=== PATIENT | female | born 1955 | race Caucasian/White ===

== ENCOUNTER 2016-10-19 14:18 | Observation (INO) | payer BC, OTHER ==
[~2016-10-19] VITALS: Ht 157.5 cm; Wt 82.8 kg
[~2016-10-19 14:18] MED LIST: ALBU1.257 INH; ASPEC81 PO; GLIP-171 PO; INSU1.2I SQ; LISI5TAB3 PO; NVLGI SC; PRLSR20 PO; PRVC40 PO; TPRSR25 PO
[2016-10-19] MEDS ORDERED: ASPI81TA28 PO (15:08)
[2016-10-19] MEDS ORDERED: NVLGI/PEN SC (15:08)
[2016-10-19] MEDS ORDERED: LISI-729 PO (15:08)
[2016-10-19] MEDS ORDERED: PRLSR20 PO (15:08)
--- NOTE | 2016-10-19 15:11 | EMERGENCY ROOM VISIT NOTE ---
History Report prepared by Melanie: Anny Levin Under the Supervision of: Dr. Donald Kim D.O. First contact with patient: 14:44 Chief Complaint: CARDIAC ASSESSMENT Stated Complaint: CHEST PAIN Nursing Triage Summary: Patient presents via ALS ambulance to room C9 with c/o chest pain Patient reports that she has been having intermittent chest pain since yesterday. The pain began as left sided to mid sternal. Patient states this morning the pain began at 1000 and has been constant since. Reports pain radiates into left arm and jaw. History of Present Illness The patient is a 61 year old female who presents to the Emergency Room with complaints of intermittent central chest pain that began yesterday while at work. She currently rates her discomfort as a 4/10 in severity. The patient states that yesterday while at work she started feeling strange. She states that the feeling felt as if her blood glucose was low, but states that she found her blood glucose to be 252. The patient states that her pain lasts approximately 1 hour each time it comes. She describes her discomfort as a tightness, pressure, and states that her pain currently is a dull pain. The patient states that the pain radiates into her left jaw. She additionally reports left arm heaviness and left finger numbness. The patient states that she has been experiencing intermittent nausea. She states that her pain radiates from her central chest to her left chest. The patient reports a history of a previous MS three years ago, but states that she didn't have a cardiac catheterization until one year later. She denies having any cardiac stents placed. The patient notes intermittent leg swelling and pain, but denies any recent travel. She denies any shortness of breath or abdominal pain. Source of History: patient Onset: yesterday Position: chest Symptom Intensity: 4/10 Quality: pressure, dull, other (tightness) Timing: intermittent Associated Symptoms: + nausea, + numbness (left finger), No SOB, No abdominal pain Note: Associated symptoms: leg pain and swelling, left arm heaviness, left jaw pain Review of Systems See HPI for pertinent positives & negatives. A total of 10 systems reviewed and were otherwise negative. Past Medical & Surgical Medical Problems: (1) Allergic rhinitis (2) Flores esophagus (3) Chest pain (4) Coronary atherosclerosis (5) Diab Arabella Wo Compl, Type Ii Or Unspec Type, Not Uncntrld (6) GERD (gastroesophageal reflux disease) (7) Hepatomegaly (8) Hyperlipidemia Nec/Nos (9) Hypertension Nos (10) Migraine Unspecified W/O Intract Mgrn W/O Status Migrainosus (11) NAFLD (nonalcoholic fatty liver disease) (12) Pulmonary nodule (13) Sensorineural hearing loss Surgical Problems: (1) History of hysterectomy (2) S/P cholecystectomy Family History FHx: heart disease (father) FHx: thyroid disorder (mother) Social History Smoking Status: Former Smoker Alcohol Use: none Drug Use: none Marital Status: Occupation Status: employed Current/Historical Medications Scheduled Aspirin (Aspirin Ec), 81 MG PO DAILY Calcium-Magnesium W/ Vitamin D (Calcium 500), 1 TAB PO DAILY Ergocalciferol (Vitamin D 14839 Unit), 1 CAP PO WK Glipizide Xl (Glucotrol Xl), 10 MG PO QAM Glipizide Xl (Glucotrol Xl), 5 MG PO QPM Insulin Aspart (Novolog Flexpen), UNITS SC WM Insulin Glargine (Toujeo Solostar), 62 UNITS SQ HS Lisinopril (Prinivil), 5 MG PO DAILY Metoprolol Succinate (Metoprolol Succinate ER), 12.5 MG PO QAM Omeprazole (Prilosec), 20 MG PO BID Pravastatin Sod (Pravastatin Sodium), 40 MG PO DAILY Scheduled PRN Albuterol Sulfate (Albuterol Sulfate), 1 VIAL NEB Q6 PRN for SOB/Wheezing Albuterol Sulfate (Proair Respiclick), 2 PUFFS INH QID PRN for SOB/Wheezing Allergies Coded Allergies: Quinolones (Verified Allergy, Intermediate, NAUSEA, ITCH, RASH, 03/13/16) Codeine (Verified Allergy, Unknown, CAN TAKE MORPHINE, 03/13/16) Sulfa Antibiotics (Verified Allergy, Unknown, ?, 03/13/16) Exenatide (Verified Adverse Reaction, Mild, Nausea/vomiting., 03/13/16) Nitrofurantoin (Verified Adverse Reaction, Mild, Nausea/vomiting, 03/13/16 ) Polyethylene Glycol (Verified Adverse Reaction, Mild, Nausea/vomiting, ) Metformin and Related (Verified Adverse Reaction, Unknown, Nausea/Vomiting , 03/13/16) Physical Exam Vital Signs Date Time Temp Pulse Resp B/P (MAP) Pulse Ox O2 Delivery O2 Flow Rate FiO2 10/19/16 16:10 80 16 141/90 98 Room Air 10/19/16 15:00 86 20 141/77 98 Room Air 10/19/16 14:30 96 Room Air 10/19/16 14:30 37.1 97 18 155/77 96 Room Air 10/19/16 14:25 96 Room Air 10/19/16 14:25 102 Physical Exam GENERAL: Patient is awake, alert, and in no acute distress. Patient is resting comfortably and showing no signs of anxiety EYES: The conjunctivae are clear. The pupils are round and reactive. EARS, NOSE, MOUTH AND THROAT: The nose is without any evidence of any deformity. Mucous membranes are moist tongue is midline NECK: The neck is nontender and supple. RESPIRATORY: Normal respiratory effort is noted there is no evidence of wheezing rhonchi or rales CARDIOVASCULAR: Regular rate and rhythm noted there no murmurs rubs or gallops normal S1 normal S2 GASTROINTESTINAL: The abdomen is soft. Bowel sounds are present in all quadrants. Abdomen is nontender MUSCULOSKELETAL/EXTREMITIES: There is no evidence of gross deformity full range of motion is noted in the hips and shoulders SKIN: There is no obvious evidence of any rash. There are no petechiae, pallor or cyanosis noted. NEUROLOGIC: Patient is awake alert and oriented x3. Medical Decision & Procedures ER Provider Diagnostic Interpretation: X-ray results as stated below per interpretation by me and the radiologist. CHEST ONE VIEW PORTABLE CLINICAL HISTORY: 61 years-old Female presenting with CHEST PAIN. TECHNIQUE: Portable upright AP view of the chest was obtained. COMPARISON: 03/13/2016. FINDINGS: Atherosclerosis of aortic arch. Cardiac silhouette within normal limits. Lungs and pleural spaces clear. Osseous structures and upper abdomen normal. IMPRESSION: 1. No acute cardiopulmonary disease. Electronically signed by: Cezar Harris M.D. 10/19/2016 3:09 PM Dictated Date/Time: 10/19/2016 3:08 PM Laboratory Results 10/19/16 14:15 Red Blood Count 4.42, Mean Corpuscular Volume 86.4, Mean Corpuscular Hemoglobin 31.2, Mean Corpuscular Hemoglobin Concent 36.1, Mean Platelet Volume 9.8, Neutrophils (%) (Auto) 64.4, Lymphocytes (%) (Auto) 26.8, Monocytes (%) (Auto) 7.2, Eosinophils (%) (Auto) 1.2, Basophils (%) (Auto) 0.2, Neutrophils # (Auto) 3.14, Lymphocytes # (Auto) 1.31, Monocytes # (Auto) 0.35, Eosinophils # (Auto) 0.06, Basophils # (Auto) 0.01 10/19/16 14:15 Test 10/19/16 14:15 10/19/16 14:30 10/19/16 16:52 White Blood Count 4.88 K/uL (4.8-10.8) Red Blood Count 4.42 M/uL (4.2-5.4) Hemoglobin 13.8 g/dL (12.0-16.0) Hematocrit 38.2 % (37-47) Mean Corpuscular Volume 86.4 fL (80-100) Mean Corpuscular Hemoglobin 31.2 pg (25-34) Mean Corpuscular Hemoglobin Concent 36.1 g/dl (32-36) Platelet Count 96 K/uL (130-400) Mean Platelet Volume 9.8 fL (7.4-10.4) Neutrophils (%) (Auto) 64.4 % Lymphocytes (%) (Auto) 26.8 % Monocytes (%) (Auto) 7.2 % Eosinophils (%) (Auto) 1.2 % Basophils (%) (Auto) 0.2 % Neutrophils # (Auto) 3.14 K/uL (1.4-6.5) Lymphocytes # (Auto) 1.31 K/uL (1.2-3.4) Monocytes # (Auto) 0.35 K/uL (0.11-0.59) Eosinophils # (Auto) 0.06 K/uL (0-0.5) Basophils # (Auto) 0.01 K/uL (0-0.2) RDW Standard Deviation 44.7 fL (36.4-46.3) RDW Coefficient of Variation 14.4 % (11.5-14.5) Immature Granulocyte % (Auto) 0.2 % Immature Granulocyte # (Auto) 0.01 K/uL (0.00-0.02) Platelet Estimate DECREASED Prothrombin Time 11.0 SECONDS (9.0-12.0) Prothromb Time International Ratio 1.0 (0.9-1.1) Activated Partial Thromboplast Time 25.1 SECONDS (21.0-31.0) Partial Thromboplastin Ratio 1.0 Anion Gap 8.0 mmol/L (3-11) Est Creatinine Clear Calc Drug Dose 102.9 ml/min Estimated GFR () 115.3 Estimated GFR (Non- 99.5 BUN/Creatinine Ratio 27.8 (10-20) Calcium Level 9.0 mg/dl (8.5-10.1) Total Bilirubin 1.0 mg/dl (0.2-1) Direct Bilirubin 0.3 mg/dl (0-0.2) Aspartate Amino Transf (AST/SGOT) 23 U/L (15-37) Alanine Aminotransferase (ALT/SGPT) 31 U/L (12-78) Alkaline Phosphatase 81 U/L (45-117) Total Creatine Kinase 76 U/L (26-192) Creatine Kinase MB 1.2 ng/ml (0.5-3.6) Creatine Kinase MB Ratio 1.6 (0-3.0) Total Protein 6.7 gm/dl (6.4-8.2) Albumin 3.8 gm/dl (3.4-5.0) Lipase 119 U/L (73-393) Bedside Troponin I < 0.030 ng/ml (0-0.045) Laboratory results per my review. Medications Administered Medications (Trade) Dose Ordered Sig/Cliff Route Start Time Stop Time Status Last Admin Dose Admin Ondansetron HCl (Zofran Inj) 4 mg NOW STAT IV 10/19/16 15:58 10/19/16 15:59 DC 10/19/16 16:10 4 MG Al Hydroxide/Mg Hydroxide (Maalox Susp) 30 ml NOW STAT PO 10/19/16 15:58 10/19/16 15:59 DC 10/19/16 16:10 30 ML ECG Indication: chest pain Rate (beats per minute): 98 Rhythm: normal sinus Findings: ST depression (Anterior and lateral), other (LVH by voltage criteria) Comparison ECG Date: 03/13/16 Change: When compared to EKG done on 03/13/16, changes are new. Repeat EKG: normal sinus rhythm 87, no ectopy, resolution of previous ST depressions. ED Course 1447: The patient was evaluated in room C9. A complete history and physical examination were performed. 1555: I reevaluated the patient and she is resting comfortably. I discussed the exam findings with her and I discussed the treatment plan. She verbalized complete understanding and agreement. We are awaiting a call back from Cardiology. 1558: Ordered Maalox Susp 30 ml PO, Zofran Inj 4 mg IV. 1614: I discussed the patients case with Dr. Edwards, Cardiology. He states that he will stress the patient in the morning. 1616: I reevaluated the patient and updated her on the treatment plan. She is in agreement with the plan. She will be evaluated for further treatment. 1622: I discussed the patients case with Willie Romo. She is going to evaluate the patient for further treatment. Medical Decision Differential diagnosis: Etiologies such as cardiac ischemia, aortic dissection, pulmonary embolism, pneumonia, pneumothorax, musculoskeletal, infections, pericarditis, myocarditis , esophageal rupture, gastrointestinal, as well as others were entertained. Nursing notes reviewed. The patient is a 61-year-old female who presented to the emergency department for an evaluation of chest discomfort. The patient describes chest pain which she describes as a pressure as well as nausea. The patient's EKG initially showed ST abnormalities which appeared to be in the anterior leads. The patient had a repeat EKG which showed some improvement of the ST segment abnormalities. I discussed the patient's laboratory and radiographic studies with her. I also discussed the limitations of the emergency department workup for chest pain with her. I discussed her recent cardiac catheterization with the on-call [facility] waxed bag machine operator. Given the patient's risk factors and EKG changes she may be still at risk for an acute coronary syndrome. For this reason I discussed her case with the on-call [facility] hospitalist. They've agreed to evaluate the patient in emergency department for further management and disposition. The patient was treated with aspirin prior to arrival. She was also given Zofran in the emergency department. Medication Reconcilliation Current Medication List: was personally reviewed by me Blood Pressure Screening Patient's blood pressure: Elevated blood pressure Blood pressure disposition: Elevated BP felt to be situational, Did not require urgent referral Consults Time Called: 1555 Consulting Physician: Dr. Edwards Returned Call: 1614 I discussed the patients case with Dr. Edwards, Cardiology. He states that he will stress the patient in the morning. Additional Consults: Time Called: 161 Consulted Physician: Willie Romo Returned Call: 1622 Additional Comments: I discussed the patients case with Willie Romo. She is going to evaluate the patient for further treatment. Impression Primary Impression: Precordial chest pain Additional Impression: EKG abnormalities Scribe Attestation The scribe's documentation has been prepared under my direction and personally reviewed by me in its entirety. I confirm that the note above accurately reflects all work, treatment, procedures, and medical decision making performed by me. Departure Information Dispostion Being Evaluated By Hospitalist Referrals (PCP) Problem Qualifiers
[2016-10-19 15:24] LABS: BUN/CREATININE RATIO 27.8 (10-20); CKMB/CK RATIO 1.6 (0-3.0); CREATININE 0.58 mg/dl (0.60-1.20)
[2016-10-19 15:25] LABS: HEMATOCRIT 38.2 % (37-47); MEAN CELL VOLUME 86.4 fL (80-100); MEAN CORPUSCULAR HEMOGLOBIN 31.2 pg (25-34); MEAN CORPUSCULAR HGB CONC 36.1 g/dl (32-36); MEAN PLATELET VOLUME 9.8 fL (7.4-10.4); PLATELET COUNT 96 K/uL (130-400); RED BLOOD COUNT 4.42 M/uL (4.2-5.4); WHITE BLOOD COUNT 4.88 K/uL (4.8-10.8)
[2016-10-19 15:26] LABS: BASO % 0.2 %; BASO ABS # 0.01 K/uL (0-0.2); COMPLETE YES; EOS % 1.2 %; IG% 0.2 %; LYMPH % 26.8 %; LYMPH ABS # 1.31 K/uL (1.2-3.4); MONO % 7.2 %; NEUT % 64.4 %; PLT ESTIMATE DECREASED
[2016-10-19 15:29] LABS: POTASSIUM 3.6 mmol/L (3.5-5.1)
[2016-10-19] MEDS ORDERED: ALUMINUM/MAGNESIUM SUSP 30 ML UDC PO STA (15:58)
[2016-10-19] MEDS ORDERED: ONDANSETRON INJ 2 MG/ML 2 ML VIAL IV STA (15:58)
[2016-10-19] MEDS ORDERED: ALBU18002 INH (17:00)
[2016-10-19] MEDS ORDERED: ACETAMINOPHEN 325 MG TAB PO PRN (17:00)
[2016-10-19] MEDS ORDERED: NITROGLYCERIN 0.4 MG SL PER TAB CHARGE SL PRN (17:00)
[2016-10-19] MEDS ORDERED: CALC-5 PO (17:00)
[2016-10-19] MEDS ORDERED: ALBU1.257 NEB (17:00)
[2016-10-19] MEDS ORDERED: ENOXAPARIN 40 MG/0.4 ML SYR SC SCH (17:00)
[2016-10-19] MEDS ORDERED: ONDANSETRON INJ 2 MG/ML 2 ML VIAL IV PRN (17:00)
[2016-10-19] MEDS ORDERED: ERGO500037 PO (17:00)
[2016-10-19] MEDS ORDERED: GLUCOSE 40% GEL 15 GM TUBE PO PRN (17:15)
[2016-10-19] MEDS ORDERED: DEXTROSE 50% 50 ML SYR IV PRN (17:15)
[2016-10-19] MEDS ORDERED: GLUCAGON FOR INJ 1 MG VIAL SQ PRN (17:15)
[2016-10-19] MEDS ORDERED: GLUCOSE 10 TABS/TUBE PO PRN (17:15)
[2016-10-19] MEDS ORDERED: PHARMACY GLYCEMIC MGMT CONSULT PRN (17:19)
--- NOTE | 2016-10-19 17:26 | Pharmacy Progress Note ---
Glycemic Control Intl Consult Date of Service Oct 19, 2016. Scope Glycemic Pharmacist consulted by Lily Phipps on 10/19/2016 for glycemic control and to write orders per [facility] inpatient glycemic control protocol Objective Weight (Kilograms): 84.800 Accuchecks BSG (last 24hrs): Test 10/19/16 14:15 Random Glucose 241 mg/dl (70-99) Laboratory Data (last 24hrs) Test 10/19/16 14:15 Anion Gap 8.0 mmol/L BUN/Creatinine Ratio 27.8 Blood Urea Nitrogen 16 mg/dl Creatinine 0.58 mg/dl Potassium Level 3.6 mmol/L Sodium Level 138 mmol/L White Blood Count 4.88 K/uL Red Blood Count 4.42 M/uL Hemoglobin 13.8 g/dL Hematocrit 38.2 % Mean Corpuscular Volume 86.4 fL Mean Corpuscular Hemoglobin 31.2 pg Mean Corpuscular Hemoglobin Concent 36.1 g/dl Platelet Count 96 K/uL Mean Platelet Volume 9.8 fL Neutrophils (%) (Auto) 64.4 % Lymphocytes (%) (Auto) 26.8 % Monocytes (%) (Auto) 7.2 % Eosinophils (%) (Auto) 1.2 % Basophils (%) (Auto) 0.2 % Neutrophils # (Auto) 3.14 K/uL Lymphocytes # (Auto) 1.31 K/uL Monocytes # (Auto) 0.35 K/uL Eosinophils # (Auto) 0.06 K/uL Basophils # (Auto) 0.01 K/uL Recent Pertinent Medications Outpatient Anti-diabetic Regimen: * Toujeo 62 units SQ qPM and Novolog sliding scale (9 units this morning); Glucotrol XL 10 mg with breakfast and 5 mg with dinner * A1c = 6.7 % 05/06/16 Risk Factors for Insulin Resistance: * Diet: type 2 diabetic diet, possibly NPO after midnight Assessment & Plan ASSESSMENT: * ADA & AACE recommend a goal blood sugar range 140-180 mg/dl for the majority of critically ill & non-critically ill patients. However, more stringent targets may be selected in individual cases. Will utilize more stringent goal of 110-140mg/dl based on patient age & comorbidities. Additionally, tighter glycemic control is warranted for cardiac health. * Ms Saunders is a 61 y/o F admitted 8/2/17 for a cardiac assessment. She has a PMH of GERD with Flores's esophagus, NAFLD, and coronary atherosclerosis. She has a basal heavy insulin regimen at home which demonstrates a moderate amount of insulin resistance. * Due to the transition from Toujeo to Lantus, will reduce first dose of Lantus by 20%. Since patient is possible NPO, will utilize a further reduction of 40% to 40 units for Lantus. Based on a total daily insulin dose of approximately 85 units (62 units of basal and estimating 27 units of bolus), prandial novolog was determined. * Pt is maintained on oral antidiabetic agents as an outpatient * Oral agents are not recommended for inpatient use d/t drug interactions, changing PO intake, and difficulty titrating for acute hyper/hypoglycemia. ADA recommends re-initiating outpatient oral agents 1-2 days prior to discharge if/ when appropriate if they were held on admission. PLAN FOR INPATIENT GLYCEMIC CONTROL: * Holding outpatient oral diabetes medications * Basal insulin with LANTUS 40-50 units SQ HS (40 units if NPO and 50 units if tolerating diet) * Correctional Insulin with NOVOLOG per scale ACHS * Goal Range: Low 110 mg/dL - High 140 mg/dL * Correction Factor: 20 mg/dL/unit * Nutritional / Prandial insulin per carb ratio of 1 unit per 6 grams CHO consumed * Please note that the plan above was derived based on current level of insulin resistance and hospital stress. These recommendations are appropriate for inpatient admission only. Plan of care upon discharge will need to be reassessed to avoid potential outpatient hypo/hyperglycemia. Thank you.
[2016-10-19] MEDS: INSULIN ASPART 100 UNITS/ML 3 ML PEN SC SCH ×2 (18:00→22:39)
--- NOTE | 2016-10-19 18:15 | History and Physical ---
History & Physical Date & Time of Service: Oct 19, 2016 ~ 16:30 Chief Complaint: Chest Pain Primary Care Physician: Ginger Can M.D. History of Present Illness 61 year old female who presents to the ER with chest pain. Patient reports her chest pain began yesterday. She reports a few episodes since that time. She reports the pain beings substernally and radiates out to the left side of her chest. She also reports radiation of the pain into the left side of her neck and jaw and down the left arm with associated numbness. She describes the pain as a tightness. She rates it #7/10 at its worst. She also has associated lightheadedness, diaphoresis, and nausea. She reports the episodes typically last one hour and resolve on their own. This morning symptoms were more persistent so she called EMS. No specific causative factors. En route, patient received full dose ASA and nitro SL. She reports the nitro relieved the pain but did not resolve it. She report she other varghese has been feeling well recently. She reports tolerating her ADLs at baseline. She reports occasional lower extremity edema. She denies orthopnea. She denies abdominal pain, vomiting , or diarrhea. No fever or chills. She denies urinary symptoms. In the ER, patient's initial troponin is negative and EKG does not show any acute ST changes. Vitals are stable. Past Medical/Surgical History Medical Problems: (1) Reyes esophagus Status: Chronic (2) DM type 2 (diabetes mellitus, type 2) Status: Chronic (3) HLD (hyperlipidemia) Status: Chronic (4) HTN (hypertension) Status: Chronic (5) SAM (nonalcoholic steatohepatitis) Status: Chronic (6) Thrombocytopenia Status: Chronic Surgical Problems: (1) History of hysterectomy Status: Chronic (2) Hx of cardiac cath Permanent Comment: 05/2015 - mild CAD Status: Chronic (3) S/P cholecystectomy Status: Chronic Family History FH: myocardial infarction FATHER BROTHER SISTER Social History Smoking Status: Former Smoker Alcohol Use: occasionally Marital Status: Immunizations History of Tetanus Vaccine?: Yes Tetanus Immunization Date: Dec 27, 2004 Multi-Drug Resistant Organisms History of MDRO: No Allergies Coded Allergies: Quinolones (Verified Allergy, Intermediate, NAUSEA, ITCH, RASH, 03/13/16) Codeine (Verified Allergy, Unknown, CAN TAKE MORPHINE, 03/13/16) Sulfa Antibiotics (Verified Allergy, Unknown, ?, 03/13/16) Exenatide (Verified Adverse Reaction, Mild, Nausea/vomiting., 03/13/16) Nitrofurantoin (Verified Adverse Reaction, Mild, Nausea/vomiting, 03/13/16 ) Polyethylene Glycol (Verified Adverse Reaction, Mild, Nausea/vomiting, ) Metformin and Related (Verified Adverse Reaction, Unknown, Nausea/Vomiting , 03/13/16) Home Medications Scheduled Aspirin (Aspirin Ec), 81 MG PO DAILY Calcium-Magnesium W/ Vitamin D (Calcium 500), 1 TAB PO DAILY Ergocalciferol (Vitamin D 78492 Unit), 1 CAP PO WK Glipizide Xl (Glucotrol Xl), 10 MG PO QAM Glipizide Xl (Glucotrol Xl), 5 MG PO QPM Insulin Aspart (Novolog Flexpen), UNITS SC WM Insulin Glargine (Toujeo Solostar), 62 UNITS SQ HS Lisinopril (Prinivil), 5 MG PO DAILY Metoprolol Succinate (Metoprolol Succinate ER), 12.5 MG PO QAM Omeprazole (Prilosec), 20 MG PO BID Pravastatin Sod (Pravastatin Sodium), 40 MG PO DAILY Scheduled PRN Albuterol Sulfate (Albuterol Sulfate), 1 VIAL NEB Q6 PRN for SOB/Wheezing Albuterol Sulfate (Proair Respiclick), 2 PUFFS INH QID PRN for SOB/Wheezing Review of Systems ROS per HPI, all other systems reviewed and negative Physical Exam Vital Signs Date Time Temp Pulse Resp B/P (MAP) Pulse Ox O2 Delivery O2 Flow Rate FiO2 10/19/16 17:42 81 16 137/74 96 Room Air 10/19/16 16:10 80 16 141/90 98 Room Air 10/19/16 15:00 86 20 141/77 98 Room Air 10/19/16 14:30 96 Room Air 10/19/16 14:30 37.1 97 18 155/77 96 Room Air 10/19/16 14:25 96 Room Air 10/19/16 14:25 102 General Appearance: no apparent distress Head: normocephalic Eyes: normal inspection ENT: hearing grossly normal Neck: supple, no JVD Respiratory/Chest: chest non-tender, lungs clear, normal breath sounds, no respiratory distress Cardiovascular: regular rate, rhythm, no edema Abdomen/GI: normal bowel sounds, soft, + tenderness (epigastric - patient reports as chronic) Extremities/Musculoskelatal: normal inspection, + calf tenderness (BL - patient reports as chronic ) Neurologic/Psych: no motor/sensory deficits, alert, normal mood/affect, oriented x 3 Skin: normal color, warm/dry Diagnostics Laboratory Results Results Past 24 Hours Test 10/19/16 14:15 10/19/16 14:30 10/19/16 17:15 Range/Units White Blood Count 4.88 4.8-10.8 K/uL Red Blood Count 4.42 4.2-5.4 M/uL Hemoglobin 13.8 12.0-16.0 g/dL Hematocrit 38.2 37-47 % Mean Corpuscular Volume 86.4 80-100 fL Mean Corpuscular Hemoglobin 31.2 25-34 pg Mean Corpuscular Hemoglobin Concent 36.1 32-36 g/dl Platelet Count 96 130-400 K/uL Mean Platelet Volume 9.8 7.4-10.4 fL Neutrophils (%) (Auto) 64.4 % Lymphocytes (%) (Auto) 26.8 % Monocytes (%) (Auto) 7.2 % Eosinophils (%) (Auto) 1.2 % Basophils (%) (Auto) 0.2 % Neutrophils # (Auto) 3.14 1.4-6.5 K/uL Lymphocytes # (Auto) 1.31 1.2-3.4 K/uL Monocytes # (Auto) 0.35 0.11-0.59 K/uL Eosinophils # (Auto) 0.06 0-0.5 K/uL Basophils # (Auto) 0.01 0-0.2 K/uL RDW Standard Deviation 44.7 36.4-46.3 fL RDW Coefficient of Variation 14.4 11.5-14.5 % Immature Granulocyte % (Auto) 0.2 % Immature Granulocyte # (Auto) 0.01 0.00-0.02 K/uL Platelet Estimate DECREASED Prothrombin Time 11.0 9.0-12.0 SECONDS Prothromb Time International Ratio 1.0 0.9-1.1 Activated Partial Thromboplast Time 25.1 21.0-31.0 SECONDS Partial Thromboplastin Ratio 1.0 Sodium Level 138 136-145 mmol/L Potassium Level 3.6 3.5-5.1 mmol/L Chloride Level 103 98-107 mmol/L Carbon Dioxide Level 27 21-32 mmol/L Anion Gap 8.0 3-11 mmol/L Blood Urea Nitrogen 16 7-18 mg/dl Creatinine 0.58 0.60-1.20 mg/dl Est Creatinine Clear Calc Drug Dose 102.9 ml/min Estimated GFR () 115.3 Estimated GFR (Non- 99.5 BUN/Creatinine Ratio 27.8 10-20 Random Glucose 241 70-99 mg/dl Calcium Level 9.0 8.5-10.1 mg/dl Total Bilirubin 1.0 0.2-1 mg/dl Direct Bilirubin 0.3 0-0.2 mg/dl Aspartate Amino Transf (AST/SGOT) 23 15-37 U/L Alanine Aminotransferase (ALT/SGPT) 31 12-78 U/L Alkaline Phosphatase 81 45-117 U/L Total Creatine Kinase 76 26-192 U/L Creatine Kinase MB 1.2 0.5-3.6 ng/ml Creatine Kinase MB Ratio 1.6 0-3.0 Total Protein 6.7 6.4-8.2 gm/dl Albumin 3.8 3.4-5.0 gm/dl Lipase 119 73-393 U/L Bedside Troponin I < 0.030 0-0.045 ng/ml D-Dimer 230 0-500 ug/L FEU Diagnostic Radiology CXR IMPRESSION: 1. No acute cardiopulmonary disease. Impression Assessment and Plan CHEST PAIN, R/O ACS - admit to tele - patient presenting with intermittent substernal chest tightness radiating to the left chest, jaw, and arm with associated lightheadedness, nausea, and diaphoresis - risk factors: HTN, HLD, DM, + family history, obesity, known mild CAD on prior cath (05/2015) - initial troponin negative, EKG without acute ST changes - D. Dimer negative - s/p full dose ASA, will continue with 81mg daily - continue beta lenka and statin; check lipid panel in AM - PRN nitro and EKG with chest pain - case discussed with Dr. Edwards - if troponins remain negative, dobutamine stress in AM - hx of Reyes's esophagus - ? if this is contributing to symptoms HTN - BP controlled, continue Lisinopril and metoprolol DM - hgb a1c 6.7 04/2016 - on Toujeo, NovoLog SSI, and glipizide at home - hold oral agents and utilize basal / SSI while hospitalized - pharmacy consult for glycemic management SAM, THROMBOCYTOPENIA - stable, platelets at baseline REYES'S ESOPHAGUS - continue PPI DVT PROPHYLAXIS - SCDs due to thrombocytopenia DISPO - The patient will be placed as observation status for now until further work up is complete. Attending addendum: Agree with the above H&P; please refer to above for more detail. Patient presents to the ER for complaints of chest pain that actually began 2 days ago and was intermittent, but became more severe today. She reports pain radiating to her jaw and left arm, as well as associated SOB, diaphoresis, palpitations, dizziness, and nausea. She states the pain improved to a 3-4 out of 10 after receiving NTG in the ambulance, and she continues to have some CP at present. She also reports chronic abdominal pain but states this pain did not feel similar to her GI issues. She also reports chronic calf pain and swelling which has been worked up previously and no cause found. Cardiac: RR, S1 and S2 auscultated Resp: CTA B/L, no wheezes or crackles GI: soft, tender epigastric (patient states it is chronic), + BS, nondistended MSK: trace symmetric LE edema, no calf pain with palpation CHEST PAIN: -rule out ACS -serial CM -observe in telemetry -continue home meds -negative D-dimer -stress test in AM as advised by Cardio VTE Prophylaxis VTE Risk Assessment Done? Y/N: Yes Risk Level: Moderate
[2016-10-19] MEDS: TRAMADOL HCL 50 MG TAB PO PRN (18:16)
[2016-10-19 18:52] VITALS: BP 162/79; PULSE 72; TEMP 36.6; O2SAT 95; Ht 157.5 cm; Wt 82.8 kg
[2016-10-19] MEDS ORDERED: IV FLUIDS COMPLETED PRN (19:00)
[2016-10-19 19:34] VITALS: BP 144/77; PULSE 68; TEMP 36.5; O2SAT 96
[2016-10-19] MEDS ORDERED: PRAVASTATIN SOD 40 MG TAB PO SCH (21:00)
[2016-10-19] MEDS ORDERED: INSULIN GLARGINE SOLOSTAR 100 UNITS/ML 3 ML PEN SC SCH ×2 (21:00)
[2016-10-19 23:04] VITALS: BP 152/80; PULSE 16; PULSE 76
[2016-10-19] MEDS ORDERED: KETOROLAC TROMETHAMINE 30 MG/ML VIAL IV STA (23:06)
[2016-10-19] MEDS ORDERED: KETOROLAC TROMETHAMINE 30 MG/ML VIAL ONE (23:09)
[2016-10-20] VITALS (9 sets, daily range): BP systolic 132–160; BP diastolic 80–89; PULSE 63–74; TEMP 36.5–36.7; O2SAT 93–97
[2016-10-20] MEDS ORDERED: KETOROLAC TROMETHAMINE 15 MG/ML VIAL IV. STA (04:54)
[2016-10-20 05:19] LABS: HEMATOCRIT 34.6 % (37-47); MEAN CELL VOLUME 86.9 fL (80-100); MEAN CORPUSCULAR HEMOGLOBIN 29.4 pg (25-34); MEAN CORPUSCULAR HGB CONC 33.8 g/dl (32-36); RED BLOOD COUNT 3.98 M/uL (4.2-5.4); WHITE BLOOD COUNT 3.57 K/uL (4.8-10.8)
[2016-10-20 05:30] LABS: MEAN PLATELET VOLUME 9.8 fL (7.4-10.4); PLATELET COUNT 79 K/uL (130-400)
[2016-10-20 05:53] LABS: BLOOD UREA NITROGEN 20 mg/dl (7-18); BUN/CREATININE RATIO 35.2 (10-20); CALCIUM 8.6 mg/dl (8.5-10.1); CARBON DIOXIDE 30 mmol/L (21-32); CHLORIDE 104 mmol/L (98-107); CREATININE 0.56 mg/dl (0.60-1.20); GLUCOSE 142 mg/dl (70-99); POTASSIUM 3.6 mmol/L (3.5-5.1); SODIUM 139 mmol/L (136-145)
[2016-10-20 05:58] LABS: CHOLESTEROL 101 mg/dl (0-200); CHOLESTEROL/HDL RATIO 3.3; HDL CHOLESTEROL 31 mg/dl; LDL CHOLESTEROL CALCULATED 30 mg/dl; TRIGLYCERIDES 200 mg/dl (0-150); VERY LOW DENSITY LIPOPROT CALC 40 mg/dl
[2016-10-20 06:48] LABS: ESTIMATED AVERAGE GLUCOSE 148 mg/dl; HA1C FLAG Normal (Normal)
[2016-10-20] MEDS: INSULIN ASPART 100 UNITS/ML 3 ML PEN SC SCH ×2 (07:00→11:00)
[2016-10-20] MEDS ORDERED: PANTOprazole SOD 40 MG TAB PO SCH (09:00)
[2016-10-20] MEDS ORDERED: LISINOPRIL 5 MG TAB PO SCH (09:00)
[2016-10-20] MEDS ORDERED: METOPROLOL SUCC 25MG EXT REL TAB PO SCH (09:00)
[2016-10-20] MEDS ORDERED: ASPIRIN 81 MG ECTAB PO SCH (09:00)
[2016-10-20] MEDS: TRAMADOL HCL 50 MG TAB PO PRN (09:15)
--- NOTE | 2016-10-20 10:09 | Progress Note ---
Internal Med Progress Note Date of Service: Oct 20, 2016. Provider Documentation: SUBJECTIVE: Had stress test this morning Reports chest pain completely resolved. Denies SOB, diaphoresis. No new complaints. Family at bedside. OBJECTIVE: Vital Signs-as noted below Physical Exam: General Appearance:Moderately built and nourished, no apparent distress Head: normocephalic, Atraumatic Eyes: normal inspection, EOMI, PERRL Neck: supple, Trachea midline Respiratory/Chest: Normal breath sounds, CTA Cardiovascular: S1, S2, No murmur Abdomen/GI:Soft, Non tender, Bowel sounds present Extremities/Musculoskelatal:normal inspection, no edema Neurologic/Psych:AAOX3, grossly no focal neurological deficits Skin: normal color, warm Lab data as noted below. ASSESSMENT & PLAN: CHEST PAIN, R/O ACS Patient presented with intermittent substernal chest tightness radiating to jaw , and arm with associated lightheadedness, nausea, and diaphoresis Risk factors: HTN, HLD, DM, + family history, obesity, known mild CAD on prior cath (05/2015) Cardiac enzymes: negative EKG without acute ST changes CXR:No acute cardiopulmonary disease D. Dimer negative continue ASA, beta lenka and statin Dobutamine stress: Non Ischemic (Discussed with ) HTN Stable continue Lisinopril and metoprolol DM hgb a1c 6.7 04/2016 on Toujeo, NovoLog SSI, and glipizide at home hold oral agents Continue SSI SAM, THROMBOCYTOPENIA stable platelets at baseline REYES'S ESOPHAGUS continue PPI DVT Px SCDs due to thrombocytopenia DISPOSITION: Plan to discharge home today Follow up with on 10/24/16 at 10:45AM Vital Signs: Date Time Temp Pulse Resp B/P (MAP) Pulse Ox O2 Delivery O2 Flow Rate FiO2 10/20/16 12:00 95 Room Air 10/20/16 11:34 36.5 66 18 160/89 (112) 93 Room Air 10/20/16 08:00 97 Room Air 10/20/16 07:38 36.5 63 20 135/84 (101) 97 Room Air 10/20/16 04:24 36.6 74 18 132/80 (97) 95 Room Air 10/20/16 04:00 95 Room Air 10/20/16 00:08 36.7 69 18 152/80 (104) 96 Room Air 10/20/16 00:01 95 Room Air 10/19/16 23:04 76 152/80 (104) 10/19/16 19:34 36.5 68 20 144/77 (99) 96 Room Air 10/19/16 18:52 36.6 72 16 162/79 95 Room Air 10/19/16 18:37 77 20 124/73 97 10/19/16 17:42 81 16 137/74 96 Room Air 10/19/16 16:10 80 16 141/90 98 Room Air 10/19/16 15:00 86 20 141/77 98 Room Air 10/19/16 14:30 96 Room Air 10/19/16 14:30 37.1 97 18 155/77 96 Room Air 10/19/16 14:25 96 Room Air 10/19/16 14:25 102 Lab Results: Results Past 24 Hours Test 10/19/16 14:15 10/19/16 14:30 10/19/16 17:15 10/19/16 18:18 Range/Units White Blood Count 4.88 4.8-10.8 K/uL Red Blood Count 4.42 4.2-5.4 M/uL Hemoglobin 13.8 12.0-16.0 g/dL Hematocrit 38.2 37-47 % Mean Corpuscular Volume 86.4 80-100 fL Mean Corpuscular Hemoglobin 31.2 25-34 pg Mean Corpuscular Hemoglobin Concent 36.1 32-36 g/dl Platelet Count 96 130-400 K/uL Mean Platelet Volume 9.8 7.4-10.4 fL Neutrophils (%) (Auto) 64.4 % Lymphocytes (%) (Auto) 26.8 % Monocytes (%) (Auto) 7.2 % Eosinophils (%) (Auto) 1.2 % Basophils (%) (Auto) 0.2 % Neutrophils # (Auto) 3.14 1.4-6.5 K/uL Lymphocytes # (Auto) 1.31 1.2-3.4 K/uL Monocytes # (Auto) 0.35 0.11-0.59 K/uL Eosinophils # (Auto) 0.06 0-0.5 K/uL Basophils # (Auto) 0.01 0-0.2 K/uL RDW Standard Deviation 44.7 36.4-46.3 fL RDW Coefficient of Variation 14.4 11.5-14.5 % Immature Granulocyte % (Auto) 0.2 % Immature Granulocyte # (Auto) 0.01 0.00-0.02 K/uL Platelet Estimate DECREASED Prothrombin Time 11.0 9.0-12.0 SECONDS Prothromb Time International Ratio 1.0 0.9-1.1 Activated Partial Thromboplast Time 25.1 21.0-31.0 SECONDS Partial Thromboplastin Ratio 1.0 Sodium Level 138 136-145 mmol/L Potassium Level 3.6 3.5-5.1 mmol/L Chloride Level 103 98-107 mmol/L Carbon Dioxide Level 27 21-32 mmol/L Anion Gap 8.0 3-11 mmol/L Blood Urea Nitrogen 16 7-18 mg/dl Creatinine 0.58 0.60-1.20 mg/dl Est Creatinine Clear Calc Drug Dose 102.9 ml/min Estimated GFR () 115.3 Estimated GFR (Non- 99.5 BUN/Creatinine Ratio 27.8 10-20 Random Glucose 241 70-99 mg/dl Calcium Level 9.0 8.5-10.1 mg/dl Total Bilirubin 1.0 0.2-1 mg/dl Direct Bilirubin 0.3 0-0.2 mg/dl Aspartate Amino Transf (AST/SGOT) 23 15-37 U/L Alanine Aminotransferase (ALT/SGPT) 31 12-78 U/L Alkaline Phosphatase 81 45-117 U/L Total Creatine Kinase 76 26-192 U/L Creatine Kinase MB 1.2 0.5-3.6 ng/ml Creatine Kinase MB Ratio 1.6 0-3.0 Total Protein 6.7 6.4-8.2 gm/dl Albumin 3.8 3.4-5.0 gm/dl Lipase 119 73-393 U/L Bedside Troponin I < 0.030 0-0.045 ng/ml D-Dimer 230 0-500 ug/L FEU Troponin I < 0.015 0-0.045 ng/ml Bedside Glucose 180 70-90 mg/dl Test 10/19/16 20:00 10/19/16 20:09 10/19/16 20:13 10/19/16 23:21 Range/Units Creatine Kinase MB Ratio 0-3.0 Creatine Kinase MB 1.1 0.5-3.6 ng/ml Bedside Glucose 257 70-90 mg/dl Troponin I < 0.015 0-0.045 ng/ml Test 10/20/16 01:42 10/20/16 04:44 10/20/16 06:50 10/20/16 11:27 Range/Units Creatine Kinase MB 1.3 0.5-3.6 ng/ml Creatine Kinase MB Ratio 0-3.0 White Blood Count 3.57 4.8-10.8 K/uL Red Blood Count 3.98 4.2-5.4 M/uL Hemoglobin 11.7 12.0-16.0 g/dL Hematocrit 34.6 37-47 % Mean Corpuscular Volume 86.9 80-100 fL Mean Corpuscular Hemoglobin 29.4 25-34 pg Mean Corpuscular Hemoglobin Concent 33.8 32-36 g/dl RDW Standard Deviation 44.7 36.4-46.3 fL RDW Coefficient of Variation 14.3 11.5-14.5 % Platelet Count 79 130-400 K/uL Mean Platelet Volume 9.8 7.4-10.4 fL Sodium Level 139 136-145 mmol/L Potassium Level 3.6 3.5-5.1 mmol/L Chloride Level 104 98-107 mmol/L Carbon Dioxide Level 30 21-32 mmol/L Anion Gap 5.0 3-11 mmol/L Blood Urea Nitrogen 20 7-18 mg/dl Creatinine 0.56 0.60-1.20 mg/dl Est Creatinine Clear Calc Drug Dose 105.1 ml/min Estimated GFR () 116.6 Estimated GFR (Non- 100.6 BUN/Creatinine Ratio 35.2 10-20 Random Glucose 142 70-99 mg/dl Estimated Average Glucose 148 mg/dl Hemoglobin A1c 6.8 4.5-5.6 % Calcium Level 8.6 8.5-10.1 mg/dl Troponin I < 0.015 0-0.045 ng/ml Triglycerides Level 200 0-150 mg/dl Cholesterol Level 101 0-200 mg/dl HDL Cholesterol 31 mg/dl LDL Cholesterol, Calculated 30 mg/dl VLDL Cholesterol, Calculated 40 mg/dl Cholesterol/HDL Ratio 3.3 Bedside Glucose 139 156 70-90 mg/dl
[2016-10-20] MEDS ORDERED: DOBUTamine HCL 12.5 MG/ML 20 ML VIAL ONE (10:33)
[2016-10-20] MEDS ORDERED: METOPROLOL TARTRATE 1 MG/ML VIAL ONE (10:33)
[2016-10-20] MEDS ORDERED: ATROPINE SULFATE 0.1 MG/ML 5ML SYR ONE (10:33)
[2016-10-20] MEDS ORDERED: PERFLUTREN LIPID MICROSPHERE (DEFINITY) IV ONE (11:17)
--- NOTE | 2016-10-20 14:08 | Pharmacy Progress Note ---
Glycemic Control Progress Note Date of Service Oct 20, 2016. Scope Glycemic Pharmacist consulted for glycemic control to write orders per [facility] inpatient glycemic control protocol. Objective Accuchecks BSG (last 24hrs): Test 10/19/16 14:15 10/19/16 18:18 10/19/16 20:13 10/20/16 04:44 Random Glucose 241 mg/dl (70-99) 142 mg/dl (70-99) Bedside Glucose 180 mg/dl (70-90) 257 mg/dl (70-90) Test 10/20/16 06:50 10/20/16 11:27 Bedside Glucose 139 mg/dl (70-90) 156 mg/dl (70-90) HbA1c: Test 10/20/16 04:44 Hemoglobin A1c 6.8 % (4.5-5.6) H Recent Pertinent Medications The patient is currently receiving: * Basal insulin: Lantus 40 units every HS * Correctional Insulin: Novolog Correction per scale ACHS Goal Range: Low 110 mg/dL - High 140 mg/dL Correction Factor: 20 mg/dL/unit * Prandial insulin: Per carb ratio of 1 unit per 6 grams CHO consumed * Oral Agents: None at this time Outpatient Anti-Diabetic Meds * Toujeo 62 units SQ qPM * Novolog sliding scale (9 units yesterday morning) * Glucotrol XL 10 mg with breakfast and 5 mg with dinner Assessment & Plan ASSESSMENT: * See progress note from 10/19 for more background info, in short: * Pt receiving SQ basal bolus insulin regimen for hyperglycemia secondary to baseline DM (outpatient regimen on hold) * BSGs ranging 142 - 257 mg/dl over the past 24hrs * Changes needed to insulin regimen: * AM Fasting BSG = 139 mg/dl. This is in goal range for patient based on inpatient targets and co-morbidities, but diet has been resumed so will plan to increase to 50 units (based off est outpatient TDD of 85 units and stress level of 2). * Difficult to evaluate post-prandial BSGs since patient has been NPO today. Will plan to continue the same for now. PLAN FOR INPATIENT GLYCEMIC CONTROL: * Increase Lantus to 50 units SQ qHS * Continue correction factor of 20 mg/dl/unit * Continue carb ratio of 1 unit per 6 grams CHO consumed * Continue goal range of Low 110 mg/dL - High 140 mg/dL RECOMMENDATIONS FOR DISCHARGE: * A1c indicates excellent outpatient control. Recommend to resume outpatient regimen on discharge. Will plan to keep Lantus once daily in the evening for easy transition to outpatient Toujeo. Thank you.
--- NOTE | 2016-10-20 14:09 | Discharge Summary ---
Discharge Summary Date of Service Oct 20, 2016. Discharge Summary Admission Date: Oct 19, 2016 at 16:51 Discharge Date: Oct 20, 2016 Discharge Disposition: Home Principal Diagnosis: Chest pain Procedures: CXR: No acute cardiopulmonary disease. Stress test: * Nonischemic dobtuamine stress echocardiogram. * No arrhythmias. * Normal HR and BP response to dobutamine infusion. * At rest, normal LV chamber size with mild concentric LVH. * Normal LV systolic function, EF 55-60%. * No segmental left ventricular wall motion abnormalities are noted. * Grade I diastolic dysfunction. * No significant valvular pathology. * Small, loculated, anterior pericardial effusion wtih stranding to suggest chronicity. No hemodynamic significance. Consultations: None Pending Studies/Follow-Up: Follow up with on 10/24/16 at 10:45AM Seek immediate medical attention if your symptoms reoccur or worsen Medication Reconciliation Continued Medications: Albuterol Sulfate (Albuterol Sulfate) 1.25 Mg/3 Ml Neb 1 VIAL NEB Q6 PRN for SOB/Wheezing for 15 Days, #150 ML Albuterol Sulfate (Proair Respiclick) 108 Mcg/Act Aer 2 PUFFS INH QID PRN for SOB/Wheezing Aspirin (Aspirin Ec) 81 Mg Tab 81 MG PO DAILY Calcium-Magnesium W/ Vitamin D (Calcium 500) 1 Tab Tab 1 TAB PO DAILY Ergocalciferol (Vitamin D 04405 Unit) 50,000 Unit Cap 1 CAP PO WK for 28 Days, #4 CAP 5 Refills Glipizide Xl (Glucotrol Xl) 5 Mg Tab 10 MG PO QAM, TAB Glipizide Xl (Glucotrol Xl) 5 Mg Tab 5 MG PO QPM, TAB Insulin Aspart (Novolog Flexpen) 100 Units/Ml Inj UNITS SC WM per SSI Insulin Glargine (Toujeo Solostar) 300 Unit/Ml Inj 62 UNITS SQ HS, #9 Lisinopril (Prinivil) 5 Mg Tab 5 MG PO DAILY, TAB Metoprolol Succinate (Metoprolol Succinate ER) 25 Mg Tabcr 12.5 MG PO QAM, #30 1 Refill Omeprazole (Prilosec) 20 Mg Capcr 20 MG PO BID, CAP Pravastatin Sod (Pravastatin Sodium) 40 Mg Tab 40 MG PO DAILY, #30 TAB 1 Refill Admission Information HPI (per Admitting provider): 61 year old female who presents to the ER with chest pain. Patient reports her chest pain began yesterday. She reports a few episodes since that time. She reports the pain beings substernally and radiates out to the left side of her chest. She also reports radiation of the pain into the left side of her neck and jaw and down the left arm with associated numbness. She describes the pain as a tightness. She rates it #7/10 at its worst. She also has associated lightheadedness, diaphoresis, and nausea. She reports the episodes typically last one hour and resolve on their own. This morning symptoms were more persistent so she called EMS. No specific causative factors. En route, patient received full dose ASA and nitro SL. She reports the nitro relieved the pain but did not resolve it. She report she other varghese has been feeling well recently. She reports tolerating her ADLs at baseline. She reports occasional lower extremity edema. She denies orthopnea. She denies abdominal pain, vomiting , or diarrhea. No fever or chills. She denies urinary symptoms. In the ER, patient's initial troponin is negative and EKG does not show any acute ST changes. Vitals are stable. Physical Exam (per Admitting): General Appearance: no apparent distress Head: normocephalic Eyes: normal inspection ENT: hearing grossly normal Neck: supple, no JVD Respiratory/Chest: chest non-tender, lungs clear, normal breath sounds, no respiratory distress Cardiovascular: regular rate, rhythm, no edema Abdomen/GI: normal bowel sounds, soft, + tenderness (epigastric - patient reports as chronic) Extremities/Musculoskelatal: normal inspection, + calf tenderness (BL - patient reports as chronic ) Neurologic/Psych: no motor/sensory deficits, alert, normal mood/affect, oriented x 3 Skin: normal color, warm/dry Hospital Course CHEST PAIN, R/O ACS Patient presented with intermittent substernal chest tightness radiating to jaw , and arm with associated lightheadedness, nausea, and diaphoresis Risk factors: HTN, HLD, DM, + family history, obesity, known mild CAD on prior cath (05/2015) Cardiac enzymes: negative EKG without acute ST changes CXR:No acute cardiopulmonary disease D. Dimer negative continue ASA, beta lenka and statin Dobutamine stress: Non Ischemic (Discussed with ) HTN Stable continue Lisinopril and metoprolol DM hgb a1c 6.7 04/2016 on Toujeo, NovoLog SSI, and glipizide at home hold oral agents Continue SSI SAM, THROMBOCYTOPENIA stable platelets at baseline REYES'S ESOPHAGUS continue PPI DVT Px SCDs due to thrombocytopenia DISPOSITION: Plan to discharge home today Follow up with on 10/24/16 at 10:45AM Total time spent on discharge = 33 minutes This includes examination of the patient, discharge planning, medication reconciliation, and communication with other providers. Discharge Instructions Discharge Instructions Date of Service Oct 20, 2016. Admission Reason for Admission: Chest Pain Discharge Discharge Diagnosis / Problem: Chest Pain r/o ACS Discharge Goals Goal(s): Decrease discomfort, Improve function Activity Recommendations Activity Limitations: resume your previous activity Exercise/Sports Limitations: as tolerated . Instructions / Follow-Up Instructions / Follow-Up Follow up with on 10/24/16 at 10:45AM Seek immediate medical attention if your symptoms reoccur or worsen Current Hospital Diet Patient's current hospital diet: AHA Diet (Heart Healthy), Diabetes Type 2 Diet Discharge Diet Recommended Diet: AHA Diet (Heart Healthy), Diabetes Type 2 Diet Pending Studies Studies pending at discharge: no Laboratory Results Hemoglobin A1c Test 10/20/16 04:44 Range/Units Estimated Average Glucose 148 mg/dl Hemoglobin A1c 6.8 H 4.5-5.6 % Lipid Panel Test 10/20/16 04:44 Range/Units Triglycerides Level 200 H 0-150 mg/dl Cholesterol Level 101 0-200 mg/dl HDL Cholesterol 31 mg/dl Cholesterol/HDL Ratio 3.3 LDL Cholesterol, Calculated 30 mg/dl Medical Emergencies . Who to Call and When: Medical Emergencies: If at any time you feel your situation is an emergency, please call 911 immediately. . Non-Emergent Contact Non-Emergency issues call your: Primary Care Provider Call Non-Emergent contact if: you have a fever, your pain is not controlled, your pain is worsening, your pain is unusual for you, you have any medication questions . . "Provider Documentation" section prepared by Cheko Kitchen. . VTE Core Measure Inpt VTE Proph given/why not?: SCD's <Electronically signed by Cheko Kitchen MD> Signed: 10/20/16 [id number] Signed: The status of this report is Signed * If report status is Draft, the document has not been finalized by the responsible provider.
--- NOTE | 2016-10-20 14:37 | DOBUTAMINE ECHO ---
*NOTICE TO RECEIVING CONSTITUTION PARTY AGENCY This information is strictly Confidential and protected under [place] law. [place] law prohibits you from making any further disclosure of this information unless further disclosure is expressly permitted by the written consent of the person to whom it pertains or is authorized by law. A general authorization for the release of medical or other information is not sufficient for this purpose. Hospital accepts no responsibility if the information is made available to any other person, INCLUDING THE PATIENT. Interpretation Summary * Name: CHRISTEL BRADEN Study Date: 10/20/2016 09:29 AM BP: 145/76 mmHg * Patient [facility] HR: 62 * : 1955 (M/d/yyyy) Gender: Female Height: 62 in * Age: 61 yrs Ethnicity: CA Weight: 186 lb * Ordering Physician: Lily Phipps * Referring Physician: Self, Referred * Performed By: Anny Kirkland RDCS * * Reason For Study: CHEST PAIN * BSA: 1.9 m2 * -- Conclusions -- * Nonischemic dobtuamine stress echocardiogram. * No arrhythmias. * Normal HR and BP response to dobutamine infusion. * At rest, normal LV chamber size with mild concentric LVH. * Normal LV systolic function, EF 55-60%. * No segmental left ventricular wall motion abnormalities are noted. * Grade I diastolic dysfunction. * No significant valvular pathology. * Small, loculated, anterior pericardial effusion wtih stranding to suggest chronicity. No hemodynamic significance. Procedure Details * DOBUTAMINE ECHO, CPT#62280 * A contrast injection of Definity was performed to improve assessment of LV function. * Contrast was injected into an intravenous site in the right arm. * One vial of Definity ultrasound contrast was diluted in normal saline to a total volume of 10 ml. A total of '6' ml of solution was administered during imaging. * Lot # [id number] of Definity utilized for procedure. * Expiration date NOV 04. * The attending nurse who injected the contrast agent was DILSHAD ROMERO RN. Left Ventricle * The left ventricle is normal in size. * There is mild concentric left ventricular hypertrophy. * Ejection Fraction = 55-60%. * Left ventricular systolic function is normal. * No segmental left ventricular wall motion abnormalities are noted. * Resting wall motion: Normal. Stress wall motion: Appropriate increase in Left ventricular systolic function and decrease in cavity size. No stress induced segmental wall motion abnormalities. Right Ventricle * The right ventricular cavity size is normal (basal dimension <4.2 cm in right ventricular apical 4-chamber view). * The right ventricular systolic function is normal as assessed by tricuspid annular plane systolic excursion (TAPSE) (normal >1.5 cm). Atria * The left atrial size is normal. * Right atrial size is normal. * No ASD detected; PFO is not assessed. Mitral Valve * The mitral valve is normal in structure and function. Tricuspid Valve * The tricuspid valve is normal in structure and function. Aortic Valve * The aortic valve is normal in structure and function. Pulmonic Valve * The pulmonary valve is not well seen, but the Doppler examination is normal without significant regurgitation or stenosis. Great Vessels * The aortic root is normal size. Pericardium * Small pericardial effusion. * A loculated pericardial effusion is noted. * Pericardial fibrinous strands are noted. Stress Parameters * Normal baseline electrocardiogram. * Stress ECG: No ST changes. No arrhythmias. * No arrhythmia were noted with stress. * The stress portion of this study was personally supervised by the undersigned interpreting physician. * Rest heart rate was '62' BPM. * Rest blood pressure was '145/76' * Maximum heart rate achieved was 160 bpm. * Maximum heart rate was 100 % of maximum age-predicted heart rate. * Maximum blood pressure was '231/101' * Maximum Dobutamine infusion rate was '40' mcg/kg/min. * A total of .5 mg of intravenous Atropine was used to supplement Dobutamine for heart rate response. * Dobutamine infusion was terminated due to achieving target heart rate * A total of 10 mg of IV Metoprolol was administered to reverse Dobutamine-induced tachycardia. Left Ventricular Diastolic Function * Grade I diastolic dysfunction, (abnormal relaxation pattern). MMode 2D Measurements and Calculations IVSd 1.4 cm IVSs 2.2 cm LVIDd 4.5 cm LVIDs 3.2 cm LVPWd 1.6 cm LVPWs 1.6 cm IVS/LVPW 0.92 FS 28.7 % EDV(Teich) 93.2 ml ESV(Teich) 41.6 ml EF(Teich) 55.4 % EDV(cubed) 92.1 ml ESV(cubed) 33.4 ml EF(cubed) 63.8 % % IVS thick 57.3 % % LVPW thick 4.2 % LV mass(C)d 276.0 grams LV mass(C)dI 148.9 grams/m\S\2 LV mass(C)s 270.0 grams LV mass(C)sI 145.7 grams/m\S\2 SV(Teich) 51.7 ml SI(Teich) 27.9 ml/m\S\2 SV(cubed) 58.8 ml SI(cubed) 31.7 ml/m\S\2 Ao root diam 2.9 cm Ao root area 6.5 cm\S\2 LA dimension 3.0 cm LA/Ao 1.0 LVAd ap4 23.9 cm\S\2 LVLd ap4 8.1 cm EDV(MOD-sp4) 60.8 ml EDV(sp4-el) 60.1 ml LVAs ap4 13.2 cm\S\2 LVLs ap4 6.2 cm ESV(MOD-sp4) 25.2 ml ESV(sp4-el) 23.7 ml EF(MOD-sp4) 58.6 % EF(sp4-el) 60.6 % LVAd ap2 23.9 cm\S\2 LVLd ap2 7.4 cm EDV(MOD-sp2) 66.5 ml EDV(sp2-el) 64.9 ml LVAs ap2 14.6 cm\S\2 LVLs ap2 6.4 cm ESV(MOD-sp2) 30.2 ml ESV(sp2-el) 28.2 ml EF(MOD-sp2) 54.6 % EF(sp2-el) 56.6 % LVLd %diff -8.35 % EDV(MOD-bp) 66.6 ml LVLs %diff 3.3 % ESV(MOD-bp) 27.4 ml EF(MOD-bp) 58.9 % SV(MOD-sp4) 35.6 ml SI(MOD-sp4) 19.2 ml/m\S\2 SV(MOD-sp2) 36.4 ml SI(MOD-sp2) 19.6 ml/m\S\2 SV(MOD-bp) 39.2 ml SI(MOD-bp) 21.1 ml/m\S\2 SV(sp4-el) 36.4 ml SI(sp4-el) 19.6 ml/m\S\2 SV(sp2-el) 36.7 ml SI(sp2-el) 19.8 ml/m\S\2 Doppler Measurements and Calculations MV E max melanie 58.2 cm/sec MV A max melanie 67.6 cm/sec MV E/A 0.86 MV dec time 0.29 sec Ao V2 max 102.5 cm/sec Ao max PG 4.2 mmHg Ao max PG (full) 0.19 mmHg LV V1 max PG 4.0 mmHg LV V1 max 100.2 cm/sec
[2016-10-20] MEDS ORDERED: INSULIN GLARGINE SOLOSTAR 100 UNITS/ML 3 ML PEN SC SCH (21:00)
== END 2016-10-20 15:58 | disposition home or self-care (01) ==
LOC: EDBD 14:18 → C.EDC 14:19 → C.2T 16:51 → ENRESERV 18:11
PROVIDERS: ADMIT Internal Medicine; ATTEND Internal Medicine
DX: R07.2 Precordial pain (principal); R94.31 Abnormal electrocardiogram [ECG] [EKG]; I25.10 Atherosclerotic heart disease of native coronary artery without angina pectoris; I10 Essential (primary) hypertension; E78.5 Hyperlipidemia, unspecified; E11.9 Type 2 diabetes mellitus without complications; K22.70 Barrett's esophagus without dysplasia; K21.9 Gastro-esophageal reflux disease without esophagitis; K76.0 Fatty (change of) liver, not elsewhere classified; K75.81 Nonalcoholic steatohepatitis (NASH); D69.59 Other secondary thrombocytopenia; R91.1 Solitary pulmonary nodule; H90.5 Unspecified sensorineural hearing loss; Z87.891 Personal history of nicotine dependence; Z79.82 Long term (current) use of aspirin; Z79.4 Long term (current) use of insulin; Z79.899 Other long term (current) drug therapy

== ENCOUNTER 2018-11-21 23:31 | Observation (INO) ==
--- OUTSIDE RECORDS SUMMARY | 2018-11-21 23:33 | External Medical Summary | Continuity of Care Document ---
:1955 Author Name Terri Ontiveros Address Unavailable Unavailable , Care Team Providers Name Role Phone Lauren Ma [email or web address] PCP, NO Unavailable Unavailable Unavailable Unavailable Unavailable Problems Nausea (787.02) (R11.0) Acute upper respiratory infection (465.9) (J06.9) Allergies and Adverse Reactions Ciprofloxacin HCl TABS (Allergy) Codeine Derivatives (Allergy) Sulfa Drugs (Allergy) Medications Lisinopril 5 MG Oral Tablet; TAKE 1 TABLET IN THE MORN Rama Desir Start: 30-Jun-2010 Quantity: 90 Refills: 0 Lantus 100 UNIT/ML Subcutaneous Solution; INJECT 50 UNIT Bed time Refills: 0 Omeprazole 20 MG Oral Capsule Delayed Release; TAKE 1 CAPSUL E DAILY. Refills: 0 Glucotrol XL 10 MG Oral Tablet Extended Release 24 Hour; LEYDI E 1 TABLET DAILY. Refills: 0 Aspirin 81 MG TABS; TAKE 1 TABLET DAILY. Refills: 0 Procedures History of Diagnostic Esophagogastroduodenoscopy Status: Completed History of Salp-oophorect Bilat W/ Total Omentect, Total Abd Status: Completed Hysterect For Malignancy History of Cholecystectomy Laparoscopic Status: Completed History of Colonoscopy (Fiberoptic) Stat us: Completed Immunizations Immunizations not documented Plan of Treatment Planned Observations Planned Goals not documented Results No Known Results Results not documented
[2018-11-22] MEDS ORDERED: NITROGLYCERIN SL 0.4 MG/TAB TAB SL STA (00:15)
[2018-11-22] MEDS ORDERED: ASPIRIN CHEW 324 MG PO STA (00:15)
[2018-11-22 01:00] LABS: Partial Thromboplastin Ratio 0.9; Partial Thromboplastin Time 23.5 Seconds (21.0-31.0); Prothrombin Time 10.7 Seconds (9.0-12.0)
[2018-11-22 01:07] LABS: Alanine Aminotransferase 25 U/L (12-78); Aspartate Aminotransferase 24 U/L (15-37); BUN Creatinine Ratio 25.2 (10-20); Blood Urea Nitrogen 18 mg/dl (7-18); Calcium 8.9 mg/dl (8.5-10.1); Carbon Dioxide 26 mmol/L (21-32); Chloride 105 mmol/L (98-107); Creatinine Clr Calc Pharmacy 80.6 ml/min; Est GFR (African American) 103.3; Est GFR (Non-African American) 89.1; Glucose 253 mg/dl (70-99); Potassium 3.7 mmol/L (3.5-5.1); Sodium 139 mmol/L (136-145)
[2018-11-22] MEDS ORDERED: ACETAMINOPHEN 500 MG TAB PO STA (01:22)
[2018-11-22 01:31] LABS: Albumin Globulin Ratio 1.4 (0.9-2); Alkaline Phosphatase 74 U/L (45-117); Bilirubin,Total 0.7 mg/dl (0.2-1); Globulin 2.9 gm/dl (2.5-4.0); Total Protein 6.9 gm/dl (6.4-8.2); Troponin I < 0.015 ng/ml (0-0.045)
[2018-11-22 01:37] LABS: Basophils # (auto) 0.01 K/uL (0-0.2); Basophils % (auto) 0.2 %; Eosinophils # (auto) 0.06 K/uL (0-0.5); Eosinophils % (auto) 1.4 %; Hematocrit (blood only) 34.2 % (37-47); Hemoglobin 12.2 g/dL (12.0-16.0); Immature Granulocytes # (auto) 0.01 K/uL (0.00-0.02); Immature Granulocytes % (auto) 0.2 %; Lymphocytes # (auto) 1.31 K/uL (1.2-3.4); Lymphocytes % (auto) 30.3 %; Mean Corpuscular Hgb Conc 35.7 g/dL (32-36); Mean Corpuscular Volume 86.4 fL (80-100); Mean Platelet Volume 9.8 fL (7.4-10.4); Monocytes # (auto) 0.26 K/uL (0.11-0.59); Neutrophils # (auto) 2.67 K/uL (1.4-6.5); Neutrophils % (auto) 61.9 %; Platelet Count 79 K/uL (130-400); Platelet Estimate Decreased (Normal); Polychromasia 1+; RDW Coefficient of Variation 14.7 % (11.5-14.5); RDW Standard Deviation 45.6 fL (36.4-46.3); Red Blood Count 3.96 M/uL (4.2-5.4); White Blood Count 4.32 K/uL (4.8-10.8)
--- NOTE | 2018-11-22 02:25 | Emergency Department Note ---
History of Present Illness General Chief complaint: Chest Pain Stated complaint: CHEST PAIN,NAUSEA,FEELING ANXIOUS History of Present Illness Maximum Pain Intensity: 3 This 63 yo presents to the ER complaining of chest pain with feeling sweaty and lightheaded Location: Chest Quality: Pressure Severity: Moderate Duration: Past hour Timing: Started an hour ago Context: Symptoms persisted and patient came in Modifying factors: better with nothing; worse with nothing Patient took aspirin just prior to arrival. No prior heart disease. There is a strong family history of heart disease. Patient is high blood pressure cholesterol diabetes. Sugars today were 300. Patient denies dyspnea, abdominal pain, leg pain or swelling IV drug abuse, tobacco use. Home Medications Home Medications Medication Instructions Recorded Confirmed Type aspirin 81 mg PO DAILY 11/22/18 11/22/18 History glipizide 5 mg PO DAILY 11/22/18 11/22/18 History glipizide 10 mg PO QPM 11/22/18 11/22/18 History insulin aspart U-100 [Novolog 0 unit SUBCUT DIRECTED 11/22/18 11/22/18 History Flexpen U-100 Insulin] insulin glargine U-300 conc 62 unit SUBCUT QPM 11/22/18 11/22/18 History [Toujeo SoloStar U-300 Insulin] lisinopril 5 mg PO DAILY 11/22/18 11/22/18 History metoprolol tartrate 12.5 mg PO BID 11/22/18 11/22/18 History omeprazole 20 mg PO BID 11/22/18 11/22/18 History pravastatin 40 mg PO DAILY 11/22/18 11/22/18 History Allergies Allergy/AdvReac Type Severity Reaction Status Date / Time Quinolones Allergy Intermediate NAUSEA, Verified 11/22/18 01:11 ITCH, RASH codeine Allergy Unknown CAN TAKE Verified 11/22/18 01:11 MORPHINE Sulfa (Sulfonamide Allergy Unknown ? Verified 11/22/18 01:11 Antibiotics) exenatide AdvReac Mild Nausea/vomi Verified 11/22/18 01:11 ting. nitrofurantoin AdvReac Mild Nausea/vomi Verified 11/22/18 01:11 ting polyethylene glycol AdvReac Mild Nausea/vomi Verified 11/22/18 01:11 ting metformin AdvReac Unknown Nausea/Vomi Verified 11/22/18 01:11 ting Past Med/Surg History Medical History DM type 2 (diabetes mellitus, type 2) (Chronic) SAM (nonalcoholic steatohepatitis) (Chronic) Thrombocytopenia (Chronic) Flores esophagus (Chronic) HTN (hypertension) (Chronic) HLD (hyperlipidemia) (Chronic) Surgical History S/P cholecystectomy (Chronic) History of hysterectomy (Chronic) Hx of cardiac cath (Chronic) "05/2015 - mild CAD" Social History Feels Safe at Home: Yes Smoking Status: Never smoker Review of Systems All systems reviewed & are unremarkable except as noted in HPI & below Physical Exam Vital Signs Vital Signs - 24 hr 11/21/18 23:35 11/22/18 00:35 11/22/18 00:43 Temperature 36.3 C L Temperature Source Oral Sepsis Recent Fever Within 48 Hours No Sepsis New/Unexplained Change in Mental Status No Sepsis Action Taken by Nursing No Action Required Pulse Rate 73 71 72 Pulse Rate from SpO2 Sensor 70 72 Respiratory Rate 16 18 19 Respiratory Effort / Characteristics Non-Labored Spontaneous Respiratory Depth Normal Blood Pressure 174/78 H 151/77 H Blood Pressure Mean 110 101 Pulse Oximetry 97 94 94 Oxygen Delivery Method Room Air Room Air Oxygen Flow Rate 95 11/22/18 01:00 11/22/18 01:01 11/22/18 01:30 Temperature Temperature Source Sepsis Recent Fever Within 48 Hours Sepsis New/Unexplained Change in Mental Status Sepsis Action Taken by Nursing Pulse Rate 69 71 68 Pulse Rate from SpO2 Sensor 68 72 Respiratory Rate 19 19 19 Respiratory Effort / Characteristics Respiratory Depth Blood Pressure 152/81 H 157/67 H Blood Pressure Mean 104 97 Pulse Oximetry 95 97 Oxygen Delivery Method Oxygen Flow Rate VITALS: Vitals are noted on the nurse's note and reviewed by myself. Vital sign s reviewed. GENERAL: Pleasant female, in no acute distress, nondiaphoretic, well-developed well-nourished. SKIN: The skin was without rashes, erythema, edema, or bruising. There is no tenting of the skin. Capillary reflex less than 2 seconds. HEAD: Normocephalic atraumatic. EARS: External auditory canals clear . EYES: Pupils equal round and reactive to light and accommodation. Conjunctivae without injection, sclerae without icterus. Extraocular movements intact. NOSE: Patent, turbinates without inflammation or discharge. MOUTH: Mucous membranes moist. Pharynx without erythema or exudate. Uvula midline. Airway patent. Tongue does not deviate. NECK: Supple without nuchal rigidity. No lymphadenopathy. No thyromegaly. Cervical spine is nontender. No JVD. HEART: Regular rate and rhythm chest nontender to palpation LUNGS: Clear to auscultation bilaterally without wheezes, rales or rhonchi. No retractions or accessory muscle use. ABDOMEN: Positive bowel sounds x 4. Normal tympanic percussion. Soft, nontender, without masses or organomegaly. Eden sign negative. No guarding or rebound tenderness. No CVA tenderness MUSCULOSKELETAL: No muscle atrophy, erythema, or edema noted. NEURO: Patient was alert and oriented to person place and time. Normal sensation to light and sharp touch. No focal neurological deficits. Course Administered Medications Discontinued Medications Acetaminophen (Tylenol) 1,000 mg PO NOW STA Stop: 11/22/18 01:23 Last Admin: 11/22/18 01:29 Dose: 1,000 mg Documented by: [id number] Aspirin (Aspirin) 324 mg PO NOW STA Stop: 11/22/18 00:16 Last Admin: 11/22/18 00:39 Dose: Not Given Documented by: [id number] Nitroglycerin (Nitrostat) 0.4 mg SL NOW STA Stop: 11/22/18 00:16 Last Admin: 11/22/18 00:25 Dose: 0.4 mg Documented by: [id number] Medical Decision Making Medical Records Attestation: I reviewed the patient's medical records. Home Medications Current Medication List: was personally reviewed by me Laboratory Data Attestation: I reviewed the patient's lab results. Result diagrams: 11/22/18 00:28 11/22/18 00:28 Lab Results 11/22/18 11/22/18 11/22/18 Range/Units 00:28 00:28 00:28 WBC 4.32 L (4.8-10.8) K/uL RBC 3.96 L (4.2-5.4) M/uL Hgb 12.2 (12.0-16.0) g/dL Hct 34.2 L (37-47) % MCV 86.4 (80-100) fL MCH 30.8 (25-34) pg MCHC 35.7 (32-36) g/dL RDW Std Deviation 45.6 (36.4-46.3) fL RDW Coeff of Meeta 14.7 H (11.5-14.5) % Plt Count 79 L (130-400) K/uL MPV 9.8 (7.4-10.4) fL Immature Gran % (Auto) 0.2 % Neut % (Auto) 61.9 % Lymph % (Auto) 30.3 % [place] % (Auto) 6.0 % Eos % (Auto) 1.4 % Baso % (Auto) 0.2 % Immature Gran # (Auto) 0.01 (0.00-0.02) K/uL Neut # (Auto) 2.67 (1.4-6.5) K/uL Lymph # (Auto) 1.31 (1.2-3.4) K/uL [place] # (Auto) 0.26 (0.11-0.59) K/uL Eos # (Auto) 0.06 (0-0.5) K/uL Baso # (Auto) 0.01 (0-0.2) K/uL Platelet Estimate Decreased L (Normal) Polychromasia 1+ PT 10.7 (9.0-12.0) Seconds INR 1.0 (0.9-1.1) APTT 23.5 (21.0-31.0) Seconds PTT Ratio 0.9 Sodium 139 (136-145) mmol/L Potassium 3.7 (3.5-5.1) mmol/L Chloride 105 (98-107) mmol/L Carbon Dioxide 26 (21-32) mmol/L Anion Gap 8.0 (3-11) BUN 18 (7-18) mg/dl Creatinine 0.72 (0.6-1.2) mg/dl Est Cr Clr Drug Dosing 80.6 ml/min Est GFR ( Amer) 103.3 Est GFR (Non-Af Amer) 89.1 BUN/Creatinine Ratio 25.2 H (10-20) Glucose 253 H (70-99) mg/dl Calcium 8.9 (8.5-10.1) mg/dl Total Bilirubin 0.7 (0.2-1) mg/dl AST 24 (15-37) U/L ALT 25 (12-78) U/L Alkaline Phosphatase 74 (45-117) U/L POC Troponin I (0-0.045) ng/ml Troponin I < 0.015 (0-0.045) ng/ml Total Protein 6.9 (6.4-8.2) gm/dl Albumin 4.0 (3.4-5.0) gm/dl Globulin 2.9 (2.5-4.0) gm/dl Albumin/Globulin Ratio 1.4 (0.9-2) Specimen Hemolysis 11/22/18 Range/Units 00:37 WBC (4.8-10.8) K/uL RBC (4.2-5.4) M/uL Hgb (12.0-16.0) g/dL Hct (37-47) % MCV (80-100) fL MCH (25-34) pg MCHC (32-36) g/dL RDW Std Deviation (36.4-46.3) fL RDW Coeff of Meeta (11.5-14.5) % Plt Count (130-400) K/uL MPV (7.4-10.4) fL Immature Gran % (Auto) % Neut % (Auto) % Lymph % (Auto) % [place] % (Auto) % Eos % (Auto) % Baso % (Auto) % Immature Gran # (Auto) (0.00-0.02) K/uL Neut # (Auto) (1.4-6.5) K/uL Lymph # (Auto) (1.2-3.4) K/uL [place] # (Auto) (0.11-0.59) K/uL Eos # (Auto) (0-0.5) K/uL Baso # (Auto) (0-0.2) K/uL Platelet Estimate (Normal) Polychromasia PT (9.0-12.0) Seconds INR (0.9-1.1) APTT (21.0-31.0) Seconds PTT Ratio Sodium (136-145) mmol/L Potassium (3.5-5.1) mmol/L Chloride (98-107) mmol/L Carbon Dioxide (21-32) mmol/L Anion Gap (3-11) BUN (7-18) mg/dl Creatinine (0.6-1.2) mg/dl Est Cr Clr Drug Dosing ml/min Est GFR ( Amer) Est GFR (Non-Af Amer) BUN/Creatinine Ratio (10-20) Glucose (70-99) mg/dl Calcium (8.5-10.1) mg/dl Total Bilirubin (0.2-1) mg/dl AST (15-37) U/L ALT (12-78) U/L Alkaline Phosphatase (45-117) U/L POC Troponin I < 0.03 (0-0.045) ng/ml Troponin I (0-0.045) ng/ml Total Protein (6.4-8.2) gm/dl Albumin (3.4-5.0) gm/dl Globulin (2.5-4.0) gm/dl Albumin/Globulin Ratio (0.9-2) Specimen Hemolysis Imaging Data Attestation: I personally reviewed and interpreted this imaging study as follows: MDM Narrative Prior records/ancillary studies reviewed. Triage Nursing notes reviewed. Additional history obtained from family. The patient's history was concerning for chest pain. Differential diagnosis: Etiologies such as cardiac ischemia, aortic dissection, pulmonary embolism, pneumonia, pneumothorax, musculoskeletal, infections, pericarditis, myocarditis, esophageal rupture, gastrointestinal, as well as others were entertained. Physical examination: As above. ER treatment provided: Nitroglycerin, Tylenol On reassessment the patient felt better. Diagnostic interpretation by me: The electrocardiogram was minimal S T wave depression in 1 and aVL, normal sinus, normal intervals, EKG compared to prior EKG. Impression normal sinus rhythm with minimal ST depression in lead I and aVL. Interpreted by myself. Ordered for chest pain I think arrhythmia is unlikely. EKG shows normal sinus rhythm with no interval abnormalities such as QT prolongation or WPW. There are no findings to suggest Brugada syndrome. Cardiac monitoring in the emergency department reveals no tachycardic or bradycardic dysrhythmia. Hypertrophic cardiomyopathy was considered but there are no clear historical elements pointing toward this. EKG is not suggestive. The QRS voltage is not extremely large and there are no suggestive Q waves. The labs revealed negative troponin. Hyperglycemia without DKA Imaging studies: Chest x-ray with no acute consolidation, pneumothorax or free air per my interpretation HEART SCORE: Hx: high/mod/low suspicion: 1 ECG: ST depression/nonspecific changes/normal: 1 Age: Greater than 65/45-64/less than 45: 1 Risk factors: (Hypertension, hyperlipidemia, diabetes, coronary disease, tobacco use, cocaine use): 2 Troponin: Greater than 2 times normal limits/1-2 times normal limits/normal: 0 Total: 5 Consultation: A consultation was placed with the hospitalist. The case was discussed and diagnostics were reviewed. The patient was evaluated in the ER for further treatment. Exam and history seem consistent with chest pain with concerns for cardiac in etiology. Patient felt better after nitroglycerin. Repeat EKG is unchanged. Medicine was consulted. She took aspirin just prior to arrival. She has a high heart score. She is agreeable treatment plan of admission. By the evaluation outlined above emergent etiologies such as aortic dissection, pulmonary embolism, pneumonia, pneumothorax, infections, pericarditis, myocarditis, gastrointestinal, as well as others were deemed relatively unlikely. The pt informed about the findings as listed above. All questions were answered and pleased with the treatment. Case reviewed with my attending The chart was completed utilizing [employer] Speech voice recognition software. Grammatical errors, random word insertions, pronoun errors, and incomplete sentences are an occassional consequence of this system due to software limitations, ambient noise, and hardware issues. Any formal questions or concerns about the content, text, or information contained within the body of this dictation should be directly addressed to the physician pharmaceutical assistant for clarification. Impression & Plan Atypical chest pain Discharge Plan Visit Data Chief Complaint: Chest Pain Stated Complaint: CHEST PAIN,NAUSEA,FEELING ANXIOUS ED Provider: Clara Peres ED Midlevel Provider: Antonette Canales Discharge Problem: Atypical chest pain Patient Disposition: Admitted As Inpatient Condition: Good Forms Stand Alone Forms: Call Back Authorization, My [facility] Prescriptions Prescriptions: No Action aspirin 81 mg Tablet,Delayed Release (Dr/Ec) 81 mg PO DAILY RF: 0 glipizide 5 mg Tablet 5 mg PO DAILY RF: 0 glipizide 10 mg Tablet 10 mg PO QPM RF: 0 lisinopril 5 mg Tablet 5 mg PO DAILY RF: 0 Novolog Flexpen U-100 Insulin 100 unit/mL (3 mL) Insulin Pen SUBCUT DIRECTED RF: 0 metoprolol tartrate 25 mg Tablet 12.5 mg PO BID RF: 0 omeprazole 20 mg Capsule,Delayed Release(Dr/Ec) 20 mg PO BID RF: 0 pravastatin 40 mg Tablet 40 mg PO DAILY RF: 0 Tourachel SoloStar U-300 Insulin 300 unit/mL (1.5 mL) Insulin Pen 62 unit SUBCUT QPM RF: 0 Referrals Referrals: Quinten Garcia MD [Primary Care Provider] -
[2018-11-22] MEDS ORDERED: POLYETHYLENE (MIRALAX) 17 GM PACK PO PRN (04:01)
[2018-11-22] MEDS ORDERED: ONDANSETRON INJ 2 MG/ML 2 ML VIAL IV PRN (04:01)
[2018-11-22] MEDS ORDERED: ALUMINUM/MAGNESIUM SUSP 30 ML UDC PO PRN (04:01)
[2018-11-22] MEDS ORDERED: NITROGLYCERIN SL 0.4 MG/TAB TAB SL PRN (04:01)
[2018-11-22] MEDS ORDERED: ACETAMINOPHEN 325 MG TAB PO PRN (04:01)
[2018-11-22] MEDS ORDERED: GLUCOSE 40% GEL 15 GM TUBE PO PRN (04:30)
[2018-11-22] MEDS ORDERED: GLUCAGON FOR INJ 1 MG VIAL SQ PRN (04:30)
[2018-11-22] MEDS ORDERED: GLUCOSE 10 TABS/TUBE PO PRN (04:30)
[2018-11-22] MEDS ORDERED: DEXTROSE 50% 50 ML SYRINGE IV PRN (04:30)
[2018-11-22] MEDS ORDERED: CARBOHYDRATES FOR HYPOGLYCEMIA PO PRN (04:30)
--- NOTE | 2018-11-22 05:23 | History and Physical Report ---
DATE OF ADMISSION: 11/22/2018 CHIEF COMPLAINT: Chest pain. HISTORY OF PRESENT ILLNESS: This is a 63-year-old female with past medical history significant for type 2 diabetes, diabetic retinopathy both eyes, hyperlipidemia, CAD, hypertension, PACs, Flores's esophagus, SAM, GERD, presents with chest pain. The patient lives with her . Around 11:00 p.m., she noticed somebody squeezing her heart, pain radiated to the right shoulder. She thought it will subside, but it did not go away, then she took 3 aspirins, but that did not helped. She was also felt some short of breath, nausea and dizziness. She called EMS and came in. In the ER, she received nitro which relieved her pain. She says her pain is almost gone, but she does not feel back to her baseline. Has some headache and took some Tylenol in the ER. No blurred visions. No earache, no runny nose, no sore throat, no difficulty swallowing. Appetite is okay. No cough, no fever, no chills. Currently, no shortness of breath, no abdominal pain. Normal bowel and bladder movements. No hematuria, no black stools or blood in the stools. No swelling in the legs, no rash. Currently, resting comfortably and hemodynamically stable. PAST MEDICAL HISTORY: As mentioned above. PAST SURGICAL HISTORY: Transcatheter biopsy, cholecystectomy, total abdominal hysterectomy with removal of tubes. MEDICATIONS: The patient is on aspirin 81 mg p.o. daily, Lopressor 25 mg p.o. daily, lisinopril 5 mg p.o. daily, glipizide 10 mg in a.m. and 5 mg p.m., vitamin D 50,000 units p.o. weekly, omeprazole 20 mg p.o. b.i.d., pravastatin 40 mg p.o. daily, calcium 500 mg p.o. daily, NovoLog FlexPen 4 units if sugars were 50 to 150, Toujeo SoloStar 60 units at bedtime, NovoLog sliding scale. FAMILY HISTORY: Significant for: Father had glaucoma and [place]. Mother had thyroid disorder. Sister has heart disorder. Brother has diabetes. Daughter has asthma. SOCIAL HISTORY: , lives with . Former smoker, quit in 1988, smoked 1 pack a day for 10 years. No alcohol use, no drug use. REVIEW OF SYMPTOMS: As per HPI. Rest of review of systems negative. PHYSICAL EXAMINATION: GENERAL: The patient is obese, not in acute distress. VITAL SIGNS: Temperature 36.3, pulse 66, respiratory rate 19, blood pressure 161/82, oxygen 96% on room air. HEENT: No pallor, no icterus. Pupils equal, round, and reactive to light. NECK: No JVD, no neck masses, no carotid bruits. CARDIOVASCULAR: S1, S2 heard, regular rate and rhythm, no murmur, no gallop. RESPIRATORY SYSTEM: Normal AP diameter. No accessory muscle use. No wheezing, no crackles. ABDOMEN: Soft, bowel sounds present, nontender. No distention. CENTRAL NERVOUS SYSTEM: Cranial nerves II-XII grossly intact. Nonfocal. EXTREMITIES: No edema, no erythema. LABORATORY DATA: WBC 4.3, hemoglobin 12.2, hematocrit 34.2, platelets 79. PT 10.7, INR 1, APTT 23.5. Sodium 139, potassium 3.7, chloride 105, bicarbonate 26, BUN 18, creatinine 0.7, serum glucose 253, calcium 8.9, total bilirubin 0.7, AST 24, ALT 25, alkaline phosphatase 74. Troponin I less than 0.015. IMAGING: Chest x-ray: No acute findings seen. EKG: Normal sinus rhythm with rate of 70, no significant change from previous EKG. ASSESSMENT AND PLAN: This is a 63-year-old female who presents with chest pain, rule out acute coronary syndrome, Risk factors of diabetes, hypertension, hyperlipidemia. Initial workup negative thus far. We will observe in tele floor. Serial cardiac enzymes, echocardiogram, dobutamine stress test in 2017 which was unremarkable. We will keep her n.p.o. Consult cardiology for possible stress test in a.m. Monitor in tele floor. 2. History of diabetes. Hold home glipizide, also hold Toujeo SoloStar 62 units at bedtime. We will place her on Lantus 10 units b.i.d. and insulin sliding scale. Follow hemoglobin A1c levels. Follow blood sugar. 3. History of hypertension. Continue Lopressor, lisinopril. We will monitor the blood pressure. 4. History of hyperlipidemia. Continue statin. 5. Gastroesophageal reflux disease. Continue PPI. 6. Deep vein thrombosis prophylaxis. Sequential compression devices. 7. Disposition: Observation in tele floor. Expect to discharge home and follow with the family doctor. Level 1 full code. MTDD
[2018-11-22 05:47] LABS: Estimated Average Glucose 134 mg/dl; Hemoglobin A1C 6.3 % (4.5-5.6)
[2018-11-22 05:52] LABS: Blood Urea Nitrogen 18 mg/dl (7-18); Carbon Dioxide 28 mmol/L (21-32); Chloride 107 mmol/L (98-107); Creatinine Clr Calc Pharmacy 102.9 ml/min; Est GFR (Non-African American) 99.2; Glucose 153 mg/dl (70-99); Magnesium 1.7 mg/dl (1.8-2.4); Potassium 3.7 mmol/L (3.5-5.1); Sodium 141 mmol/L (136-145)
[2018-11-22 05:57] LABS: Troponin I < 0.015 ng/ml (0-0.045)
--- NOTE | 2018-11-22 07:47 | XRay Report ---
SINGLE VIEW CHEST CLINICAL HISTORY: Atypical chest pain. Nausea. FINDINGS: An AP, portable, upright chest radiograph is compared to study dated 10/19/2016. The examinat ion is degraded by portable technique and patient rotation. The heart is top normal for projection, noting mild atherosclerotic calcification of the thoracic aorta. There is mild bibasilar atelectasis . The lungs and pleural spaces are otherwise clear. No pneumothorax is seen. The skeletal structures are osteopenic. The bony thorax is grossly intact. IMPRESSION: No active disease in the chest. Electronically signed by: Zach Ortiz M.D. 11/22/2018 7:46 AM
[2018-11-22] MEDS: INSULIN ASPART 100 UNITS/ML 3 ML PEN SC SCH ×2 (08:38→12:15)
[2018-11-22] MEDS ORDERED: PANTOprazole 40 MG TAB PO SCH (09:00)
[2018-11-22] MEDS ORDERED: INSULIN GLARGINE SOLOSTAR 100 UNITS/ML 3 ML PEN SC SCH (09:00)
[2018-11-22] MEDS ORDERED: PRAVASTATIN SOD 40 MG TAB PO SCH (09:00)
[2018-11-22] MEDS ORDERED: LISINOPRIL 5 MG TAB PO SCH (09:00)
[2018-11-22] MEDS ORDERED: ASPIRIN 81 MG ECTAB PO SCH (09:00)
[2018-11-22] MEDS ORDERED: METOPROLOL TARTRATE 25 MG TAB PO SCH (09:00)
--- NOTE | 2018-11-22 11:41 | Hospitalist Progress Note ---
Date of Service November 22, 2018 Assessment & Plan (1) Atypical chest pain: Admitted with pain chest pain with radiation to right shoulder and associated with shortness of breath So far the EKG and troponins are unremarkable Denies any more chest pain since admission Will have dobutamine stress echo this afternoon (2) HTN (hypertension): Blood pressure is controlled Now at upper limit of normal (3) DM type 2 (diabetes mellitus, type 2): We will hold any metformin Continue with SSRI (4) SAM (nonalcoholic steatohepatitis): No acute symptoms (5) Thrombocytopenia: Secondary to cirrhosis Platelet count is 79 We will hold off any anticoagulation DVT prophylaxis SCDs CODE STATUS Full Elected to be discharged home following dobutamine stress echo if normal Subjective 11/22 The patient was seen and examined in telemetry unit She has admitted with the angina without any elevation of cardiac enzymes and/or EKG changes She denies any chest pain and/or palpitation during examination She will have a dobutamine stress echo this afternoon Review of Systems Review of Systems: All systems reviewed and are unremarkable except as noted below Cardiovascular: no chest pain and no dyspnea Gastrointestinal: no abdominal pain Physical Exam Physical Exam: Lying in bed comfortably Constitutional: well developed and well nourished; no acute distress and not ill appearing Eyes: PERRL, conjunctivae normal, anicteric sclerae ENMT: external ear and nose normal, oropharynx normal Neck: trachea midline, no thyromegaly Respiratory: normal respiratory effort; no respiratory distress Auscultation: lungs clear to auscultation bilaterally Cardiovascular: Rate/Rhythm: regular rate and regular rhythm Heart Sounds: no murmur Gastrointestinal (Abdomen): Inspection/Auscultation: abdomen normal to inspection and normal bowel sounds Percussion/Palpation: abdomen soft Musculoskeletal: No acute arthritis in any joints Neurologic: moves all extremities; no focal motor deficits Psychiatric: A+Ox3, euthymic affect Lymphatic: no cervical or axillary lymphadenopathy Results & Data Vital Signs (Past 12 Hours) Vital Signs Temp Pulse Pulse Resp BP BP Pulse Ox 11/22/18 08:00 36.4 C L 66 17 151/76 H 98 11/22/18 03:35 36.5 C 65 19 170/88 H 97 11/22/18 02:31 66 19 96 11/22/18 02:30 65 16 161/82 H 97 09/05/19 02:01 66 16 96 11/22/18 02:00 68 17 156/76 H 97 11/22/18 01:30 68 19 157/67 H 11/22/18 01:01 71 19 97 11/22/18 01:00 69 19 152/81 H 95 11/22/18 00:43 72 19 94 11/22/18 00:35 71 18 151/77 H 94 Laboratory Results Short CBC 11/22/18 Range/Units 00:28 WBC 4.32 L (4.8-10.8) K/uL Hgb 12.2 (12.0-16.0) g/dL Hct 34.2 L (37-47) % Plt Count 79 L (130-400) K/uL BMP 11/22/18 11/22/18 00:28 04:54 Sodium 139 141 Potassium 3.7 3.7 Chloride 105 107 Carbon Dioxide 26 28 BUN 18 18 Creatinine 0.72 0.56 L Glucose 253 H 153 H Calcium 8.9 9.0 Cardiac Enzymes 11/22/18 11/22/18 11/22/18 Range/Units 00:28 04:54 10:41 Troponin I < 0.015 < 0.015 < 0.015 (0-0.045) ng/ml Liver Function 11/22/18 Range/Units 00:28 Total Bilirubin 0.7 (0.2-1) mg/dl AST 24 (15-37) U/L ALT 25 (12-78) U/L Alkaline Phosphatase 74 (45-117) U/L Albumin 4.0 (3.4-5.0) gm/dl Medications Administered Current Inpatient Medications Acetaminophen (Tylenol) 650 mg PO Q4H PRN PRN Reason: Pain or Fever Stop: 12/22/18 04:00 Al Hydrox/Mg Hydrox/Simethicone (Maalox) 15 ml PO Q4H PRN PRN Reason: Dyspepsia Stop: 12/22/18 04:00 Aspirin (Ecotrin Ectab) 81 mg PO DAILY LISA Stop: 12/22/18 08:59 Last Admin: 11/22/18 08:39 Dose: 81 mg Documented by: Dextrose (Dextrose 50%) 25 - 50 ml IV UD PRN; Protocol PRN Reason: Hypoglycemia Protocol Stop: 12/22/18 04:29 Glucagon (Glucagen) 1 mg SQ UD PRN; Protocol PRN Reason: Hypoglycemia Protocol Stop: 12/22/18 04:29 Glucose (Glucose 40%) 15 - 30 gm PO UD PRN; Protocol PRN Reason: Hypoglycemia Protocol Stop: 12/22/18 04:29 Glucose (Dex4 Glucose) 4 - 8 tabs PO UD PRN; Protocol PRN Reason: Hypoglycemia Protocol Stop: 12/22/18 04:29 Insulin Aspart (Novolog Flexpen) 0 units SC ACHS LISA Stop: 12/22/18 07:29 Last Admin: 11/22/18 08:38 Dose: Not Given Documented by: Insulin Glargine (Lantus Solostar Pen) 10 units SC BID LISA Stop: 12/22/18 08:59 Last Admin: 11/22/18 08:40 Dose: Not Given Documented by: Lisinopril (Zestril) 5 mg PO DAILY [facility] Stop: 12/22/18 08:59 Last Admin: 11/22/18 08:40 Dose: 5 mg Documented by: Metoprolol Tartrate (Lopressor) 12.5 mg PO BID [facility] Stop: 12/22/18 08:59 Last Admin: 11/22/18 08:39 Dose: 12.5 mg Documented by: Miscellaneous (Carbohydrates For Hypoglycemia) 15 - 30 gm PO UD PRN PRN Reason: Hypoglycemia Treatment Stop: 12/22/18 04:29 Nitroglycerin (Nitrostat) 0.4 mg SL UD PRN PRN Reason: Chest Pain Stop: 12/22/18 04:00 Ondansetron HCl (Zofran) 4 mg IV Q6H PRN PRN Reason: Nausea Stop: 12/22/18 04:00 Pantoprazole Sodium (Protonix) 40 mg PO BID [facility] Stop: 12/22/18 08:59 Last Admin: 11/22/18 08:40 Dose: 40 mg Documented by: Polyethylene Glycol (Miralax Powder Packet) 17 gm PO DAILY PRN PRN Reason: Constipation Stop: 12/22/18 04:00 Pravastatin Sodium (Pravachol) 40 mg PO DAILY [facility] Stop: 12/22/18 08:59 Last Admin: 11/22/18 08:39 Dose: 40 mg Documented by:
[2018-11-22] MEDS ORDERED: ATROPINE SULFATE 0.1 MG/ML 10ML SYR IV ONE (12:47)
[2018-11-22] MEDS ORDERED: METOPROLOL TARTRATE 1 MG/ML VIAL IV ONE (12:47)
[2018-11-22] MEDS ORDERED: DOBUTamine HCL 12.5 MG/ML 20 ML VIAL IV ONE (12:47)
--- NOTE | 2018-11-22 14:07 | Consultation Report ---
DATE OF CONSULTATION: 11/22/2018 INPATIENT CARDIOLOGY CONSULTATION CONSULTATION REQUESTED BY: Dr. Gibbs. REASON FOR CONSULTATION: Chest pain. HISTORY OF PRESENT ILLNESS: Mrs. Saunders is a 63-year-old woman who normally follows with Dr. Houston of our cardiology practice for history of nonobstructive coronary artery disease. She presented to [facility] early in the a.m. of 11/22/2018 with complaints of chest pain. The patient states that she went to bed in a normal state of health on the ; however, woke up abruptly in the middle the night with a squeezing sensation in her chest. She describes it as very severe pain, feeling as though someone was squeezing the center of her chest. This was associated with some nausea and dizziness, but she denied any associated radiation of the discomfort, shortness of breath, palpitations or syncope. She states that she has had similar episodes in the past but never this severe and she has not had anything like this in several years. She presented to [facility] Emergency Department and upon arrival, she was given sublingual nitroglycerin; however, the pain then slowly dissipated over the next hour or so. She was admitted to telemetry. Her EKG was unremarkable. Cardiac enzymes were negative x3 and cardiology was consulted. Currently, the patient is resting comfortably and denies any recurrences of her chest discomfort since. She denies eating any spicy foods before dinner. She states that she had a ranch chicken pizza for dinner last evening. PAST SURGICAL HISTORY: 1. Cardiac catheterization in 2016 revealing nonobstructive branch vessel disease. 2. Upper endoscopy. 3. Cholecystectomy. 4. Total abdominal hysterectomy. MEDICAL ILLNESSES: 1. Obesity. 2. Nonobstructive coronary artery disease. 3. Diabetes with diabetic retinopathy. 4. History of Flores esophagitis. 5. SAM. 6. GERD. 7. Hypertension. 8. Dyslipidemia. 9. Symptomatic PACs, controlled on metoprolol. FAMILY HISTORY: Noncontributory. SOCIAL HISTORY: The patient is a former smoker, quit in 1988. Denies any alcohol or recreational drug use. 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 REVIEW OF SYSTEMS: As per HPI. All review of systems were reviewed and negative at this time. ALLERGIES: 1. QUINOLONES. 2. CODEINE. 3. SULFA. 4. EXENATIDE. 4. NITROFURANTOIN. 5. POLYETHYLENE GLYCOL. 6. METFORMIN. MEDICATIONS AN OUTPATIENT: 1. Aspirin 81 mg daily. 2. Metoprolol tartrate 25 mg daily. 3. Lisinopril 5 mg daily. 4. Pravastatin 40 mg daily, not tolerant of atorvastatin. 5. Toujeo. 6. Insulin. 7. Prilosec b.i.d. 8. Glipizide. PHYSICAL EXAMINATION: VITAL SIGNS: Temperature 36.4, pulse 66, respiratory rate 12, blood pressure 151/76. GENERAL: Awake, alert, oriented x3, in no acute distress. HEENT: Normocephalic, atraumatic. Pupils equal, round, reactive to light and accommodation. Extraocular muscles intact. Anicteric sclerae. Moist mucous membranes. NECK: No JVD, no bruit. CARDIOVASCULAR: Regular. Positive S4. Normal S1 and S2. No S3. No murmurs or rubs. PULMONARY: Clear to auscultation bilaterally. No rales, rhonchi, or wheezing. ABDOMEN: Bowel sounds x4, soft. No rebound, guarding, or tenderness. No organomegaly. EXTREMITIES: No clubbing, cyanosis or edema. +2 pedal pulses bilaterally. SKIN: Warm and dry. TEST RESULTS: Nonischemic dobutamine stress echocardiogram. IMPRESSION: 1. Chest pain with nonischemic dobutamine stress echocardiogram highly suspicious for esophageal spasm. 2. Nonobstructive branch vessel coronary artery disease. 3. Diabetes. 4. Hypertension. 5. Dyslipidemia. RECOMMENDATIONS: Mrs. Saunders was counseled that given the fact that her stress test was nonischemic, I do not see any cardiac component to her chest discomfort. So at this point, I would recommend further GI workup for what appears to be esophageal spasm per history. No medication changes are necessary from a cardiac standpoint and the patient should follow up as regularly scheduled with Dr. Houston for her appointment in February. It is okay to discharge the patient to home from a cardiac standpoint.
[2018-11-22] MEDS ORDERED: PERFLUTREN LIPID MICROSPHERE (DEFINITY) IV ONE (14:33)
--- NOTE | 2018-11-23 10:19 | Discharge Summary ---
Date of Service November 23, 2018 Admission HPI Per Admitting Provider DICTATED BY: Pool Gibbs MD DATE OF ADMISSION: 11/22/2018 CHIEF COMPLAINT: Chest pain. HISTORY OF PRESENT ILLNESS: This is a 63-year-old female with past medical history significant for type 2 diabetes, diabetic retinopathy both eyes, hyperlipidemia, CAD, hypertension, PACs, Flores's esophagus, SAM, GERD, presents with chest pain. The patient lives with her . Around 11:00 p.m., she noticed somebody squeezing her heart, pain radiated to the right shoulder. She thought it will subside, but it did not go away, then she took 3 aspirins, but that did not helped. She was also felt some short of breath, nausea and dizziness. She called EMS and came in. In the ER, she received nitro which relieved her pain. She says her pain is almost gone, but she does not feel back to her baseline. Has some headache and took some Tylenol in the ER. No blurred visions. No earache, no runny nose, no sore throat, no difficulty swallowing. Appetite is okay. No cough, no fever, no chills. Currently, no shortness of breath, no abdominal pain. Normal bowel and bladder movements. No hematuria, no black stools or blood in the stools. No swelling in the legs, no rash. Currently, resting comfortably and hemodynamically stable. Admission Exam Per Admitting Provider GENERAL: The patient is obese, not in acute distress. VITAL SIGNS: Temperature 36.3, pulse 66, respiratory rate 19, blood pressure 161/82, oxygen 96% on room air. HEENT: No pallor, no icterus. Pupils equal, round, and reactive to light. NECK: No JVD, no neck masses, no carotid bruits. CARDIOVASCULAR: S1, S2 heard, regular rate and rhythm, no murmur, no gallop. RESPIRATORY SYSTEM: Normal AP diameter. No accessory muscle use. No wheezing, no crackles. ABDOMEN: Soft, bowel sounds present, nontender. No distention. CENTRAL NERVOUS SYSTEM: Cranial nerves II-XII grossly intact. Nonfocal. EXTREMITIES: No edema, no erythema. Principal Diagnosis Atypical chest pain, no ACS and negative dobutamine stress echo Discharge Exam Constitutional well developed and well nourished; no acute distress and not ill appearing Eyes PERRL, conjunctivae normal, anicteric sclerae ENMT external ear and nose normal, oropharynx normal Neck trachea midline, no thyromegaly Respiratory normal respiratory effort; no respiratory distress Auscultation: lungs clear to auscultation bilaterally Cardiovascular Rate/Rhythm: regular rate and regular rhythm Heart Sounds: no murmur Gastrointestinal (Abdomen) Inspection/Auscultation: abdomen normal to inspection and normal bowel sounds Percussion/Palpation: abdomen soft Neurologic moves all extremities; no focal motor deficits Psychiatric A+Ox3, euthymic affect Lymphatic no cervical or axillary lymphadenopathy Discharge Data Allergies Allergy/AdvReac Type Severity Reaction Status Date / Time Quinolones Allergy Intermediate NAUSEA, Verified 11/22/18 01:11 ITCH, RASH codeine Allergy Unknown CAN TAKE Verified 11/22/18 01:11 MORPHINE Sulfa (Sulfonamide Allergy Unknown ? Verified 11/22/18 01:11 Antibiotics) exenatide AdvReac Mild Nausea/vomi Verified 11/22/18 01:11 ting. nitrofurantoin AdvReac Mild Nausea/vomi Verified 11/22/18 01:11 ting polyethylene glycol AdvReac Mild Nausea/vomi Verified 11/22/18 01:11 ting metformin AdvReac Unknown Nausea/Vomi Verified 11/22/18 01:11 ting Consultations 11/22/18 01:53 ED Decision to Admit Stat 11/22/18 08:00 Consult Cardiology Routine Hospital Course (1) Atypical chest pain: Admitted with pain chest pain with radiation to right shoulder and associated with shortness of breath So far the EKG and troponins are unremarkable Denies any more chest pain since admission Will have dobutamine stress echo this afternoon (2) HTN (hypertension): Blood pressure is controlled Now at upper limit of normal (3) DM type 2 (diabetes mellitus, type 2): We will hold any metformin Continue with SSRI (4) SAM (nonalcoholic steatohepatitis): No acute symptoms (5) Thrombocytopenia: Secondary to cirrhosis Platelet count is 79 We will hold off any anticoagulation DVT prophylaxis SCDs CODE STATUS Full Elected to be discharged home following dobutamine stress echo if normal Total Time Total Time Spent Total Time Spent (In Minutes): 35 mnutes Total Time Includes: Examination of the Patient, Discharge Planning, Medication Reconciliation and Communication With Other Providers Discharge Plan Discharge Items Patient Disposition: Home - Self-Care Reason For Visit: CHEST PAIN Discharge Diagnosis: Atypical chest pain, no ACS and negative dobutamine stress echo Condition: Good Discharge Goals: Decrease discomfort, Improve function and Increase independence Activity: Resume your previous activity Non-emergency contact: Primary Care Provider Call non-emergency contact if: you have any medication questions and your symptoms worsen Follow-up/Referrals: Quinten Garcia MD [Primary Care Provider] - 11/26/18 12:45 pm (Keep your regular appointment with admeasurer in February) Diet: Carb Consistent or DM2 and Heart Healthy Addtl Provider Instructions: No change in medications Please keep your cardiology appointment in February Prescriptions: Continued aspirin 81 mg Tablet,Delayed Release (Dr/Ec) 81 mg PO DAILY RF: 0 glipizide 5 mg Tablet 5 mg PO DAILY RF: 0 glipizide 10 mg Tablet 10 mg PO QPM RF: 0 lisinopril 5 mg Tablet 5 mg PO DAILY RF: 0 Novolog Flexpen U-100 Insulin 100 unit/mL (3 mL) Insulin Pen SUBCUT DIRECTED RF: 0 metoprolol tartrate 25 mg Tablet 12.5 mg PO BID RF: 0 omeprazole 20 mg Capsule,Delayed Release(Dr/Ec) 20 mg PO BID RF: 0 pravastatin 40 mg Tablet 40 mg PO DAILY RF: 0 Toujeo SoloStar U-300 Insulin 300 unit/mL (1.5 mL) Insulin Pen 62 unit SUBCUT QPM RF: 0 Stand-Alone Forms: Call Back Authorization, [facility] Discharge Orders: Discharge Order (Routine); Ordered 11/22/18 Ordered By: Gerardo Josue Admission Data Admit Date/Time: 11/22/18 02:32 Attending Provider: Gerardo Josue Admit Provider: Pool Gibbs Primary Care Provider: Quinten Garcia Other Providers: Jermain Edwards ; Vasu Houston ; James Matthews ; Carmelo Briggs ; Marc Mendes ; Luis Arevalo ; Digna Ma ; Melinda Saucdeo ; Sukhwinder Quiroz Service: Telemetry Other Interventions: Discharge Summary Assessment (RN) Last Done: 11/22/18 15:50 DC Date/Time DO NOT enter until pt leaves facility: 11/22/18 16:04
== END 2018-11-22 16:04 | disposition home or self-care (01) ==
LOC: 1E 23:31 → ED 23:31 → 1E 11-22 03:28
DX: Z88.8 Allergy status to other drugs, medicaments and biological substances; I10 Essential (primary) hypertension; D69.6 Thrombocytopenia, unspecified; R07.89 Other chest pain; K75.81 Nonalcoholic steatohepatitis (NASH); E11.9 Type 2 diabetes mellitus without complications; D69.59 Other secondary thrombocytopenia; Z88.2 Allergy status to sulfonamides

== ENCOUNTER 2020-07-05 03:35 | Inpatient (IN) ==
[2020-07-05] MEDS ORDERED: SODIUM CHLORIDE 0.9% 500 ML IV ONE ×2 (04:24→05:47)
[2020-07-05] MEDS ORDERED: ONDANSETRON INJ 2 MG/ML 2 ML VIAL IV STA ×2 (04:24→05:47)
[2020-07-05 05:02] LABS: Hematocrit (blood only) 30.8 % (37-47); Mean Corpuscular Hemoglobin 30.5 pg (25-34); Mean Corpuscular Hgb Conc 35.7 g/dL (32-36); Mean Corpuscular Volume 85.3 fL (80-100); RDW Coefficient of Variation 13.7 % (11.5-14.5); RDW Standard Deviation 42.7 fL (36.4-46.3); Red Blood Count 3.61 M/uL (4.2-5.4); White Blood Count 2.49 K/uL (4.8-10.8)
[2020-07-05 05:13] LABS: Mean Platelet Volume 9.5 fL (7.4-10.4); Platelet Count 56 K/uL (130-400)
[2020-07-05 05:19] LABS: Alanine Aminotransferase 24 U/L (12-78); Albumin Level 3.3 gm/dl (3.4-5.0); Aspartate Aminotransferase 27 U/L (15-37); BUN Creatinine Ratio 16.9 (10-20); Blood Urea Nitrogen 8 mg/dl (7-18); Carbon Dioxide 30 mmol/L (21-32); Chloride 109 mmol/L (98-107); Est GFR (African American) 119.3; Glucose 100 mg/dl (70-99); Magnesium 1.7 mg/dl (1.8-2.4); Potassium 3.5 mmol/L (3.5-5.1); Sodium 142 mmol/L (136-145)
[2020-07-05 05:30] LABS: Albumin Globulin Ratio 1.2 (0.9-2); Alkaline Phosphatase 60 U/L (45-117); Bilirubin,Total 0.7 mg/dl (0.2-1); Globulin 2.8 gm/dl (2.5-4.0); Thyroid Stimulating Hormone 0.988 uIu/ml (0.300-4.500); Total Protein 6.1 gm/dl (6.4-8.2)
[2020-07-05 05:34] LABS: Eosinophils # (auto) 0.01 K/uL (0-0.5); Eosinophils % (auto) 0.4 %; Lymphocytes # (auto) 0.49 K/uL (1.2-3.4); Lymphocytes % (auto) 19.7 %; Monocytes # (auto) 0.16 K/uL (0.11-0.59); Monocytes % (auto) 6.4 %; Neutrophils # (auto) 1.83 K/uL (1.4-6.5); Neutrophils % (auto) 73.5 %
--- NOTE | 2020-07-05 06:11 | Emergency Department Note ---
Impression & Plan Nausea, Right upper quadrant abdominal pain ED Provider Note NAME: CHRISTEL BRADEN AGE: 64 SEX: F ARRIVES VIA: Walk-In INFORMANT: Patient ED PROVIDER(S): Suly Mora DO CHIEF COMPLAINT: Weakness and severe nausea PLAN: Disposition: Admitted to the [facility] service Condition: Fair MEDICAL DECISION MAKING: This is a 64-year-old female patient who was diagnosed Covid positive approximately a week ago who presents to the emergency department with vomiting and diarrhea for the second time in 48 hours. The patient has persistent dry heaving and is now complaining of right upper quadrant abdominal pain. She is unable to drink anything and is a diabetic. I have ordered a CT scan of the a bdomen/pelvis. She is status post cholecystectomy. Results are pending. I have discussed the case with the [facility] Hospitalist and they will evaluate for further management. Triage Nursing notes reviewed and agree them. Prior medical records reviewed from yesterday's ER visit Vital Signs: reviewed and remarkable for hypertension Differential diagnosis: Pancreatitis, dehydration, DKA, electrolyte abnormality, colitis, cardiac ischemia ER treatment provided: IV normal saline hydration, IV Zofran x2, Diagnostics interpreted by me: ECG: Normal sinus rhythm at a rate of [address] segment elevation or signs of ischemia. There is no ectopy. There are no T wave inversions. QTC is normal. Cardiac Monitoring: Normal sinus rhythm with a rate of 90. Laboratory studies: See below Imaging studies: As per my interpretation Portable chest x-ray: Cardiomegaly with no other acute pulmonary infiltrates or pleural effusions CT scan of the abdomen pelvis: Pending HPI: 64/F arrives for evaluation of weakness and extreme nausea. This is a 64-year-old female patient with a history of diabetes who presents to the emergency department complaining of nausea and dry heaves. Patient tested Covid positive a couple of days ago and has had increasing weakness over the past 4-5 days. Patient describes having a headache, dry heaves and significant nausea. Patient describes liquid stools and not wanting to drink much of anything. Patient states that she feels as if her blood sugar is low and she has been ex tremely weak. ROS: See above HPI for pertinent positives & negatives. A total of 10 systems reviewed and were otherwise negative. PAST MEDICAL HISTORY:See Below PAST SURGICAL HISTORY:See Below FAMILY HISTORY:See Below SOCIAL HISTORY:See Below HOME MEDICATIONS:See ALLERGIES:See long list VITALS:See Below PHYSICAL EXAMINATION: HEENT: Head - normocephalic and atraumatic Pupils are equal, round, and reactive to light. Extraocular eye muscles are intact, and sclera are anicteric. Nose - moist nasal mucosa without discharge. Mouth - moist buccal mucosa. Oropharynx is nonerythematous and there is no tonsillar exudate or edema noted. Neck: Supple; no JVD or cervical lymphadenopathy. Heart: Regular rate and rhythm. There is a normal S1 and S2 with no murmurs, clicks, or gallops appreciated. Lungs: Clear to auscultation bilaterally with no wheezes, rales, or rhonchi. Abdomen: Soft, slightly tender to palpation in the right upper quadrant, nondistended, with good bowel sounds. There are no palpable pulsatile masses or hepatosplenomegaly. There is no guarding, rigidity, or rebound noted. Extremities: No evidence of cyanosis, clubbing, or edema. There are easily palpable peripheral pulses. Skin: warm and dry with good turgor and no rashes. ED COURSE: Times/Reassessments: 0400: Patient was evaluated in room A 11. Previous electronic medical records reviewed. Laboratory studies were drawn as above. IV normal saline was initiated. An order was placed for continuous cardiac monitoring. The patient was in a normal sinus rhythm at a rate of 90. She was given 4 mg of IV Zofran for her nausea. 0540: The patient was reevaluated at this time and remains nauseated. She was given an additional 4 mg of IV Zofran for her nausea. 0620: Upon reevaluation, the patient only felt slightly better and was going to try some lulú saba 0750: The patient did not do well with the lulú saba and continued to feel nauseated and is now complaining of right upper quadrant abdominal pain. Because of the intractable nausea and now the abdominal pain, I will discussed t he case with the [facility] hospitalist group and they can evaluate her for further inpatient care. I will order a CT scan of the abdomen/pelvis to further evaluate the abdominal pain as well. 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 Verified 07/05/20 09:50 Antibiotics) exenatide AdvReac Mild Nausea/vomi Verified 07/05/20 09:50 ting. nitrofurantoin AdvReac Mild Nausea/vomi Verified 07/05/20 09:50 ting polyethylene glycol AdvReac Mild Nausea/vomi Verified 07/05/20 09:50 ting metformin AdvReac Unknown Nausea/Vomi Verified 07/05/20 09:50 ting Home Meds Home Medications Medication Instructions Recorded Confirmed You FriasLizandro U-300 Insulin 62 unit SUBCUT QPM 11/22/18 07/05/20 aspirin 81 mg PO HS 11/22/18 07/05/20 metoprolol tartrate 25 mg PO BID 11/22/18 07/05/20 omeprazole 20 mg PO BID 11/22/18 07/05/20 azithromycin 250 mg PO DAILY 07/04/20 07/05/20 calcium carbonate [Calcium 500] 500 mg PO DAILY 07/04/20 07/05/20 insulin aspart U-100 [Novolog 1 sliding scale dose SUBCUT 07/05/20 07/05/20 U-100 Insulin aspart] USEASDIRECTD Previous Rx's Medication Instructions Recorded dexamethasone 6 mg PO DAILY #7 tab 04/17/21 Results & Data (ED) Vital Signs Vital Signs - 24 hr 07/05/20 03:41 07/05/20 03:48 07/05/20 03:50 Temperature 36.9 C Temperature Source Temporal Artery Scan Pulse Rate 84 82 83 Pulse Rate [Apical] Pulse Rate from SpO2 Sensor Pulse Rhythm [Apical] Pulse Strength [Apical] Respiratory Rate 18 21 21 Respiratory Effort / Characteristics Respiratory Depth Normal Respiratory Pattern Blood Pressure 161/73 H 178/127 H Blood Pressure [Right Arm] Blood Pressure Mean 102 144 Blood Pressure Mean [Right Arm] Blood Pressure Position [Right Arm] Pulse Oximetry 94 Oxygen Delivery Method Room Air Sepsis Recent Fever Within 48 Hours No Sepsis New/Unexplained Change in Mental Status No Sepsis Action Taken by Nursing No Action Required 07/05/20 04:00 07/05/20 04:01 07/05/20 04:15 Temperature Temperature Source Pulse Rate 78 78 83 Pulse Rate [Apical] Pulse Rate from SpO2 Sensor Pulse Rhythm [Apical] Pulse Strength [Apical] Respiratory Rate 21 20 19 Respiratory Effort / Characteristics Respiratory Depth Respiratory Pattern Blood Pressure 176/93 H Blood Pressure [Right Arm] Blood Pressure Mean 120 Blood Pressure Mean [Right Arm] Blood Pressure Position [Right Arm] Pulse Oximetry Oxygen Delivery Method Sepsis Recent Fever Within 48 Hours Sepsis New/Unexplained Change in Mental Status Sepsis Action Taken by Nursing 07/05/20 04:30 07/05/20 04:31 07/05/20 04:45 Temperature Temperature Source Pulse Rate 80 84 83 Pulse Rate [Apical] Pulse Rate from SpO2 Sensor Pulse Rhythm [Apical] Pulse Strength [Apical] Respiratory Rate 18 22 20 Respiratory Effort / Characteristics Respiratory Depth Respiratory Pattern Blood Pressure 168/93 H Blood Pressure [Right Arm] Blood Pressure Mean 118 Blood Pressure Mean [Right Arm] Blood Pressure Position [Right Arm] Pulse Oximetry Oxygen Delivery Method Sepsis Recent Fever Within 48 Hours Sepsis New/Unexplained Change in Mental Status Sepsis Action Taken by Nursing 07/05/20 04:58 07/05/20 05:00 07/05/20 05:01 Temperature Temperature Source Pulse Rate 79 79 Pulse Rate [Apical] Pulse Rate from SpO2 Sensor Pulse Rhythm [Apical] Pulse Strength [Apical] Respiratory Rate 16 20 Respiratory Effort / Characteristics Respiratory Depth Respiratory Pattern Blood Pressure 164/84 H Blood Pressure [Right Arm] Blood Pressure Mean 110 Blood Pressure Mean [Right Arm] Blood Pressure Position [Right Arm] Pulse Oximetry 97 Oxygen Delivery Method Room Air Sepsis Recent Fever Within 48 Hours Sepsis New/Unexplained Change in Mental Status Sepsis Action Taken by Nursing 07/05/20 05:15 07/05/20 05:30 07/05/20 05:31 Temperature Temperature Source Pulse Rate 80 83 83 Pulse Rate [Apical] Pulse Rate from SpO2 Sensor Pulse Rhythm [Apical] Pulse Strength [Apical] Respiratory Rate 23 21 19 Respiratory Effort / Characteristics Respiratory Depth Respiratory Pattern Blood Pressure 172/86 H Blood Pressure [Right Arm] Blood Pressure Mean 114 Blood Pressure Mean [Right Arm] Blood Pressure Position [Right Arm] Pulse Oximetry Oxygen Delivery Method Sepsis Recent Fever Within 48 Hours Sepsis New/Unexplained Change in Mental Status Sepsis Action Taken by Nursing 07/05/20 05:38 07/05/20 06:18 07/05/20 06:27 Temperature Temperature Source Pulse Rate Pulse Rate [Apical] 93 H 84 Pulse Rate from SpO2 Sensor 84 Pulse Rhythm [Apical] Regular Pulse Strength [Apical] Normal Respiratory Rate 18 16 Respiratory Effort / Characteristics Non-Labored Spontaneous Non-Labored Spontaneous Accessory Muscle Use Respiratory Depth Normal Normal Respiratory Pattern Regular Blood Pressure Blood Pressure [Right Arm] 172/86 H 169/87 H Blood Pressure Mean Blood Pressure Mean [Right Arm] 114 114 Blood Pressure Position [Right Arm] Pulse Oximetry 97 99 94 Oxygen Delivery Method Room Air Room Air Sepsis Recent Fever Within 48 Hours Sepsis New/Unexplained Change in Mental Status Sepsis Action Taken by Nursing 07/05/20 06:28 07/05/20 06:30 07/05/20 06:31 Temperature Temperature Source Pulse Rate Pulse Rate [Apical] Pulse Rate from SpO2 Sensor 83 82 82 Pulse Rhythm [Apical] Pulse Strength [Apical] Respiratory Rate 16 18 Respiratory Effort / Characteristics Respiratory Depth Respiratory Pattern Blood Pressure 158/75 H 167/83 H Blood Pressure [Right Arm] Blood Pressure Mean 102 111 Blood Pressure Mean [Right Arm] Blood Pressure Position [Right Arm] Pulse Oximetry 95 94 92 Oxygen Delivery Method Sepsis Recent Fever Within 48 Hours Sepsis New/Unexplained Change in Mental Status Sepsis Action Taken by Nursing 07/05/20 07:18 Temperature Temperature Source Pulse Rate Pulse Rate [Apical] 90 Pulse Rate from SpO2 Sensor 83 Pulse Rhythm [Apical] Pulse Strength [Apical] Respiratory Rate 18 Respiratory Effort / Characteristics Non-Labored Spontaneous Respiratory Depth Normal Respiratory Pattern Regular Blood Pressure 175/85 H Blood Pressure [Right Arm] 175/85 H Blood Pressure Mean 115 Blood Pressure Mean [Right Arm] 115 Blood Pressure Position [Right Arm] Lying Pulse Oximetry 95 Oxygen Delivery Method Room Air Sepsis Recent Fever Within 48 Hours Sepsis New/Unexplained Change in Mental Status Sepsis Action Taken by Nursing Laboratory Data Result diagrams: 07/05/20 04:51 07/05/20 17:12 Lab Results 07/05/20 07/05/20 07/05/20 Range/Units 04:51 04:51 06:00 WBC 2.49 L (4.8-10.8) K/uL RBC 3.61 L (4.2-5.4) M/uL Hgb 11.0 L (12.0-16.0) g/dL Hct 30.8 L (37-47) % MCV 85.3 (80-100) fL MCH 30.5 (25-34) pg MCHC 35.7 (32-36) g/dL RDW Std Deviation 42.7 (36.4-46.3) fL RDW Coeff of Meeta 13.7 (11.5-14.5) % Plt Count 56 L (130-400) K/uL MPV 9.5 (7.4-10.4) fL Immature Gran % (Auto) 0.0 % Neut % (Auto) 73.5 % Lymph % (Auto) 19.7 % [place] % (Auto) 6.4 % Eos % (Auto) 0.4 % Baso % (Auto) 0.0 % Neut # (Auto) 1.83 (1.4-6.5) K/uL Lymph # (Auto) 0.49 L (1.2-3.4) K/uL [facility] # (Auto) 0.16 (0.11-0.59) K/uL Eos # (Auto) 0.01 (0-0.5) K/uL Baso # (Auto) 0.00 (0-0.2) K/uL Immature Gran # (Auto) 0.00 (0.00-0.02) K/uL Sodium 142 (136-145) mmol/L Potassium 3.5 (3.5-5.1) mmol/L Chloride 109 H (98-107) mmol/L Carbon Dioxide 30 (21-32) mmol/L Anion Gap 3.0 (3-11) BUN 8 (7-18) mg/dl Creatinine 0.49 L (0.6-1.2) mg/dl Est Cr Clr Drug Dosing Not Reportable Est GFR ( Amer) 119.3 Est GFR (Non-Af Amer) 103.0 BUN/Creatinine Ratio 16.9 (10-20) Glucose 100 H (70-99) mg/dl Calcium 8.0 L (8.5-10.1) mg/dl Magnesium 1.7 L (1.8-2.4) mg/dl Total Bilirubin 0.7 (0.2-1) mg/dl AST 27 (15-37) U/L ALT 24 (12-78) U/L Alkaline Phosphatase 60 (45-117) U/L Troponin I < 0.015 (0-0.045) ng/ml Total Protein 6.1 L (6.4-8.2) gm/dl Albumin 3.3 L (3.4-5.0) gm/dl Globulin 2.8 (2.5-4.0) gm/dl Albumin/Globulin Ratio 1.2 (0.9-2) Lipase 71 L (73-393) U/L TSH 0.988 (0.300-4.500) uIu/ml Urine Color Yellow Urine Appearance Clear (Clear) Urine pH 6.0 (4.5-7.5) Ur Specific [place] 1.009 (1.000-1.030) Urine Protein Negative (Negative) Urine Glucose (UA) Negative (Negative) Urine Ketones 1+ H (Negative) Urine Blood Negative (Negative) Urine Nitrite Negative (Negative) Urine Bilirubin Negative (Negative) Urine Urobilinogen Negative (Negative) Ur Leukocyte Esterase 1+ H (Negative) Urine WBC (Auto) 1-5 (0-5) /hpf Urine RBC (Auto) 0-4 (0-4) /hpf U Hyaline Cast (Auto) 1-5 (0-5) /lpf U Epithel Cells (Auto) >30 H (0-5) /lpf Urine Bacteria (Auto) Negative (Negative) Administered Medications Pantoprazole Sodium 40 mg/ (Syringe) 10 mls @ 5 mls/min IV DAILY@1100 [facility] Stop: 08/04/20 10:59 Last Admin: 07/05/20 12:36 Dose: 5 mls/min Documented by: [id number] Dexamethasone 6 mg/ Syringe 1.5 mls @ 1 mls/min IV QAM [facility] Stop: 07/14/20 09:02 Last Admin: 07/05/20 12:35 Dose: 1 mls/min Documented by: [id number] Prochlorperazine 5 mg/ Syringe 5 mls @ 5 mls/min IV Q6H PRN PRN Reason: nausea Stop: 08/04/20 12:44 Last Admin: 07/05/20 13:46 Dose: 5 mls/min Documented by: [id number] Insulin Aspart (Insulin Aspart 100 Units/Ml 3 Ml Pen) 0 units SC ACHS [facility] Stop: 08/04/20 11:29 Last Admin: 07/05/20 17:27 Dose: 10 units Documented by: [id number] Cosigned by: [id number] Admin: 07/05/20 13:14 Dose: Not Given Documented by: [id number] Cosigned by: [id number] Insulin Human NPH (Insulin Human Nph) 27 units SC DAILY@0900 [facility] Stop: 08/04/20 11:29 Last Admin: 07/05/20 12:45 Dose: 27 units Documented by: [id number] Cosigned by: [id number] Discontinued Medications Sodium Chloride (Nss) 500 mls @ 999 mls/hr IV .Q31M ONE Stop: 07/05/20 04:54 Last Infusion: 07/05/20 05:37 Dose: 0 mls/hr Documented by: [id number] Admin: 07/05/20 04:59 Dose: 999 mls/hr Documented by: [id number] Sodium Chloride (Nss) 500 mls @ 999 mls/hr IV .Q31M ONE Stop: 07/05/20 06:17 Last Infusion: 07/05/20 07:02 Dose: 0 mls/hr Documented by: [id number] Admin: 07/05/20 06:14 Dose: 999 mls/hr Documented by: [id number] Magnesium Sulfate/Dextrose (Magnesium Sulfate / D5w) 1 gm in 100 mls @ 50 mls/hr IV ONE ONE Stop: 07/05/20 09:57 Last Infusion: 07/05/20 11:29 Dose: 0 mls/hr Documented by: [id number] Admin: 07/05/20 08:53 Dose: 50 mls/hr Documented by: [id number] Potassium Chloride (K Jonny / Wtr) 10 meq in 100 mls @ 100 mls/hr IV Q1H [facility] Stop: 07/05/20 09:59 Last Infusion: 07/05/20 12:16 Dose: 0 mls/hr Documented by: [id number] Admin: 07/05/20 10:34 Dose: 100 mls/hr Documented by: [id number] Infusion: 07/05/20 09:53 Dose: 100 mls/hr Documented by: [id number] Admin: 07/05/20 08:53 Dose: 100 mls/hr Documented by: [id number] Furosemide 10 mg/ Syringe 1 mls @ 4 mls/min IV ONE ONE Stop: 07/05/20 12:12 Last Admin: 07/05/20 12:36 Dose: 4 mls/min Documented by: [id number] Ioversol (Optiray 320 100ml) 88 ml IV ONCE ONE Stop: 07/05/20 08:19 Last Admin: 07/05/20 08:18 Dose: 88 ml Documented by: [id number] Ondansetron HCl (Ondansetron Inj 2 Mg/Ml 2 Ml Vial) 4 mg IV NOW STA Stop: 07/05/20 04:25 Last Admin: 07/05/20 04:59 Dose: 4 mg Documented by: [id number] Ondansetron HCl (Ondansetron Inj 2 Mg/Ml 2 Ml Vial) 4 mg IV NOW STA Stop: 07/05/20 05:48 Last Admin: 07/05/20 06:14 Dose: 4 mg Documented by: [id number] Imaging Data Radiologist's Impression: Chest X-Ray 07/05/20 04:25 XR chest 1V portable CLINICAL HISTORY: weakness COMPARISON STUDY: 07/03/2020 FINDINGS: The heart is mildly enlarged. There is no lobar consolidation. There is mild interstitial thickening. There is a 6 mm right mid to lower lung zone opacity statistically representing a summation as this was not visualized the prior study[ IMPRESSION: 1. Mild cardiomegaly 2. Nonspecific interstitial thickening. This could be secondary to interstitial infectious/inflammatory process or mild pulmonary vascular congestion. Clinical and radiographic follow-up recommended 3. 6 mm right midlung zone opacity statistically representing a summation ACT 112: Negative or not required by law. Electronically signed by: Kelvin Zhou M.D. 07/05/2020 8:39 AM Abdomen/Pelvis CT 07/05/20 07:[address] WITH IV CONTRAST CT DOSE: 727.22 mGy.cm HISTORY: Acute right upper quadrant abdominal pain ruq pain TECHNIQUE: Multiaxial CT images of the abdomen and pelvis were performed following the IV administration of 88 cc of Optiray, A dose lowering technique was utilized adhering to the principles of ALARA. COMPARISON STUDY: Chest radiograph of same day, CT abdomen and pelvis 03/13/2016, chest CT 05/30/2012. FINDINGS: Bibasilar patchy subpleural groundglass opacities. Subpleural 4 mm solid nodule of the basal left lower lobe, image 30 is unchanged from comparison compatible with benign etiology. Partially imaged 8 mm solid nodule of the right lower lobe on image 1 appears new from prior. No pneumatosis or pneumoperitoneum. Imaged inferior cardiac chambers are unremarkable. Coronary artery calcifications. Marked splenomegaly measuring up to approximately 19.7 cm in length is unchanged from comparison. The mildly atrophic pancreas and adrenal glands are within normal limits. Cholecystectomy. Hepatic steatosis. Patency of the hepatic and portal veins. There is mild infiltration within the stuart hepatis with trace edema within the pancreaticoduodenal groove. There is no biliary ductal dilation or choledocholithiasis identified. The kidneys are within normal limits. No hydronephrosis. Partial distention of the urinary bladder. Hysterectomy. No adnexal mass lesion. No abdominal aortic aneurysm or adenopathy. Tiny hiatal hernia. Mild wall thickening of the distal stomach, likely secondary to partial distention. Colonic diverticulosis. Normal appendix. No bowel obstruction or bowel wall thickening. Unremarkable soft tissues. No acute fracture. IMPRESSION: 1. Bibasilar groundglass densities compatible with viral pneumonia. 2. No bowel obstruction or bowel wall thickening. Normal appendix. 3. Cholecystectomy. There is trace infiltration of the stuart hepatis and pancreaticoduodenal groove of unknown clinical significance. Correlate with lipase level to exclude groove pancreatitis. 4. Unchanged marked splenomegaly. 5. Hepatic steatosis. 6. 8 mm partially imaged solid nodule of the right lower lobe is new from 2016. 4 mm benign solid nodule of the left lower lobe demonstrates at least 4 years of stability. Follow-up guidelines provided below. Please refer to below summary of Fleischner criteria recommendations for follow- up of incidental CT nodules (Abigail Mcgarry, Guidelines for management of small pul monary nodules detected on CT scans: A statement from the Fleischner Society, Radiology 237: [phone].) SOLID NODULES Solitary nodule size: <6 mm * Low risk patients: no follow-up needed * high risk patients: optional CT at 12 months Solitary nodule size: 6-8 mm * Low risk patients: follow-up at 6-12 months, then consider further follow-up at 18-24 months * high risk patients: initial follow-up CT at 6-12 months and then at 18-24 months if no change Solitary nodule size: >8 mm * either low or high risk patients - consider follow-up CT at 3 months, and/or CT-PET, and/or biopsy Multiple nodules size: <6 mm * Low risk patients: no routine follow-up * high risk patients: optional CT at 12 months Multiple nodules size: 6-8 mm * Low risk patients: follow-up at 3-6 months, then consider further follow-up at 18-24 months * high risk patients: follow-up at 3-6 months, then at 18-24 months if no change Multiple nodules size: >8 mm * Low risk patients: follow-up at 3-6 months, then consider further follow-up at 18-24 months * high risk patients: follow-up at 3-6 months, then at 18-24 months if no change Note: newly detected indeterminate nodule in persons 35 years of age or older. * Low risk patients: minimal or absent history of smoking and/or other known risk factors * high risk patients: history of smoking or of other known risk factors (e.g. first degree relative with lung cancer, or exposure to asbestos, radon, uranium) * if a nodule up to 8 mm is partly solid or is ground glass further follow-up is required after 24 months to exclude possible slow growing adenocarcinoma (ABIMAEL) ACT 112: Negative or not required by law. The above report was generated using voice recognition software. It may contain grammatical, syntax or spelling errors. Electronically signed by: Capo Fermin M.D. 07/05/2020 8:45 AM Discharge Plan Visit Data Chief Complaint: Illness Stated Complaint: +COVID,VOMITING,CAN'T EAT, ED Provider: Suly Mora Discharge Problem: Nausea, Right upper quadrant abdominal pain Patient Disposition: Admitted As Inpatient Discharge Instructions Interventions: ED Discharge Assessment Last Done: 07/05/20 09:49
[2020-07-05 06:33] LABS: Appearance Urine Clear (Clear); Bacteria Urine Automated Negative (Negative); Bilirubin Urine Negative (Negative); Blood Urine Negative (Negative); Color Urine Yellow; Epithelial Cell Urine Auto >30 /lpf (0-5); Glucose Urine UA Negative (Negative); Ketones Urine 1+ (Negative); Leukocyte Esterase Urine 1+ (Negative); Nitrite Urine Negative (Negative); Protein Urine Negative (Negative); RBC Urine Automated 0-4 /hpf (0-4); Specific Gravity Urine 1.009 (1.000-1.030); Urobilinogen Urine Negative (Negative)
[2020-07-05 07:52] LABS: Lipase 71 U/L (73-393)
[2020-07-05] MEDS ORDERED: MAGNESIUM SULFATE / D5W 1 GM/100 ML BAG IV ONE (07:58)
[2020-07-05 08:08] LABS: Troponin I < 0.015 ng/ml (0-0.045)
[2020-07-05] MEDS ORDERED: OPTIRAY 320 100ml IV ONE (08:18)
[2020-07-05] MEDS ORDERED: ACETAMINOPHEN 325 MG TAB PO PRN (08:26)
[2020-07-05] MEDS ORDERED: POLYETHYLENE (MIRALAX) 17 GM PACK PO PRN (08:26)
[2020-07-05] MEDS ORDERED: PHARMACY GLYCEMIC MGMT CONSULT PRN (08:33)
--- NOTE | 2020-07-05 08:41 | XRay Report ---
XR chest 1V portable CLINICAL HISTORY: weakness COMPARISON STUDY: 07/03/2020 FINDINGS: The heart is mildly enlarged. There is no lobar consolidation. There is mild interstitial t hickening. There is a 6 mm right mid to lower lung zone opacity statistically representing a summatio n as this was not visualized the prior study[ IMPRESSION: 1. Mild cardiomegaly 2. Nonspecific interstitial thickening. This could be secondary to interstitial infectious/inflammato ry process or mild pulmonary vascular congestion. Clinical and radiographic follow-up recommended 3. 6 mm right midlung zone opacity statistically representing a summation ACT 112: Negative or not required by law. Electronically signed by: Kelvin Zhou M.D. 07/05/2020 8:39 AM
--- NOTE | 2020-07-05 08:46 | CT Scan Report ---
ABDOMEN AND PELVIS CT WITH IV CONTRAST CT DOSE: 727.22 mGy.cm HISTORY: Acute right upper quadrant abdominal pain ruq pain TECHNIQUE: Multiaxial CT images of the abdomen and pelvis were performed following the IV administrat ion of 88 cc of Optiray, A dose lowering technique was utilized adhering to the principles of ALARA. COMPARISON STUDY: Chest radiograph of same day, CT abdomen and pelvis 03/13/2016, chest CT 05/30/2012. FINDINGS: Bibasilar patchy subpleural groundglass opacities. Subpleural 4 mm solid nodule of the basal left low er lobe, image 30 is unchanged from comparison compatible with benign etiology. Partially imaged 8 mm solid nodule of the right lower lobe on image 1 appears new from prior. No pneumatosis or pneumoperi toneum. Imaged inferior cardiac chambers are unremarkable. Coronary artery calcifications. Marked splenomegaly measuring up to approximately 19.7 cm in length is unchanged from comparison. The mildly atrophic pancreas and adrenal glands are within normal limits. Cholecystectomy. Hepatic steat osis. Patency of the hepatic and portal veins. There is mild infiltration within the stuart hepatis wi th trace edema within the pancreaticoduodenal groove. There is no biliary ductal dilation or choledoc holithiasis identified. The kidneys are within normal limits. No hydronephrosis. Partial distention of the urinary bladder. H ysterectomy. No adnexal mass lesion. No abdominal aortic aneurysm or adenopathy. Tiny hiatal hernia. Mild wall thickening of the distal stomach, likely secondary to partial distention. Colonic diverticu losis. Normal appendix. No bowel obstruction or bowel wall thickening. Unremarkable soft tissues. No acute fracture. IMPRESSION: 1. Bibasilar groundglass densities compatible with viral pneumonia. 2. No bowel obstruction or bowel wall thickening. Normal appendix. 3. Cholecystectomy. There is trace infiltration of the stuart hepatis and pancreaticoduodenal groove o f unknown clinical significance. Correlate with lipase level to exclude groove pancreatitis. 4. Unchanged marked splenomegaly. 5. Hepatic steatosis. 6. 8 mm partially imaged solid nodule of the right lower lobe is new from 2016. 4 mm benign solid nod ule of the left lower lobe demonstrates at least 4 years of stability. Follow-up guidelines provided below. Please refer to below summary of Fleischner criteria recommendations for follow-up of incidental CT n odules ChaiH Zeferino, Guidelines for management of small pulmonary nodules detected on CT scans: A brett tement from the Fleischner Society, Radiology 237: [phone].) SOLID NODULES Solitary nodule size: <6 mm * Low risk patients: no follow-up needed * high risk patients: optional CT at 12 months Solitary nodule size: 6-8 mm * Low risk patients: follow-up at 6-12 months, then consider further follow-up at 18-24 months * high risk patients: initial follow-up CT at 6-12 months and then at 18-24 months if no change Solitary nodule size: >8 mm * either low or high risk patients - consider follow-up CT at 3 months, and/or CT-PET, and/or biopsy Multiple nodules size: <6 mm * Low risk patients: no routine follow-up * high risk patients: optional CT at 12 months Multiple nodules size: 6-8 mm * Low risk patients: follow-up at 3-6 months, then consider further follow-up at 18-24 months * high risk patients: follow-up at 3-6 months, then at 18-24 months if no change Multiple nodules size: >8 mm * Low risk patients: follow-up at 3-6 months, then consider further follow-up at 18-24 months * high risk patients: follow-up at 3-6 months, then at 18-24 months if no change Note: newly detected indeterminate nodule in persons 35 years of age or older. * Low risk patients: minimal or absent history of smoking and/or other known risk factors * high risk patients: history of smoking or of other known risk factors (e.g. first degree relative with lung cancer, or exposure to asbestos, radon, uranium) * if a nodule up to 8 mm is partly solid or is ground glass further follow-up is required after 24 m onths to exclude possible slow growing adenocarcinoma (ABIMAEL) ACT 112: Negative or not required by law. The above report was generated using voice recognition software. It may contain grammatical, syntax o r spelling errors. Electronically signed by: Capo Fermin M.D. 07/05/2020 8:45 AM
[2020-07-05] MEDS: POTASSIUM CHLORIDE / WTR 10 MEQ/100 ML PLCT IV SCH ×2 (08:53→10:34)
--- NOTE | 2020-07-05 10:22 | History & Physical Report ---
Date of Service July 05, 2020 Assessment & Plan (1) Nausea: (2) Vomiting and diarrhea: Reports having nausea vomiting, diarrhea for past for 5 days Diagnosed with Covid 1 week ago Will obtain stool culture Supportive care with IV fluids, electrolyte replacements Will order clear liquid diet, advance as tolerated Received Zofran in ED, will continue antiemetics Mild hypokalemia, hypomagnesemia, replete and monitor (3) Right upper quadrant abdominal pain: Patient has some chronic abdominal discomfort, history of Flores's esophagus, Viera cirrhosis Previously seen by GI Status post cholecystectomy Chronic abdominal discomfort believed to be secondary to gastroparesis CT abdomen obtained in the ED- No bowel obstruction or bowel wall thickening. Normal appendix. Cholecystectomy. There is trace infiltration of the stuart hepatis and pancreaticoduodenal groove of unknown clinical significance. Correlate with lipase level to exclude groove pancreatitis. Unchanged marked splenomegaly. Hepatic steatosis. 8 mm partially imaged solid nodule of the right lower lobe is new from 2016. 4 mm benign solid nodule of the left lower lobe demonstrates at least 4 years of stability. Follow-up guidelines provided. Lipase negative Currently not interested in any pain medications If patient does not clinically improve, will consult with GI VIERA cirrhosis AST, ALT, within normal limits Does not seem to be decompensated Will follow CMP, INR (4) COVID-19: Was diagnosed on June 27 At the time did not had any symptoms of COVID-19, however her family was all diagnosed with COVID-19, they met during a standard Patient was offered monoclonal antibody by her PCP office, however patient declined, reports at the time she did not have any symptoms so did not think it was necessary She reports feeling" lousy", having nausea, loose stools occasional cough, however no shortness of breath Family doctor started her on Decadron and azithromycin, patient has not started medications as she says "cannot keep anything down" Chest x-ray shows some haziness, interstitial thickening, possible viral pneumonia We will start her on IV Decadron Monitor inflammatory factors Obtain procal, if elevated, consider antibiotics (5) DM type 2 (diabetes mellitus, type 2): - on insulin at home - last A1c 6.8% in May 2020 - pt decreased dose of long-lasting insulin to half as she was not able to eat - for now will cont. w/ decreased dose, will further consult w/ glycemic pharmacy (6) Flores esophagus: - cont PPI, for now will switch to IV as pt has nausea (7) HTN (hypertension): -Continue home metoprolol (8) Thrombocytopenia: - chronic, current Plt 56, cont. to monitor Code: DNR/DNI, discussed with the patient DVT ppx: SCDs given thrombocytopenia History of Present Illness Chief Complaint: nausea, diarrhea, +COVID19 Primary Care Provider: Quinten Garcia MD Patient is a 64-year-old female, with history of diabetes mellitus type 2, last A1c 6.8% in May 2020, obesity, Viera cirrhosis, hypertension, Flores's esophagus, who presents with nausea, vomiting. Patient was diagnosed with COVID-19 infection on June 27, 2020. At that time she reports she did not have any symptoms however several of her family members were positive for COVID-19, and they gathered together during [facility]. For past 4 to 5 days, she has been feeling poorly, with poor appetite, nausea vomiting and loose stools. She was offered monoclonal antibody by her PCP, however she declined, reports because she did not have any symptoms she did not feel it was necessary. She started to feel bad later, and so she was prescribed Decadron and azithromycin by her PCP. She reports that she never started the medication as she could not keep anything down. She was in the emergency room yesterday, and given she was not hypoxic, chest x-ray was unremarkable, blood work also unremarkable, patient was discharged home. She now presents again with the same symptoms, reporting she is not able to continue like this at home. Denies fevers or chills. Denies any localized weakness. She has an occasional cough, no sputum production. Denies shortness of breath. Currently is br eathing comfortably on room air. Chest x-ray repeated in the ED, also CT abdomen pelvis obtained in the ED to evaluate for now abdominal pain/right upper quadrant pain. Patient has somewhat chronic abdominal pain, which is believed to be due to gastroparesis. She is diagnosed with Flores's esophagus, and Viera cirrhosis. There was no bowel obstruction noted in the CT or any acute abnormality. There is a trace infiltration of the stuart hepatis and pancreatic duodenal groove of unknown clinical significance. Per radiology report, it was recommended to obtain lipase to evaluate for possible group pancreatitis, this was done in ED and was negative. Per my discussion with the patient, does not feel she needs pain medications. Allergies Allergy/AdvReac Type Severity Reaction Status Date / Time Quinolones Allergy Intermediate NAUSEA, Verified 07/05/20 09:50 ITCH, RASH codeine Allergy Unknown CAN TAKE Verified 07/05/20 09:50 MORPHINE Sulfa (Sulfonamide Allergy Unknown ? Verified 07/05/20 09:50 Antibiotics) exenatide AdvReac Mild Nausea/vomi Verified 07/05/20 09:50 ting. nitrofurantoin AdvReac Mild Nausea/vomi Verified 07/05/20 09:50 ting polyethylene glycol AdvReac Mild Nausea/vomi Verified 07/05/20 09:50 ting metformin AdvReac Unknown Nausea/Vomi Verified 07/05/20 09:50 ting Home Medications Medication Instructions Recorded Confirmed Type Tojena SoloStar U-300 Insulin 62 unit SUBCUT QPM 11/22/18 07/05/20 History aspirin 81 mg PO HS 11/22/18 07/05/20 History metoprolol tartrate 25 mg PO BID 11/22/18 07/05/20 History omeprazole 20 mg PO BID 11/22/18 07/05/20 History azithromycin 250 mg PO DAILY 07/04/20 07/05/20 History calcium carbonate [Calcium 500] 500 mg PO DAILY 07/04/20 07/05/20 History dexamethasone 6 mg PO DAILY #7 tab 07/04/20 07/05/20 Rx insulin aspart U-100 [Novolog 1 sliding scale dose SUBCUT 07/05/20 07/05/20 History U-100 Insulin aspart] USEASDIRECTD Past Med/Surg History Medical History Flores esophagus DM type 2 (diabetes mellitus, type 2) HLD (hyperlipidemia) HTN (hypertension) VIERA (nonalcoholic steatohepatitis) Thrombocytopenia Surgical History History of hysterectomy Hx of cardiac cath "05/2015 - mild CAD" S/P cholecystectomy Social History Smoking Status: Former smoker Second Hand Exposure: No; Hx Alcohol Use: No Hx Substance Use: No Preferred Language: Frisian Communication Ability: Effective Health Specialist Required: No Beliefs That Will Affect Care: None Current Living Situation: Spouse Feels Safe at Home: Yes Assistive Devices: None Review of Systems Review of Systems: All systems reviewed & are unremarkable except as noted in HPI & below Constitutional: + weakness (generalized); no fever and no chills Eyes: no problem reported Ear, Nose, Mouth, Throat: no problem reported Respiratory: + cough (occasional); no dyspnea Cardiovascular: no chest pain and no palpitations Gastrointestinal: + abdominal pain (RUQ), + nausea and + vomiting Genitourinary: no dysuria Musculoskeletal: no problem reported Integumentary: no problem reported Neurologic: no problem reported Psychiatric: no problem reported Endocrine: no problem reported Hematologic / Lymphatic: no problem reported Allergy / Immunological: no problem reported Physical Exam Constitutional: WD/WN, vitals as above + obese Eyes: PERRL, conjunctivae normal, anicteric sclerae ENMT: external ear and nose normal, oropharynx normal Neck: trachea midline, no thyromegaly normal visual inspection and + thick neck Respiratory: normal respiratory effort, lungs clear to auscultation + cough (occasional) Auscultation: no crackles, no rhonchi and no wheezes Cardiovascular: RRR, no murmur, no edema Chest (Breasts): Chest: normal inspection of chest Gastrointestinal (Abdomen): Inspection/Auscultation: abdomen normal to inspection and normal bowel sounds; abdomen not distended Percussion/Palpation: abdomen soft; abdomen nontender, no guarding and abdomen not rigid Musculoskeletal: no cyanosis or clubbing, extremities motor strength 5/5 Head/Neck/Chest: normocephalic and head atraumatic Skin: no rashes, warm and dry Neurologic: PERRL, EOMI, accommodation nl, no face palsy, no dysarthria moves all extremities Psychiatric: A+Ox3, euthymic affect Genitourinary: no CVA tenderness Lymphatic: no lymphedema Results & Data Results & Data ([facility]) Vital Signs (Past 12 Hours) Vital Signs Temp Pulse Pulse Resp BP BP Pulse Ox 07/05/20 09:30 83 24 164/76 H 93 07/05/20 09:05 84 19 159/73 H 95 07/05/20 07:18 90 18 175/85 H 175/85 H 95 07/05/20 06:31 92 07/05/20 06:30 18 167/83 H 94 07/05/20 06:28 16 158/75 H 95 07/05/20 06:27 94 07/05/20 06:18 84 16 169/87 H 99 07/05/20 05:38 93 H 18 172/86 H 97 07/05/20 05:31 83 19 07/05/20 05:30 83 21 172/86 H 07/05/20 05:15 80 23 07/05/20 05:01 79 20 07/05/20 05:00 79 16 164/84 H 07/05/20 04:58 97 07/05/20 04:45 83 20 07/05/20 04:31 84 22 07/05/20 04:30 80 18 168/93 H 07/05/20 04:15 83 19 07/05/20 04:01 78 20 07/05/20 04:00 78 21 176/93 H 07/05/20 03:50 83 21 07/05/20 03:48 82 21 178/127 H 07/05/20 03:41 36.9 C 84 18 161/73 H 94 Laboratory Results 07/05/20 07/05/20 07/05/20 Range/Units 06:00 04:51 04:51 WBC 2.49 L (4.8-10.8) K/uL RBC 3.61 L (4.2-5.4) M/uL Hgb 11.0 L (12.0-16.0) g/dL Hct 30.8 L (37-47) % MCV 85.3 (80-100) fL MCH 30.5 (25-34) pg MCHC 35.7 (32-36) g/dL RDW Std Deviation 42.7 (36.4-46.3) fL RDW Coeff of Meeta 13.7 (11.5-14.5) % Plt Count 56 L (130-400) K/uL MPV 9.5 (7.4-10.4) fL Immature Gran % (Auto) 0.0 % Neut % (Auto) 73.5 % Lymph % (Auto) 19.7 % Page % (Auto) 6.4 % Eos % (Auto) 0.4 % Baso % (Auto) 0.0 % Neut # (Auto) 1.83 (1.4-6.5) K/uL Lymph # (Auto) 0.49 L (1.2-3.4) K/uL Page # (Auto) 0.16 (0.11-0.59) K/uL Eos # (Auto) 0.01 (0-0.5) K/uL Baso # (Auto) 0.00 (0-0.2) K/uL Immature Gran # (Auto) 0.00 (0.00-0.02) K/uL Sodium 142 (136-145) mmol/L Potassium 3.5 (3.5-5.1) mmol/L Chloride 109 H (98-107) mmol/L Carbon Dioxide 30 (21-32) mmol/L Anion Gap 3.0 (3-11) BUN 8 (7-18) mg/dl Creatinine 0.49 L (0.6-1.2) mg/dl Est Cr Clr Drug Dosing Not Reportable Est GFR ( Amer) 119.3 Est GFR (Non-Af Amer) 103.0 BUN/Creatinine Ratio 16.9 (10-20) Glucose 100 H (70-99) mg/dl Calcium 8.0 L (8.5-10.1) mg/dl Magnesium 1.7 L (1.8-2.4) mg/dl Total Bilirubin 0.7 (0.2-1) mg/dl AST 27 (15-37) U/L ALT 24 (12-78) U/L Alkaline Phosphatase 60 (45-117) U/L Troponin I < 0.015 (0-0.045) ng/ml Total Protein 6.1 L (6.4-8.2) gm/dl Albumin 3.3 L (3.4-5.0) gm/dl Globulin 2.8 (2.5-4.0) gm/dl Albumin/Globulin Ratio 1.2 (0.9-2) Lipase 71 L (73-393) U/L TSH 0.988 (0.300-4.500) uIu/ml Urine Color Yellow Urine Appearance Clear (Clear) Urine pH 6.0 (4.5-7.5) Ur Specific [place] 1.009 (1.000-1.030) Urine Protein Negative (Negative) Urine Glucose (UA) Negative (Negative) Urine Ketones 1+ H (Negative) Urine Blood Negative (Negative) Urine Nitrite Negative (Negative) Urine Bilirubin Negative (Negative) Urine Urobilinogen Negative (Negative) Ur Leukocyte Esterase 1+ H (Negative) Urine WBC (Auto) 1-5 (0-5) /hpf Urine RBC (Auto) 0-4 (0-4) /hpf U Hyaline Cast (Auto) 1-5 (0-5) /lpf U Epithel Cells (Auto) >30 H (0-5) /lpf Urine Bacteria (Auto) Negative (Negative) Diagnostic Findings CXR 07/03 The cardiac and mediastinal contours remain stable. There is no failure. There is no focal pulmonary consolidation. There are no pleural effusions. There is persistent aortic tortuosity/ectasia.[ IMPRESSION: No active disease in the chest. CXR 07/04 The heart is mildly enlarged. There is no lobar consolidation. There is mild interstitial thickening. There is a 6 mm right mid to lower lung zone opacity statistically representing a summation as this was not visualized the prior study[ IMPRESSION: 1. Mild cardiomegaly 2. Nonspecific interstitial thickening. This could be secondary to interstitial infectious/inflammatory process or mild pulmonary vascular congestion. Clinical and radiographic follow-up recommended 3. 6 mm right midlung zone opacity statistically representing a summation CT abdomen /pelvis w/ contrast IMPRESSION: 1. Bibasilar groundglass densities compatible with viral pneumonia. 2. No bowel obstruction or bowel wall thickening. Normal appendix. 3. Cholecystectomy. There is trace infiltration of the stuart hepatis and pancreaticoduodenal groove of unknown clinical significance. Correlate with lipase level to exclude groove pancreatitis. 4. Unchanged marked splenomegaly. 5. Hepatic steatosis. 6. 8 mm partially imaged solid nodule of the right lower lobe is new from 2016. 4 mm benign solid nodule of the left lower lobe demonstrates at least 4 years of stability. Follow-up guidelines provided below. Please refer to below summary of Fleischner criteria recommendations for follow- up of incidental CT nodules (Abigail Mcgarry, Guidelines for management of small pulmonary nodules detected on CT scans: A statement from the Fleischner Society, Radiology 237: [phone].) Medications Administered Current Inpatient Medications Acetaminophen (Acetaminophen 325 Mg Tab) 650 mg PO Q4H PRN PRN Reason: Pain or Fever Stop: 08/04/20 08:25 Aspirin (Aspirin 81 Mg Ectab) 81 mg PO HS LISA Stop: 08/04/20 20:59 Pantoprazole Sodium 40 mg/ (Syringe) 10 mls @ 5 mls/min IV DAILY@1100 LISA Stop: 08/04/20 10:59 Dexamethasone 6 mg/ Syringe 1.5 mls @ 1 mls/min IV QAM [facility] Stop: 08/04/20 10:14 Metoprolol Tartrate (Metoprolol Tartrate 25 Mg Tab) 25 mg PO BID [facility] Stop: 08/04/20 20:59 Miscellaneous Information (Pharmacy Glycemic Mgmt Consult) 1 ea N/A UD PRN PRN Reason: Consult Stop: 08/04/20 08:32 Non-Formulary Medication (Insulin Glargine U-300 Conc [Toujeo Solostar U-300 Insulin]) 30 units SQ QPM [facility] Stop: 08/04/20 20:59 Polyethylene Glycol (Polyethylene (Miralax) 17 Gm Pack) 17 gm PO DAILY PRN PRN Reason: Constipation Stop: 08/04/20 08:25
[2020-07-05] MEDS ORDERED: CARBOHYDRATES FOR HYPOGLYCEMIA PO PRN (11:15)
[2020-07-05] MEDS ORDERED: GLUCOSE 40% GEL 15 GM TUBE PO PRN (11:15)
[2020-07-05] MEDS ORDERED: GLUCOSE 10 TABS/TUBE PO PRN (11:15)
[2020-07-05] MEDS ORDERED: GLUCAGON FOR INJ 1 MG VIAL IM PRN (11:15)
[2020-07-05] MEDS ORDERED: DEXTROSE 50% 50 ML SYRINGE IV PRN (11:15)
[2020-07-05] MEDS ORDERED: INSULIN HUMAN NPH SC SCH (11:30)
--- NOTE | 2020-07-05 11:39 | Pharmacy Report ---
Pharmacy Glycemic Short Note 2 - Date of Service July 05, 2020 - Glycemic Short BSG Results (Last 24 hours): 07/05/20 04:51 Glucose 100 H OUTPATIENT ANTIDIABETIC REGIMEN: * Insulin Glargine U-300 (Toujeo) 62 units SQ PM * A1c = pending for 07/06/20 ASSESSMENT: * 64yo T2DM female admitted with COVID * Admitting BSG in range at 100 mg/dl but likely will increase after DXM administration * Total daily outpatient dose is 62 units/day. Will stress this dosing for illness/steroids and titrate based on BSG trends. Will utilize an estimated TDD of ~ 100-120 units/day divided between basal, steroid induced hyperg lycemia and bolus insulin orders. * Converting outpatient Toujeo to Lantus: Protocol for pharmacy to convert ordered doses of Toujeo to Lantus on a 1:1 unit conversion, except for the initial first dose of Lantus. The recommended initial Lantus dose should be 80% of the ordered Toujeo dose that is being converted on admission. All subsequent doses will be 1:1 dosing conversion. * Will decrease Toujeo from 62 to 45 units this evening. Slightly more than a 20% reduction since patient is only ordered clear liquids and toujeo is actually TDD instead of true basal needs. * Will add 0.3 units/kg of NPH to cover steroid induced hyperglycemia secondary to DXM (slight reduction from typical 0.4 units/kg for clear liquid diet) PLAN FOR INPATIENT GLYCEMIC CONTROL: * Basal insulin * Lantus 45 units SQ HS (~25% reduction in outpatient basal) * Steroid induced hyperglycemia * NPH 27 units (~0.3 units/kg) SQ daily with IV dexamethasone * Bolus insulin * NovoLog per scale ACHS or Q6hrs while NPO * Goal Range: Low 110 mg/dL - High 140 mg/dL * Correction Factor: 15 mg/dL/unit * Nutritional / Prandial insulin per carb ratio of 1 unit per 6 grams CHO co nsumed PLAN FOR DISCHARGE: * TBD - A1c pending
[2020-07-05] MEDS ORDERED: FUROSEMIDE 10 MG in SYRINGE 0 ML IV ONE (12:11)
[2020-07-05] MEDS: dexAMETHasone 6 MG in SYRINGE 0 ML IV SCH (12:35)
[2020-07-05] MEDS: PANTOprazole 40 MG in SYRINGE 0 ML IV SCH (12:36)
[2020-07-05] MEDS ORDERED: PROCHLORPERAZINE 5 MG in SYRINGE 4 ML IV PRN (12:45)
--- NOTE | 2020-07-05 13:08 | Electrocardiogram Report ---
Test Reason : Blood Pressure : / mmHG Vent. Rate : 077 BPM Atrial Rate : 077 BPM P-R Int : 150 ms QRS Dur : 082 ms QT Int : 392 ms P-R-T Axes : 018 -05 077 degrees QTc Int : 443 ms Normal sinus rhythm Minimal voltage criteria for LVH, may be normal variant Nonspecific T wave abnormality Abnormal ECG When compared with ECG of 04-JUL-2020 00:36, (unconfirmed) No significant change was found Confirmed by Tristin Newman ([id number]) on 07/05/2020 1:07:51 PM Referred By: REFERRED SELF Confirmed By:Antonio Newman
[2020-07-05] MEDS: INSULIN ASPART 100 UNITS/ML 3 ML PEN SC SCH ×4 (13:13→21:33)
[2020-07-05 17:42] LABS: BUN Creatinine Ratio 15.2 (10-20); Calcium 8.1 mg/dl (8.5-10.1); Creatinine Clr Calc Pharmacy 102.2 ml/min; Est GFR (African American) 115.6; Est GFR (Non-African American) 99.7; Potassium 3.6 mmol/L (3.5-5.1)
[2020-07-05] MEDS: ASPIRIN 81 MG ECTAB PO SCH (20:58)
[2020-07-05] MEDS: METOPROLOL TARTRATE 25 MG TAB PO SCH (20:59)
[2020-07-05] MEDS ORDERED: INSULIN GLARGINE SOLOSTAR 100 UNITS/ML 3 ML PEN SQ SCH (21:00)
[2020-07-05] MEDS: INSULIN GLARGINE SOLOSTAR 100 UNITS/ML 3 ML PEN SQ SCH (21:32)
[2020-07-06 06:40] LABS: Hematocrit (blood only) 35.3 % (37-47); Hemoglobin 12.4 g/dL (12.0-16.0); Mean Corpuscular Hemoglobin 29.5 pg (25-34); Mean Corpuscular Hgb Conc 35.1 g/dL (32-36); Mean Corpuscular Volume 83.8 fL (80-100); RDW Coefficient of Variation 13.5 % (11.5-14.5); RDW Standard Deviation 40.8 fL (36.4-46.3); Red Blood Count 4.21 M/uL (4.2-5.4)
[2020-07-06 06:47] LABS: Mean Platelet Volume 10.3 fL (7.4-10.4); Platelet Count 65 K/uL (130-400)
[2020-07-06 06:50] LABS: INR 1.1 (0.9-1.1); Prothrombin Time 11.1 Seconds (9.0-12.0)
[2020-07-06 07:21] LABS: Albumin Level 3.6 gm/dl (3.4-5.0); BUN Creatinine Ratio 19.8 (10-20); C Reactive Protein 1.72 mg/dl (0-0.29); Calcium 8.3 mg/dl (8.5-10.1); Creatinine Clr Calc Pharmacy 73.2 ml/min; Est GFR (African American) 97.6; Est GFR (Non-African American) 84.2; Magnesium 2.1 mg/dl (1.8-2.4); Potassium 3.5 mmol/L (3.5-5.1)
[2020-07-06 07:24] LABS: Albumin Globulin Ratio 1.2 (0.9-2); Bilirubin,Total 0.6 mg/dl (0.2-1); Globulin 3.1 gm/dl (2.5-4.0); Phosphorus 2.8 mg/dl (2.5-4.9); Total Protein 6.7 gm/dl (6.4-8.2)
[2020-07-06] MEDS ORDERED: POTASSIUM CHLORIDE CRTAB 20 MEQ TABCR PO STA (08:04)
--- NOTE | 2020-07-06 08:06 | Hospitalist Progress Note ---
Date of Service July 06, 2020 Assessment & Plan (1) Nausea: (2) Vomiting and diarrhea: Reports having nausea vomiting, diarrhea for past for 5 days Diagnosed with Covid 1 week ago stool culture - pending Supportive care with IV fluids, electrolyte replacements Will order clear liquid diet, advance as tolerated Received Zofran in ED, will continue antiemetics Feeling better today (07/06), nausea much improved, patient wants to advance diet Mild hypokalemia, hypomagnesemia, replete and monitor (3) Right upper quadrant abdominal pain: Patient has some chronic abdominal discomfort, history of Flores's esophagus, Sam cirrhosis Previously seen by GI Status post cholecystectomy Chronic abdominal discomfort believed to be secondary to gastroparesis CT abdomen obtained in the ED- No bowel obstruction or bowel wall thickening. Normal appendix. Cholecystectomy. There is trace infiltration of the stuart hepatis and pancreaticoduodenal groove of unknown clinical significance. Correlate with lipase level to exclude groove pancreatitis. Unchanged marked splenomegaly. Hepatic steatosis. 8 mm partially imaged solid nodule of the right lower lobe is new from 2016. 4 mm benign solid nodule of the left lower lobe demonstrates at least 4 years of stability. Follow-up guidelines provided. Lipase negative Currently not interested in any pain medications If patient does not clinically improve, will consult with GI Abdominal discomfort much improved (07/06) SAM cirrhosis AST, ALT, within normal limits Not decompensated Will follow CMP, INR (4) COVID-19: Was diagnosed on June 27 At the time did not had any symptoms of COVID-19, however her family was all diagnosed with COVID-19, they met during a standard Patient was offered monoclonal antibody by her PCP office, however patient declined, reports at the time she did not have any symptoms so did not think it was necessary She reports feeling" lousy", having nausea, loose stools occasional cough, however no shortness of breath Family doctor started her on Decadron and azithromycin, patient has not started medications as she says "cannot keep anything down" Chest x-ray shows some haziness, interstitial thickening, possible viral pneumonia We will start her on IV Decadron Monitor inflammatory factors Obtain procal, if elevated, consider antibiotics (5) DM type 2 (diabetes mellitus, type 2): - on insulin at home - last A1c 6.8% in May 2020 - pt decreased dose of long-lasting insulin to half as she was not able to eat - for now will cont. w/ decreased dose, will further consult w/ glycemic pharmacy (6) Flores esophagus: - cont PPI, for now will switch to IV as pt has nausea (7) HTN (hypertension): -Continue home metoprolol (8) Thrombocytopenia: - chronic, current Plt 56, cont. to monitor Code: DNR/DNI, discussed with the patient DVT ppx: SCDs given thrombocytopenia Admission and Anticipated Discharge Date Admission Date: July 05, 2020 Subjective Patient seen in follow-up of nausea, vomiting, in the setting of COVID-19 infection Currently she is feeling much better, tolerating clear with diet, asking about advancing diet, abdominal pain is now pretty much resolved Review of Systems Review of Systems: All systems reviewed & are unremarkable except as noted in HPI & below Constitutional: no fever and no chills Respiratory: + cough; no dyspnea Cardiovascular: no chest pain and no palpitations Gastrointestinal: no abdominal pain and no vomiting Physical Exam Constitutional: WD/WN, vitals as above + obese Eyes: PERRL, conjunctivae normal, anicteric sclerae ENMT: external ear and nose normal, oropharynx normal Neck: trachea midline, no thyromegaly normal visual inspection and + thick neck Respiratory: normal respiratory effort, lungs clear to auscultation + cough (occasional) Auscultation: no crackles, no rhonchi and no wheezes Cardiovascular: RRR, no murmur, no edema Chest (Breasts): Chest: normal inspection of chest Gastrointestinal (Abdomen): Inspection/Auscultation: abdomen normal to insp ection and normal bowel sounds; abdomen not distended Percussion/Palpation: abdomen soft; abdomen nontender, no guarding and abdomen not rigid Musculoskeletal: no cyanosis or clubbing, extremities motor strength 5/5 Head/Neck/Chest: normocephalic and head atraumatic Skin: no rashes, warm and dry Neurologic: PERRL, EOMI, accommodation nl, no face palsy, no dysarthria moves all extremities Psychiatric: A+Ox3, euthymic affect Genitourinary: no CVA tenderness Lymphatic: no lymphedema Results & Data Results & Data ([facility]) Vital Signs (Past 12 Hours) Vital Signs Temp Pulse Resp BP Pulse Ox 07/06/20 07:35 36.4 C L 62 21 154/86 H 97 07/06/20 07:15 36.4 C L 75 18 168/87 H 95 07/06/20 03:32 36.7 C 58 L 16 145/57 H 91 07/05/20 23:18 36.7 C 63 17 114/63 92 Laboratory Results 07/06/20 07/06/20 07/06/20 Range/Units 07:44 06:21 06:21 WBC (4.8-10.8) K/uL RBC (4.2-5.4) M/uL Hgb (12.0-16.0) g/dL Hct (37-47) % MCV (80-100) fL MCH (25-34) pg MCHC (32-36) g/dL RDW Std Deviation (36.4-46.3) fL RDW Coeff of Meeta (11.5-14.5) % Plt Count (130-400) K/uL MPV (7.4-10.4) fL ESR 5 (0-21) mm/hr PT 11.1 (9.0-12.0) Seconds INR 1.1 (0.9-1.1) Sodium (136-145) mmol/L Potassium (3.5-5.1) mmol/L Chloride (98-107) mmol/L Carbon Dioxide (21-32) mmol/L Anion Gap (3-11) BUN (7-18) mg/dl Creatinine (0.6-1.2) mg/dl Est Cr Clr Drug Dosing ml/min Est GFR ( Amer) Est GFR (Non-Af Amer) BUN/Creatinine Ratio (10-20) Glucose (70-99) mg/dl POC Glucose 192 H (70-99) mg/dl Estimat Average Glucose Hemoglobin A1c Calcium (8.5-10.1) mg/dl Phosphorus (2.5-4.9) mg/dl Magnesium (1.8-2.4) mg/dl Total Bilirubin (0.2-1) mg/dl AST (15-37) U/L ALT (12-78) U/L Alkaline Phosphatase (45-117) U/L Troponin I (0-0.045) ng/ml C-Reactive Protein (0-0.29) mg/dl Total Protein (6.4-8.2) gm/dl Albumin (3.4-5.0) gm/dl Globulin (2.5-4.0) gm/dl Albumin/Globulin Ratio (0.9-2) Procalcitonin (0-0.5) ng/ml 07/06/20 07/06/20 07/06/20 Range/Units 06:21 06:21 06:21 WBC 2.70 L (4.8-10.8) K/uL RBC 4.21 (4.2-5.4) M/uL Hgb 12.4 (12.0-16.0) g/dL Hct 35.3 L (37-47) % MCV 83.8 (80-100) fL MCH 29.5 (25-34) pg MCHC 35.1 (32-36) g/dL RDW Std Deviation 40.8 (36.4-46.3) fL RDW Coeff of Meeta 13.5 (11.5-14.5) % Plt Count 65 L (130-400) K/uL MPV 10.3 (7.4-10.4) fL ESR (0-21) mm/hr PT (9.0-12.0) Seconds INR (0.9-1.1) Sodium 140 (136-145) mmol/L Potassium 3.5 (3.5-5.1) mmol/L Chloride 105 (98-107) mmol/L Carbon Dioxide 28 (21-32) mmol/L Anion Gap 6.0 (3-11) BUN 15 D (7-18) mg/dl Creatinine 0.75 (0.6-1.2) mg/dl Est Cr Clr Drug Dosing 73.2 ml/min Est GFR ( Amer) 97.6 Est GFR (Non-Af Amer) 84.2 BUN/Creatinine Ratio 19.8 (10-20) Glucose 173 H (70-99) mg/dl POC Glucose (70-99) mg/dl Estimat Average Glucose Pending Hemoglobin A1c Pending Calcium 8.3 L (8.5-10.1) mg/dl Phosphorus 2.8 (2.5-4.9) mg/dl Magnesium 2.1 (1.8-2.4) mg/dl Total Bilirubin 0.6 (0.2-1) mg/dl AST 26 (15-37) U/L ALT 23 (12-78) U/L Alkaline Phosphatase 62 (45-117) U/L Troponin I (0-0.045) ng/ml C-Reactive Protein 1.72 H (0-0.29) mg/dl Total Protein 6.7 (6.4-8.2) gm/dl Albumin 3.6 (3.4-5.0) gm/dl Globulin 3.1 (2.5-4.0) gm/dl Albumin/Globulin Ratio 1.2 (0.9-2) Procalcitonin (0-0.5) ng/ml 07/05/20 07/05/20 07/05/20 Range/Units 20:36 17:12 16:06 WBC (4.8-10.8) K/uL RBC (4.2-5.4) M/uL Hgb (12.0-16.0) g/dL Hct (37-47) % MCV (80-100) fL MCH (25-34) pg MCHC (32-36) g/dL RDW Std Deviation (36.4-46.3) fL RDW Coeff of Meeta (11.5-14.5) % Plt Count (130-400) K/uL MPV (7.4-10.4) fL ESR (0-21) mm/hr PT (9.0-12.0) Seconds INR (0.9-1.1) Sodium 139 (136-145) mmol/L Potassium 3.6 (3.5-5.1) mmol/L Chloride 105 (98-107) mmol/L Carbon Dioxide 27 (21-32) mmol/L Anion Gap 7.0 (3-11) BUN 8 (7-18) mg/dl Creatinine 0.54 L (0.6-1.2) mg/dl Est Cr Clr Drug Dosing 102.2 ml/min Est GFR ( Amer) 115.6 Est GFR (Non-Af Amer) 99.7 BUN/Creatinine Ratio 15.2 (10-20) Glucose 196 H (70-99) mg/dl POC Glucose 290 H 192 H (70-99) mg/dl Estimat Average Glucose Hemoglobin A1c Calcium 8.1 L (8.5-10.1) mg/dl Phosphorus (2.5-4.9) mg/dl Magnesium 2.0 (1.8-2.4) mg/dl Total Bilirubin (0.2-1) mg/dl AST (15-37) U/L ALT (12-78) U/L Alkaline Phosphatase (45-117) U/L Troponin I (0-0.045) ng/ml C-Reactive Protein (0-0.29) mg/dl Total Protein (6.4-8.2) gm/dl Albumin (3.4-5.0) gm/dl Globulin (2.5-4.0) gm/dl Albumin/Globulin Ratio (0.9-2) Procalcitonin (0-0.5) ng/ml 07/05/20 07/05/20 07/05/20 Range/Units 11:42 10:14 04:51 WBC (4.8-10.8) K/uL RBC (4.2-5.4) M/uL Hgb (12.0-16.0) g/dL Hct (37-47) % MCV (80-100) fL MCH (25-34) pg MCHC (32-36) g/dL RDW Std Deviation (36.4-46.3) fL RDW Coeff of Meeta (11.5-14.5) % Plt Count (130-400) K/uL MPV (7.4-10.4) fL ESR (0-21) mm/hr PT (9.0-12.0) Seconds INR (0.9-1.1) Sodium (136-145) mmol/L Potassium (3.5-5.1) mmol/L Chloride (98-107) mmol/L Carbon Dioxide (21-32) mmol/L Anion Gap (3-11) BUN (7-18) mg/dl Creatinine (0.6-1.2) mg/dl Est Cr Clr Drug Dosing ml/min Est GFR ( Amer) Est GFR (Non-Af Amer) BUN/Creatinine Ratio (10-20) Glucose (70-99) mg/dl POC Glucose 128 H (70-99) mg/dl Estimat Average Glucose Hemoglobin A1c Calcium (8.5-10.1) mg/dl Phosphorus (2.5-4.9) mg/dl Magnesium (1.8-2.4) mg/dl Total Bilirubin (0.2-1) mg/dl AST (15-37) U/L ALT (12-78) U/L Alkaline Phosphatase (45-117) U/L Troponin I < 0.015 (0-0.045) ng/ml C-Reactive Protein (0-0.29) mg/dl Total Protein (6.4-8.2) gm/dl Albumin (3.4-5.0) gm/dl Globulin (2.5-4.0) gm/dl Albumin/Globulin Ratio (0.9-2) Procalcitonin < 0.05 (0-0.5) ng/ml Medications Administered Current Inpatient Medications Acetaminophen (Acetaminophen 325 Mg Tab) 650 mg PO Q4H PRN PRN Reason: Pain or Fever Stop: 08/04/20 08:25 Aspirin (Aspirin 81 Mg Ectab) 81 mg PO HS [facility] Stop: 08/04/20 20:59 Last Admin: 07/05/20 20:58 Dose: 81 mg Documented by: Dextrose (Dextrose 50% 50 Ml Syringe) 25 - 50 ml IV UD PRN; Protocol PRN Reason: Hypoglycemia Protocol Stop: 08/04/20 11:14 Glucagon (Glucagon For Inj 1 Mg Vial) 1 mg IM UD PRN; Protocol PRN Reason: Hypoglycemia Protocol Stop: 08/04/20 11:14 Glucose (Glucose 40% Gel 15 Gm Tube) 15 - 30 gm PO UD PRN; Protocol PRN Reason: Hypoglycemia Protocol Stop: 08/04/20 11:14 Glucose (Glucose 10 Tabs/Tube) 4 - 8 tabs PO UD PRN; Protocol PRN Reason: Hypoglycemia Protocol Stop: 08/04/20 11:14 Pantoprazole Sodium 40 mg/ (Syringe) 10 mls @ 5 mls/min IV DAILY@1100 [facility] Stop: 08/04/20 10:59 Last Admin: 07/05/20 12:36 Dose: 5 mls/min Documented by: Dexamethasone 6 mg/ Syringe 1.5 mls @ 1 mls/min IV QAM [facility] Stop: 07/14/20 09:02 Last Admin: 07/05/20 12:35 Dose: 1 mls/min Documented by: Prochlorperazine 5 mg/ Syringe 5 mls @ 5 mls/min IV Q6H PRN PRN Reason: nausea Stop: 08/04/20 12:44 Last Admin: 07/05/20 13:46 Dose: 5 mls/min Documented by: Insulin Aspart (Insulin Aspart 100 Units/Ml 3 Ml Pen) 0 units SC ACHS [facility] Stop: 08/04/20 11:29 Last Admin: 07/05/20 21:33 Dose: 8 units Documented by: Insulin Glargine (Insulin Glargine Solostar 100 Units/Ml 3 Ml Pen) 0 units SQ HS LISA; Protocol Stop: 08/04/20 20:59 Last Admin: 07/05/20 21:32 Dose: 45 units Documented by: Insulin Human NPH (Insulin Human Nph) 32 units SC DAILY@0900 [facility] Stop: 08/05/20 08:59 Metoprolol Tartrate (Metoprolol Tartrate 25 Mg Tab) 25 mg PO BID [facility] Stop: 08/04/20 20:59 Last Admin: 07/05/20 20:59 Dose: 25 mg Documented by: Miscellaneous (Carbohydrates For Hypoglycemia ) 15 - 30 gm PO UD PRN PRN Reason: Hypoglycemia Treatment Stop: 08/04/20 11:14 Miscellaneous Information (Pharmacy Glycemic Mgmt Consult) 1 ea N/A UD PRN PRN Reason: Consult Stop: 08/04/20 08:32 Polyethylene Glycol (Polyethylene (Miralax) 17 Gm Pack) 17 gm PO DAILY PRN PRN Reason: Constipation Stop: 08/04/20 08:25 Potassium Chloride (Potassium Chloride Crtab 20 Meq Tabcr) 40 meq PO NOW STA Stop: 07/06/20 08:05
[2020-07-06] MEDS: INSULIN ASPART 100 UNITS/ML 3 ML PEN SC SCH ×4 (08:08→20:46)
[2020-07-06] MEDS: dexAMETHasone 6 MG in SYRINGE 0 ML IV SCH (08:18)
[2020-07-06] MEDS: METOPROLOL TARTRATE 25 MG TAB PO SCH ×2 (08:19→20:45)
[2020-07-06 08:29] LABS: Estimated Average Glucose 166 mg/dl; Hemoglobin A1C 7.4 % (4.5-5.6)
[2020-07-06] MEDS ORDERED: INSULIN HUMAN NPH SC SCH (09:00)
[2020-07-06] MEDS: PANTOprazole 40 MG in SYRINGE 0 ML IV SCH (11:07)
[2020-07-06] MEDS ORDERED: INSULIN HUMAN NPH SC ONE (12:00)
--- NOTE | 2020-07-06 12:05 | Pharmacy Report ---
Pharmacy Glycemic Short Note 2 - Date of Service July 06, 2020 - Glycemic Short BSG Results (Last 24 hours): 07/05/20 07/05/20 07/05/20 16:06 17:12 20:36 Glucose 196 H POC Glucose 192 H 290 H 07/06/20 07/06/20 07/06/20 06:21 07:44 11:29 Glucose 173 H POC Glucose 192 H 329 H* OUTPATIENT ANTIDIABETIC REGIMEN: * Insulin Glargine U-300 (Toujeo) 62 units SQ PM * A1c = pending for 07/06/20 ASSESSMENT: 07/06 * Fasting hyperglycemia noted on this AMs labs. FBS = 173-192 with 45 units Lantus + 27 units NPH on board from yesterday. Will up-titrate NPH dose * Post-prandial hyperglycemia problematic yesterday and again this AM with current Novolog doses. Will up-titrate Novolog doses as well * Patient is tolerating her diet, which remains clear liquids. She also continues on IV dexamethasone 07/05 * 64yo T2DM female admitted with COVID * Admitting BSG in range at 100 mg/dl but likely will increase after DXM administration * Total daily outpatient dose is 62 units/day. Will stress this dosing for illness/steroids and titrate based on BSG trends. Will utilize an estimated TDD of ~ 100-120 units/day divided between basal, steroid induced hyperglycemia and bolus insulin orders. * Converting outpatient Toujeo to Lantus: Protocol for pharmacy to convert ordered doses of Toujeo to Lantus on a 1:1 unit conversion, except for the initial first dose of Lantus. The recommended initial Lantus dose should be 80% of the ordered Toujeo dose that is being converted on admission. All subsequent doses will be 1:1 dosing conversion. * Will decrease Toujeo from 62 to 45 units this evening. Slightly more than a 20% reduction since patient is only ordered clear liquids and toujeo is actually TDD instead of true basal needs. * Will add 0.3 units/kg of NPH to cover steroid induced hyperglycemia secondary to DXM (slight reduction from typical 0.4 units/kg for clear liquid diet) PLAN FOR INPATIENT GLYCEMIC CONTROL: * Basal insulin * Lantus 45 units SQ HS * Steroid induced hyperglycemia * NPH 36 units (~0.4 units/kg) SQ given this AM, will give additional 6 units NPH x 1 and increase to 40 units Q AM w/ IV dexamethasone * Bolus insulin * NovoLog per scale ACHS or Q6hrs while NPO * Goal Range: Low 110 mg/dL - High 140 mg/dL * Correction Factor: 15 mg/dL/unit * Nutritional / Prandial insulin per carb ratio of 1 unit per 5 grams CHO c onsumed PLAN FOR DISCHARGE: * TBD - A1c pending
[2020-07-06] MEDS: INSULIN GLARGINE SOLOSTAR 100 UNITS/ML 3 ML PEN SQ SCH (20:45)
[2020-07-06] MEDS: ASPIRIN 81 MG ECTAB PO SCH (20:45)
[2020-07-06] MEDS: guaiFENesin 600 MG TABCR PO SCH (20:45)
[2020-07-07] MEDS ORDERED: INSULIN ASPART 100 UNITS/ML 3 ML PEN SC ONE (02:00)
[2020-07-07 06:21] LABS: Hematocrit (blood only) 36.6 % (37-47); Hemoglobin 12.9 g/dL (12.0-16.0); Mean Corpuscular Hemoglobin 29.9 pg (25-34); Mean Corpuscular Hgb Conc 35.2 g/dL (32-36); Mean Corpuscular Volume 84.7 fL (80-100); RDW Coefficient of Variation 13.4 % (11.5-14.5); RDW Standard Deviation 41.2 fL (36.4-46.3); Red Blood Count 4.32 M/uL (4.2-5.4); White Blood Count 6.75 K/uL (4.8-10.8)
[2020-07-07 06:23] LABS: Mean Platelet Volume 10.2 fL (7.4-10.4); Platelet Count 85 K/uL (130-400)
[2020-07-07 06:29] LABS: INR 1.1 (0.9-1.1); Prothrombin Time 10.9 Seconds (9.0-12.0)
[2020-07-07 06:47] LABS: Albumin Level 3.7 gm/dl (3.4-5.0); BUN Creatinine Ratio 25.1 (10-20); Calcium 8.8 mg/dl (8.5-10.1); Creatinine Clr Calc Pharmacy 79.5 ml/min; Est GFR (African American) 106.6; Potassium 3.9 mmol/L (3.5-5.1)
[2020-07-07 06:50] LABS: Albumin Globulin Ratio 1.3 (0.9-2); Bilirubin,Total 0.6 mg/dl (0.2-1); Globulin 2.9 gm/dl (2.5-4.0); Total Protein 6.6 gm/dl (6.4-8.2)
--- NOTE | 2020-07-07 07:21 | Hospitalist Progress Note ---
Date of Service July 07, 2020 Assessment & Plan (1) Nausea: (2) Vomiting and diarrhea: Reports having nausea vomiting, diarrhea for past for 5 days Diagnosed with Covid 1 week ago stool culture - pending c.diff - negative Supportive care with IV fluids, electrolyte replacements Will order clear liquid diet, advance as tolerated Received Zofran in ED, will continue antiemetics Feeling better, nausea much improved, tolerating diet Mild hypokalemia, hypomagnesemia, replete and monitor (3) Right upper quadrant abdominal pain: Patient has some chronic abdominal discomfort, history of Flores's esophagus, Sam cirrhosis Previously seen by GI Status post cholecystectomy Chronic abdominal discomfort believed to be secondary to gastroparesis CT abdomen obtained in the ED- No bowel obstruction or bowel wall thickening. Normal appendix. Cholecystectomy. There is trace infiltration of the stuart hepatis and pancreaticoduodenal groove of unknown clinical significance. Correlate with lipase level to exclude groove pancreatitis. Unchanged marked splenomegaly. Hepatic steatosis. 8 mm partially imaged solid nodule of the right lower lobe is new from 2016. 4 mm benign solid nodule of the left lower lobe demonstrates at least 4 years of stability. Follow-up guidelines provided. Lipase negative Currently not interested in any pain medications Abdominal discomfort much improved now. SAM cirrhosis AST, ALT, within normal limits Not decompensated Will follow CMP, INR (4) COVID-19: Was diagnosed on June 27 At the time did not had any symptoms of COVID-19, however her family was all diagnosed with COVID-19, they met during a standard Patient was offered monoclonal antibody by her PCP office, however patient declined, reports at the time she did not have any symptoms so did not think it was necessary She reports feeling" lousy", having nausea, loose stools occasional cough, however no shortness of breath Family doctor started her on Decadron and azithromycin, patient has not started medications as she says "cannot keep anything down" Chest x-ray shows some haziness, interstitial thickening, possible viral pneumonia IV Decadron while inpt Monitor inflammatory factors Obtain procal, if elevated, consider antibiotics, Abx were not started while inpt Clinically much improved and inquiring about going home. (5) DM type 2 (diabetes mellitus, type 2): - on insulin at home - last A1c 6.8% in May 2020 - pt decreased dose of long-lasting insulin to half as she was not able to eat - for now will cont. w/ decreased dose, will further consult w/ glycemic pharmacy (6) Flores esophagus: - IV PPI, as pt has nausea on admission - can resume home omeprazole on DC (7) HTN (hypertension): -Continue home metoprolol (8) Thrombocytopenia: - chronic, current Plt 85, cont. to monitor Code: DNR/DNI, discussed with the patient DVT ppx: SCDs given thrombocytopenia Dispo: plan to DC home today Admission and Anticipated Discharge Date Admission Date: July 05, 2020 Subjective Patient seen in follow-up of nausea, vomiting, in the setting of COVID-19 infection Currently she is feeling much better, tolerating diet, abdominal pain resolved However she continues to have a cough, will start Tessalon Perles She feels she is better though and feels she can be discharged home Review of Systems Review of Systems: All systems reviewed & are unremarkable except as noted in HPI & below Constitutional: no fever and no chills Respiratory: + cough; no dyspnea Cardiovascular: no chest pain and no palpitations Gastrointestinal: no abdominal pain, no nausea and no vomiting Physical Exam Constitutional: WD/WN, vitals as above + obese Eyes: PERRL, conjunctivae normal, anicteric sclerae ENMT: external ear and nose normal, oropharynx normal Neck: trachea midline, no thyromegaly normal visual inspection and + thick neck Respiratory: normal respiratory effort, lungs clear to auscultation + cough (occasional) Auscultation: no crackles, no rhonchi and no wheezes Cardiovascular: RRR, no murmur, no edema Chest (Breasts): Chest: normal inspection of chest Gastrointestinal (Abdomen): Inspection/Auscultation: abdomen normal to inspection and normal bowel sounds; abdomen not distended Percussion/Palpation: abdomen soft; abdomen nontender, no guarding and abdomen not rigid Musculoskeletal: no cyanosis or clubbing, extremities motor strength 5/5 Head/Neck/Chest: normocephalic and head atraumatic Skin: no rashes, warm and dry Neurologic: PERRL, EOMI, accommodation nl, no face palsy, no dysarthria moves all extremities Psychiatric: A+Ox3, euthymic affect Genitourinary: no CVA tenderness Lymphatic: no lymphedema Results & Data Results & Data ([facility]) Vital Signs (Past 12 Hours) Vital Signs Temp Pulse Resp BP Pulse Ox 07/07/20 03:14 36.8 C 61 18 129/60 94 07/06/20 23:22 36.6 C 62 18 145/58 H 96 Laboratory Results 07/07/20 07/07/20 07/07/20 Range/Units 05:55 05:55 05:55 WBC 6.75 (4.8-10.8) K/uL RBC 4.32 (4.2-5.4) M/uL Hgb 12.9 (12.0-16.0) g/dL Hct 36.6 L (37-47) % MCV 84.7 (80-100) fL MCH 29.9 (25-34) pg MCHC 35.2 (32-36) g/dL RDW Std Deviation 41.2 (36.4-46.3) fL RDW Coeff of Meeta 13.4 (11.5-14.5) % Plt Count 85 L (130-400) K/uL MPV 10.2 (7.4-10.4) fL PT 10.9 (9.0-12.0) Seconds INR 1.1 (0.9-1.1) Sodium 140 (136-145) mmol/L Potassium 3.9 (3.5-5.1) mmol/L Chloride 108 H (98-107) mmol/L Carbon Dioxide 28 (21-32) mmol/L Anion Gap 4.0 (3-11) BUN 17 (7-18) mg/dl Creatinine 0.69 (0.6-1.2) mg/dl Est Cr Clr Drug Dosing 79.5 ml/min Est GFR ( Amer) 106.6 Est GFR (Non-Af Amer) 92.0 BUN/Creatinine Ratio 25.1 H (10-20) Glucose 134 H (70-99) mg/dl POC Glucose (70-99) mg/dl Estimat Average Glucose mg/dl Hemoglobin A1c (4.5-5.6) % Calcium 8.8 (8.5-10.1) mg/dl Phosphorus (2.5-4.9) mg/dl Magnesium (1.8-2.4) mg/dl Total Bilirubin 0.6 (0.2-1) mg/dl AST 27 (15-37) U/L ALT 23 (12-78) U/L Alkaline Phosphatase 62 (45-117) U/L C-Reactive Protein (0-0.29) mg/dl Total Protein 6.6 (6.4-8.2) gm/dl Albumin 3.7 (3.4-5.0) gm/dl Globulin 2.9 (2.5-4.0) gm/dl Albumin/Globulin Ratio 1.3 (0.9-2) Procalcitonin (0-0.5) ng/ml Stl C. diff Tox B Gene (Neg) 07/07/20 07/06/20 07/06/20 Range/Units 02:01 20:03 16:21 WBC (4.8-10.8) K/uL RBC (4.2-5.4) M/uL Hgb (12.0-16.0) g/dL Hct (37-47) % MCV (80-100) fL MCH (25-34) pg MCHC (32-36) g/dL RDW Std Deviation (36.4-46.3) fL RDW Coeff of Meeta (11.5-14.5) % Plt Count (130-400) K/uL MPV (7.4-10.4) fL PT (9.0-12.0) Seconds INR (0.9-1.1) Sodium (136-145) mmol/L Potassium (3.5-5.1) mmol/L Chloride (98-107) mmol/L Carbon Dioxide (21-32) mmol/L Anion Gap (3-11) BUN (7-18) mg/dl Creatinine (0.6-1.2) mg/dl Est Cr Clr Drug Dosing ml/min Est GFR ( Amer) Est GFR (Non-Af Amer) BUN/Creatinine Ratio (10-20) Glucose (70-99) mg/dl POC Glucose 229 H 240 H 263 H (70-99) mg/dl Estimat Average Glucose mg/dl Hemoglobin A1c (4.5-5.6) % Calcium (8.5-10.1) mg/dl Phosphorus (2.5-4.9) mg/dl Magnesium (1.8-2.4) mg/dl Total Bilirubin (0.2-1) mg/dl AST (15-37) U/L ALT (12-78) U/L Alkaline Phosphatase (45-117) U/L C-Reactive Protein (0-0.29) mg/dl Total Protein (6.4-8.2) gm/dl Albumin (3.4-5.0) gm/dl Globulin (2.5-4.0) gm/dl Albumin/Globulin Ratio (0.9-2) Procalcitonin (0-0.5) ng/ml Stl C. diff Tox B Gene (Neg) 07/06/20 07/06/20 07/06/20 Range/Units 11:29 09:00 07:44 WBC (4.8-10.8) K/uL RBC (4.2-5.4) M/uL Hgb (12.0-16.0) g/dL Hct (37-47) % MCV (80-100) fL MCH (25-34) pg MCHC (32-36) g/dL RDW Std Deviation (36.4-46.3) fL RDW Coeff of Meeta (11.5-14.5) % Plt Count (130-400) K/uL MPV (7.4-10.4) fL PT (9.0-12.0) Seconds INR (0.9-1.1) Sodium (136-145) mmol/L Potassium (3.5-5.1) mmol/L Chloride (98-107) mmol/L Carbon Dioxide (21-32) mmol/L Anion Gap (3-11) BUN (7-18) mg/dl Creatinine (0.6-1.2) mg/dl Est Cr Clr Drug Dosing ml/min Est GFR ( Amer) Est GFR (Non-Af Amer) BUN/Creatinine Ratio (10-20) Glucose (70-99) mg/dl POC Glucose 329 H* 192 H (70-99) mg/dl Estimat Average Glucose mg/dl Hemoglobin A1c (4.5-5.6) % Calcium (8.5-10.1) mg/dl Phosphorus (2.5-4.9) mg/dl Magnesium (1.8-2.4) mg/dl Total Bilirubin (0.2-1) mg/dl AST (15-37) U/L ALT (12-78) U/L Alkaline Phosphatase (45-117) U/L C-Reactive Protein (0-0.29) mg/dl Total Protein (6.4-8.2) gm/dl Albumin (3.4-5.0) gm/dl Globulin (2.5-4.0) gm/dl Albumin/Globulin Ratio (0.9-2) Procalcitonin (0-0.5) ng/ml Stl C. diff Tox B Gene Negative Cdiff Gene (Neg) 07/06/20 07/06/20 07/06/20 Range/Units 06:28 06:21 06:21 WBC (4.8-10.8) K/uL RBC (4.2-5.4) M/uL Hgb (12.0-16.0) g/dL Hct (37-47) % MCV (80-100) fL MCH (25-34) pg MCHC (32-36) g/dL RDW Std Deviation (36.4-46.3) fL RDW Coeff of Meeta (11.5-14.5) % Plt Count (130-400) K/uL MPV (7.4-10.4) fL PT (9.0-12.0) Seconds INR (0.9-1.1) Sodium 140 (136-145) mmol/L Potassium 3.5 (3.5-5.1) mmol/L Chloride 105 (98-107) mmol/L Carbon Dioxide 28 (21-32) mmol/L Anion Gap 6.0 (3-11) BUN 15 D (7-18) mg/dl Creatinine 0.75 (0.6-1.2) mg/dl Est Cr Clr Drug Dosing 73.2 ml/min Est GFR ( Amer) 97.6 Est GFR (Non-Af Amer) 84.2 BUN/Creatinine Ratio 19.8 (10-20) Glucose 173 H (70-99) mg/dl POC Glucose (70-99) mg/dl Estimat Average Glucose 166 mg/dl Hemoglobin A1c 7.4 H (4.5-5.6) % Calcium 8.3 L (8.5-10.1) mg/dl Phosphorus 2.8 (2.5-4.9) mg/dl Magnesium 2.1 (1.8-2.4) mg/dl Total Bilirubin 0.6 (0.2-1) mg/dl AST 26 (15-37) U/L ALT 23 (12-78) U/L Alkaline Phosphatase 62 (45-117) U/L C-Reactive Protein 1.72 H (0-0.29) mg/dl Total Protein 6.7 (6.4-8.2) gm/dl Albumin 3.6 (3.4-5.0) gm/dl Globulin 3.1 (2.5-4.0) gm/dl Albumin/Globulin Ratio 1.2 (0.9-2) Procalcitonin < 0.05 (0-0.5) ng/ml Stl C. diff Tox B Gene (Neg) Medications Administered Current Inpatient Medications Acetaminophen (Acetaminophen 325 Mg Tab) 650 mg PO Q4H PRN PRN Reason: Pain or Fever Stop: 08/04/20 08:25 Aspirin (Aspirin 81 Mg Ectab) 81 mg PO HS LISA Stop: 08/04/20 20:59 Last Admin: 07/06/20 20:45 Dose: 81 mg Documented by: Dextrose (Dextrose 50% 50 Ml Syringe) 25 - 50 ml IV UD PRN; Protocol PRN Reason: Hypoglycemia Protocol Stop: 08/04/20 11:14 Glucagon (Glucagon For Inj 1 Mg Vial) 1 mg IM UD PRN; Protocol PRN Reason: Hypoglycemia Protocol Stop: 08/04/20 11:14 Glucose (Glucose 40% Gel 15 Gm Tube) 15 - 30 gm PO UD PRN; Protocol PRN Reason: Hypoglycemia Protocol Stop: 08/04/20 11:14 Glucose (Glucose 10 Tabs/Tube) 4 - 8 tabs PO UD PRN; Protocol PRN Reason: Hypoglycemia Protocol Stop: 08/04/20 11:14 Guaifenesin (Guaifenesin 600 Mg Tabcr) 600 mg PO Q12 LISA Stop: 08/05/20 20:59 Last Admin: 07/06/20 20:45 Dose: 600 mg Documented by: Pantoprazole Sodium 40 mg/ (Syringe) 10 mls @ 5 mls/min IV DAILY@1100 [facility] Stop: 08/04/20 10:59 Last Admin: 07/06/20 11:07 Dose: 5 mls/min Documented by: Dexamethasone 6 mg/ Syringe 1.5 mls @ 1 mls/min IV QAM LISA Stop: 07/14/20 09:02 Last Admin: 07/06/20 08:18 Dose: 1 mls/min Documented by: Prochlorperazine 5 mg/ Syringe 5 mls @ 5 mls/min IV Q6H PRN PRN Reason: nausea Stop: 08/04/20 12:44 Last Admin: 07/05/20 13:46 Dose: 5 mls/min Documented by: Insulin Aspart (Insulin Aspart 100 Units/Ml 3 Ml Pen) 0 units SC ACHS [facility] Stop: 08/04/20 11:29 Last Admin: 07/06/20 20:46 Dose: 7 units Documented by: Insulin Glargine (Insulin Glargine Solostar 100 Units/Ml 3 Ml Pen) 0 units SQ HS [facility]; Protocol Stop: 08/04/20 20:59 Last Admin: 07/06/20 20:45 Dose: 45 units Documented by: Insulin Human NPH (Insulin Human Nph) 48 units SC DAILY@0900 [facility] Stop: 08/06/20 08:59 Metoprolol Tartrate (Metoprolol Tartrate 25 Mg Tab) 25 mg PO BID [facility] Stop: 08/04/20 20:59 Last Admin: 07/06/20 20:45 Dose: 25 mg Documented by: Miscellaneous (Carbohydrates For Hypoglycemia ) 15 - 30 gm PO UD PRN PRN Reason: Hypoglycemia Treatment Stop: 08/04/20 11:14 Miscellaneous Information (Pharmacy Glycemic Mgmt Consult) 1 ea N/A UD PRN PRN Reason: Consult Stop: 08/04/20 08:32 Polyethylene Glycol (Polyethylene (Miralax) 17 Gm Pack) 17 gm PO DAILY PRN PRN Reason: Constipation Stop: 08/04/20 08:25
[2020-07-07] MEDS: guaiFENesin 600 MG TABCR PO SCH (08:39)
[2020-07-07] MEDS: METOPROLOL TARTRATE 25 MG TAB PO SCH (08:39)
[2020-07-07] MEDS: INSULIN ASPART 100 UNITS/ML 3 ML PEN SC SCH ×2 (08:40→12:39)
[2020-07-07] MEDS ORDERED: INSULIN HUMAN NPH SC SCH ×2 (09:00)
[2020-07-07] MEDS: dexAMETHasone 6 MG in SYRINGE 0 ML IV SCH (09:13)
[2020-07-07] MEDS ORDERED: BENZONATATE 100 MG CAPSULE PO PRN (09:33)
[2020-07-07] MEDS ORDERED: FUROSEMIDE 10 MG in SYRINGE 0 ML IV ONE (10:00)
--- NOTE | 2020-07-07 11:56 | Discharge Summary ---
Date of Service July 07, 2020 Admission HPI Per Admitting Provider Patient is a 64-year-old female, with history of diabetes mellitus type 2, last A1c 6.8% in May 2020, obesity, Viera cirrhosis, hypertension, Flores's esophagus, who presents with nausea, vomiting. Patient was diagnosed with COVID-19 infection on June 27, 2020. At that time she reports she did not have any symptoms however several of her family members were positive for COVID-19, and they gathered together during [facility]. For past 4 to 5 days, she has been feeling poorly, with poor appetite, nausea vomiting and loose stools. She was offered monoclonal antibody by her PCP, however she declined, reports because she did not have any symptoms she did not feel it was necessary. She started to feel bad later, and so she was prescribed Decadron and azithromycin by her PCP. She reports that she never started the medication as she could not keep anything down. She was in the emergency room yesterday, and given she was not hypoxic, chest x-ray was unremarkable, blood work also unremarkable, patient was discharged home. She now presents again with the same symptoms, reporting she is not able to continue like this at home. Denies fevers or chills. Denies any localized weakness. She has an occasional cough, no sputum production. Denies shortness of breath. Currently is breathing comfortably on room air. Chest x-ray repeated in the ED, also CT abdomen pelvis obtained in the ED to evaluate for now abdominal pain/right upper quadrant pain. Patient has somewhat chronic abdominal pain, which is believed to be due to gastroparesis. She is diagnosed with Flores's esophagus, and Viera cirrhosis. There was no bowel obstruction noted in the CT or any acute abnormality. There is a trace infiltration of the stuart hepatis and pancreatic duodenal groove of unknown clinical significance. Per radiology report, it was recommended to obtain lipase to evaluate for possible group pancreatitis, this was done in ED and was negative. Per my discussion with the patient, does not feel she needs pain medications. Admission Exam Per Admitting Provider Constitutional: WD/WN, vitals as above + obese Eyes: PERRL, conjunctivae normal, anicteric sclerae ENMT: external ear and nose normal, oropharynx normal Neck: trachea midline, no thyromegaly normal visual inspection and + thick neck Respiratory: normal respiratory effort, lungs clear to auscultation + cough (occasional) Auscultation: no crackles, no rhonchi and no wheezes Cardiovascular: RRR, no murmur, no edema Chest (Breasts): Chest: normal inspection of chest Gastrointestinal (Abdomen): Inspection/Auscultation: abdomen normal to inspection and normal bowel sounds; abdomen not distended Percussion/Palpation: abdomen soft; abdomen nontender, no guarding and abdomen not rigid Musculoskeletal: no cyanosis or clubbing, extremities motor strength 5/5 Head/Neck/Chest: normocephalic and head atraumatic Skin: no rashes, warm and dry Neurologic: PERRL, EOMI, accommodation nl, no face palsy, no dysarthria moves all extremities Psychiatric: A+Ox3, euthymic affect Genitourinary: no CVA tenderness Lymphatic: no lymphedema Principal Diagnosis Nausea, vomiting, diarrhea, hypokalemia hypomagnesemia, abdominal pain in the setting of COVID-19 infection Diabetes mellitus type 2, Flores's esophagus, VIERA cirrhosis Discharge Exam Constitutional WD/WN, vitals as above + obese Eyes PERRL, conjunctivae normal, anicteric sclerae ENMT external ear and nose normal, oropharynx normal Neck trachea midline, no thyromegaly normal visual inspection and + thick neck Respiratory normal respiratory effort, lungs clear to auscultation + cough (occasional) Auscultation: no crackles, no rhonchi and no wheezes Cardiovascular RRR, no murmur, no edema Chest (Breasts) Chest: normal inspection of chest Gastrointestinal (Abdomen) Inspection/Auscultation: abdomen normal to inspection and normal bowel sounds; abdomen not distended Percussion/Palpation: abdomen soft; abdomen nontender, no guarding and abdomen not rigid Musculoskeletal no cyanosis or clubbing, extremities motor strength 5/5 Head/Neck/Chest: normocephalic and head atraumatic Skin no rashes, warm and dry Neurologic PERRL, EOMI, accommodation nl, no face palsy, no dysarthria moves all extremities Psychiatric A+Ox3, euthymic affect Genitourinary no CVA tenderness Lymphatic no lymphedema Discharge Data Allergies Allergy/AdvReac Type Severity Reaction Status Date / Time Quinolones Allergy Intermediate NAUSEA, Verified 07/05/20 09:50 ITCH, RASH codeine Allergy Unknown CAN TAKE Verified 07/05/20 09:50 MORPHINE Sulfa (Sulfonamide Allergy Unknown ? Verified 07/05/20 09:50 Antibiotics) exenatide AdvReac Mild Nausea/vomi Verified 07/05/20 09:50 ting. nitrofurantoin AdvReac Mild Nausea/vomi Verified 07/05/20 09:50 ting polyethylene glycol AdvReac Mild Nausea/vomi Verified 07/05/20 09:50 ting metformin AdvReac Unknown Nausea/Vomi Verified 07/05/20 09:50 ting Consultations 07/05/20 07:59 ED Decision to Admit Stat Ordered Studies 07/05/20 07:58 CT abd pelvis IV con only Stat IMPRESSION: 1. Bibasilar groundglass densities compatible with viral pneumonia. 2. No bowel obstruction or bowel wall thickening. Normal appendix. 3. Cholecystectomy. There is trace infiltration of the stuart hepatis and pancreaticoduodenal groove of unknown clinical significance. Correlate with lipase level to exclude groove pancreatitis. 4. Unchanged marked splenomegaly. 5. Hepatic steatosis. 6. 8 mm partially imaged solid nodule of the right lower lobe is new from 2016. 4 mm benign solid nodule of the left lower lobe demonstrates at least 4 years of stability. Follow-up guidelines provided below. Please refer to below summary of Fleischner criteria recommendations for follow- up of incidental CT nodules (Abigail Mcgarry, Guidelines for management of small pulmonary nodules detected on CT scans: A statement from the Fleischner Society, Radiology 237: [id number].) Hospital Course (1) Nausea: (2) Vomiting and diarrhea: Reports having nausea vomiting, diarrhea for past for 5 days Diagnosed with Covid 1 week ago stool culture - pending c.diff - negative Supportive care with IV fluids, electrolyte replacements Will order clear liquid diet, advance as tolerated Received Zofran in ED, will continue antiemetics Feeling better, nausea much improved, tolerating diet Mild hypokalemia, hypomagnesemia, replete and monitor (3) Right upper quadrant abdominal pain: Patient has some chronic abdominal discomfort, history of Flores's esophagus, Viera cirrhosis Previously seen by GI Status post cholecystectomy Chronic abdominal discomfort believed to be secondary to gastroparesis CT abdomen obtained in the ED- No bowel obstruction or bowel wall thickening. Normal appendix. Cholecystectomy. There is trace infiltration of the stuart hepatis and pancreaticoduodenal groove of unknown clinical significance. Correlate with lipase level to exclude groove pancreatitis. Unchanged marked splenomegaly. Hepatic steatosis. 8 mm partially imaged solid nodule of the right lower lobe is new from 2016. 4 mm benign solid nodule of the left lower lobe demonstrates at least 4 years of stability. Follow-up guidelines provided. Lipase negative Currently not interested in any pain medications Abdominal discomfort much improved now. VIERA cirrhosis AST, ALT, within normal limits Not decompensated Will follow CMP, INR (4) COVID-19: Was diagnosed on June 27 At the time did not had any symptoms of COVID-19, however her family was all diagnosed with COVID-19, they met during a standard Patient was offered monoclonal antibody by her PCP office, however patient declined, reports at the time she did not have any symptoms so did not think it was necessary She reports feeling" lousy", having nausea, loose stools occasional cough, however no shortness of breath Family doctor started her on Decadron and azithromycin, patient has not started medications as she says "cannot keep anything down" Chest x-ray shows some haziness, interstitial thickening, possible viral pneumonia IV Decadron while inpt Monitor inflammatory factors Obtain procal, if elevated, consider antibiotics, Abx were not started while inpt Clinically much improved and inquiring about going home. Lung nodule 8 mm partially imaged solid nodule of the right lower lobe - new 4 mm benign solid nodule of the left lower lobe demonstrates at least 4 years of stability -follow up as outpt (5) DM type 2 (diabetes mellitus, type 2): - on insulin at home - last A1c 6.8% in May 2020 - pt decreased dose of long-lasting insulin to half as she was not able to eat - for now will cont. w/ decreased dose, will further consult w/ glycemic pharmacy (6) Flores esophagus: - IV PPI, as pt has nausea on admission - can resume home omeprazole on DC (7) HTN (hypertension): -Continue home metoprolol (8) Thrombocytopenia: - chronic, current Plt 85, cont. to monitor Code: DNR/DNI, discussed with the patient DVT ppx: SCDs given thrombocytopenia Dispo: plan to DC home today Total Time Total Time Spent Total Time Spent (In Minutes): 35 Total Time Includes: Examination of the Patient, Discharge Planning and Medication Reconciliation Discharge Plan Discharge Items Patient Disposition: Home - Self-Care Reason For Visit: NAUSEA, COVID Discharge Diagnosis: Nausea, vomiting, diarrhea, hypokalemia hypomagnesemia, abdominal pain in the setting of COVID-19 infection Diabetes mellitus type 2, Flores's esophagus, VIERA cirrhosis Activity: Per Instructions section Non-emergency contact: Primary Care Provider Call non-emergency contact if: you have any medication questions and your symptoms worsen Follow-up/Referrals: Quinten Garcia MD [Primary Care Provider] - (Date & Time 07/13/2020 11:00 AM Provider Quinten Garcia MD Department Family Practice [facility] PLEASE NOTE THAT THIS IS A TELEHEALTH APPOINTMENT. PLEASE FOLLOW THE INSTRUCTIONS PROVIDED IN YOUR EMAIL. IF YOU HAVE ANY QUESTIONS REGARDING THIS APPOINTMENT, PLEASE CALL ) Diet: Carb Consistent or DM2 and Heart Healthy Addtl Attending Provider Instructions: Please follow up with primary care doctor, the appointment is scheduled for you for July 13. This may be a telemedicine visit. Continue taking medications prescribed by your primary care doctor, specifically Decadron. Make sure to continue taking omeprazole while on this medication, to protect your stomach. Monitor your blood sugar levels, as Decadron/steroid can increase your blood sugar levels. Use Tessalon Perles as needed for cough, and Mucinex/guaifenesin. Continue using incentive spirometry and flutter valve. Pending Studies at Discharge: Yes Studies:: final stool cultx Stand-Alone Forms: My [facility], Work/School Release (Inpt), Smoking Cessation Medications and DC Order Prescriptions: New benzonatate [Tessalon Perles] 100 mg Capsule 100 mg PO TID PRN (Reason: cough) 7 Days Qty: 20 RF: 0 guaifenesin [Mucinex] 600 mg Tablet Extended Release 12hr 600 mg PO Q12 Qty: 10 RF: 0 Continued aspirin 81 mg Tablet,Delayed Release (Dr/Ec) 81 mg PO HS RF: 0 metoprolol tartrate 25 mg Tablet 25 mg PO BID RF: 0 omeprazole 20 mg Capsule,Delayed Release(Dr/Ec) 20 mg PO BID RF: 0 Toujeo SoloStar U-300 Insulin 300 unit/mL (1.5 mL) Insulin Pen 62 unit SUBCUT QPM RF: 0 azithromycin 250 mg tablet 250 mg PO DAILY RF: 0 calcium carbonate [Calcium 500] 500 mg calcium (1,250 mg) Tablet 500 mg PO DAILY RF: 0 dexamethasone 6 mg tablet 6 mg PO DAILY Qty: 7 RF: 0 insulin aspart U-100 [Novolog U-100 Insulin aspart] 100 unit/mL Solution 1 sliding scale dose SUBCUT USEASDIRECTD RF: 0 Discharge Orders: Discharge Order (Routine); Ordered 07/07/20 Ordered By: Leo Andrade/Other Patient Handouts: Managing Type 2 Diabetes, Managing Diabetes: The A1C Test Admission Data Admit Date/Time: 07/05/20 07:59 Attending Provider: Leo Moreno Admit Provider: Leo Moreno Primary Care Provider: Quinten Garcia Other Providers: Leo Moreno
[2020-07-07] MEDS: PANTOprazole 40 MG in SYRINGE 0 ML IV SCH (12:11)
[2020-07-08] MEDS ORDERED: INSULIN ASPART 100 UNITS/ML 3 ML PEN SC ONE (02:00)
[2020-07-08] MEDS ORDERED: PANTOprazole 40 MG TAB PO SCH (09:00)
--- NOTE | 2020-07-17 12:56 | Coding Query ---
CODING QUERY To promote full compliance with coding requirements relating to patient care, provider participation is requested in all cases of underwriting support manager uncertainty. Please assist us with the question(s) below: Coding Question(s): 1. The Discharge Summary documents, in the Principal Diagnosis area, "Nausea, vomiting, diarrhea, hypokalemia hypomagnesemia, abdominal pain in the setting of COVID-19 infection Diabetes mellitus type 2, Flores's esophagus, SAM cirrhosis". Please specify below, in your clinical opinion, regarding the most likely source of the, Nausea, vomiting, diarrhea, hypokalemia hypomagnesemia, abdominal pain. ( X ) Nausea, vomiting, diarrhea, hypokalemia hypomagnesemia, abdominal pain - most likely due to COVID-19 infection ( ) Nausea, vomiting, diarrhea, hypokalemia hypomagnesemia, abdominal pain - most likely due to Diabetes, type 2/Gastroparesis ( ) Nausea, vomiting, diarrhea, hypokalemia hypomagnesemia, abdominal pain - most likely due to Flores's esophagus ( ) Nausea, vomiting, diarrhea, hypokalemia hypomagnesemia, abdominal pain - most likely due to SAM Cirrhosis ( ) Nausea, vomiting, diarrhea, hypokalemia hypomagnesemia, abdominal pain - most likely due to Other: Please Specify ( ) Nausea, vomiting, diarrhea, hypokalemia hypomagnesemia, abdominal pain - due to Unknown most likely source 2. There is documentation on H&P and in Progress Notes and Discharge Summary of, " COVID-19: Was diagnosed on June 27 At the time did not had any symptoms of COVID-19, however her family was all diagnosed with COVID-19, they met during a standard Patient was offered monoclonal antibody by her PCP office, however patient declined, reports at the time she did not have any symptoms so did not think it was necessary She reports feeling" lousy", having nausea, loose stools occasional cough, however no shortness of breath Family doctor started her on Decadron and azithromycin, patient has not started medications as she says "cannot keep anything down" Chest x-ray shows some haziness, interstitial thickening, possible viral pneumonia IV Decadron while inpt Monitor inflammatory factors Obtain procal, if elevated, consider antibiotics, Abx were not started while inpt". Please specify below, in your clinical opinion, regarding the documentation of, "Chest x-ray shows some haziness, interstitial thickening, possible viral pneumonia". ( X) Possible Viral Pneumonia was treated and/or monitored during this admission ( ) Possible Viral Pneumonia is Ruled-Out ( ) Other: Please Specify____Pt was treated with decadron for COVID 19 pna Physician's Response(s): Thank you Cammie Houser Principal Diagnosis: "that condition established after study, to be chiefly responsible for occasioning the admission of the patient to the hospital for care." Co-Existing Principal Diagnosis: "when two or more diagnoses equally meet the criteria for principal diagnosis as determined by the circumstances of admission, diagnostic work up, and/or therapy provided, and the Alphabetic Index, Tabular List, or another coding guideline does not provide sequencing direction, any one of the diagnoses may be sequenced first." "When the physician has documented what appears to be a current diagnosis in the body of the record, but has not included the diagnosis in the final diagnostic statement, the physician should be asked whether the diagnosis should be added." (Source Coding [facility] 2 QTR90. p3-4) CARLITOS
== END 2020-07-07 13:54 | disposition home or self-care (01) | DRG 177 ==
LOC: ED 03:35 → 2E 07:59

== ENCOUNTER 2022-04-19 12:29 | Observation (INO) ==
[2022-04-19 13:49] LABS: Hematocrit (blood only) 37.4 % (37.0-47.0); Hemoglobin 13.5 g/dl (12.0-16.0); Mean Corpuscular Hemoglobin 30.8 pg (25.0-34.0); Mean Corpuscular Hgb Conc 36.1 g/dL (32.0-36.0); Mean Corpuscular Volume 85.2 fL (80.0-100.0); Mean Platelet Volume 10.4 fL (9.4-12.4); Platelet Count 97 K/uL (130-400); RDW Coefficient of Variation 13.4 % (11.5-14.5); RDW Standard Deviation 41.7 fL (36.4-46.3); Red Blood Count 4.39 M/uL (4.20-5.40); White Blood Count 4.96 K/ul (4.8-10.8)
[2022-04-19 13:50] LABS: Basophils # (auto) 0.03 K/uL (0-0.2); Basophils % (auto) 0.6 %; Eosinophils # (auto) 0.06 K/uL (0-0.50); Eosinophils % (auto) 1.2 %; Immature Granulocytes # (auto) 0.02 K/uL (0.01-0.20); Immature Granulocytes % (auto) 0.4 %; Lymphocytes # (auto) 1.36 K/uL (1.2-3.4); Lymphocytes % (auto) 27.4 %; Monocytes # (auto) 0.33 K/uL (0.11-0.59); Monocytes % (auto) 6.7 %; Neutrophils # (auto) 3.16 K/uL (1.40-6.50); Neutrophils % (auto) 63.7 %
[2022-04-19 13:54] LABS: Albumin Globulin Ratio 2.1 (0.9-2); Albumin Level 4.6 gm/dl (3.4-5.0); BUN Creatinine Ratio 17.9 (10-20); Bilirubin,Total 1.3 mg/dl (0.2-1.0); Calcium 9.6 mg/dl (8.5-10.1); Creatinine Clr Calc Pharmacy 82.2 ml/min; Est GFR (African American) 106.2 ml/min; Est GFR (Non-African American) 91.6 ml/min; Globulin 2.2 gm/dl (2.5-4.0); Total Protein 6.8 gm/dl (6.0-8.3)
[2022-04-19 14:00] LABS: Troponin I High Sensitivity 5.8 pg/ml (0-14)
[2022-04-19 14:07] LABS: INR 1.1 (0.9-1.1); Partial Thromboplastin Ratio 0.9; Partial Thromboplastin Time 25.7 Seconds (21.0-31.0); Prothrombin Time 11.2 Seconds (9.0-12.0)
--- NOTE | 2022-04-19 15:57 | XRay Report ---
XR chest 2V PA/lateral HISTORY: Chest pain COMPARISON: Chest 07/05/2020. FINDINGS: The heart is normal in size. There is a mildly tortuous thoracic aorta, unchanged. The left lung remains clear. Stable 6 mm nodular density within the right lung base. This is likely benign gi jose manuel the long-term stability could be external to the patient or related to the overlapping rib. Prior cholecystectomy. No new focal lung consolidations to suggest a pneumonia. No evidence for pulmonary edema. IMPRESSION: No acute process. ACT 112: Negative or not required by law. Electronically signed by: Dioni Perrin M.D. 04/19/2022 3:56 PM
--- NOTE | 2022-04-19 16:09 | Electrocardiogram Report ---
Test Reason : Blood Pressure : / mmHG Vent. Rate : 059 BPM Atrial Rate : 059 BPM P-R Int : 156 ms QRS Dur : 082 ms QT Int : 438 ms P-R-T Axes : 016 000 148 degrees QTc Int : 433 ms Sinus bradycardia Left ventricular hypertrophy with repolarization abnormality Abnormal ECG When compared with ECG of 28-MAY-2021 01:44, T wave inversion more evident in Lateral leads Confirmed by Donald Carmona ([id number]) on 04/19/2022 4:09:25 PM Referred By: Confirmed By:Donald Carmona
[2022-04-19] MEDS ORDERED: ASPIRIN CHEW 324 MG PO STA (16:19)
--- NOTE | 2022-04-19 16:43 | History & Physical Report ---
Date of Service April 19, 2022 Assessment & Plan (1) Chest pain: (2) CAD (coronary artery disease): (3) HTN (hypertension): (4) HLD (hyperlipidemia): Plan: - Admit to tele for observation for r/o - Trend cardiac biomarkers, initial set was negative at 5.9, second pending now. - Possible arrhythmia underlying with symptoms? Suspect that if true PA then would see troponin elevation already since this has been present for a week. - EKG reviewed as above showing possible more prominent T wave depression in lead 1 and AVL, and T wave depression in V5- V6. Concerning with presentation of symptoms and hx of CAD in 2016. Previously she was admitted here at [facility] and due to chest discomfort underwent cardiac catheterization with findings of mild luminal irregularities including is 20% stenosis of the distal right PDA branch of the right coronary artery, was placed on ongoing medical management and limiting risk factors. - will make her n.p.o. at midnight in case of needs for cardiac cath - Check 2 D echo - If negative enzymes can consider a stress test tomorrow morning. - PT/OT consulted - Cardiology consultation - Continue metoprolol, encourage bid dosing as she has been only taking in the morning. - Will adjust lisinopril, give 10 mg now due to elevated BP, and increase lisinopril to 20 mg QAM tomorrow (5) DM type 2 (diabetes mellitus, type 2): Plan: - Last A1C was 6.1 on 10/15/21 upon outpatient record review, recheck tomorrow am - ISS with accuchecks achs - Continue insulin glargine but will reduce in half as will make her NPO at midnight for possible cardiac cath (6) VIERA (nonalcoholic steatohepatitis): (7) Flores esophagus: Plan: - Hx of such, may continue PPI DVT ppx: teds, scds CODE: DNR/DNI Dispo: From home, likely to remain in the hospital x 24 hours or less A total of 77 minutes were spent with greater than 50% of that time face to face with the patient, personally reviewing all current laboratories, imaging studies, past medication reconciliation, outpatient chart review, and discussion with specialists to collaborate care for the patient with attending. Please see attending documentation for corrections and/or additions. History of Present Illness Chief Complaint: Chest pain Primary Care Provider: Jami Schwartz PA-C This is a 66 yo F with PMhx of DM type 2, last A1c 7.4, obesity, Viera cirrhosis, hypertension, Flores's esophagus,who presents with acute onset of left sided intermittent chest pain which comes in duration of 20 minutes. For the last 7 days. This morning she went to see her PCP. Pt notes when she walked into the office this morning it "hit quite hard and fast". Her pain was center chest and radiated to the left, felt squeezing in nature. She admits the pain radiating to the left arm and left jaw with numbness and pain. She reported shortness of breath, fleeting nausea, and diaphoresis. It made her feel very weak, and afterwards was very fatigued. Her PCP sent her to the ER after a quick evaluation and EKG reading. Pt further reports last Monday night (2 days ago) she felt very lightheaded and weak all of a sudden while walking in a parking after dinner out at a rest [employer]. Her had to hold on to her for a near syncopal episode. She denies LOC or full passing out, or any injury. At that time she refused to go to the hospital. Yesterday on Tuesday 04/18, she had another episode of 20 minute chest pain with squeezing sensation. It eventually goes away on its own. She cannot attribute any trigger factors to the cause of her chest pain. Sometimes it happens at rest and other times it happens while she is up walking. In the past week, she has taken 2 baby aspirin tablets intermittently when she has this chest pain as she thought it could help her heart. Today she was given 4 baby aspirin at her PCP office, and due to the progression of her symptoms she was convinced to come into the ER. Denies any current chest pain, shortness of breath or discomfort. In the past she had a catheterization and had previously followed with Dr. Houston. She notes that she did take all of her morning medications today. She admits that she has only been taking metoprolol tartrate once daily in the morning, not twice daily. 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 Notes that her daughter works here in the hospital. Allergies Allergy/AdvReac Type Severity Reaction Status Date / Time Quinolones Allergy Intermediate NAUSEA, Verified 04/19/22 16:53 ITCH, RASH codeine Allergy Unknown CAN TAKE Verified 04/19/22 16:53 MORPHINE Sulfa (Sulfonamide Allergy Unknown CAN'T Verified 04/19/22 16:53 Antibiotics) REMEMBER exenatide AdvReac Intermediate Nausea/vomi Verified 04/19/22 16:53 ting. metformin AdvReac Intermediate Nausea/Vomi Verified 04/19/22 16:53 ting nitrofurantoin AdvReac Intermediate Nausea/vomi Verified 04/19/22 16:53 ting polyethylene glycol AdvReac Intermediate Nausea/vomi Verified 04/19/22 16:53 ting Home Medications Medication Instructions Recorded Confirmed Type aspirin 81 mg tablet,delayed 81 mg PO QAM 11/22/18 04/19/22 History release insulin glargine U-300 conc 300 62 unit subcut HS 11/22/18 04/19/22 History unit/mL (1.5 mL) subcutaneous pen (Toujeo SoloStar U-300 Insulin) metoprolol tartrate 25 mg tablet 25 mg PO BID 11/22/18 04/19/22 History omeprazole 20 mg capsule,delayed 20 mg PO BID 11/22/18 04/19/22 History release insulin aspart U-100 100 unit/mL 0 sliding scale dose subcut TID 07/05/20 04/19/22 History subcutaneous solution (Novolog U-100 Insulin aspart) glipizide 5 mg tablet See Rx Instructions .Route .COMPLEX 05/28/21 04/19/22 History lisinopril 5 mg tablet 10 mg PO QAM 05/28/21 04/19/22 History Past Med/Surg History Medical History (Updated 04/19/22 @ 17:09 by Eagle Cadet) Flores esophagus DM type 2 (diabetes mellitus, type 2) HLD (hyperlipidemia) HTN (hypertension) VIERA (nonalcoholic steatohepatitis) Thrombocytopenia Surgical History History of hysterectomy Hx of cardiac cath "05/2015 - mild CAD" S/P cholecystectomy Family History (Updated 04/19/22 @ 17:11 by Neena Shaw PA-C) Mother Heart disease Father Heart disease Sister , age mid 70s Heart disease Sister , Mid to late 70s Heart disease Brother Heart disease age 74 Sister Heart disease age 80s Social History Smoking Status: Former smoker Second Hand Exposure: No; Hx Alcohol Use: Yes Alcohol type: wine Hx Substance Use: No Preferred Language: Slovenian Communication Ability: Effective Cloth Finishing Range Tender Required: No Beliefs That Will Affect Care: None Current Living Situation: Spouse Feels Safe at Home: Yes Assistive Devices: None Review of Systems Review of Systems: Constitutional: No fever, sweats or chills Eyes: No diplopia, no worsening or blurred vision ENT: normal hearing, no trouble swallowing Respiratory: No cough, sputum, dyspnea at rest or on exertion Cardiovascular: As per HPI, currently no chest pain, tightness or palpitations Abdomen: No pain, nausea, vomiting, diarrhea or constipation Musculoskeletal: No joint pain, calf pain, swelling Neurologic: No weakness, numbness/tingling, or balance problems Psychiatric: No anxiety or depression Skin: No rash or itch Physical Exam Physical Exam: General: awake, alert, no apparent distress Head: Normocephalic, atraumatic ENT: PERRL, EOMI, no pharyngeal exudate, mucous membranes moist Chest: Clear to auscultation, on room air, no adventitious breath sounds Cardiac: Regular rate and rhythm, no murmur, no JVD, normal peripheral pulses, good capillary refill Abdominal: NABS x 4 quadrants, soft, nondistended, nontender to palpation, no rebound or guarding Extremities: Normal inspection, no peripheral edema or erythema, calfs nontender to palpation Psych: Normal mood and affect Neuro: AAO x 3, strength intact bilaterally and rated 5/5, no motor deficits, speech is clear, no peripheral sensory deficits Results & Data Results & Data ([facility]) Vital Signs (Past 12 Hours) Vital Signs Temp Pulse Pulse Resp BP BP Pulse Ox 04/19/22 16:24 98 04/19/22 16:24 59 L 18 182/86 H 98 04/19/22 12:43 36.9 C 52 L 20 179/93 H 98 O2 Del Method 04/19/22 16:24 Room Air 04/19/22 16:24 Room Air 04/19/22 12:43 Room Air Laboratory Results 04/19/22 04/19/22 04/19/22 16:26 13:06 13:06 WBC RBC Hgb Hct MCV MCH MCHC RDW Std Deviation RDW Coeff of Meeta Plt Count MPV Immature Gran % (Auto) Neut % (Auto) Lymph % (Auto) Sutton % (Auto) Eos % (Auto) Baso % (Auto) Neut # (Auto) Lymph # (Auto) Sutton # (Auto) Eos # (Auto) Baso # (Auto) Immature Gran # (Auto) PT 11.2 INR 1.1 APTT 25.7 PTT Ratio 0.9 Sodium 142 Potassium 4.0 Chloride 107 Carbon Dioxide 31 Anion Gap 4 BUN 12 Creatinine 0.67 Est Cr Clr Drug Dosing 82.2 Est GFR ( Amer) 106.2 Est GFR (Non-Af Amer) 91.6 BUN/Creatinine Ratio 17.9 Glucose 101 H Calcium 9.6 Total Bilirubin 1.3 H AST 19 ALT 14 Alkaline Phosphatase 67 Troponin I High Sens 5.8 Total Protein 6.8 Albumin 4.6 Globulin 2.2 L Albumin/Globulin Ratio 2.1 H SARS-CoV-2, RNA, NAAT NEGATIVE 04/19/22 13:06 WBC 4.96 RBC 4.39 Hgb 13.5 Hct 37.4 MCV 85.2 MCH 30.8 MCHC 36.1 H RDW Std Deviation 41.7 RDW Coeff of Meeta 13.4 Plt Count 97 L MPV 10.4 Immature Gran % (Auto) 0.4 Neut % (Auto) 63.7 Lymph % (Auto) 27.4 Sutton % (Auto) 6.7 Eos % (Auto) 1.2 Baso % (Auto) 0.6 Neut # (Auto) 3.16 Lymph # (Auto) 1.36 Sutton # (Auto) 0.33 Eos # (Auto) 0.06 Baso # (Auto) 0.03 Immature Gran # (Auto) 0.02 PT INR APTT PTT Ratio Sodium Potassium Chloride Carbon Dioxide Anion Gap BUN Creatinine Est Cr Clr Drug Dosing Est GFR ( Amer) Est GFR (Non-Af Amer) BUN/Creatinine Ratio Glucose Calcium Total Bilirubin AST ALT Alkaline Phosphatase Troponin I High Sens Total Protein Albumin Globulin Albumin/Globulin Ratio SARS-CoV-2, RNA, NAAT Diagnostic Findings Chest X-Ray 04/19/22 15:14 XR chest 2V PA/lateral HISTORY: Chest pain COMPARISON: Chest 07/05/2020. FINDINGS: The heart is normal in size. There is a mildly tortuous thoracic aorta, unchanged. The left lung remains clear. Stable 6 mm nodular density within the right lung base. This is likely benign given the long-term stability could be external to the patient or related to the overlapping rib. Prior cholecystectomy. No new focal lung consolidations to suggest a pneumonia. No evidence for pulmonary edema. IMPRESSION: No acute process. ACT 112: Negative or not required by law. Electronically signed by: Dioni Perrin M.D. 04/19/2022 3:56 PM ECG Additional Comments: Reviewed today and last EKG 05/28/2021, concern for EKG changes in lead I, aVL, V5 and V6. Code Status & VTE Plan Code Status DNR/DNI-discussed with patient at bedside Supervising Physician Co-Signing Physician Notes Patient was seen and examined independently. Chart reviewed. Case discussed with ANALI. BP elevated since arrival. Will increase lisinopril to 20mg daily (give additional 10mg now), resume metoprolol 25mg BID. Repeat troponin is pending currently, start heparin drip if elevated. Keep NPO after midnight Consult Cardiology Obtain TTE
--- NOTE | 2022-04-19 17:10 | Emergency Department Note ---
History of Present Illness General Chief Complaint: Chest Pain Stated Complaint: CARDIAC ENZYMES, HEART ISSUES Time Seen by Provider: 04/19/22 16:13 History of Present Illness Provider Complaint: chest pain Onset (ago): week(s) Onset (Weeks): 1 Duration: now resolved Onset: during rest Pain Location: substernal Pain Radiation: other (L chest) Severity: moderate Maximum Pain Intensity: 7 Current Pain Intensity: 0 Quality: + other (squeezing) Relieved By: + nothing Exacerbated By: + nothing Context: no recent illness, no recent surgery, no recent immobilization, no recent travel, no trauma/injury or no history of DVT/PE Associated symptoms: no nausea, no vomiting, no diaphoresis, no dyspnea, no syncope, no palpitations, no fever or no leg swelling Treatments prior to arrival: none Home Medications Medication Instructions Recorded Confirmed Type aspirin 81 mg tablet,delayed 81 mg PO HS 11/22/18 04/19/22 History release insulin glargine U-300 conc 300 62 unit subcut HS 11/22/18 04/19/22 History unit/mL (1.5 mL) subcutaneous pen (Toujeo SoloStar U-300 Insulin) metoprolol tartrate 25 mg tablet 25 mg PO BID 11/22/18 04/19/22 History omeprazole 20 mg capsule,delayed 20 mg PO BID 11/22/18 04/19/22 History release insulin aspart U-100 100 unit/mL 0 sliding scale dose subcut TID 07/05/20 04/19/22 History subcutaneous solution (Novolog U-100 Insulin aspart) glipizide 5 mg tablet See Rx Instructions .Route .COMPLEX 05/28/21 04/19/22 History lisinopril 5 mg tablet 10 mg PO QAM 05/28/21 04/19/22 History promethazine 12.5 mg tablet 12.5 mg PO BID PRN nausea and 05/28/21 04/19/22 Rx vomiting #10 tabs Allergies Allergy/AdvReac Type Severity Reaction Status Date / Time Quinolones Allergy Intermediate NAUSEA, Verified 04/19/22 16:53 ITCH, RASH codeine Allergy Unknown CAN TAKE Verified 04/19/22 16:53 MORPHINE Sulfa (Sulfonamide Allergy Unknown CAN'T Verified 04/19/22 16:53 Antibiotics) REMEMBER exenatide AdvReac Intermediate Nausea/vomi Verified 04/19/22 16:53 ting. metformin AdvReac Intermediate Nausea/Vomi Verified 04/19/22 16:53 ting nitrofurantoin AdvReac Intermediate Nausea/vomi Verified 04/19/22 16:53 ting polyethylene glycol AdvReac Intermediate Nausea/vomi Verified 04/19/22 16:53 ting Past Med/Surg History Medical History (Updated 04/19/22 @ 17:09 by Eagle Cadet) Flores esophagus DM type 2 (diabetes mellitus, type 2) HLD (hyperlipidemia) HTN (hypertension) SAM (nonalcoholic steatohepatitis) Thrombocytopenia Surgical History History of hysterectomy Hx of cardiac cath "05/2015 - mild CAD" S/P cholecystectomy Social History Smoking Status: Former smoker Second Hand Exposure: No; Hx Alcohol Use: Yes Alcohol type: wine Hx Substance Use: No Preferred Language: S[place]an Communication Ability: Effective 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 Beliefs That Will Affect Care: None Current Living Situation: Spouse Feels Safe at Home: Yes Assistive Devices: None Physical Exam Vital Signs Vital Signs - 24 hr 04/19/22 12:43 04/19/22 16:24 04/19/22 16:24 Temperature 36.9 C Temperature Source Temporal Artery Scan Pulse Rate 52 L Pulse Rate [Apical] 59 L Pulse Rhythm Regular Pulse Strength Normal Respiratory Rate 20 18 Respiratory Effort / Characteristics Non-Labored Spontaneous Non-Labored Spontaneous Respiratory Depth Normal Normal Respiratory Pattern Regular Blood Pressure 179/93 H Blood Pressure [Right Arm] 182/86 H Blood Pressure Mean 121 Blood Pressure Mean [Right Arm] 118 Blood Pressure Position Sitting Pulse Oximetry 98 98 98 Oxygen Delivery Method Room Air Room Air Room Air Sepsis Recent Fever Within 48 Hours No Sepsis New/Unexplained Change in Mental Status No Sepsis Action Taken by Nursing No Action Required Physical Exam GENERAL: He is oriented to person, place, and time. He appears well-developed and well-nourished. HENT: Exam performed. - Head: Normocephalic and atraumatic. EYES: Conjunctivae and EOM are normal. Right eye exhibits no discharge. Left eye exhibits no discharge. No scleral icterus. NECK: Normal range of motion. Neck supple. No JVD present. CV: Normal rate, regular rhythm, normal heart sounds and intact distal pulses. There is no peripheral edema. Palpable radial pulses bue. PULM/CHEST: Effort normal and breath sounds normal. No respiratory distress. No stridor. He has no wheezes. He has no rales. ABD: The abdomen is soft. There is no tenderness. NEURO: Motor and sensation grossly intact. SKIN: Skin is warm and dry. He is not diaphoretic. PSYCH: He has a normal mood and affect. Behavior is normal. Judgment and thought content normal. Course Course 1613: The patient was evaluated in room B2. A complete history and physical exam was performed Administered Medications Discontinued Medications Aspirin (Aspirin Chew 324 Mg) 324 mg PO NOW STA Stop: 04/19/22 16:20 Last Admin: 04/19/22 16:26 Dose: 324 mg Documented By: JUAN DAVID Medical Decision Making Laboratory Data Attestation: I reviewed the patient's lab results. 04/19/22 13:06 04/19/22 13:06 Labs: Lab Results 04/19/22 04/19/22 04/19/22 Range/Units 13:06 13:06 13:06 WBC 4.96 (4.8-10.8) K/ul RBC 4.39 (4.20-5.40) M/uL Hgb 13.5 (12.0-16.0) g/dl Hct 37.4 (37.0-47.0) % MCV 85.2 (80.0-100.0) fL MCH 30.8 (25.0-34.0) pg MCHC 36.1 H (32.0-36.0) g/dL RDW Std Deviation 41.7 (36.4-46.3) fL RDW Coeff of Meeta 13.4 (11.5-14.5) % Plt Count 97 L (130-400) K/uL MPV 10.4 (9.4-12.4) fL Immature Gran % (Auto) 0.4 % Neut % (Auto) 63.7 % Lymph % (Auto) 27.4 % Sabine % (Auto) 6.7 % Eos % (Auto) 1.2 % Baso % (Auto) 0.6 % Neut # (Auto) 3.16 (1.40-6.50) K/uL Lymph # (Auto) 1.36 (1.2-3.4) K/uL [place] # (Auto) 0.33 (0.11-0.59) K/uL Eos # (Auto) 0.06 (0-0.50) K/uL Baso # (Auto) 0.03 (0-0.2) K/uL Immature Gran # (Auto) 0.02 (0.01-0.20) K/uL PT 11.2 (9.0-12.0) Seconds INR 1.1 (0.9-1.1) APTT 25.7 (21.0-31.0) Seconds PTT Ratio 0.9 Sodium 142 (136-145) mmol/L Potassium 4.0 (3.5-5.1) mmol/L Chloride 107 (98-107) mmol/L Carbon Dioxide 31 (21-32) mmol/L Anion Gap 4 (3-11) BUN 12 (6-23) mg/dl Creatinine 0.67 (0.6-1.2) mg/dl Est Cr Clr Drug Dosing 82.2 ml/min Est GFR ( Amer) 106.2 ml/min Est GFR (Non-Af Amer) 91.6 ml/min BUN/Creatinine Ratio 17.9 (10-20) Glucose 101 H (70-99(Fasting)) mg/dl Calcium 9.6 (8.5-10.1) mg/dl Total Bilirubin 1.3 H (0.2-1.0) mg/dl AST 19 (13-39) U/L ALT 14 (7-52) U/L Alkaline Phosphatase 67 (34-104) U/L Troponin I High Sens 5.8 (0-14) pg/ml Total Protein 6.8 (6.0-8.3) gm/dl Albumin 4.6 (3.4-5.0) gm/dl Globulin 2.2 L (2.5-4.0) gm/dl Albumin/Globulin Ratio 2.1 H (0.9-2) SARS-CoV-2, RNA, NAAT (NEGATIVE) 04/19/22 Range/Units 16:26 WBC (4.8-10.8) K/ul RBC (4.20-5.40) M/uL Hgb (12.0-16.0) g/dl Hct (37.0-47.0) % MCV (80.0-100.0) fL MCH (25.0-34.0) pg MCHC (32.0-36.0) g/dL RDW Std Deviation (36.4-46.3) fL RDW Coeff of Meeta (11.5-14.5) % Plt Count (130-400) K/uL MPV (9.4-12.4) fL Immature Gran % (Auto) % Neut % (Auto) % Lymph % (Auto) % [place] % (Auto) % Eos % (Auto) % Baso % (Auto) % Neut # (Auto) (1.40-6.50) K/uL Lymph # (Auto) (1.2-3.4) K/uL [place] # (Auto) (0.11-0.59) K/uL Eos # (Auto) (0-0.50) K/uL Baso # (Auto) (0-0.2) K/uL Immature Gran # (Auto) (0.01-0.20) K/uL PT (9.0-12.0) Seconds INR (0.9-1.1) APTT (21.0-31.0) Seconds PTT Ratio Sodium (136-145) mmol/L Potassium (3.5-5.1) mmol/L Chloride (98-107) mmol/L Carbon Dioxide (21-32) mmol/L Anion Gap (3-11) BUN (6-23) mg/dl Creatinine (0.6-1.2) mg/dl Est Cr Clr Drug Dosing ml/min Est GFR ( Amer) ml/min Est GFR (Non-Af Amer) ml/min BUN/Creatinine Ratio (10-20) Glucose (70-99(Fasting)) mg/dl Calcium (8.5-10.1) mg/dl Total Bilirubin (0.2-1.0) mg/dl AST (13-39) U/L ALT (7-52) U/L Alkaline Phosphatase (34-104) U/L Troponin I High Sens (0-14) pg/ml Total Protein (6.0-8.3) gm/dl Albumin (3.4-5.0) gm/dl Globulin (2.5-4.0) gm/dl Albumin/Globulin Ratio (0.9-2) SARS-CoV-2, RNA, NAAT NEGATIVE (NEGATIVE) Imaging Data Chest x-ray: Radiologist's impression: Chest X-Ray 04/19/22 15:14 XR chest 2V PA/lateral HISTORY: Chest pain COMPARISON: Chest 07/05/2020. FINDINGS: The heart is normal in size. There is a mildly tortuous thoracic aorta, unchanged. The left lung remains clear. Stable 6 mm nodular density within the right lung base. This is likely benign given the long-term stability could be external to the patient or related to the overlapping rib. Prior cholecystectomy. No new focal lung consolidations to suggest a pneumonia. No evidence for pulmonary edema. IMPRESSION: No acute process. ACT 112: Negative or not required by law. Electronically signed by: Dioni Perrin M.D. 04/19/2022 3:56 PM ECG Data Indication: chest pain Rate (beats per minute): 59 Rhythm: normal sinus Findings: no ST depression, no ST elevation or no prolonged QT Comparison ECG Date: from (May 2021) Additional Comments: T wave inversion present in lead I and aVL. When compared with EKG from May 28, 2021 the T wave inversions in 1 and aVL do appear deeper. MDM Narrative Cardiac monitoring: An order was placed for continuous cardiac monitoring. The monitor shows a rate of 60 with sinus rhythm Patient was seen during a time of extreme volume and extreme acuity in the emergency department. Nursing triage protocols were initiated and labs were drawn by protocol in the triage area. Vital signs stable. Labs and imaging are within normal limits. Patient reports no chest pain at this time. Given the patient's history EKG findings the patient will be brought in to the hospitalist service for chest pain rule out ACS. Spoke with Ricarda who stated to admit to Dr. Lindsey Tapia hospitalist. Impression & Plan Chest pain Discharge Plan Visit Data Chief Complaint: Chest Pain Stated Complaint: CARDIAC ENZYMES, HEART ISSUES ED Provider: Eagle Cadet Discharge Problem: Chest pain Patient Disposition: Being Evaluated by Hospitalist Forms Stand Alone Forms: My [facility] Prescriptions Prescriptions: No Action aspirin 81 mg Tablet,Delayed Release (Dr/Ec) 81 mg PO HS metoprolol tartrate 25 mg Tablet 25 mg PO BID omeprazole 20 mg Capsule,Delayed Release(Dr/Ec) 20 mg PO BID Tourachel SoloStar U-300 Insulin 300 unit/mL (1.5 mL) Insulin Pen 62 unit SUBCUT HS insulin aspart U-100 [Novolog U-100 Insulin aspart] 100 unit/mL Solution 0 sliding scale dose subcut TID Rx Instructions: 1 sliding scale dose subcutaneously glipizide 5 mg tablet See Rx Instructions .ROUTE .COMPLEX Rx Instructions: 5 mg orally ;take 10 mg in the morning and 5 mg in the evening lisinopril 5 mg tablet 10 mg PO QAM promethazine 12.5 mg tablet 12.5 mg PO BID PRN (Reason: nausea and vomiting) Qty: 10 0RF Rx Instructions: 3 doses during day; last dose no later than 4 hr before bedtime Referrals Referrals: Monserrat Palomino PA-C [Primary Care Provider] -
[2022-04-19] MEDS ORDERED: lisinopril 10 MG TAB PO STA (17:40)
[2022-04-19] MEDS ORDERED: ACETAMINOPHEN 325 MG TAB PO PRN (18:20)
[2022-04-19] MEDS ORDERED: GLUCAGON FOR INJ 1 MG VIAL SQ PRN (18:20)
[2022-04-19] MEDS ORDERED: GLUCOSE 10 TAB/TUBE PO PRN (18:20)
[2022-04-19] MEDS ORDERED: DEXTROSE 50% 50 ML SYRINGE IV PRN (18:20)
[2022-04-19] MEDS ORDERED: GLUCOSE 40% GEL 15 GM TUBE PO PRN (18:20)
[2022-04-19] MEDS ORDERED: CARBOHYDRATES FOR HYPOGLYCEMIA PO PRN (18:20)
[2022-04-19] MEDS ORDERED: ONDANSETRON INJ 2 MG/ML 2 ML VIAL IV PRN (18:20)
[2022-04-19] MEDS: NITROGLYCERIN 2% OINTMENT 30GM TUBE EXT SCH ×2 (19:08→23:42)
[2022-04-19] MEDS ORDERED: hydrALAZINE HCL 20 MG/ML VIAL IV PRN (19:13)
[2022-04-19] MEDS ORDERED: ASPIRIN 81 MG ECTAB PO SCH (21:00)
[2022-04-19] MEDS ORDERED: LANTUS PER UNIT CHARGE SQ SCH (21:00)
[2022-04-19] MEDS: INSULIN ASPART PER UNIT SC SCH (21:16)
[2022-04-19] MEDS: PANTOprazole 40 MG TAB PO SCH (21:54)
[2022-04-19] MEDS: METOPROLOL TARTRATE 25 MG TAB PO SCH (21:54)
[2022-04-20] MEDS: NITROGLYCERIN 2% OINTMENT 30GM TUBE EXT SCH (06:48)
[2022-04-20 06:57] LABS: Hematocrit (blood only) 35.7 % (37.0-47.0); Hemoglobin 12.8 g/dl (12.0-16.0); Mean Corpuscular Hemoglobin 30.9 pg (25.0-34.0); Mean Corpuscular Hgb Conc 35.9 g/dL (32.0-36.0); Mean Corpuscular Volume 86.2 fL (80.0-100.0); Mean Platelet Volume 10.4 fL (9.4-12.4); Platelet Count 106 K/uL (130-400); RDW Coefficient of Variation 13.7 % (11.5-14.5); RDW Standard Deviation 42.7 fL (36.4-46.3); Red Blood Count 4.14 M/uL (4.20-5.40); White Blood Count 5.98 K/ul (4.8-10.8)
[2022-04-20 07:16] LABS: BUN Creatinine Ratio 20.5 (10-20); Calcium 9.3 mg/dl (8.5-10.1); Chol HDL Ratio 4.3 (0-5); Creatinine Clr Calc Pharmacy 75.7 ml/min; Est GFR (African American) 99.5 ml/min; Est GFR (Non-African American) 85.8 ml/min; Magnesium 1.9 mg/dl (1.7-2.4); Potassium 3.9 mmol/L (3.5-5.1)
[2022-04-20 08:03] LABS: Estimated Average Glucose 120 mg/dl; Hemoglobin A1C 5.8 % (4.5-5.6); Troponin I High Sensitivity 5.3 pg/ml (0-14)
--- NOTE | 2022-04-20 08:09 | Cardiology Consultation ---
Date of Consultation April 20, 2022 Assessment & Plan (1) CAD (coronary artery disease): (2) Chest pain: (3) HTN (hypertension): (4) HLD (hyperlipidemia): (5) DM type 2 (diabetes mellitus, type 2): (6) Hypoglycemia: Plan 66 year old female with history of nonobstructive CAD (per cath 2016) presented due to symptoms of exertional chest pain with radiation to the arm/shoulder and shortness of breath. Also noting recent episodes of exertional weakness. BP labile over the last 6 mos to 1 year. Elevated in ED. Nitro paste started with improvement in BPs. Notable labile blood sugar readings at home on her nila monitor- is symptomatic when this occurs with an "aura" EKG changes showing t-wave inversion in leads I and aVL. HS troponin negative x3. Patient currently symptom free. Recommendations: Patient to remain NPO for DSE this am. Monitor BSG levels. Will defer to primary team regarding adjustment of diabetes medications. Stop nitro-paste, may need to titrate lisinopril vs addition of low dose Norvasc for SBP averaging >140. Continue Metoprolol tartrate as ordered. Continue ASA 81 mg daily Not currently on statin therapy- per the patient she is "intolerant" will look back in outpatient records- she does carry a history of VIERA (AST/ALT currently WNL) Case discussed with Dr. Houston- will follow. Supervising Physician Co-Signing Physician Notes Cardiology attending: I personally performed a history and physical exam. Agree with findings and plan as outlined by MOE Garcia with additions as noted below. Subjective: Patient seen prior to, during, after dobutamine stress echocardiogram. No additional symptoms since admitted to the hospital. Blood pressure improved overnight with Nitropaste. She did not receive her a.m. blood pressure medications prior to coming to the heart center for her dobutamine stress test. Resting echocardiogram performed this morning revealed normal wall motion, mild concentric left ventricular hypertrophy, no significant valvular disease. Exam: Cardiovascular regular rate and rhythm, no murmurs, no edema Impression: Episodic chest heaviness, shortness of breath, incentive elevated blood pressur e. EKG with findings of T wave inversion to lead I and aVL, perhaps related to significant hypertension related heart disease or coronary heart disease. -High-sensitivity troponin negative x3. -Patient underwent dobutamine stress echocardiogram. She reported shortness of breath with peak heart rate, but no sujatha angina. EKG response to stress was normal, but patient developed ST segment depression late in the poststress recovery interval, with no correlative symptoms of angina at that time. Considered to be equivocal. Plan: -Per review of record , pt also had high BP readings at time of 2020 admission. Question if her symptoms are related to microvascular disease , hypertension, diastolic dysfunction. Lisinopril increased from 10 mg to 20 mg , metoprolol tartrate 25 mg BID, add Imdur 30 mg daily. Advance diet. Will reassess after lunch. History of Present Illness Reason for Consultation: Chest pain [facility]ing Phys[facility] Attending Physician: Yobany Hammond MD History of Present Illness 66-year-old female who initially presented to the emergency department after seeing her PCP due to symptoms of chest pain x1 week. Pain was described as left-sided intermittent lasting anywhere between 5 and 10 minutes. Radiated to the shoulder/arm. Also noted shortness of breath, nausea and diaphoresis with her chest pain symptoms. On Monday when she was walking out of a restaurant she also developed weakness in both of her legs. Her helped her to the ground where she was able to regain her strength and stand back up. No syncope/loss of consciousness. She monitor blood sugars at home with a nila monitor, does have periods of hypoglycemia- aware of these episodes because she gets an "aura". States that she has always had "blood bps" at home and over the last 6 mos to a year they have been labile and very elevated at times. Blood pressures elevated on arrival to the ED. Patient was started on Nitro-paste. Patient carries a history of nonobstructive CAD per cardiac catheterization in May 2015. Underwent dobutamine stress test in 11/2018 which was nonischemic. Upon entrance into the room patient ambulating around the room. No further chest discomfort symptoms. No weakness. Denies sob, palpitations, or lightheadedness. EKG: NSR with T wave inversion in leads I and aVL Labs: Unremarkable. Troponin negative x3 (5.8>>6.0>>5.3) CXR: unremarkable. Echo: PENDING * Preliminary read showing stable LVEF and no WMA. Tele: SR 50-70s Past medical history: Nonobstructive CAD, history of cardiac catheterization 06/04/2015 at [facility] -Left main long with mild calcification and no obstruction, LAD type III, small area ectasia after first septal branch and mild luminal irregularities, ramus large with mild luminal irregularities, left circumflex large with single large OM, RCA dominant with mild luminal irregularities, PDA with 20% origin, to PV branches without disease, hyperdynamic LVEF of 70% -Nonischemic DSE at [facility] 11/2018 Hypertension Symptomatic PACs, on metoprolol Dyslipidemia [place] GERD History of COVID-pneumonia 06/2020 Former smoker, quit 1988 Allergies Allergy/AdvReac Type Severity Reaction Status Date / Time Quinolones Allergy Intermediate NAUSEA, Verified 04/19/22 16:53 ITCH, RASH codeine Allergy Unknown CAN TAKE Verified 04/19/22 16:53 MORPHINE Sulfa (Sulfonamide Allergy Unknown CAN'T Verified 04/19/22 16:53 Antibiotics) REMEMBER exenatide AdvReac Intermediate Nausea/vomi Verified 04/19/22 16:53 ting. metformin AdvReac Intermediate Nausea/Vomi Verified 04/19/22 16:53 ting nitrofurantoin AdvReac Intermediate Nausea/vomi Verified 04/19/22 16:53 ting polyethylene glycol AdvReac Intermediate Nausea/vomi Verified 04/19/22 16:53 ting Home Medications Medication Instructions Recorded Confirmed Type aspirin 81 mg tablet,delayed 81 mg PO QAM 11/22/18 04/19/22 History release insulin glargine U-300 conc 300 62 unit subcut HS 11/22/18 04/19/22 History unit/mL (1.5 mL) subcutaneous pen (Toujeo SoloStar U-300 Insulin) metoprolol tartrate 25 mg tablet 25 mg PO BID 11/22/18 04/19/22 History omeprazole 20 mg capsule,delayed 20 mg PO BID 11/22/18 04/19/22 History release insulin aspart U-100 100 unit/mL 0 sliding scale dose subcut TID 07/05/20 04/19/22 History subcutaneous solution (Novolog U-100 Insulin aspart) glipizide 5 mg tablet See Rx Instructions .Route .COMPLEX 05/28/21 04/19/22 History lisinopril 5 mg tablet 10 mg PO QAM 05/28/21 04/19/22 History Patient History Medical History (Updated 04/20/22 @ 08:59 by MOE Kaplan) Flores esophagus DM type 2 (diabetes mellitus, type 2) HLD (hyperlipidemia) HTN (hypertension) VIERA (nonalcoholic steatohepatitis) Thrombocytopenia Surgical History History of hysterectomy Hx of cardiac cath "05/2015 - mild CAD" S/P cholecystectomy Family History (Updated 04/19/22 @ 17:11 by Neena Shaw PA-C) Mother Heart disease Father Heart disease Sister , age mid 70s Heart disease Sister , Mid to late 70s Heart disease Brother Heart disease age 74 Sister Heart disease age 80s Social History Smoking Status: Former smoker Second Hand Exposure: No; Hx Alcohol Use: Yes Alcohol type: wine Hx Substance Use: No Preferred Language: Hungarian Communication Ability: Effective Delivery Aide Required: No Beliefs That Will Affect Care: None Current Living Situation: Spouse Other Information That Helps Us Care for You: No Feels Safe at Home: Yes Safety Concerns: Feels Safe At This Time Assistive Devices: Glasses Assistive Devices Comment: dex com Review of Systems Review of Systems: All systems reviewed & are unremarkable except as noted in HPI & below Physical Exam Constitutional: WD/WN, vitals as above no acute distress Eyes: PERRL, conjunctivae normal, anicteric sclerae Neck: normal visual inspection and trachea midline Respiratory: normal respiratory effort, lungs clear to auscultation Cardiovascular: RRR, no murmur, no edema Heart Sounds: normal S1 and normal S2; no murmur Vessels: no JVD Extremities: no edema Gastrointestinal (Abdomen): normal bowel sounds, soft, nontender, no hepatosplenomegaly Musculoskeletal: no cyanosis or clubbing, extremities motor strength 5/5 Skin: no rashes, warm and dry Results & Data ([facility]) Vital Signs (Past 12 Hours) Vital Signs Temp Pulse Pulse Resp BP Pulse Ox O2 Del Method 04/20/22 03:45 36.7 C 66 18 140/65 95 Room Air 04/20/22 00:00 66 04/19/22 23:47 36.7 C 59 L 20 126/59 L 93 Room Air Laboratory Results Cardiac Enzymes 04/19/22 04/19/22 04/20/22 Range/Units 13:06 19:33 06:05 AST 19 (13-39) U/L Troponin I High Sens 5.8 6.0 5.3 (0-14) pg/ml 04/20/22 Range/Units 06:05 AST (13-39) U/L Troponin I High Sens Cancelled (0-14) pg/ml Coagulation 04/19/22 Range/Units 13:06 PT 11.2 (9.0-12.0) Seconds APTT 25.7 (21.0-31.0) Seconds Lipids 04/20/22 Range/Units 06:05 Triglycerides 210 H (0-150) mg/dl Cholesterol 149 (0-200) mg/dl HDL Cholesterol 35 mg/dl Cholesterol/HDL Ratio 4.3 (0-5) CBC 04/19/22 04/20/22 Range/Units 13:06 06:05 WBC 4.96 5.98 (4.8-10.8) K/ul RBC 4.39 4.14 L (4.20-5.40) M/uL Hgb 13.5 12.8 (12.0-16.0) g/dl Hct 37.4 35.7 L (37.0-47.0) % Plt Count 97 L 106 L (130-400) K/uL Neut # (Auto) 3.16 (1.40-6.50) K/uL Lymph # (Auto) 1.36 (1.2-3.4) K/uL [place] # (Auto) 0.33 (0.11-0.59) K/uL Eos # (Auto) 0.06 (0-0.50) K/uL Baso # (Auto) 0.03 (0-0.2) K/uL Comprehensive Metabolic Panel 04/19/22 04/20/22 Range/Units 13:06 06:05 Sodium 142 141 (136-145) mmol/L Potassium 4.0 3.9 (3.5-5.1) mmol/L Chloride 107 107 (98-107) mmol/L Carbon Dioxide 31 28 (21-32) mmol/L BUN 12 15 (6-23) mg/dl Creatinine 0.67 0.73 (0.6-1.2) mg/dl Glucose 101 H 138 H (70-99(Fasting)) mg/dl Calcium 9.6 9.3 (8.5-10.1) mg/dl AST 19 (13-39) U/L ALT 14 (7-52) U/L Alkaline Phosphatase 67 (34-104) U/L Total Protein 6.8 (6.0-8.3) gm/dl Albumin 4.6 (3.4-5.0) gm/dl Intake and Output 04/19/22 04/20/22 04/20/22 22:59 06:59 14:59 Output Total 2 / 2 Balance -2 / -2 Output: # Bowel Movements 2 / 2 Other: # Unmeasured Voids 6 Weight 82.1 kg 82.9 kg Weight Measurement Method Standing Scale Built in [facility] (1) Chest pain Chest pain type: unspecified Qualified Code(s): R07.9 - Chest pain, unspecified
[2022-04-20] MEDS ORDERED: ASPIRIN 81 MG ECTAB PO SCH (09:00)
[2022-04-20] MEDS ORDERED: lisinopril 20 MG TAB PO SCH ×2 (09:00→11:15)
[2022-04-20] MEDS ORDERED: METOPROLOL TARTRATE 1 MG/ML VIAL IV ONE (09:59)
[2022-04-20] MEDS ORDERED: ATROPINE SULFATE 0.1 MG/ML 10ML SYR IV ONE (09:59)
[2022-04-20] MEDS ORDERED: DOBUTamine HCL 12.5 MG/ML 20 ML VIAL IV ONE (09:59)
[2022-04-20] MEDS: METOPROLOL TARTRATE 25 MG TAB PO SCH (11:09)
[2022-04-20] MEDS ORDERED: METOPROLOL TARTRATE 25 MG TAB PO SCH (11:15)
[2022-04-20] MEDS ORDERED: ISOSORBIDE MONO EXTENDED REL 30 MG TABCR PO SCH (11:15)
[2022-04-20] MEDS: INSULIN ASPART PER UNIT SC SCH ×2 (12:00→12:12)
[2022-04-20] MEDS: PANTOprazole 40 MG TAB PO SCH (12:12)
--- NOTE | 2022-04-20 15:09 | Communication Note ---
Date of Service: April 20, 2022 Patient reassessed at bedside- overall feeling well. Recently went for a walk in the [place]. Did not experience any exertional chest pain, shortness of breath, or lightheadedness/dizziness. Noting generalized fatigue. Blood pressures much better controlled- repeated in room, 126/58. Heart rate in the 80s. Denies any symptoms associated with taking her first dose of Imdur. No headache. Patient eager for discharge. No further recommendations from a cardiac standpoint. Okay for discharge from a cardiology standpoint. Continue lisinopril 20 mg daily, Toprol tartrate 25 mg twice daily, and Imdur 30 mg daily. Continue aspirin 81 mg daily and newly added Crestor 5 mg daily Follow-up appointment scheduled for 3/2 in our outpatient cardiology clinic.
--- NOTE | 2022-04-20 15:33 | Electrocardiogram Report ---
Test Reason : Blood Pressure : / mmHG Vent. Rate : 060 BPM Atrial Rate : 060 BPM P-R Int : 182 ms QRS Dur : 088 ms QT Int : 424 ms P-R-T Axes : 046 000 145 degrees QTc Int : 424 ms Sinus rhythm with occasional Premature ventricular complexes Left ventricular hypertrophy with repolarization abnormality Abnormal ECG When compared with ECG of 19-APR-2022 12:49, Premature ventricular complexes are now Present Confirmed by Donald Carmona ([id number]) on 04/20/2022 3:32:52 PM Referred By: REFERRED SELF Confirmed By:Donald Carmona
--- NOTE | 2022-04-20 15:33 | Discharge Summary ---
Date of Service April 20, 2022 Admission HPI Per Admitting Provider This is a 66 yo F with PMhx of DM type 2, last A1c 7.4, obesity, Viera cirrhosis, hypertension, Flores's esophagus,who presents with acute onset of left sided intermittent chest pain which comes in duration of 20 minutes. For the last 7 days. This morning she went to see her PCP. Pt notes when she walked into the office this morning it "hit quite hard and fast". Her pain was center chest and radiated to the left, felt squeezing in nature. She admits the pain radiating to the left arm and left jaw with numbness and pain. She reported shortness of breath, fleeting nausea, and diaphoresis. It made her feel very weak, and afterwards was very fatigued. Her PCP sent her to the ER after a quick evaluation and EKG reading. Pt further reports last Monday night (2 days ago) she felt very lightheaded and weak all of a sudden while walking in a parking after dinner out at a restaurant. Her had to hold on to her for a near syncopal episode. She denies LOC or full passing out, or any injury. At that time she refused to go to the hospital. Yesterday on Tuesday 04/18, she had another episode of 20 minute chest pain with squeezing sensation. It eventually goes away on its own. She cannot attribute any trigger factors to the cause of her chest pain. Sometimes it happens at rest and other times it happens while she is up walking. In the past week, she has taken 2 baby aspirin tablets intermittently when she has this chest pain as she thought it could help her heart. Today she was given 4 baby aspirin at her PCP office, and due to the progression of her symptoms she was convinced to come into the ER. Denies any current chest pain, shortness of breath or discomfort. In the past she had a catheterization and had previously followed with Dr. Houston. She notes that she did take all of her morning medications today. She admits that she has only been taking metoprolol tartrate once daily in the morning, not twice daily. 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 Notes that her daughter works here in the hospital. Admission Exam Per Admitting Provider General: awake, alert, no apparent distress Head: Normocephalic, atraumatic ENT: PERRL, EOMI, no pharyngeal exudate, mucous membranes moist Chest: Clear to auscultation, on room air, no adventitious breath sounds Cardiac: Regular rate and rhythm, no murmur, no JVD, normal peripheral pulses, good capillary refill Abdominal: NABS x 4 quadrants, soft, nondistended, nontender to palpation, no rebound or guarding Extremities: Normal inspection, no peripheral edema or erythema, calfs nontender to palpation Psych: Normal mood and affect Neuro: AAO x 3, strength intact bilaterally and rated 5/5, no motor deficits, speech is clear, no peripheral sensory deficits Principal Diagnosis Chest pain, ACS ruled out Stable angina Discharge Exam Constitutional: WD/WN, vitals as above, NAD, sitting up in bed, pleasant, conversing easily Respiratory: normal respiratory effort, lungs clear to auscultation, no wheeze, rales, rhonchi. Normal insp/exp effort, no accessory muscle use Cardiovascular: RRR, no murmur, no edema Vessels: no JVD or carotid bruit Chest: normal inspection of chest Abdomen: normal bowel sounds, soft, nontender, no hepatosplenomegaly Musculoskeletal: no cyanosis or clubbing, extremities motor strength 5/5 Skin: no rashes, warm and dry normal turgor Neurologic: PERRL, EOMI, accommodation nl, no face palsy, no dysarthria CN's II- XI intact bilaterally and moves all extremities Psychiatric: A+Ox3, euthymic affect Lymphatic: no cervical or axillary lymphadenopathy : deferred Discharge Data Allergies Allergy/AdvReac Type Severity Reaction Status Date / Time Quinolones Allergy Intermediate NAUSEA, Verified 04/19/22 16:53 ITCH, RASH codeine Allergy Unknown CAN TAKE Verified 04/19/22 16:53 MORPHINE Sulfa (Sulfonamide Allergy Unknown CAN'T Verified 04/19/22 16:53 Antibiotics) REMEMBER exenatide AdvReac Intermediate Nausea/vomi Verified 04/19/22 16:53 ting. metformin AdvReac Intermediate Nausea/Vomi Verified 04/19/22 16:53 ting nitrofurantoin AdvReac Intermediate Nausea/vomi Verified 04/19/22 16:53 ting polyethylene glycol AdvReac Intermediate Nausea/vomi Verified 04/19/22 16:53 ting Consultations 04/19/22 16:19 ED Decision to Admit Stat 04/19/22 18:20 Consult Cardiology Routine Hospital Course (1) Chest pain: (2) CAD (coronary artery disease): (3) HTN (hypertension): (4) HLD (hyperlipidemia): (5) DM type 2 (diabetes mellitus, type 2): (6) VIERA (nonalcoholic steatohepatitis): (7) Flores esophagus: Plan Patient is a 66-year-old female with past medical history of type 2 diabetes mellitus,History of nonobstructive CAD who presented to the ED with chest pain with radiation to arm/shoulder. Her SBP was elevated to 180s on admission. High sensitive troponin were negative. EKG showed T wave inversion in lead I and aVL. Patient was admitted to telemetry floor and cardiology was consulted. Patient underwent dobutamine stress echo which did not show any significant finding. Patient's lisinopril was increased from 10 mg twice daily to 20 mg once daily. Imdur 30 mg once daily was added along with Crestor 5 mg at night. Patient was discharged home with instruction to follow-up with her primary care doctor. And outpatient follow-up with her cardiology is set up for May 19. Total Time Total Time Spent Total Time Spent (In Minutes): 35 Total Time Includes: Examination of the Patient, Discharge Planning, Medication Reconciliation, Communication With Other Providers and Other Discharge Plan Discharge Items Patient Disposition: Home - Self-Care Reason For Visit: CHEST PAIN Discharge Diagnosis: Chest pain, ACS rule out Activity: Resume your previous activity Non-emergency contact: Primary Care Provider Call non-emergency contact if: you have any medication questions and your symptoms worsen Follow-up/Referrals: Monserrat Palomino PA-C [Primary Care Provider] - (Date & Time 04/25/2022 10:00 AM Provider Fani Cash Department [facility] ) Diet: Regular Addtl Attending Provider Instructions: You were admitted to the hospital with chest pain. You underwent stress echocardiogram which was normal. The following medication changes are recommended by the oil refiner: 1) Take lisinopril 20 mg once daily. A new prescription is sent to your pharmacy. You can stop taking the lisinopril that you are taking at home. 2) Imdur 30 mg once daily 3) Rosuvastatin 5 mg at night. Continue to take all your other medication as prescribed before. You have follow-up with your primary care doctor on April 25 at 10 AM. You will also have follow-up with your oil refiner on May 19 Pending Studies at Discharge: No Stand-Alone Forms: My [facility], Smoking Cessation Medications and DC Order Prescriptions: New lisinopril 20 mg Tablet 20 mg PO QAM Qty: 30 0RF isosorbide mononitrate 30 mg Tablet Extended Release 24 Hr 30 mg PO QAM Qty: 30 0RF rosuvastatin 5 mg Tablet 5 mg PO HS Qty: 30 0RF Continued aspirin 81 mg Tablet,Delayed Release (Dr/Ec) 81 mg PO QAM metoprolol tartrate 25 mg Tablet 25 mg PO BID omeprazole 20 mg Capsule,Delayed Release(Dr/Ec) 20 mg PO BID Toujeo SoloStar U-300 Insulin 300 unit/mL (1.5 mL) Insulin Pen 62 unit SUBCUT HS insulin aspart U-100 [Novolog U-100 Insulin aspart] 100 unit/mL Solution 0 sliding scale dose subcut TID Rx Instructions: 1 sliding scale dose subcutaneously glipizide 5 mg tablet See Rx Instructions .ROUTE .COMPLEX Rx Instructions: 5 mg orally ;take 10 mg in the morning and 5 mg in the evening Discontinued lisinopril 5 mg tablet 10 mg PO QAM Discharge Orders: Discharge Order (Routine); Ordered 04/20/22 Ordered By: Yobany Hammond Admission Data Admit Date/Time: 04/19/22 16:51 Attending Provider: Yobany Hammond Admit Provider: Rashi Portillo Primary Care Provider: Monserrat Palomino. Other Providers: Rashi Portillo ; Vasu Houston
[2022-04-20] MEDS ORDERED: ROSUVASTATIN CALCIUM 5 MG TAB PO SCH (21:00)
== END 2022-04-20 16:29 | disposition home or self-care (01) ==
LOC: ED 12:29 → 2E 12:29 → SUATTDRO 16:51 → 2E 17:31

== ENCOUNTER 2023-04-15 07:15 | Inpatient (IN) ==
--- OUTSIDE RECORDS SUMMARY | 2023-04-15 07:24 | External Medical Summary | Summary of Care ---
Author Name Unknown Organization [facility] Address [address] [place] [address] Phone [phone] Care Team Providers Care Engineer Name Role Phone Allen Rios DO Primary Care Provider [phone] Reason for Visit * Reason Onset Date Comments Health Maintenance 03/06/2023 Encounter Details Date Type Department Care Team (Late st Contact Info) Description 03/06/2023 Telephone Family Practice [facility] [place] [address] [facility] [place] [id number] Allen Rios DO [address] [facility] [place] [id number] Health Maintenance Allergies Active Allergy Reactions Criticality Noted Date Comments Exenatide Nausea/vomiting Low 09/05/2008 Quinolones Itching,Nausea/vomi ting 12/06/2007 headache Codeine 11/03/2010 Isosorbide Nitrate 06/16/2022 Severe MC, "floaty feelings" Cephalexin Itching High 01/21/2012 Nitrofurantoin Monohydrate Macrocrystals Nausea/vomiting 12/08/2010 Metformin And Related Nausea/vomiting Medium 9 Polyethylene Glycol Nausea/vomiting 05/06/2011 Statins 10/18/2022 Brain fog Sulfa Antibiotics 11/03/2010 documented as of this encounter (statuses as of 03/06/2023) Medications Medication Sig Dispensed Refills Start Date End Date Status ASPIRIN 81 MG PO TBDP 1 daily 0 Active Glucose Blood (ONE TOUCH ULTRA TEST) STRPIndications:DM type 2, goal A1c below 7 Use up to four times a day as directed 400 Strip 3 07/21/2014 Active OneTouch Verio In Vitro Strip (Glucose Blood)Indications: Hyperlipidemia with target LDL less than 100 Test 4-6 times a day. 600 Strip 3 06/22/2022 Active NovoLOG FlexPen 100 UNIT/ML Subcutaneous Solution Pen-injector (insulin aspart)Indications :Type 2 diabetes mellitus with hemoglobin A1c goal of less than 7.0% (HCC) take 3 units for every 50 points blood sugar exceeds 150 mg/dl at meals - Subcutaneous Notes to Pharmacy: Glucometer 150-200: Give 3 units Novolog Sub cutaneous ; Glucometer 201-250: Give 6 units Novolog Sub cutaneous ; Glucometer 251-300: Give 9 units Novolog Subcutaneous Glucometer 301-350: Give 12 units Novolog Sub cutaneous 15 mL 3 08/12/2022 Active Lisinopril 10 MG Oral Tablet (Prinivil) Take 1 Tablet by mouth in the morning and 1 Tablet in the evening. 180 Tablet 3 08/13/2022 Active You Smithar 300 UNIT/ML Subcutaneous Solution Pen-injector (Insulin Glargine (1 Unit Dial))Indications: Type 2 diabetes mellitus with hemoglobin A1c goal of less than 7.0% (HCC) INJECT 62 UNITS UNDER THE SKIN EVERY NIGHT AT BEDTIME 18 mL 3 09/08/2022 Active Metoprolol Tartrate 25 MG Oral Tablet (Lopressor)Indicat ions:Atheroscleros is of mo[place] coronary artery of [place] heart without angina pectoris,Palpitati ons,HTN, goal below 130/80 TAKE ONE TABLET BY MOUTH 2 TIMES A DAY 180 Tablet 3 10/11/2022 Active Ezetimibe 10 MG Oral Tablet (Zetia)Indications :Dyslipidemia, goal LDL below 70 Take 1 Tablet by mouth in the morning. 90 Tablet 3 10/24/2022 Active Litetouch Pen [place] 31G X 5 MM (Insulin Pen Needle)Indications :Type 2 diabetes mellitus with hemoglobin A1c goal of less than 7.0% (HCC) Use as directed . Use for insulin injection four times daily 400 Each 1 11/18/2022 Active glipiZIDE 5 MG Oral Tablet (Glucotrol)Indicat ions:Type 2 diabetes mellitus with hemoglobin A1c goal of less than 7.0% (HCC) TAKE TWO TABLETS BY MOUTH EVERY MORNING AND 1 EVERY EVENING, 30 MINUTES BEFORE A MEAL. 270 Tablet 1 12/19/2022 Active Chlorthalidone 25 MG Oral Tablet (Hygroton)Indicati ons:HTN, goal below 130/80 Take 1 Tablet by mouth in the morning. In the morning.. 90 Tablet 1 01/10/2023 Active Omeprazole 20 MG Oral Capsule Delayed Release (PriLOSEC)Indicati ons:Gastroesophage al reflux disease without esophagitis Take 1 Capsule by mouth in the morning and 1 Capsule before bedtime. 180 Capsule 1 01/10/2023 Active FreeStyle Nora 2 SensorIndications: Type 2 diabetes mellitus with hemoglobin A1c goal of less than 7.0% ([facility]) CHECK BLOOD GLUCOSE TWICE DAILY, 6 Each 1 02/07/2023 Active documented as of this encounter (statuses as of 03/06/2023) Active Problems Problem Noted Date Diagnosed Date PAC (premature atrial contraction) 07/26/2018 Overview: Seen on holter study 2018 Nonproliferative diabetic retinopathy of both ey es 07/26/2018 Gastroesophageal reflux disease with esophagitis 07/20/2017 Dyslipidemia 07/20/2017 HTN, goal below 130/80 08/15/2013 Coronary atherosclerosis 04/26/2013 Vitamin D deficiency 11/29/2012 Nodule of lower lobe of right lung 09/10/2012 Overview: [address] scan in June of 2020 during COVID admission. New since 2015. Recommend follow up CT in 6-12 months to assess stability. SAM (nonalcoholic steatohepatitis) 07/01/2011 Flores's esophagus without dysplasia 05/06/2011 Type 2 diabetes mellitus wit h hemoglobin A1c goal of less than 7.0% 01/01/2009 Overview: Modified per Diabetes protocol #14. 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 Correlate with Home Glucose Monitor and Fructosamine to trend control ICD-10 update of inactive term Sensorineural hearing loss, bilateral documented as of this encounter (statuses as of 03/06/2023) Resolved Problems Problem Noted Date Diagnosed Date Resolved Date Thrombocytopenia 07/28/2020 04/19/2022 Hepatosplenomegaly 07/20/2017 07/02/201 9 Acute sinusitis 02/07/2015 07/20/2017 Old IL (myocardial infarction) 02/07/2015 07/20/2017 Esophagitis 11/01/2009 07/20/2017 Overview: ICD-10 update of inactive term Nausea 11/01/2009 11/04/2009 Overview: ICD-10 update of inactive term Abdominal pain 11/01/2009 11/04/2009 Malaise and fatigue 11/01/2009 07/21/19 18 Headache 10/31/2009 11/01/2009 Overview: ICD-10 update of inactive term DM type 2, not at goal 09/05/200801/01 Overview: Modified per Diabetes protocol #14. 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 Correlate with Home Glucose Monitor and Fructosamine to trend control Other chronic nonalcoholic liver disease 09/05/2008 07/20/2017 Overview: NAFLD grade 6/[address] Gonsalez May 2008 ADVANCE DIRECTIVE INFORMATION 05/23/2008 07/20/2017 Overview: No, Advance Directive brochure given to patient. Allergic rhinitis 07/20/2017 NON ALLERGIC RHINITIS 2017 Deviated nasal septum 2017 documented as of this encounter (statuses as of 03/06/2023) Immunizations Name Administration Dates Next Due COVID-19 mRNA, LNP-s, No Pre serve, 2-Dose Series (Pfizer) 10/14/2020,09/19/2020 COVID-19, LNP-s, No Preserve , Pacheco-sucrose, Ages 12+ (Pfizer) 09/28/2021,04/30/2021 Hepatitis B, 20+ yrs 11/18/1996,05/18/1996,04/20 TDAP (age 11 and older)(Adacel) 12/27/2004 documented as of this encounter Social History Tobacco Use Types Packs/Day Years Used Date Smoking Tobacco: Former Cigarettes 1 10 Q uit: 03/20/1988 Smokeless Tobacco: Never Comments:quit 1988 Alcohol Use Standard Drinks/Week Comments No 0 (1 standard drink = 0.6 oz pur e alcohol) PHQ-2 Answer Date Recorded PHQ Adult Total Score 0 12/30/2021 Hunger Vital Sign Answer Date Recorded Within the past 12 months, y ou worried that your food would run out before you got the money to buy more. Never true 04/25/19 23 Within the past 12 months, t he food you bought just didn't last and you didn't have money to get more. Never true 04/25/2022 Sex and Gender Information Value Date Recorded Sex Assigned at Female 04/25/2022 12:12 PM EST Gender Identity Female 07/26/2018 10:57 AM EDT Sexual Orientation Straight 07/26/2018 10 :57 AM EDT Job Start Date Occupation Industry Not on file Not on file Not on file documented as of this encounter Miscellaneous Notes * Telephone Encounter - Leila StocktonASIA - 03/06/2023 10:12 AM EST Care Gaps Comprehensive Care Outreach Last Office/Telemedicine Visit: 10/10/2022 (in office), 08/03/2022 (telemedicine) Next Office Visit: 04/17/2023 Hemoglobin AIC Results: Lab Results Component Value Date/Time HEMOGLOBIN A1C - [facility] 6.7 (H) 12/23/2022 12:08 PM HEMOGLOBIN A1C - [facility] 6.2 (H) 05/10/2022 10:20 AM HEMOGLOBIN A1C - [facility] 6.1 (H) 10/15/2021 12:46 PM HEMOGLOBIN A1C - [facility] 6.3 (H) 01/19/2019 09:17 AM HEMOGLOBIN A1C - [facility] 6.6 (H) 06/26/2018 09:29 AM HEMOGLOBIN A1C - [facility] 6.6 (H) 03/08/2018 08:32 AM Reviewed Health Maintenance below: Health Maintenance Topic Date Due Flores's Esophagus Surveilance Never done Pneumococcal Vaccine: 65+ Years (1 - PCV) Never done Colorectal Cancer Screening Never done Zoster Vaccines (1 of 2) Never done Mammogram 05/11/2014 Diabetic Foot Exam 03/08/2019 Influenza Vaccine (FLU shot) (1) Never done COVID-19 Vaccine ( - season) 2022 Colon mamm Care Gap Outreach Action Taken: Unable to reach won't ring through my g sent documented in this encounter Plan of Treatment Upcoming Encounters Date Type Department Care Team (Late st Contact Info) Description 04/17/2023 9:00 AM EST Office Visit Family Practice [facility] [place] [address] [facility] [place] [address] Monserrat Palomino PA-C [address] [facility] [place] [address] Health Maintenance Due Date Last Done Comments Flores's Esophagus Surveilance 1955 Pneumococcal Vaccine: 65+ Years (1 - PCV) 09/13/1961 Cologuard 09/13/2000 Colonoscopy 09/13/2000 Colorectal Cancer Screening 09/13/2000 Fecal Occult Blood Test 09/13/2000 Sigmoidoscopy 09/13/2000 Zoster Vaccines (1 of 2) 09/13/2005 Mammogram 05/11/2014 05/11/2013, 12/18, 02/08/2010 Diabetic Foot Exam 03/08/2019 03/08/2018, 0 05/05/2016, 07/18/2014, Additional history exists COVID-19 Vaccine ( season) 2022 09/28/2021, 04/30/2021, 10/14/2020, Additional history exists Influenza Vaccine (FLU shot) (#1) 2022 Depression Screening 12/30/2022 12/30/2021, 08/07/2017 (Declined) HbA1c 06/24/2023 12/23/2022, 04/21, 10/15/2021, Additional history exists Diabetic Eye Exam 11/30/2023 11/29/2022, , 05/05/2020, Additional history exists Albumin/Creatinine Ratio 12/24/2023 023, 05/10/2022, 07/15/2021, Additional history exists GFR 12/24/2023 12/23/2022, 04/21, 10/15/2021, Additional history exists DTaP,Tdap,and Td Vaccines (3 - Td or Tdap) 08/08/2027 08/07/2017 (Declined), 12/27/2004 DXA Scan 11/17/2027 11/16/2020 Hepatitis B Completed 11/18/1996, 03/1996, 04/20/1996 GARDASIL-HPV IMMUNIZATION SERIES Aged Out No longer eligible based on patient's age to complete this topic MENINGOCOCCAL (MENACTRA/MENVEO) Aged Out No longer eligible based on patient's age to complete this topic documented as of this encounter Medical Devices Not on filedocumented as of this encounter Advance Directives Latest Code Status on File Code Status Date Activated Date Inactivated Comments Limited Code 10/31/2009 6:51 PM 11/04/2009 8:57 PM This order reflects the patients wishes and were consensually agreed upon. Question Answer Comments Discussion of Advance Directives occurred with: Patient Does the patient have a Living Will? No Does the patient have Health Care Power of Station Master? No Bag Valve Device? Yes Intubation? No Cardiac Compressions? Yes Defibrillation? Yes Synchronized Cardioversion? Yes External Pacemaker? Yes Cardiac Drugs? Yes Code Status History Code Status Date Activated Date Inactivated Comments Full Code 10/31/2009 6:36 PM 10/31/2009 6:51 PM This order reflects the patients wishes and were consensually agreed upon. Question Answer Comments Discussion of Advance Directives occurred with: Patient Does the patient have a Living Will? Yes, not currently available Does the patient have Health Care Power of Station Master? Yes, not currently available Care Teams Engineer Relationship Specialty Start Date End Date Allen Rios DO [facility] [place] [address] PCP - General Family Medicine 10/15/21 documented as of this encounter
--- OUTSIDE RECORDS SUMMARY | 2023-04-15 07:25 | External Medical Summary | Summary of Care ---
Author Name Unknown Organization [facility] Address [address] [place] [address] Phone [phone] Care Team Providers Care Bleacher [employer] Name Role Phone Allen Rios DO Primary Care Provider [phone] Reason for Visit * Reason Onset Date Comments Medication Refill 02/06/2023 Encounter Details Date Type Department Care Team (Late st Contact Info) Description 02/06/2023 Refill [facility] [address] [place] [address] Monserrat Palomino PA-C [address] [place] [address] Type 2 diabetes mellitus with hemoglobin A1c goal of less than 7.0% ([facility]) Allergies Active Allergy Reactions Criticality Noted Date Comments Exenatide Nausea/vomiting Low 09/05/2008 Quinolones Itching,Nausea/vomi ting 12/06/2007 headache Codeine 11/03/2010 Isosorbide Nitrate 06/16/2022 Severe MC, "floaty feelings" Cephalexin Itching High 01/21/2012 Nitrofurantoin Monohydrate Macrocrystals Nausea/vomiting 12/08/2010 Metformin And Related Nausea/vomiting Medium 9 Polyethylene Glycol Nausea/vomiting 05/06/2011 Statins 10/18/2022 Brain fog Sulfa Antibiotics 11/03/2010 documented as of this encounter (statuses as of 02/07/2023) Medications Medication Sig Dispensed Refills Start Date End Date Status ASPIRIN 81 MG PO TBDP 1 daily 0 Active Glucose Blood (ONE TOUCH ULTRA TEST) STRPIndications:D M type 2, goal A1c below 7 Use up to four times a day as directed 400 Strip 3 07/21/2014 Active OneTouch Verio In Vitro Strip (Glucose Blood)Indications :Hyperlipidemia with target LDL less than 100 Test 4-6 times a day. 600 Strip 3 06/22/2022 Active NovoLOG FlexPen 100 UNIT/ML Subcutaneous Solution Pen-injector (insulin aspart)Indication s:Type 2 diabetes mellitus with hemoglobin A1c goal [...] the evening. 180 Tablet 3 08/13/2022 Active Toujeo SoloStar 300 UNIT/ML Subcutaneous Solution Pen-injector (Insulin Glargine (1 Unit Dial))Indications :Type 2 diabetes mellitus with hemoglobin A1c goal of less than 7.0% (HCC) INJECT 62 UNITS UNDER THE SKIN EVERY NIGHT AT BEDTIME 18 mL 3 09/08/2022 Active Metoprolol Tartrate 25 MG Oral Tablet (Lopressor)Indica tions:Atheroscler osis of [place] coronary artery of [place] heart without angina pectoris,Palpitat ions,HTN, goal below 130/80 TAKE ONE TABLET BY MOUTH 2 TIMES A DAY 180 Tablet 3 10/11/2022 Active Ezetimibe 10 MG Oral Tablet (Zetia)Indication s:Dyslipidemia, goal LDL below 70 Take 1 Tablet by mouth in the morning. 90 Tablet 3 10/24/2022 Active Litetouch Pen [place] 31G X 5 MM (Insulin Pen Needle)Indication s:Type 2 diabetes mellitus with hemoglobin A1c goal of less than 7.0% (HCC) Use as directed . Use for insulin injection four times daily 400 Each 1 11/18/2022 Active glipiZIDE 5 MG Oral Tablet (Glucotrol)Indica tions:Type 2 diabetes mellitus with hemoglobin A1c goal of less than 7.0% (HCC) TAKE TWO TABLETS BY MOUTH EVERY MORNING AND 1 EVERY EVENING, 30 MINUTES BEFORE A MEAL. 270 Tablet 1 12/19/2022 Active Chlorthalidone 25 MG Oral Tablet (Hygroton)Indicat ions:HTN, goal below 130/80 Take 1 Tablet by mouth in the morning. In the morning.. 90 Tablet 1 01/10/2023 Active Omeprazole 20 MG Oral Capsule Delayed Release (PriLOSEC)Indicat ions:Gastroesopha geal reflux disease without esophagitis Take 1 Capsule by mouth in the morning and 1 Capsule before bedtime. 180 Capsule 1 01/10/2023 Active FreeStyle Nora 2 SensorIndications :Type 2 diabetes mellitus with hemoglobin A1c goal of less than 7.0% (HCC) CHECK BLOOD GLUCOSE TWICE DAILY, 6 Each 1 02/07/2023 Active FreeStyle Nora 2 SensorIndications :Type 2 diabetes mellitus with hemoglobin A1c goal of less than 7.0% (HCC) CHECK BLOOD GLUCOSE TWICE DAILY, 6 Each 3 06/22/2022 3 Discontinu ed(Refill) documented as of this encounter (statuses as of 02/07/2023) Active Problems Problem Noted Date Diagnosed Date [...] as of this encounter (statuses as of 02/07/2023) Resolved Problems Problem Noted Date Diagnosed Date Resolved Date Thrombocytopenia 07/28/2020 04/19/2022 Hepatosplenomegaly 07/20/2017 9 Acute sinusitis 02/07/2015 07/20/2017 Old HI (myocardial infarction) 02/07/2015 07/20/2017 Esophagitis 11/01/2009 07/20/2017 [...] as of this encounter (statuses as of 02/07/2023) Immunizations Name Administration Dates Next Due COVID-19 mRNA, LNP-s, No Pre serve, 2-Dose Series ([employer]) 10/14/2020,09/19/2020 COVID-19, LNP-s, No Preserve , Pacheco-sucrose, Ages 12+ ([employer]) 09/28/2021,04/30/2021 Hepatitis B, 20+ yrs 11/18/1996,05/18/1996,04/20 TDAP [...] encounter Miscellaneous Notes * Telephone Encounter - Albertina Nguyen RPh - 02/07/2023 1:24 PM ESTSigned Prescriptions: Disp Refills FreeStyle Nora 2 Sensor 6 Each 1 Sig: CHECK BLOOD GLUCOSE TWICEDAILY,Authorizing Provider: MONSERRAT PALOMINO User: ALBERTINA NGUYEN documented in this encounter Plan of Treatment Upcoming Encounters Date Type Department Care Team (Late st Contact Info) Description 04/17/2023 9:00 AM EST Office Visit Family Practice [facility] [place] [address] [place] [address] Monserrat Palomino PA-C [address] [place] [address] Health Maintenance Due Date Last Done Comments [...] Scan 11/17/2027 11/16/2020 Hepatitis B Completed 11/18/1996, 0303/1996, 04/20/1996 GARDASIL-HPV IMMUNIZATION SERIES Aged Out No longer eligible based on patient's age to complete this topic MENINGOCOCCAL (MENACTRA/MENVEO) Aged Out No longer eligible based on patient's age to complete this topic documented as of this encounter Medical Devices Not on filedocumented as of this encounter Visit Diagnoses Diagnosis Type 2 diabetes mellitus with hemoglobin A1c goal of less than 7.0% (HCC) documented in this encounter Advance Directives Latest Code Status on File Code Status Date Activated Date Inactivated Comments Limited Code 10/31/2009 6:51 PM 11/04/2009 8:57 PM This order reflects the patients wishes and were consensually agreed upon. Question Answer Comments Discussion of Advance Directives occurred with: Patient Does the patient have a Living Will? No Does the patient have Health Care Power of Test Grader? No Bag Valve Device? Yes Intubation? No [...] the patient have Health Care Power of Test Grader? Yes, not currently available Care Teams Bleacher [employer] Relationship Specialty Start Date End Date Allen Rios DO [address] [place] [address] PCP - General Family Medicine 10/15/21 documented as of this encounter
--- OUTSIDE RECORDS SUMMARY | 2023-04-15 07:25 | External Medical Summary | Summary of Care ---
Author Name Unknown Organization [facility] Address [address] [place] [address] Phone [phone] Care Team Providers Care Data Processing Systems Consultant Name Role Phone Allen Rios DO Primary Care Provider [phone] Reason for Visit * Reason Onset Date Comments Medication Refill 11/18/2022 Encounter Details Date Type Department Care Team Description 11/18/2022 Refill Family Practice [facility] [place] [address] [facility] [place] [address] Allen Rios DO [address] [facility] [place] [address] Type 2 diabetes mellitus with hemoglobin A1c goal of less than 7.0% ([facility]) Allergies Active Allergy Reactions Severity Noted Date Comments Exenatide Nausea/vomiting Low 09/05/2008 Quinolones Itching,Nausea/vomit ing 12/06/2007 headache Codeine 11/03/2010 Isosorbide Nitrate 06/16/2022 Severe MC, "floaty feelings" Cephalexin Itching High 01/21/2012 Nitrofurantoin Monohydrate Macrocrystals Nausea/vomiting 12/08/2010 Metformin And Related Nausea/vomiting Medium 9 Polyethylene Glycol Nausea/vomiting 05/06/2011 Statins 10/18/2022 Brain fog Sulfa Antibiotics 11/03/2010 documented as of this encounter (statuses as of 11/18/2022) Medications Medication Sig Dispensed Refills Start Date End Date Status ASPIRIN 81 MG PO TBDP 1 daily 0 Active Glucose Blood (ONE TOUCH ULTRA TEST) STRPIndications:D M type 2, goal A1c below 7 Use up to four times a day as directed 400 Strip 3 07/21/2014 Active Omeprazole 20 MG Oral Capsule Delayed Release (PriLOSEC)Indicat ions:Gastroesopha geal reflux disease without esophagitis Take by mouth 1 Capsule in the morning AND 1 Capsule before bedtime. 180 Capsule 3 07/15/2021 Active glipiZIDE 5 MG Oral Tablet (Glucotrol)Indica tions:Type 2 diabetes mellitus with hemoglobin A1c goal of less than 7.0% (HCC) TAKE TWO TABLETS BY MOUTH EVERY MORNING AND 1 EVERY EVENING, 30 MINUTES BEFORE A MEAL. 210 Tablet 3 10/12/2021 Active OneTouch Verio In Vitro Strip (Glucose Blood)Indications :Hyperlipidemia with target LDL less than 100 Test 4-6 times a day. 600 Strip 3 06/22/2022 Active FreeStyle Nora 2 SensorIndications :Type 2 diabetes mellitus with hemoglobin A1c goal of less than 7.0% (HCC) CHECK BLOOD GLUCOSE TWICE DAILY, 6 Each 3 06/22/2022 Active NovoLOG FlexPen 100 UNIT/ML [...] Sub cutaneous 15 mL 3 08/12/2022 Active Chlorthalidone 25 MG Oral Tablet (Hygroton)Indicat ions:HTN, goal below 130/80 Take 1 Tablet by mouth in the morning. In the morning.. 90 Tablet 1 08/13/2022 Active Lisinopril 10 MG Oral Tablet (Prinivil) [...] MG Oral Tablet (Lopressor)Indica tions:Atheroscler osis of [place] coronary artery of [place] heart without angina pectoris,Palpitat ions,HTN, goal below 130/80 TAKE ONE TABLET BY MOUTH 2 TIMES A DAY 180 Tablet 3 10/11/2022 Active Ezetimibe 10 MG Oral Tablet (Zetia)Indication s:Dyslipidemia, goal LDL below 70 Take 1 Tablet by mouth in the morning. 90 Tablet 3 10/24/2022 Active Litetouch Pen [place] 31G X 5 MM (Insulin Pen Needle)Indication s:Type 2 diabetes mellitus with hemoglobin A1c goal of less than 7.0% (HCC) Use as directed . Use for insulin injection four times daily 400 Each 1 11/18/2022 Active FreeStyle Nora 14 Day SensorIndications :Type 2 diabetes mellitus with hemoglobin A1c goal of less than 7.0% (HCC) Check blood glucose 2 times daily 2 Each 3 07/13/2020 3 Discontinu ed(Medicat ion List Clean Up) documented as of this encounter (statuses as of 11/18/2022) Active Problems Problem Noted Date PAC (premature atrial contraction) 07/26 Overview: Seen on holter study 2017 Nonproliferative diabetic retinopathy of both eyes 07/26/2018 Gastroesophageal reflux disease with eso phagitis 07/20/2017 Dyslipidemia 07/20/2017 HTN, goal below 130/80 08/15/2013 Coronary atherosclerosis 04/26/2013 Vitamin D deficiency 11/29/2012 Nodule of lower lobe of right lung 09/10 Overview: [address] scan in June of 2020 during COVID admission. New since 2015. Recommend follow up CT in 6-12 months to assess stability. 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 Correlate with Home Glucose Monitor and Fructosamine to trend control ICD-10 update of inactive term Sensorineural hearing loss, bilateral documented as of this encounter (statuses as of 11/18/2022) Resolved Problems Problem Noted Date Resolved Date Thrombocytopenia 07/28/2020 04/19/2022 Hepatosplenomegaly 07/20/2017 09/18/2018 Acute sinusitis 02/07/2015 07/20/2017 Old MS (myocardial infarction) 02/07/2015 0 07/20/2017 Esophagitis 11/01/2009 07/20/2017 Overview: ICD-10 update of inactive term Nausea 11/01/2009 11/04/2009 Overview: ICD-10 update of inactive term Abdominal pain 11/01/2009 11/04/2009 Malaise and fatigue 11/01/2009 07/20/2017 Headache 10/31/2009 11/01/2009 Overview: ICD-10 update of inactive term DM type 2, not at goal 09/05/2008 10/ 9 Overview: Modified per Diabetes protocol #14. 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 Correlate with Home Glucose Monitor and Fructosamine to trend control Other chronic nonalcoholic liver disease 009 07/20/2017 Overview: NAFLD grade 6/[address] Gonsalez May 2008 ADVANCE DIRECTIVE INFORMATION 05/23/2008 Overview: No, Advance Directive brochure given to patient. Allergic rhinitis 07/20/2017 NON ALLERGIC RHINITIS 07/20/2017 Deviated nasal septum 07/20/2017 documented as of this encounter (statuses as of 11/18/2022) Immunizations Name Administration Dates Next Due COVID-19 mRNA, LNP-s, No Pre serve, 2-Dose Series ([employer]) 10/14/2020,09/19/2020 COVID-19, LNP-s, No Preserve , Pacheco-sucrose, [...] drink = 0.6 oz pur e alcohol) Food Insecurity Answer Date Recorded Within the past 12 months, y ou worried that your food would run out before you got money to buy more. Never true 04/25/2022 Within the past 12 months, t he food you bought just didn't last and you didn't have money to get more. Never true 04/25/2022 Sex Assigned at Date Recorded Female 04/25/2022 12:12 PM EST Job Start Date Occupation Industry Not on file Not on file Not on file documented as of this encounter Miscellaneous Notes * Telephone Encounter - Cezar Blackwood RPh - 11/18/2022 1:41 PM EDT Per adherence tracker patient has been using Freestyle nora 2 sensor. RX for nora 14 day denied, and removed from medlist. Called and spoke to patient, she was unaware that there are likely refillsremaining on the nora 2 sensors, no additional action at this time. Thank you, Cezar Blackwood, PharmD Clinical Pharmacist [facility] ([facility]) (Formerly [facility]pharm[facility]) [phone] 11/18/2022, 1:44 PM * Telephone Encounter - Marcie Haynes CPhT - 11/18/2022 9:46 AM EDT Did you pend patient's preferred pharmacy and medication before forwarding?yes Pharmacy: [facility]- [place] Pending Prescriptions: Disp Refills FreeStyle Nora 14 Day Sensor 2 Each 3 Sig: Check blood glucose 2 times daily Last Visit: 10/10/2022 (in office), 08/03/2022 (telemedicine) Next Visit: 04/17/2023 If no future appointments scheduled, and last appointment is greater than a year ago, please schedule patient for a follow-up appointment Last date the medication was ordered: 07/13/2020 Is this request for a controlled substance?No Urine Drug Screen:No results found. However, due to the size of the patient record, not all encounters were searched. Please check Results Review for a complete set of results. Patient Phone Numbers Labs: Lab Results Component Value Date/Time CREAT 0.6 05/10/2022 10:20 AM CREAT 0.5 01/19/2019 09:17 AM POTASSIUM 3.9 05/10/2022 10:20 AM POTASSIUM 4.4 01/19/2019 09:17 AM POTASSIUM 4.1 06/14/1996 03:15 PM TSH 2.11 10/15/2021 12:46 PM TSH 2.06 12/28/2016 10:53 AM TSH 1.62 06/14/1996 03:15 PM LDLCALC 74 10/18/2022 10:47 AM LDLCALC 72 01/19/2019 09:17 AM LDLDIRECT NOT APPLICABLE 07/20/2017 10:00 AM LDLDIRECT 56 03/04/2013 08:31 AM ALT 15 05/10/2022 10:20 AM ALT 18 01/19/2019 09:17 AM HGBA1C 6.2 (H) 05/10/2022 10:20 AM HGBA1C 6.3 (H) 01/19/2019 09:17 AM documented in this encounter Plan of Treatment Upcoming Encounters Date Type Specialty Care Team Description 04/17/2023 Office Visit Family Medicine Monserrat Palomino PA-C [address] [place] [address] Health Maintenance Due Date Last Done Comments Pneumococcal Vaccine: 65+ Years (1 - PCV) 09/13/1961 Cologuard 09/13/2000 Colonoscopy 09/13/2000 Colorectal Cancer Screening 09/13/2000 Fecal Occult Blood Test 09/13/2000 Sigmoidoscopy 09/13/2000 Zoster Vaccines (1 of 2) 09/13/2005 Mammogram 05/11/2014 05/11/2013, 12/18, 02/08/2010 DIABETES-FOOT EXAM 03/08/2019 03/08/2018, 0 05/05/2016, 07/18/2014, Additional history exists COVID-19 Vaccine (5 - Pfizer risk series) 11/23/2021 09/28/2021, 04/30/2021, 10/14/2020, Additional history exists DIABETES-EYE EXAM 10/18/2022 10/18/2021, , 05/05/2017, Additional history exists HbA1c 11/07/2022 05/10/2022, 09/18, 02/22/2021, Additional history exists Influenza Vaccine (FLU shot) (#1) 2022 Depression Screening, Annual for Pts 12 and Over 12/30/2022 12/30/2021, 08/07/2017 (Declined) Albumin/Creatinine Ratio 05/10/2023 023, 07/15/2021, 01/19/2019, Additional history exists GFR 05/10/2023 05/10/2022, 09/18, 07/15/2021, Additional history exists DTaP,Tdap,and Td Vaccines (3 [...] the patient have Health Care Power of Preparer? No Bag Valve Device? Yes Intubation? No [...] the patient have Health Care Power of Preparer? Yes, not currently available Care Teams Data Processing Systems Consultant Relationship Specialty Start Date End Date Allen Rios, DO [address] [facility] [place] [address] PCP - General Family Medicine 10/15/21 documented as of this encounter
--- OUTSIDE RECORDS SUMMARY | 2023-04-15 07:25 | External Medical Summary | Summary of Care ---
Author Name Unknown Organization [facility] Address [address] [place] [address] Phone [phone] Care Team Providers Care Lithographer Helper Name Role Phone Allen Rios DO Primary Care Provider [phone] Reason for Visit * Reason Comments eRx-Medication Refill Encounter Details Date Type Department Care Team Description 12/18/2022 Refill Family Practice [facility] [address] [place] [address] Jose Francisco Yates MD [address] [place] [address] Type 2 diabetes mellitus with hemoglobin A1c goal of less than 7.0% ([facility]) Allergies Active Allergy Reactions Severity Noted Date Comments Exenatide Nausea/vomiting Low 09/05/2008 Quinolones Itching,Nausea/vomit ing 12/06/2007 headache Codeine 11/03/2010 Isosorbide Nitrate 06/16/2022 Severe MC, "floaty feelings" Cephalexin Itching High 01/21/2012 Nitrofurantoin Monohydrate Macrocrystals Nausea/vomiting 12/08/2010 Metformin And Related Nausea/vomiting Medium 9 Polyethylene Glycol Nausea/vomiting 05/06/2011 Statins 10/18/2022 Brain fog Sulfa Antibiotics 11/03/2010 documented as of this encounter (statuses as of 12/19/2022) Medications Medication Sig Dispensed Refills Start Date End Date Status ASPIRIN 81 MG PO TBDP 1 daily 0 Active Glucose Blood (ONE TOUCH ULTRA TEST) STRPIndications:D M type 2, goal A1c below 7 Use up to four times a day as directed 400 Strip 3 5 Active Omeprazole 20 MG Oral Capsule Delayed Release (PriLOSEC)Indicat ions:Gastroesopha geal reflux disease without esophagitis Take by mouth 1 Capsule in the morning AND 1 Capsule before bedtime. 180 Capsule 3 2 Active OneTouch Verio In Vitro Strip (Glucose Blood)Indications :Hyperlipidemia with target LDL less than 100 Test 4-6 times a day. 600 Strip 3 3 Active FreeStyle Nora 2 SensorIndications :Type 2 diabetes mellitus with hemoglobin A1c goal of less than 7.0% (HCC) CHECK BLOOD GLUCOSE TWICE DAILY, 6 Each 3 3 Active NovoLOG FlexPen 100 UNIT/ML Subcutaneous Solution [...] units Novolog Sub cutaneous 15 mL 3 3 Active Chlorthalidone 25 MG Oral Tablet (Hygroton)Indicat ions:HTN, goal below 130/80 Take 1 Tablet by mouth in the morning. In the morning.. 90 Tablet 1 3 Active Lisinopril 10 MG Oral Tablet (Prinivil) Take 1 Tablet by mouth in the morning and 1 Tablet in the evening. 180 Tablet 3 3 Active Toujeo SoloStar 300 UNIT/ML Subcutaneous Solution Pen-injector (Insulin Glargine (1 Unit Dial))Indications :Type 2 diabetes mellitus with hemoglobin A1c goal of less than 7.0% (HCC) INJECT 62 UNITS UNDER THE SKIN EVERY NIGHT AT BEDTIME 18 mL 3 3 Active Metoprolol Tartrate 25 MG Oral Tablet (Lopressor)Indica tions:Atheroscler osis of [place] coronary artery of [place] heart without angina pectoris,Palpitat ions,HTN, goal below 130/80 TAKE ONE TABLET BY MOUTH 2 TIMES A DAY 180 Tablet 3 3 Active Ezetimibe 10 MG Oral Tablet (Zetia)Indication s:Dyslipidemia, goal LDL below 70 Take 1 Tablet by mouth in the morning. 90 Tablet 3 3 Active Litetouch Pen [place] 31G X 5 MM (Insulin Pen Needle)Indication s:Type 2 diabetes mellitus with hemoglobin A1c goal of less than 7.0% (HCC) Use as directed . Use for insulin injection four times daily 400 Each 1 3 Active glipiZIDE 5 MG Oral Tablet (Glucotrol)Indica tions:Type 2 diabetes mellitus with hemoglobin A1c goal of less than 7.0% (HCC) TAKE TWO TABLETS BY MOUTH EVERY MORNING AND 1 EVERY EVENING, 30 MINUTES BEFORE A MEAL. 270 Tablet 1 3 Active glipiZIDE 5 MG Oral Tablet (Glucotrol)Indica tions:Type 2 diabetes mellitus with hemoglobin A1c goal of less than 7.0% (HCC) TAKE TWO TABLETS BY MOUTH EVERY MORNING AND 1 EVERY EVENING, 30 MINUTES BEFORE A MEAL. 210 Tablet 3 2 12/20/19 23 Discontinued documented as of this encounter (statuses as of 12/19/2022) Active Problems Problem Noted Date PAC (premature [...] as of this encounter (statuses as of 12/19/2022) Resolved Problems Problem Noted Date Resolved Date Thrombocytopenia 07/28/2020 04/19/2022 Hepatosplenomegaly 07/20/2017 09/18/2018 Acute sinusitis 02/07/2015 07/20/2017 Old [place] (myocardial infarction) 02/07/2015 0 07/20/2017 Esophagitis 11/01/2009 [...] as of this encounter (statuses as of 12/19/2022) Immunizations Name Administration Dates Next Due COVID-19 mRNA, LNP-s, No Pre serve, 2-Dose Series ([employer]) 10/14/2020,09/19/2020 COVID-19, LNP-s, No Preserve , Pacheco-sucrose, Ages 12+ ([employer]) 09/28/2021,04/30/2021 Hepatitis B, 20+ yrs 11/18/1996,05/18/1996,04/20 TDAP [...] Telephone Encounter - Albertina Nguyen RPh - 12/19/2022 11:29 AM EDTSigned Prescriptions: Disp Refills glipiZIDE 5 MG Oral Tablet (Glucotrol) 270 Ta*1 Sig: TAKE TWO TABLETS BY MOUTH EVERY MORNING AND 1 EVERY EVENING, 30 MINUTES BEFORE A MEAL.Authorizing Provider: JOSE FRANCISCO YATES User: ALBERTINA NGUYEN documented in this encounter Plan of Treatment Upcoming Encounters Date Type Specialty Care Team Description 04/17/2023 Office Visit Family Medicine Monserrat Palomino PA-C [address] [place] [address] Health Maintenance Due Date Last Done Comments [...] 11/23/2021 09/28/2021, 04/30/2021, 10/14/2020, Additional history exists HbA1c 11/07/2022 05/10/2022, 09/18, 02/22/2021, Additional history exists Influenza Vaccine (FLU shot) (#1) 2022 Depression Screening 12/30/2022 12/30/2021, 08/07/2017 (Declined) Albumin/Creatinine Ratio 05/10/2023 023, 07/15/2021, 01/19/2019, Additional history exists GFR 05/10/2023 05/10/2022, 09/18, 07/15/2021, Additional history exists DIABETES-EYE EXAM 11/30/2023 11/29/2022, , 05/05/2020, Additional history exists DTaP,Tdap,and Td Vaccines (3 [...] the patient have Health Care Power of Electrical Solderer? No Bag Valve Device? Yes Intubation? No [...] the patient have Health Care Power of Electrical Solderer? Yes, not currently available Care Teams Lithographer Helper Relationship Specialty Start Date End Date Allen Rios, DO [address] [place] [address] PCP - General Family Medicine 10/15/21 documented as of this encounter
--- OUTSIDE RECORDS SUMMARY | 2023-04-15 07:25 | External Medical Summary ---
Author Name Unknown Address Unknown Organization [id number] [address] [place] [id number] Laboratory Report Ordering Provider Test Date Status ADRIEN HERRERA 12/23/2022 12:08:52 Final Observation Date Value Abnormality Reference (Units ) Status WBC, Total 12/23/2022 12:08:52 5.16 4.00-10.8 0 (K/uL) Final RBC 12/23/2022 12:08:52 3.77 3.85-5.15 (M/uL) Final Hemoglobin 12/23/2022 12:08:52 11.8 Below low normal 12 .0-15.3 (g/dL) Final HCT 12/23/2022 12:08:52 33.7 Below low normal 36. 0-45.2 (%) Final MCV 12/23/2022 12:08:52 89.4 81.5-97.5 (fL) Final MCH 12/23/2022 12:08:52 31.3 27.0-34.0 (pg) Final MCHC 12/23/2022 12:08:52 35.0 32.0-36.0 (g/dL) Final RDW 12/23/2022 12:08:52 13.9 11.5-15.5 (%) Final Platelets 12/23/2022 12:08:52 86 Below low normal 140 -400 (K/uL) Final MPV 12/23/2022 12:08:52 10.3 6.6-11.1 ( fL) Final Performing Location [facility] [address] [place] [id number]
--- OUTSIDE RECORDS SUMMARY | 2023-04-15 07:25 | External Medical Summary | Summary of Care ---
Author Name Unknown Organization [facility] Address [address] [place] [address] Phone [phone] Care Team Providers Care Md Do Resident Urgent Care Name Role Phone Keyona Hutson DO Primary Care Provider [phone] Reason for Visit * Reason Onset Date Comments Medication Refill 01/10/2023 Encounter Details Date Type Department Care Team (Late st Contact Info) Description 01/10/2023 Refill Family Practice [facility] [address] [facility] [place] [place] [address] Keyona Hutson DO [address] [place] [address] Encounter for long-term (current) use of other medications*; Gastroesophageal reflux disease without esophagitis Allergies Active Allergy Reactions Criticality Noted Date Comments Exenatide Nausea/vomiting Low 09/05/2008 Quinolones Itching,Nausea/vomi ting 12/06/2007 headache Codeine 11/03/2010 Isosorbide Nitrate 06/16/2022 Severe MC, "floaty feelings" Cephalexin Itching High 01/21/2012 Nitrofurantoin Monohydrate Macrocrystals Nausea/vomiting 12/08/2010 Metformin And Related Nausea/vomiting Medium 9 Polyethylene Glycol Nausea/vomiting 05/06/2011 Statins 10/18/2022 Brain fog Sulfa Antibiotics 11/03/2010 documented as of this encounter (statuses as of 01/10/2023) Medications Medication Sig Dispensed Refills Start Date [...] MG Oral Tablet (Lopressor)Indica tions:Atheroscler osis of [place] coronary artery of [place] heart without angina pectoris,Palpitat ions,HTN, goal below 130/80 TAKE ONE TABLET BY MOUTH 2 TIMES A DAY 180 Tablet 3 10/11/2022 Active Ezetimibe 10 MG Oral Tablet (Zetia)Indication s:Dyslipidemia, goal LDL below 70 Take 1 Tablet by mouth in the morning. 90 Tablet 3 10/24/2022 Active Litetouch Pen [place] 31G X 5 MM (Insulin Pen Needle)Indication [...] A MEAL. 270 Tablet 1 12/19/2022 Active Omeprazole 20 MG Oral Capsule Delayed Release (PriLOSEC)Indicat ions:Gastroesopha geal reflux disease without esophagitis Take 1 Capsule by mouth in the morning and 1 Capsule before bedtime. 180 Capsule 1 01/10/2023 Active Omeprazole 20 MG Oral Capsule Delayed Release (PriLOSEC)Indicat ions:Gastroesopha geal reflux disease without esophagitis Take by mouth 1 Capsule in the morning AND 1 Capsule before bedtime. 180 Capsule 3 07/15/2021 3 Discontinu ed(Refill) documented as of this encounter (statuses as of 01/10/2023) Active Problems Problem Noted Date Diagnosed Date [...] as of this encounter (statuses as of 01/10/2023) Resolved Problems Problem Noted Date Diagnosed Date Resolved Date Thrombocytopenia 07/28/2020 04/19/2022 Hepatosplenomegaly 07/20/2017 9 Acute sinusitis 02/07/2015 07/20/2017 Old [place] (myocardial infarction) 02/07/2015 07/20/2017 Esophagitis 11/01/2009 07/20/2017 [...] as of this encounter (statuses as of 01/10/2023) Immunizations Name Administration Dates Next Due COVID-19 [...] drink = 0.6 oz pur e alcohol) Hunger Vital Sign Answer Date Recorded Within [...] encounter Miscellaneous Notes * Telephone Encounter - Nelly Ware RPh - 01/10/2023 4:06 PM EDTSigned Prescriptions: Disp Refills Omeprazole 20 MG Oral Capsule Delayed Rele*180 Ca*1 Sig: Take 1 Capsule by mouth in the morning and 1 Capsule before bedtime.Authorizing Provider: KEYONA HUTSON User: NELLY WARE * Telephone Encounter - Nelly Ware RPh - 01/10/2023 4:02 PM EDT Provided 90 days supply with 1 refill(s). Per refill protocol patient should have b-12 level on file within past year. Reviewed AMP report, Care Gaps/Health Maintenance, medications list, and for anyroutine labs typically ordered for this patient. Lab orders placed. Please contact patient to advise of labs ordered for blood draw. Fasting is not required. Advise toobtain labs with next scheduled blood work. Thank you, Nelly Ware, PharmD Clinical Pharmacist [facility] ([facility]) 01/10/23 4:02 PM [phone] * Telephone Encounter - Nadia Holloway CPhT - 01/10/2023 9:36 AM EDT Did you pend patient's preferred pharmacy and medication before forwarding?yes Pharmacy: [id number] [address] [facility] Pending Prescriptions: Disp Refills Omeprazole 20 MG Oral Capsule Delayed Rel*180 Ca*3 Sig: Take 1 Capsule by mouth in the morning and 1 Capsule before bedtime. Last Visit: 10/10/2022 (in office), 08/03/2022 (telemedicine) Next Visit: 04/17/2023 If no future appointments scheduled, and last appointment is greater than a year ago, please schedule patient for a follow-up appointment Last date the medication was ordered: 07/15/2021 Is this request for a controlled substance?No Urine Drug Screen:No results found. However, due to the size of the patient record, not all encounters were searched. Please check Results Review for a complete set of results. Patient Phone Numbers Labs: Lab Results Component Value Date/Time CREAT 1.0 12/23/2022 12:08 PM CREAT 0.5 01/19/2019 09:17 AM POTASSIUM 4.0 12/23/2022 12:08 PM POTASSIUM 4.4 01/19/2019 09:17 AM POTASSIUM 4.1 06/14/1996 03:15 PM TSH 2.11 10/15/2021 12:46 PM TSH 2.06 12/28/2016 10:53 AM TSH 1.62 06/14/1996 03:15 PM LDLCALC 74 10/18/2022 10:47 AM LDLCALC 72 01/19/2019 09:17 AM LDLDIRECT 77 12/23/2022 12:08 PM LDLDIRECT NOT APPLICABLE 07/20/2017 10:00 AM LDLDIRECT 56 03/04/2013 08:31 AM ALT 14 12/23/2022 12:08 PM ALT 18 01/19/2019 09:17 AM HGBA1C 6.7 (H) 12/23/2022 12:08 PM HGBA1C 6.3 (H) 01/19/2019 09:17 AM documented in this encounter Plan of Treatment Upcoming Encounters Date Type Department Care Team (Late st Contact Info) Description 04/17/2023 9:00 AM EST Office Visit Family Practice [facility] Jeaneth Odell [address] [facility] [place] [address] Monserrat Palomino PA-C [address] [place] [address] Scheduled Orders Name Type Priority Associated Diagnoses Orde r Schedule VITAMIN B12 Lab Routine Encounter for long-term (current) use of other medications Expected: 01/17/2023 (Approximate), Expires: 01/11/2024 Health Maintenance Due Date Last Done Comments [...] 12/30/2022 12/30/2021, 08/07/2017 (Declined) HbA1c 06/24/2023 12/23/2022, 02/2 03/2022, 10/15/2021, Additional history exists DIABETES-EYE EXAM 11/30/2023 11/29/2022, [...] as of this encounter Visit Diagnoses Diagnosis Encounter for long-term (current) use of other medications- Primary Gastroesophageal reflux disease without esophagitis Esophageal reflux documented in this encounter Advance Directives Latest Code Status on File Code Status Date Activated Date Inactivated Comments Limited Code 10/31/2009 6:51 PM 11/04/2009 8:57 PM This order reflects the patients wishes and were consensually agreed upon. Question Answer Comments Discussion of Advance Directives occurred with: Patient Does the patient have a Living Will? No Does the patient have Health Care Power of Bread And Pastry Baker? No Bag Valve Device? Yes Intubation? No [...] the patient have Health Care Power of Bread And Pastry Baker? Yes, not currently available Care Teams Md Do Resident Urgent Care Relationship Specialty Start Date End Date Keyona Hutson DO [address] [place] [address] [place] [address] PCP - General Family Medicine 10/15/21 documented as of this encounter
--- OUTSIDE RECORDS SUMMARY | 2023-04-15 07:25 | External Medical Summary | Summary of Care ---
Author Name Unknown Organization [facility] Address [address] [place] [address] Phone [phone] Care Team Providers Care Belt Molder Name Role Phone Allen Rios DO Primary Care Provider [phone] Reason for Visit * Reason Onset Date Comments Medication Refill 11/18/2022 Encounter Details Date Type Department Care Team Description 11/18/2022 Refill Family Practice [facility] [place] 200 [facility] [place] [address] Monserrat Palomino PA-C 200 [facility] [place] [address] Type 2 diabetes mellitus with hemoglobin A1c [...] as directed 400 Strip 3 07/21/2014 Active FreeStyle Nora 14 Day SensorIndications :Type 2 diabetes mellitus with hemoglobin A1c goal of less than 7.0% (HCC) Check blood glucose 2 times daily 2 Each 3 07/13/2020 Active Omeprazole 20 MG Oral Capsule Delayed [...] MG Oral Tablet (Lopressor)Indica tions:Atheroscler osis of [place] coronary artery of [place] heart without angina pectoris,Palpitat ions,HTN, goal below 130/80 TAKE ONE TABLET BY MOUTH 2 TIMES A DAY 180 Tablet 3 10/11/2022 Active Ezetimibe 10 MG Oral Tablet (Zetia)Indication s:Dyslipidemia, goal LDL below 70 Take 1 Tablet by mouth in the morning. 90 Tablet 3 10/24/2022 Active Litetouch Pen [place] 31G X 5 MM (Insulin Pen Needle)Indication s:Type 2 diabetes mellitus with hemoglobin A1c goal of less than 7.0% (HCC) Use as directed . Use for insulin injection four times daily 400 Each 1 11/18/2022 Active Litetouch Pen [place] 31G X 5 MM (Insulin Pen Needle)Indication s:Type 2 diabetes mellitus with hemoglobin A1c goal of less than 7.0% (HCC) Use as directed . Use for insulin injection four times daily 400 Each 1 06/27/2022 3 Discontinu ed(Refill) documented as of this [...] DM type 2, not at goal 09/05/2008 9 Overview: Modified per Diabetes protocol #14. [...] mRNA, LNP-s, No Pre serve, 2-Dose Series ([employer]) 10/14/2020,09/19/2020 COVID-19, LNP-s, No Preserve , Pacheco-sucrose, [...] encounter Miscellaneous Notes * Telephone Encounter - Virgie Dimas RPh - 11/18/2022 10:10 AM EDTSigned Prescriptions: Disp Refills Litetouch Pen [place] 31G X 5 MM (Insulin *400 Ea*1 Sig: Use as directed . Use for insulin injection four times dailyAuthorizing Provider: MONSERRAT PALOMINO AOrdering User: VIRGIE DIMAS * Telephone Encounter - Marcie Haynes CPhT - 11/18/2022 9:42 AM EDT Did you pend patient's preferred pharmacy and medication before forwarding?yes Pharmacy: [id number] [address] [facility] Pending Prescriptions: Disp Refills Litetouch Pen [place] 31G X 5 MM (Insulin*400 Ea*1 Sig: Use as directed . Use for insulin injection four times daily Last Visit: 10/10/2022 (in office), 08/03/2022 (telemedicine) Next Visit: 04/17/2023 If no future appointments scheduled, and last appointment is greater than a year ago, please schedule patient for a follow-up appointment Last date the medication was ordered: 06/27/2022 Is this request for a controlled substance?No [...] Visit Family Medicine Monserrat Palomino PA-C [address] [place] [address] Health Maintenance Due Date Last Done Comments [...] the patient have Health Care Power of Bearing Grinder? No Bag Valve Device? Yes Intubation? No [...] the patient have Health Care Power of Bearing Grinder? Yes, not currently available Care Teams Belt Molder Relationship Specialty Start Date End Date Allen Rios, DO [address] [place] [address] PCP - General Family Medicine 10/15/21 documented as of this encounter
--- OUTSIDE RECORDS SUMMARY | 2023-04-15 07:25 | External Medical Summary ---
Author Name Unknown Address Unknown Organization K01:[facility] [place] [address] [facility] [place]. [facility] [address] Laboratory Report Ordering Provider Test Date Status ADRIEN HERRERA 12/23/2022 12:08:52 Final Observation Date Value Abnormality Reference (Units ) Status HbA1C 12/23/2022 12:08:52 6.7 Above high normal 4. 0-5.6 (%) Final The use of HbA1c to monitor glycemic status is based on normal hemoglobin and HbA composition. This test should not be used in patients with abnormal hemoglobin that affects the half life of the red blood cell or the in vivo glycation rates. Glucose, estimated average 12/23/2022 12:08:52 146 Above high normal <126 (mg/dL) Riky garber Performing Location [facility] [place] [address] [facility] [address]
--- OUTSIDE RECORDS SUMMARY | 2023-04-15 07:25 | External Medical Summary | Summary of Care ---
Author Name Unknown Organization [facility] Address [address] [place] [address] Phone [phone] Care Team Providers Care Mud Temperer Name Role Phone Allen Rios DO Primary Care Provider [phone] Encounter Details Date Type Department Care Team Description 12/01/2022 Orders [address] [facility] 200 [facility] [place] [address] Monserrat Palomino PA-C [address] [facility] [place] [address] Allergies Active Allergy Reactions Severity Noted Date Comments Exenatide Nausea/vomiting Low 09/05/2008 Quinolones Itching,Nausea/vomit ing 12/06/2007 headache Codeine 11/03/2010 Isosorbide Nitrate 06/16/2022 Severe MC, "floaty feelings" Cephalexin Itching High 01/21/2012 Nitrofurantoin Monohydrate Macrocrystals Nausea/vomiting 12/08/2010 Metformin And Related Nausea/vomiting Medium 9 Polyethylene Glycol Nausea/vomiting 05/06/2011 Statins 10/18/2022 Brain fog Sulfa Antibiotics 11/03/2010 documented as of this encounter (statuses as of 12/01/2022) Medications Medication Sig Dispensed Refills Start Date End Date Status ASPIRIN 81 MG PO TBDP 1 daily 0 Active Glucose Blood (ONE TOUCH ULTRA TEST) STRPIndications:DM type 2, goal A1c below 7 Use up to four times a day as directed 400 Strip 3 07/21/2014 Active Omeprazole 20 MG Oral Capsule Delayed Release (PriLOSEC)Indicati ons:Gastroesophage al reflux disease without esophagitis Take by mouth 1 Capsule in the morning AND 1 Capsule before bedtime. 180 Capsule 3 07/15/2021 Active glipiZIDE 5 MG Oral Tablet (Glucotrol)Indicat [...] Strip 3 06/22/2022 Active FreeStyle Nora 2 SensorIndications: Type 2 [...] 08/12/2022 Active Chlorthalidone 25 MG Oral Tablet (Hygroton)Indicati [...] MG Oral Tablet (Lopressor)Indicat ions:Atheroscleros is of [place] coronary artery of [place] heart without angina pectoris,Palpitati ons,HTN, goal below 130/80 TAKE ONE TABLET BY MOUTH 2 TIMES A DAY 180 Tablet 3 10/11/2022 Active Ezetimibe 10 MG Oral Tablet (Zetia)Indications :Dyslipidemia, goal LDL below 70 Take 1 Tablet by mouth in the morning. 90 Tablet 3 10/24/2022 Active Litetouch Pen [place] 31G X 5 MM (Insulin Pen Needle)Indications :Type 2 diabetes mellitus with hemoglobin A1c goal of less than 7.0% (HCC) Use as directed . Use for insulin injection four times daily 400 Each 1 11/18/2022 Active documented as of this encounter (statuses as of 12/01/2022) Active Problems Problem Noted Date PAC (premature [...] as of this encounter (statuses as of 12/01/2022) Resolved Problems Problem Noted Date Resolved Date Thrombocytopenia 07/28/2020 04/19/2022 Hepatosplenomegaly 07/20/2017 09/18/2018 Acute sinusitis 02/07/2015 07/20/2017 Old [place] (myocardial infarction) 02/07/2015 0 07/20/2017 Esophagitis 11/01/2009 07/20/2017 Overview: ICD-10 update of inactive term Nausea 11/01/2009 11/04/2009 Overview: ICD-10 update of inactive term Abdominal pain 11/01/2009 11/04/2009 Malaise and fatigue 11/01/2009 07/20/2017 Headache 10/31/2009 11/01/2009 Overview: ICD-10 update of inactive term DM type 2, not at goal 09/05/2008 10 9 Overview: Modified per Diabetes protocol #14. [...] as of this encounter (statuses as of 12/01/2022) Immunizations Name Administration Dates Next Due COVID-19 [...] on file documented as of this encounter Plan of Treatment Upcoming Encounters Date Type Specialty Care Team Description 04/17/2023 Office Visit Family Medicine Georgette, Monserrat La [place], NIVIA [address] [place] [address] Health Maintenance Due Date Last Done Comments [...] 09/18, 07/15/2021, Additional history exists DIABETES-EYE EXAM 12/02/2023 11/29/2022, , 05/05/2020, Additional history exists DTaP,Tdap,and [...] Not on filedocumented as of this encounter Procedures Procedure Name Priority Date/Time Associated Diagnosis Comments DIABETIC EYE EXAM Routine 11/29/2022 documented in this encounter Results * DIABETIC EYE EXAM (11/29/2022) 11/29/2022 History Per Patient OTHER OUTSIDE LAB (SEE SCANNED REPORT) documented in this encounter Advance Directives Latest Code Status on File Code Status Date Activated Date Inactivated Comments Limited Code 10/31/2009 6:51 PM 11/04/2009 8:57 PM This order reflects the patients wishes and were consensually agreed upon. Question Answer Comments Discussion of Advance Directives occurred with: Patient Does the patient have a Living Will? No Does the patient have Health Care Power of Crop Farm Workers? No Bag Valve Device? Yes Intubation? No [...] the patient have Health Care Power of Crop Farm Workers? Yes, not currently available Care Teams Mud Temperer Relationship Specialty Start Date End Date Allen Rios, DO [address] [place] [address] PCP - General Family Medicine 10/15/21 documented as of this encounter
--- OUTSIDE RECORDS SUMMARY | 2023-04-15 07:25 | External Medical Summary ---
Author Name Unknown Address Unknown Organization K01:LABORATORY [facility] [place] - [facility] [address] [place] [address] Laboratory Report Ordering Provider Test Date Status ADRIEN HERRERA 12/23/2022 12:12:46 Final Normal: <30 mg/g creatinine< br/>High: 30-300 mg/g creatinine
Very High: >300 mg/g creatinine
Nephrotic: >2200 mg/g creatinine Observation Date Value Abnormality Reference (Units ) Status Albumin, Urine 12/23/2022 12:12:46 2.30 (mg/dL) Final Creatinine, Urine 12/23/2022 12:12:46 234 (mg/dL) Final Albumin/Creatinine [Mass Ratio] in Urine 12/23/2022 12:12:46 10 <30 (mg/g Creat) Final Performing Location LAB[facility]ORY [facility] [place] - [address] [place] [address]
--- OUTSIDE RECORDS SUMMARY | 2023-04-15 07:25 | External Medical Summary ---
Author Name Unknown Address Unknown Organization K01:[facility] [place] - [address] [place] [address] Laboratory Report Ordering Provider Test Date Status SHARONJANAJURADO 12/23/2022 12:08:52 Final Observation Date Value Abnormality Reference (Units ) Status LDL, (direct) 12/23/2022 12:08:52 77 <=129 (mg/dL) Final LDL Cholesterol Reference Ra nges (mg/dL):
<70 Target level for high risk ASCVD patient
<100 Optimal for general population
100-129 Near optimal for general population
130-159 Borderline high
160-189 High
>=190 Very high Performing Location LABORATORY [facility] - [address] [place] [address]
--- OUTSIDE RECORDS SUMMARY | 2023-04-15 07:25 | External Medical Summary | Summary of Care ---
Author Name Unknown Organization [facility] Address [address] [place] [address] Phone [phone] Care Team Providers Care Desktop Support Technician Name Role Phone Keyona Hutson DO Primary Care Provider [phone] Reason for Visit * Reason Onset Date Comments Medication Refill 01/10/2023 Encounter Details Date Type Department Care Team (Late st Contact Info) Description 01/10/2023 Refill Family Medicine [facility] [address] [facility] [address] Jacqui Myles [place] [address], [place] [id number] HTN, goal below 130/80 Allergies Active Allergy Reactions Criticality Noted Date [...] before bedtime. 180 Capsule 3 07/15/2021 Active OneTouch Verio In Vitro Strip (Glucose Blood)Indications :Hyperlipidemia with target LDL less than 100 Test 4-6 times a day. 600 Strip 3 06/22/2022 Active FreeStyle Nora 2 SensorIndications :Type 2 diabetes mellitus with hemoglobin A1c goal of less than 7.0% ([facility]) CHECK BLOOD GLUCOSE TWICE DAILY, 6 Each 3 06/22/2022 Active NovoLOG FlexPen 100 UNIT/ML Subcutaneous Solution Pen-injector (insulin aspart)Indication s:Type 2 diabetes mellitus with hemoglobin A1c goal of less than 7.0% ([facility]) take 3 units for every 50 points [...] the evening. 180 Tablet 3 08/13/2022 Active Tourachel SoloStar 300 UNIT/ML Subcutaneous Solution Pen-injector (Insulin Glargine (1 Unit Dial))Indications :Type 2 diabetes mellitus with hemoglobin A1c goal of less than 7.0% ([facility]) INJECT 62 UNITS UNDER THE SKIN EVERY NIGHT AT BEDTIME 18 mL 3 09/08/2022 Active Metoprolol Tartrate 25 MG Oral Tablet (Lopressor)Indica tions:Atheroscler osis of [place] coronary artery of [place] heart without angina pectoris,Palpitat ions,HTN, goal below 130/80 TAKE ONE TABLET BY MOUTH 2 TIMES A DAY 180 Tablet 3 10/11/2022 Active Ezetimibe 10 MG Oral Tablet (Zetia)Indication s:Dyslipidemia, goal LDL below 70 Take 1 Tablet by mouth in the morning. 90 Tablet 3 10/24/2022 Active Litetouch Pen [place] 31G X 5 MM (Insulin Pen Needle)Indication [...] the morning.. 90 Tablet 1 01/10/2023 Active Chlorthalidone 25 MG Oral Tablet (Hygroton)Indicat ions:HTN, goal below 130/80 Take 1 Tablet by mouth in the morning. In the morning.. 90 Tablet 1 08/13/2022 3 Discontinu ed(Refill) documented as of this [...] 07/20/2017 9 Acute sinusitis 02/07/2015 07/20/2017 Old [place] (myocardial infarction) 02/07/2015 07/20/2017 Esophagitis 11/01/2009 07/20/2017 [...] mRNA, LNP-s, No Pre serve, 2-Dose Series ([facility]) 10/14/2020,09/19/2020 COVID-19, LNP-s, No Preserve , Pacheco-sucrose, Ages 12+ ([facility]) 09/28/2021,04/30/2021 Hepatitis B, 20+ yrs 11/18/1996,05/18/1996,04/20 TDAP [...] encounter Miscellaneous Notes * Telephone Encounter - Lashonda Figueroa RPh - 01/10/2023 3:41 PM EDTSigned Prescriptions: Disp Refills Chlorthalidone 25 MG Oral Tablet (Hygroton)90 Tab*1 Sig: Take 1 Tablet by mouth in the morning. In the morning.. Authorizing Provider: KEYONA HUTSON Ordering User: LASHONDA FIGUEROA * Telephone Encounter - Asia Fontana LPN - 01/10/2023 3:30 PM EDTPending Prescriptions: Disp Refills Chlorthalidone 25 MG Oral Tablet (Hygroton)90 Tab*1 Sig: Take 1 Tablet by mouth in the morning. In the morning.. * Telephone Encounter - Antonia Jin CPhT - 01/10/2023 9:19 AM EDT Did you pend patient's preferred pharmacy and medication before forwarding?yes Pharmacy: [id number] [address] [facility] Pending Prescriptions: Disp Refills Chlorthalidone 25 MG Oral Tablet (Hygroto*90 Tab*1 Sig: Take 1 Tablet by mouth in the morning. In the morning.. Last Visit: 08/13/2022 (in office), Visit date not found (telemedicine) Next Visit: Visit date not found If no future appointments scheduled, and last appointment is greater than a year ago, please schedule patient for a follow-up appointment Last date the medication was ordered: 08/13/22 Is this request for a controlled substance?No [...] 9:00 AM EST Office Visit Family Practice [facility] [place] [address] [place] [place] [address] Monserrat Palomino PA-C [address] [place] [address] Health Maintenance Due Date Last Done Comments [...] 06/24/2023 12/23/2022, 04/21, 10/15/2021, Additional history exists DIABETES-EYE EXAM 11/30/2023 [...] as of this encounter Visit Diagnoses Diagnosis HTN, goal below 130/80 Unspecified essential hypertension documented in this encounter Advance Directives Latest Code Status on File Code Status Date Activated Date Inactivated Comments Limited Code 10/31/2009 6:51 PM 11/04/2009 8:57 PM This order reflects the patients wishes and were consensually agreed upon. Question Answer Comments Discussion of Advance Directives occurred with: Patient Does the patient have a Living Will? No Does the patient have Health Care Power of Litigation Legal Secretary? No Bag Valve Device? Yes Intubation? No [...] the patient have Health Care Power of Litigation Legal Secretary? Yes, not currently available Care Teams Desktop Support Technician Relationship Specialty Start Date End Date Keyona Hutson DO [address] [place] [address] PCP - General Family Medicine 10/15/21 documented as of this encounter
--- OUTSIDE RECORDS SUMMARY | 2023-04-15 07:25 | External Medical Summary | Summary of Care ---
Author Name Unknown Organization [facility] Address [address] [place] [address] Phone [phone] Care Team Providers Care Bond Underwriter Name Role Phone Allen Rios DO Primary Care Provider [phone] Reason for Visit * Reason Onset Date Comments Mycode Lab Reorder 12/27/2022 Encounter Details Date Type Department Care Team Description 12/27/2022 Orders Only Outcomes Research Department [address] [place] [address] Toma Euceda CHRA MyCode Research Other*[id number]* Allergies Active Allergy Reactions Severity Noted Date Comments Exenatide Nausea/vomiting Low 09/05/2008 Quinolones Itching,Nausea/vomit ing 12/06/2007 headache Codeine 11/03/2010 Isosorbide Nitrate 06/16/2022 Severe MC, "floaty feelings" Cephalexin Itching High 01/21/2012 Nitrofurantoin Monohydrate Macrocrystals Nausea/vomiting 12/08/2010 Metformin And Related Nausea/vomiting Medium 9 Polyethylene Glycol Nausea/vomiting 05/06/2011 Statins 10/18/2022 Brain fog Sulfa Antibiotics 11/03/2010 documented as of this encounter (statuses as of 12/27/2022) Medications Medication Sig Dispensed Refills Start Date [...] the evening. 180 Tablet 3 08/13/2022 Active [place] SoloStar 300 UNIT/ML Subcutaneous Solution Pen-injector (Insulin Glargine (1 Unit Dial))Indications: Type 2 diabetes mellitus with hemoglobin A1c goal of less than 7.0% (HCC) INJECT 62 UNITS UNDER THE SKIN EVERY NIGHT AT BEDTIME 18 mL 3 09/08/2022 Active Metoprolol Tartrate 25 MG Oral Tablet (Lopressor)Indicat ions:Atheroscleros is of [place] coronary artery of [place] heart without angina pectoris,Palpitati ons,HTN, goal below 130/80 TAKE ONE TABLET BY MOUTH 2 TIMES A DAY 180 Tablet 3 10/11/2022 Active Ezetimibe 10 MG Oral Tablet (Zetia)Indications :Dyslipidemia, goal LDL below 70 Take 1 Tablet by mouth in the morning. 90 Tablet 3 10/24/2022 Active Litetouch Pen [place] 31G X 5 MM (Insulin Pen Needle)Indications [...] A MEAL. 270 Tablet 1 12/19/2022 Active documented as of this encounter (statuses as of 12/27/2022) Active Problems Problem Noted Date PAC (premature [...] as of this encounter (statuses as of 12/27/2022) Resolved Problems Problem Noted Date Resolved Date Thrombocytopenia 07/28/2020 04/19/2022 Hepatosplenomegaly 07/20/2017 09/18/2018 Acute sinusitis 02/07/2015 07/20/2017 Old [place] (myocardial infarction) 02/07/2015 0 07/20/2017 Esophagitis 11/01/2009 [...] as of this encounter (statuses as of 12/27/2022) Immunizations Name Administration Dates Next Due COVID-19 [...] on file documented as of this encounter Progress Notes * MIGUELINA Peraza - 12/27/2022 2:42 PM EDT MyCode lab reordered. documented in this encounter Plan of Treatment Upcoming Encounters Date Type Specialty Care Team Description 04/17/2023 Office Visit Family Medicine Monserrat Palomino, NIV[address] [place] [address] Scheduled Orders Name Type Priority Associated Diagnoses Orde r Schedule MYCODE SUBSEQUENT ADULT Lab Routine MyCode Research Other*[id number] Every 6 Months for 2 Occurrences starting 12/27/2022 until 01/16/2024 Health Maintenance Due Date Last Done Comments Flores's Esophagus Surveilance 1955 Pneumococcal Vaccine: 65+ Years (1 - PCV) 09/13/1961 Cologuard 09/13/2000 Colonoscopy 09/13/2000 Colorectal Cancer Screening 09/13/2000 Fecal Occult Blood Test 09/13/2000 Sigmoidoscopy 09/13/2000 Zoster Vaccines (1 of 2) 09/13/2005 Mammogram 05/11/2014 05/11/2013, 12/18, 02/08/2010 Diabetic Foot Exam 03/08/2019 03/08/2018, 0 05/05/2016, 07/18/2014, Additional history exists COVID-19 Vaccine ( - 2022- season) 2022 09/28/2021, 04/30/2021, 10/14/2020, Additional history [...] as of this encounter Visit Diagnoses Diagnosis MyCode Research Other*[id number]- Primary documented in this encounter Advance Directives Latest Code Status on File Code Status Date Activated Date Inactivated Comments Limited Code 10/31/2009 6:51 PM 11/04/2009 8:57 PM This order reflects the patients wishes and were consensually agreed upon. Question Answer Comments Discussion of Advance Directives occurred with: Patient Does the patient have a Living Will? No Does the patient have Health Care Power of Broadband Engineer? No Bag Valve Device? Yes Intubation? No [...] the patient have Health Care Power of Broadband Engineer? Yes, not currently available Care Teams Bond Underwriter Relationship Specialty Start Date End Date Newhouser, Allen D, DO [address] [place] [address] PCP - General Family Medicine 10/15/21 documented as of this encounter
--- OUTSIDE RECORDS SUMMARY | 2023-04-15 07:25 | External Medical Summary ---
Author Name Unknown Address Unknown Organization K01:[facility] [place] [address] [place] [address] Laboratory Report Ordering Provider Test Date Status ADRIEN HERRERA 12/23/2022 12:08:52 Final Observation Date Value Abnormality Reference (Units ) Status Triglyceride 12/23/2022 12:08:52 171 <=174 ( mg/dL) Final Triglyceride Reference Range s (mg/dL):
<150 Acceptable
150-174 Borderline high
175-499 High
>=500 Very high Cholesterol 12/23/2022 12:08:52 145 <200 (mg /dL) Final Total Cholesterol Reference Ranges (mg/dL):
<200 Desirable
200-239 Borderline high
>=240 High HDL 12/23/2022 12:08:52 42 Below low normal >49 (mg/dL) Final HDL Cholesterol Reference Ra nges (mg/dL):
>=60 High (Desirable)
<50 Low (Undesirable) For Females
<40 Low (Undesirable) For Males NON-HDL CHOLESTEROL 12/23/2022 12:08:52 103 <=159 (mg/dL) Final Non-HDL Cholesterol Referenc e Range (mg/dL):
<100 Target level for high risk ASCVD patient
<130 Optimal for general population
130-159 Near optimal for general population
160-189 Borderline High
190-219 High
>=220 Very High Performing Location LAB[facility]ATORY [facility] - [address] [place] [address]
--- OUTSIDE RECORDS SUMMARY | 2023-04-15 07:25 | External Medical Summary | Summary of Care ---
Author Name Unknown Organization [facility] Address [address] [place] [address] Phone [phone] Care Team Providers Care Electric Distribution Checker Name Role Phone Allen Rios DO Primary Care Provider [phone] Reason for Visit * Reason Comments Outpatient Testing Encounter Details Date Type Department Care Team Description 12/23/2022 Laboratory Laboratory, [facility] [address] [place] [address] [facility] [address] [place] [address] Diabetic polyneuropathy (HCC) Allergies Active Allergy Reactions Severity Noted Date Comments Exenatide Nausea/vomiting Low 09/05/2008 Quinolones Itching,Nausea/vomit ing 12/06/2007 headache Codeine 11/03/2010 Isosorbide Nitrate 06/16/2022 Severe MC, "floaty feelings" Cephalexin Itching High 01/21/2012 Nitrofurantoin Monohydrate Macrocrystals Nausea/vomiting 12/08/2010 Metformin And Related Nausea/vomiting Medium 9 Polyethylene Glycol Nausea/vomiting 05/06/2011 Statins 10/18/2022 Brain fog Sulfa Antibiotics 11/03/2010 documented as of this encounter (statuses as of 12/23/2022) Medications Medication Sig Dispensed Refills Start Date [...] MG Oral Tablet (Lopressor)Indicat ions:Atheroscleros is of [place] coronary artery of [place] heart without angina pectoris,Palpitati ons,HTN, goal below 130/80 TAKE ONE TABLET BY MOUTH 2 TIMES A DAY 180 Tablet 3 10/11/2022 Active Ezetimibe 10 MG Oral Tablet (Zetia)Indications :Dyslipidemia, goal LDL below 70 Take 1 Tablet by mouth in the morning. 90 Tablet 3 10/24/2022 Active Litetouch Pen [place] 31G X 5 MM (Insulin Pen Needle)Indications [...] as of this encounter (statuses as of 12/23/2022) Active Problems Problem Noted Date PAC (premature [...] as of this encounter (statuses as of 12/23/2022) Resolved Problems Problem Noted Date Resolved Date Thrombocytopenia 07/28/2020 04/19/2022 Hepatosplenomegaly 07/20/2017 09/18/2018 Acute sinusitis 02/07/2015 07/20/2017 Old [place] (myocardial infarction) 02/07/2015 0 07/20/2017 Esophagitis 11/01/2009 07/20/2017 Overview: ICD-10 update of inactive term Nausea 11/01/2009 11/04/2009 Overview: ICD-10 update of inactive term Abdominal pain 11/01/2009 11/04/2009 Malaise and fatigue 11/01/2009 07/20/2017 Headache 10/31/2009 11/01/2009 Overview: ICD-10 update of inactive term DM type 2, not at goal 09/05/2008 Overview: Modified per Diabetes protocol #14. NAFLD [...] as of this encounter (statuses as of 12/23/2022) Immunizations Name Administration Dates Next Due COVID-19 [...] Medicine Monserrat Palomino PA-C [address] [place] [address] Pending Results Name Type Priority Associated Diagnoses Date /Time COMPREHENSIVE METABOLIC PANEL Lab Routine Diabetic polyneuropathy ([facility]) 12/23/2022 12:08 PM EDT LIPID PANEL WITH DIRECT LDL IF TG IS HIGH Lab Routine Diabetic polyneuropathy ([facility]) 12/23/2022 12:08 PM EDT CBC Lab Routine Diabetic polyneuropathy ([facility]) 12/23/2022 12:08 PM EDT HEMOGLOBIN A1C Lab Routine Diabetic polyneuropathy ([facility]) 12/23/2022 12:08 PM EDT ALBUMIN / CREATININE RATIO, URINE Lab Routine Diabetic polyneuropathy ([facility]) 12/23/2022 12:12 PM EDT Health Maintenance Due Date Last Done Comments Flores's Esophagus Surveilance 1955 Pneumococcal Vaccine: 65+ Years (1 - PCV) 09/13/1961 Cologuard 09/13/2000 Colonoscopy 09/13/2000 Colorectal Cancer Screening 09/13/2000 Fecal Occult Blood Test 09/13/2000 Sigmoidoscopy 09/13/2000 Zoster Vaccines (1 of 2) 09/13/2005 Mammogram 05/11/2014 05/11/2013, 12/18, 02/08/2010 Diabetic Foot Exam 03/08/2019 03/08/2018, 0 05/05/2016, 07/18/2014, Additional history exists HbA1c 11/07/2022 05/10/2022, 07/2 11/2021, 02/22/2021, Additional history exists COVID-19 Vaccine ( season) [...] as of this encounter Visit Diagnoses Diagnosis Diabetic polyneuropathy (HCC) Type II or unspecified type diabetes mellitus with neurological manifestations, not stated as uncontrolled documented in this encounter Advance Directives Latest Code Status on File Code Status Date Activated Date Inactivated Comments Limited Code 10/31/2009 6:51 PM 11/04/2009 8:57 PM This order reflects the patients wishes and were consensually agreed upon. Question Answer Comments Discussion of Advance Directives occurred with: Patient Does the patient have a Living Will? No Does the patient have Health Care Power of Geriatric Assistant? No Bag Valve Device? Yes Intubation? No [...] the patient have Health Care Power of Geriatric Assistant? Yes, not currently available Care Teams Electric Distribution Checker Relationship Specialty Start Date End Date Allen Rios, DO [address] [place] [address] PCP - General Family Medicine 10/15/21 documented as of this encounter
--- OUTSIDE RECORDS SUMMARY | 2023-04-15 07:25 | External Medical Summary | Summary of Care ---
Author Name Unknown Organization [facility] Address [address] [place] [address] Phone [phone] Care Team Providers Care Sales Agent Business Services Name Role Phone Allen Rios DO Primary Care Provider [phone] Encounter Details Date Type Department Care Team Description 12/23/2022 Orders Only Laboratory, [facility] [address] [facility] [address] Phillip Briseno MD [address] [place] [address] Diabetic polyneuropathy (HCC)* Allergies Active Allergy Reactions Severity Noted Date [...] the evening. 180 Tablet 3 08/13/2022 Active [place] SoloStar 300 UNIT/ML Subcutaneous Solution Pen-injector (Insulin Glargine (1 Unit Dial))Indications: Type 2 diabetes mellitus with hemoglobin A1c goal of less than 7.0% (HCC) INJECT 62 UNITS UNDER THE SKIN EVERY NIGHT AT BEDTIME 18 mL 3 09/08/2022 Active Metoprolol Tartrate 25 MG Oral Tablet (Lopressor)Indicat ions:Atheroscleros is of [place] coronary artery of [place] heart without angina pectoris,Palpitati ons,HTN, goal below 130/80 TAKE ONE TABLET BY MOUTH 2 TIMES A DAY 180 Tablet 3 10/11/2022 Active Ezetimibe 10 MG Oral Tablet (Zetia)Indications :Dyslipidemia, goal LDL below 70 Take 1 Tablet by mouth in the morning. 90 Tablet 3 10/24/2022 Active Litetouch Pen [place] 31G X 5 MM (Insulin Pen Needle)Indications [...] 07/20/2017 09/18/2018 Acute sinusitis 02/07/2015 07/20/2017 Old [place] (myocardial infarction) 02/07/2015 0 07/20/2017 Esophagitis 11/01/2009 [...] Medicine Monserrat Palomino PA-C [address] [place] [address] Pending Results Name Type Priority Associated Diagnoses Date /Time COMPREHENSIVE METABOLIC PANEL Lab Routine Diabetic polyneuropathy ([facility]) 12/23/2022 12:08 PM EDT LIPID PANEL WITH DIRECT LDL IF TG IS HIGH Lab Routine Diabetic polyneuropathy ([facility]) 12/23/2022 12:08 PM EDT ALBUMIN / CREATININE RATIO, URINE Lab Routine Diabetic polyneuropathy ([facility]) 12/23/2022 12:12 PM EDT CBC Lab Routine Diabetic polyneuropathy ([facility]) 12/23/2022 12:08 PM EDT HEMOGLOBIN A1C Lab Routine Diabetic polyneuropathy ([facility]) 12/23/2022 12:08 PM EDT Scheduled Orders Name Type Priority Associated Diagnoses Orde r Schedule COMPREHENSIVE METABOLIC PANEL Lab Routine Diabetic polyneuropathy ([facility]) Expected: 12/23/2022, Expires: 12/24/2023 LIPID PANEL WITH DIRECT LDL IF TG IS HIGH Lab Routine Diabetic polyneuropathy ([facility]) Expected: 12/23/2022, Expires: 12/24/2023 ALBUMIN / CREATININE RATIO, URINE Lab Routine Diabetic polyneuropathy ([facility]) Expected: 12/23/2022, Expires: 12/24/2023 CBC Lab Routine Diabetic polyneuropathy ([facility]) Expected: 12/23/2022, Expires: 12/24/2023 HEMOGLOBIN A1C Lab Routine Diabetic polyneuropathy ([facility]) Expected: 12/23/2022, Expires: 12/24/2023 Health Maintenance Due Date Last Done Comments Flores's Esophagus Surveilance 1955 Pneumococcal Vaccine: 65+ Years (1 - PCV) 09/13/1961 Cologuard 09/13/2000 Colonoscopy 09/13/2000 Colorectal Cancer Screening 09/13/2000 Fecal Occult Blood Test 09/13/2000 Sigmoidoscopy 09/13/2000 Zoster Vaccines (1 of 2) 09/13/2005 Mammogram 05/11/2014 05/11/2013, 12/18, 02/08/2010 Diabetic Foot Exam 03/08/2019 03/08/2018, 0 05/05/2016, 07/18/2014, Additional history exists HbA1c 11/07/2022 05/10/2022, 09/18, 02/22/2021, Additional history exists COVID-19 Vaccine ( [...] this encounter Visit Diagnoses Diagnosis Diabetic polyneuropathy (HCC)- Primary Type II or unspecified type diabetes mellitus [...] the patient have Health Care Power of Ornamental Iron Erector? No Bag Valve Device? Yes Intubation? No [...] the patient have Health Care Power of Ornamental Iron Erector? Yes, not currently available Care Teams Sales Agent Business Services Relationship Specialty Start Date End Date Allen Rios, [address] [place] [address] PCP - General Family Medicine 10/15/21 documented as of this encounter
--- OUTSIDE RECORDS SUMMARY | 2023-04-15 07:26 | External Medical Summary | Summary of Care ---
Author Name Unknown Organization [facility] Address [address] [place] [address] Phone [phone] Care Team Providers Care Club Concierge Name Role Phone Allen Rios DO Primary Care Provider [phone] Reason for Visit * Reason Comments Outpatient Testing Encounter Details Date Type Department Care Team Description 10/18/2022 Laboratory Laboratory, [facility] [address] [place] [address] [facility] [address] [place] [address] Skin abnormalities; Thrombocytopenia (HCC); Dyslipidemia, goal LDL below 70 Allergies Active Allergy Reactions Severity Noted Date Comments Exenatide Nausea/vomiting Low 09/05/2008 Quinolones Itching,Nausea/vomit ing 12/06/2007 headache Codeine 11/03/2010 Isosorbide Nitrate 06/16/2022 Severe MC, "floaty feelings" Cephalexin Itching High 01/21/2012 Nitrofurantoin Monohydrate Macrocrystals Nausea/vomiting 12/08/2010 Metformin And Related Nausea/vomiting Medium 9 Polyethylene Glycol Nausea/vomiting 05/06/2011 Statins 10/18/2022 Brain fog Sulfa Antibiotics 11/03/2010 documented as of this encounter (statuses as of 10/18/2022) Medications Medication Sig Dispensed Refills Start Date End Date Status ASPIRIN 81 MG PO TBDP 1 daily 0 Active Glucose Blood (ONE TOUCH ULTRA TEST) STRPIndications:DM type 2, goal A1c below 7 Use up to four times a day as directed 400 Strip 3 07/21/2014 Active FreeStyle [place] 14 Day SensorIndications: Type 2 diabetes mellitus with hemoglobin [...] TWICE DAILY, 6 Each 3 06/22/2022 Active Litetouch Pen [place] 31G X 5 MM (Insulin Pen Needle)Indications :Type 2 diabetes mellitus with hemoglobin A1c goal of less than 7.0% (HCC) Use as directed . Use for insulin injection four times daily 400 Each 1 06/27/2022 Active NovoLOG FlexPen 100 UNIT/ML Subcutaneous Solution [...] MG Oral Tablet (Lopressor)Indicat ions:Atheroscleros is of [place] coronary artery of [place] heart without angina pectoris,Palpitati ons,HTN, goal below 130/80 TAKE ONE TABLET BY MOUTH 2 TIMES A DAY 180 Tablet 3 10/11/2022 Active documented as of this encounter (statuses as of 10/18/2022) Active Problems Problem Noted Date PAC (premature [...] as of this encounter (statuses as of 10/18/2022) Resolved Problems Problem Noted Date Resolved Date Thrombocytopenia 07/28/2020 04/19/2022 Hepatosplenomegaly 07/20/2017 09/18/2018 Acute sinusitis 02/07/2015 07/20/2017 Old [place] (myocardial infarction) 02/07/2015 0 07/20/2017 Esophagitis 11/01/2009 [...] as of this encounter (statuses as of 10/18/2022) Immunizations Name Administration Dates Next Due COVID-19 [...] Encounters Date Type Specialty Care Team Description 02/23/2023 Office Visit Dermatology Ana Rosa Lu MD [address] [facility] [place] [address] 04/17/2023 Office Visit Family Medicine Monserrat Palomino PA-C [address] [place] [address] Pending Results Name Type Priority Associated Diagnoses Date /Time CBC Lab Routine Skin abnormalities Thrombocytopenia (HCC) 10/18/2022 10:47 AM EDT LIPID PANEL WITH DIRECT LDL IF TG IS HIGH Lab Routine Dyslipidemia, goal LDL below 70 10/18/2022 10:47 AM EDT Health Maintenance Due Date Last Done [...] as of this encounter Visit Diagnoses Diagnosis Skin abnormalities Unspecified congenital anomaly of the integument Thrombocytopenia (HCC) Thrombocytopenia, unspecified Dyslipidemia, goal LDL below 70 Other and unspecified hyperlipidemia documented in this encounter Advance Directives Latest Code Status on File Code Status Date Activated Date Inactivated Comments Limited Code 10/31/2009 6:51 PM 11/04/2009 8:57 PM This order reflects the patients wishes and were consensually agreed upon. Question Answer Comments Discussion of Advance Directives occurred with: Patient Does the patient have a Living Will? No Does the patient have Health Care Power of Sfdc Architect? No Bag Valve Device? Yes Intubation? No [...] the patient have Health Care Power of Sfdc Architect? Yes, not currently available Care Teams Club Concierge Relationship Specialty Start Date End Date Allen Rios, DO [address] [place] [address] PCP - General Family Medicine 10/15/21 documented as of this encounter
--- OUTSIDE RECORDS SUMMARY | 2023-04-15 07:26 | External Medical Summary | Summary of Care ---
Author Name Unknown Organization [facility] Address [address] [place] [address] Phone [phone] Care Team Providers Care Shipping And Receiving Assistant Name Role Phone Allen Rios DO Primary Care Provider [phone] Reason for Visit * Reason Comments Outpatient Testing Encounter Details Date Type Department Care Team Description 10/18/2022 Laboratory Laboratory, [facility] [address] [place] [address] [facility] [address] [place] [address] Skin abnormalities; Thrombocytopenia (HCC); Dyslipidemia, [...] 6 Each 3 06/22/2022 Active Litetouch Pen [place] 31G X 5 MM (Insulin Pen Needle)Indications [...] MG Oral Tablet (Lopressor)Indicat ions:Atheroscleros is of [place] coronary artery of [place] heart without angina pectoris,Palpitati ons,HTN, goal below [...] 07/20/2017 09/18/2018 Acute sinusitis 02/07/2015 07/20/2017 Old [place] (myocardial infarction) 02/07/2015 0 07/20/2017 Esophagitis 11/01/2009 [...] Visit Dermatology Ana Rosa Lu MD [address] [facility] [place] [address] 04/17/2023 Office Visit Family Medicine Monserrat Palomino PA-C [address] [place] [address] Pending Results Name Type Priority Associated Diagnoses [...] the patient have Health Care Power of [place]? No Bag Valve Device? Yes Intubation? No [...] the patient have Health Care Power of [place]? Yes, not currently available Care Teams Shipping And Receiving Assistant Relationship Specialty Start Date End Date Allen Rios, DO [address] [place] [address] PCP - General Family Medicine 10/15/21 documented as of this encounter
--- OUTSIDE RECORDS SUMMARY | 2023-04-15 07:26 | External Medical Summary | Summary of Care ---
Author Name Unknown Organization [facility] Address [address] [place] [address] Phone [phone] Care Team Providers Care Studio Engineer Name Role Phone Keyona Rios DO Primary Care Provider [phone] Reason for Visit * Reason Comments Other Patient is here for spot on right side of nose that her glasses rubs on and she said it was clear and now its a brown color. She said it is only bothersome with her glasses. * Evaluate & Treat - Unlimited Visits (Within 30 days (routine)) - Authorized Specialty Diagnoses / Procedures Referred By Jarrett szymanski Referred To Contact Dermatology Diagnoses Seborrheic keratosis Monserrat Kincaid PA-C [address] [facility] [place] [address] Referral ID Status Reason Start Date Expiration Date Visits Requested Visits Authorized [id number] Authorized Specialty Services Required 10/10/[phone] Encounter Details Date Type Department Care Team Description 11/07/2022 Office Visit Dermatology State Manjit Escoto [address] [place] [address] Ana Rosa Lu MD [address] [place] [address] Seborrheic keratosis*; Photoaged skin Allergies Active Allergy Reactions Severity Noted Date Comments Exenatide Nausea/vomiting Low 09/05/2008 Quinolones Itching,Nausea/vomit ing 12/06/2007 headache Codeine 11/03/2010 Isosorbide Nitrate 06/16/2022 Severe MC, "floaty feelings" Cephalexin Itching High 01/21/2012 Nitrofurantoin Monohydrate Macrocrystals Nausea/vomiting 12/08/2010 Metformin And Related Nausea/vomiting Medium 9 Polyethylene Glycol Nausea/vomiting 05/06/2011 Statins 10/18/2022 Brain fog Sulfa Antibiotics 11/03/2010 documented as of this encounter (statuses as of 11/07/2022) Medications Medication Sig Dispensed Refills Start Date [...] 6 Each 3 06/22/2022 Active Litetouch Pen Elmira 31G X 5 MM (Insulin Pen Needle)Indications [...] MG Oral Tablet (Lopressor)Indicat ions:Atheroscleros is of [place] coronary artery of [place] heart without angina pectoris,Palpitati ons,HTN, goal below 130/80 TAKE ONE TABLET BY MOUTH 2 TIMES A DAY 180 Tablet 3 10/11/2022 Active Ezetimibe 10 MG Oral Tablet (Zetia)Indications :Dyslipidemia, goal LDL below 70 Take 1 Tablet by mouth in the morning. 90 Tablet 3 10/24/2022 Active documented as of this encounter (statuses as of 11/07/2022) Active Problems Problem Noted Date PAC (premature atrial contraction) 07/26 Overview: Seen on holter study 2018 Nonproliferative diabetic retinopathy of both eyes 07/26/2018 [...] as of this encounter (statuses as of 11/07/2022) Resolved Problems Problem Noted Date Resolved Date Thrombocytopenia 07/28/2020 04/19/2022 Hepatosplenomegaly 07/20/2017 09/18/2018 Acute sinusitis 02/07/2015 07/20/2017 Old IL (myocardial infarction) 02/07/2015 0 07/20/2017 Esophagitis 11/01/2009 07/20/2017 Overview: ICD-10 update of inactive term Nausea 11/01/2009 11/04/2009 Overview: ICD-10 update of inactive term Abdominal pain 11/01/2009 11/04/2009 Malaise and fatigue 11/01/2009 07/20/2017 Headache 10/31/2009 11/01/2009 Overview: ICD-10 update of inactive term DM type 2, not at goal 09/05/2008 10/200 9 Overview: Modified per Diabetes protocol #14. [...] as of this encounter (statuses as of 11/07/2022) Immunizations Name Administration Dates Next Due COVID-19 mRNA, LNP-s, No Pre serve, 2-Dose Series ([employer]) 10/14/2020,09/19/2020 COVID-19, LNP-s, No Preserve , Pacheco-sucrose, Ages 12+ (Pfizer) 09/28/2021,04/30/2021 Hepatitis B, 20+ yrs 11/18/1996,05/18/1996,04/20 TDAP (age 11 and older)([employer]) 12/27/2004 documented as of this encounter Social [...] as of this encounter Progress Notes * Ana Rosa Lu MD - 11/07/2022 2:42 PM EDT SUBJECTIVE: HPI: Clara Saunders is a 67 year old female seen at the request of Monserrat Kincaid for evaluation and treatment of a growth. Location is at the R nose x months, larger with time. REVIEW OF SYSTEMS: SKIN: No other new or changing moles. HEME/LYMPH: No new or enlarging lumps or bumps. 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 Gonsalez May 2008 Sensorineural hearing loss, bilateral 2005 Thrombocytopenia (HCC) 07/28/2020 Unspecified viral infection, in conditions classified elsewhere and of unspecified site 06/[address] [facility] 07/01/10 to 07/04/10 SOCIAL HISTORY: Social History Tobacco Use Smoking status: Former Packs/day: 1.00 Years: 10.00 Pack years: 10.00 Types: Cigarettes Quit date: 03/20/1988 Years since quittin.6 Smokeless tobacco: Never Tobacco comments: quit 1988 Substance Use Topics Alcohol use: No Vaping/E-Cigarette Use Vaping/E-Cigarette Use Never User Vaping/E-Cigarette Substances Nicotine No Other No Flavoring No THC No Cannabidiol (CBD) No Vaping/E-Cigarette Devices Disposable No Pre-filled or Refillable Cartridge No Refillable Tank No Pre-filled Pod No MEDICA TIONS: Current Outpatient Medications Medication Sig Dispense Refill ASPIRIN 81 MG PO TBDP 1 daily Glucose Blood (ONE TOUCH ULTRA TEST) STRP Use up to four times a day as directed 400 Strip 3 FreeStyle Nora 14 Day Sensor Check blood glucose 2 times daily 2 Each 3 Omeprazole 20 MG Oral Capsule Delayed Release (PriLOSEC) Take by mouth 1 Capsule in the morning AND1 Capsule before bedtime. 180 Capsule 3 glipiZIDE 5 MG Oral Tablet (Glucotrol) TAKE TWO TABLETS BY MOUTH EVERY MORNING AND 1 EVERY EVENING,30 MINUTES BEFORE A MEAL. 210 Tablet 3 OneTouch Verio In Vitro Strip (Glucose Blood) Test 4-6 times a day. 600 Strip 3 FreeStyle Nora 2 Sensor CHECK BLOOD GLUCOSE TWICE DAILY, 6 Each 3 Litetouch Pen Elmira 31G X 5 MM (Insulin Pen Needle) Use as directed . Use for insulin injection four times daily 400 Each 1 NovoLOG FlexPen 100 UNIT/ML Subcutaneous Solution Pen-injector (insulin aspart) take 3 units for every 50 points blood sugar exceeds 150 mg/dl at meals - Subcutaneous Notes to Pharmacy: Glucometer 150-200: Give 3 units Novolog Sub cutaneous ; Glucometer 201-250: Give 6 units Novolog Sub cutaneous ;Glucometer 251-300: Give 9 units Novolog Subcutaneous Glucometer 301-350: Give 12 units Novolog Subcutaneous 15 mL 3 Chlorthalidone 25 MG Oral Tablet (Hygroton) Take 1 Tablet by mouth in the morning. In the morning..90 Tablet 1 Lisinopril 10 MG Oral Tablet (Prinivil) Take 1 Tablet by mouth in the morning and 1 Tablet in the evening. 180 Tablet 3 Toujeo SoloStar 300 UNIT/ML Subcutaneous Solution Pen-injector (Insulin Glargine (1 Unit Dial)) INJECT 62 UNITS UNDER THE SKIN EVERY NIGHT AT BEDTIME 18 mL 3 Metoprolol Tartrate 25 MG Oral Tablet (Lopressor) TAKE ONE TABLET BY MOUTH 2 TIMES A DAY 180 Tablet3 Ezetimibe 10 MG Oral Tablet (Zetia) Take 1 Tablet by mouth in the morning. 90 Tablet 3 No current facility-administered medications for this visit. ALLERG Y: Keflex [cephalexin], Metformin and related, Cipro [quinolones], Codeine, Imdur [isosorbide nitrate], Macrobid [nitrofurantoin monohydrate macrocrystals], Miralax [polyethylene glycol], Statins, Sulfaantibiotics, and Byetta [exenatide] OBJECTIVE: GEN: Healthy, alert, no distress, appears oriented, pleasant, and cooperative. SKIN: Detailed exam of hair, face including lids and lips, and neck completed and are normal except: 1. R NFS - waxy barber papule 2. L forehead - few open comedones 3. L upper lip - vague barber macule ASSESS MENT/PLAN: 1. Seborrheic/Benign Keratosis(-es) - Benign nature was discussed and no further intervention needed. Advised to call with any changes. 2. Open comedones - Benign nature was discussed and no further intervention needed. Advised to callwith any changes. 3. Lentigo vs. Thin Seborrheic/Benign Keratosis(-es) - Benign nature was discussed and no further intervention needed. Advised to call with any changes. Discussed sun protection with patient including proper use of sunscreens and protective clothing. Rhys explained. Follow-up: as needed There were no barriers tolearning and no other pain was related to today's visit. The patient and/or person accompanying patient demonstrates understanding of the visit and treatment. Ana Rosa Lu MD 11/07/2022 2:42 PM Ref: MONSERRAT KINCAID[[id number]] [address] [place] [address] (office) [phone] (fax) PCP: KEYONA RIOS [address] [place] [address] [phone] documented in this encounter Nursing Notes * Alice Estevez LPN - 11/07/2022 2:08 PM EDT Patient identified by name and date of . Do you have any concerns about pain management for today's visit? No Living Will or Advance Directive for Health Care as noted on problem list. [facility] is a way you can talk to your provider online through e-mail. Would you like to sign up? I can activate it for you? ALREADY ACTIVE Chief Complaint Patient presents with Other Patient is here for spot on right side of nose that her glasses rubs on and she said it was clear and now its a brown color. She said it is only bothersome with her glasses. documented in this encounter Plan of Treatment Upcoming Encounters Date Type Specialty Care Team Description 04/17/2023 Office Visit Family Medicine Monserrat Kincaid, PALionelC [address] [place] [id number] Scheduled Referrals Name Type Priority Associated Diagnoses Orde r Schedule DERMATOLOGY REFERRAL OP Referral Within 30 days (routine) Seborrheic keratosis Ordered: 10/10/2022 Health Maintenance Due Date Last Done Comments [...] as of this encounter Visit Diagnoses Diagnosis Seborrheic keratosis- Primary Other seborrheic keratosis Photoaged skin Other dermatitis due to solar radiation documented in this encounter Advance Directives Latest Code Status on File Code Status Date Activated Date Inactivated Comments Limited Code 10/31/2009 6:51 PM 11/04/2009 8:57 PM This order reflects the patients wishes and were consensually agreed upon. Question Answer Comments Discussion of Advance Directives occurred with: Patient Does the patient have a Living Will? No Does the patient have Health Care Power of Method Consultant? No Bag Valve Device? Yes Intubation? No [...] the patient have Health Care Power of Method Consultant? Yes, not currently available Care Teams Studio Engineer Relationship Specialty Start Date End Date Keyona Rios, DO [address] [facility] [place] [address] PCP - General Family Medicine 10/15/21 documented as of this encounter
--- OUTSIDE RECORDS SUMMARY | 2023-04-15 07:26 | External Medical Summary ---
Author Name Unknown Address Unknown Organization [id number][place] [place] [address] [facility] [address] Laboratory Report Ordering Provider Test Date Status DENNIS JONES 10/18/2022 10:47:07 Final Observation Date Value Abnormality Reference (Units ) Status Triglyceride 10/18/2022 10:47:07 169 <=174 ( mg/dL) Final Triglyceride Reference Range s (mg/dL):
<150 Acceptable
150-174 Borderline high
175-499 High
>=500 Very high Cholesterol 10/18/2022 10:47:07 150 <200 (mg /dL) Final Total Cholesterol Reference Ranges (mg/dL):
<200 Desirable
200-239 Borderline high
>=240 High HDL 10/18/2022 10:47:07 42 Below low normal >49 (mg/dL) Final HDL Cholesterol Reference Ra nges (mg/dL):
>=60 High (Desirable)
<50 Low (Undesirable) For Females
<40 Low (Undesirable) For Males NON-HDL CHOLESTEROL 10/18/2022 10:47:07 108 <=159 (mg/dL) Final Non-HDL Cholesterol Referenc e Range (mg/dL):
<100 Target level for high risk ASCVD patient
<130 Optimal for general population
130-159 Near optimal for general population
160-189 Borderline High
190-219 High
>=220 Very High LDL, (calculated) 10/18/2022 10:47:07 74 <= 129 (mg/dL) Final LDL Cholesterol Reference Ra nges (mg/dL):
<70 Target level for high risk ASCVD patient
<100 Optimal for general population
100-129 Near optimal for general population
130-159 Borderline high
160-189 High
>=190 Very high [place]forming Location [facility] [place] [address] [facility] [address]
--- OUTSIDE RECORDS SUMMARY | 2023-04-15 07:26 | External Medical Summary | Summary of Care ---
Author Name Unknown Organization [facility] Address [address] [place] [address] Phone [phone] Care Team Providers Care Rn Intensive Care Unit Name Role Phone Allen Rios DO Primary Care Provider [phone] Reason for Visit * Reason Comments Follow Up Encounter Details Date Type Department Care Team Description 10/18/2022 Office Visit Cardiology, [facility] [address] [facility] [place] [address] Angeline Zaragoza CRNP [address] [facility] [place] [address] Nonobstructive atherosclerosis of coronary artery*; Dyslipidemia, goal LDL below 70; Statin intolerance; HTN, goal below 130/80; Palpitations; PAC (premature atrial contraction) Allergies Active Allergy Reactions Severity Noted Date [...] 6 Each 3 06/22/2022 Active Litetouch Pen [place] 31G X 5 MM (Insulin Pen Needle)Indications [...] MG Oral Tablet (Lopressor)Indicat ions:Atheroscleros [place] of [place] coronary artery of [place] heart without angina pectoris,Palpitati ons,HTN, goal below [...] 10 Q uit: 03/20/1988 Smokeless Tobacco: Never Tobacco Cessation:Counseling Given: Not Answered Comments:quit 1988 Alcohol Use Standard Drinks/Week Comments [...] on file documented as of this encounter Last Filed Vital Signs Vital Sign Reading Time Taken Comments Blood Pressure 126/72 10/18/2022 10:22 AM EDT Pulse 58 10/18/2022 10:22 AM EDT Temperature - - Respiratory Rate - - Oxygen Saturation - - Inhaled Oxygen Concentration - - Weight 83.9 kg (185 lb) 10/18/2022 10:22 AM EDT Height - - Body Mass Index 33.78 10/10/2022 10:29 AM EDT documented in this encounter Progress Notes * MOE Meza - 10/18/2022 10:30 AM EDT Cardiology Outpatient Visit 10/18/2022 Primary Iron Setter: Dr. Houston Past medical history: 1. Nonobstructive CAD, history of cardiac catheterization 06/04/2015 at [facility] a. Left main long with mild calcification and no obstruction, LAD type III, small area ectasia after first septal branch and mild luminal irregularities, ramus large with mild luminal irregularities,left circumflex large with single large OM, RCA dominant with mild luminal irregularities, PDA with20% origin, to PV branches without disease, hyperdynamic LVEF of 70% b. Nonischemic DSE at [facility] 11/2018 c. Equivocal DSE at [facility] 04/2022 d. Nonischemic nuclear stress testing 06/2022 2. Hypertension 3. Symptomatic PACs, on metoprolol 4. Dyslipidemia 5. SAM 6. GERD 7. History of COVID-pneumonia 06/2020 8. Former smoker, quit 1988 HPI 67-year-old female presenting to the cardiology office today in routine follow- up. Was last evaluated by the undersigned approximately 6 months ago. At this time she was having concerns regarding waxing and waning atypical chest discomfort. Blood pressures were elevated. Amlodipine was restarted. Patient underwent nuclear stress testing on 07/01, testing was nonischemic. Today the patient presents feeling well and offers no acute concerns. Recently returned home from [facility] in [place]. Notes that she felt well during this vacation was walking 8-10 miles a day without exertional symptoms. No worsening symptoms of chest pain or shortness of breath. Occasional palpitations. No orthopnea, PND, or increased lower extremity edema. No fever, chills, cough, hematochezia, melena, or hemoptysis. Notes that she has been intolerant to statin therapy and self discontinued this medication with relief in symptoms. Current Outpatient Medications Medication Sig Dispense Refill ASPIRIN 81 MG PO TBDP 1 daily Glucose Blood (ONE TOUCH ULTRA TEST) STRP Use up to four times a day as directed 400 Strip 3 FreeStyle Nora 14 Day Sensor Check blood glucose 2 times daily 2 Each 3 Omeprazole 20 MG Oral Capsule Delayed Release (PriLOSEC) Take by mouth 1 Capsule in the morningAND 1 Capsule before bedtime. 180 Capsule 3 glipiZIDE 5 MG Oral Tablet (Glucotrol) TAKE TWO TABLETS BY MOUTH EVERY MORNING AND 1 EVERY EVENING, 30 MINUTES BEFORE A MEAL. 210 Tablet 3 OneTouch Verio In Vitro Strip (Glucose Blood) Test 4-6 times a day. 600 Strip 3 FreeStyle Nora 2 Sensor CHECK BLOOD GLUCOSE TWICE DAILY, 6 Each 3 Litetouch Pen [place] 31G X 5 MM (Insulin Pen Needle) [...] Novolog Subcutaneous Glucometer 301-350: Give 12 units NovologSub cutaneous 15 mL 3 Chlorthalidone 25 MG Oral Tablet (Hygroton) Take 1 Tablet by mouth in the morning. In the morning.. 90 Tablet 1 Lisinopril 10 MG Oral Tablet (Prinivil) Take 1 Tablet by mouth in the morning and 1 Tablet in the evening. 180 Tablet 3 Toujeo SoloStar 300 UNIT/ML Subcutaneous Solution Pen-injector (Insulin Glargine (1 Unit Dial))INJECT 62 UNITS UNDER THE SKIN EVERY NIGHT AT BEDTIME 18 mL 3 Metoprolol Tartrate 25 MG Oral Tablet (Lopressor) TAKE ONE TABLET BY MOUTH 2 TIMES A DAY 180 Tablet 3 No current facility-administered medications for this visit. Past Medical History: Diagnosis Date Allergic rhinitis 2006 Chronic laryngitis 2006 Chronic pharyngitis 2005 Deviated nasal septum 2005 DM type 2, goal A1c below 7 Dyslipidemia 07/20/2017 Gastroesophageal reflux disease with esophagitis 07/20/2017 Hepatosplenomegaly 07/20/2017 HTN, goal below 140/90 08/15/2013 NON ALLERGIC RHINITIS 2006 Other chronic nonalcoholic liver disease 09/05/2008 NAFLD grade 6/[address] Gonsalez May 2008 Sensorineural hearing loss, bilateral 2006 Thrombocytopenia (HCC) 07/28/2020 Unspecified viral infection, in conditions classified elsewhere and of unspecified site 06/2010 hospitalized at [facility] 07/01/10 to 07/04/10 Past Surgical History: Procedure Laterality Date ANESTH, UPPER GI ENDOSCOPIC PROCS 11/04/2009 ANESTHESIA FOR UPPER GI ENDOSCOPIC PROCEDURES (ERCP OR UPPER GI) performed by DIVINA MOORE at [place]OS[place] [facility] [place] NECK W WO CONTRAST 08/05/05 AT [facility] No sialolithiasis or sialadenitis appreciated. no focal left neck mass or lymphadenopathy is appreciated. IR BIOPSY 01/18/08 TRANSCATHETER BIOPSY performed by TEETEE HARTMAN at RADIOLOGY [facility] [place] REMOVE GALLBLADDER TOTAL ABD HYSTERECTOMY W/WO REMOVAL OF TUBE(S) 1991 TOTAL ABD HYSTERECTOMY W/WO REMOVAL OF TUBE(S) 1991 Social History Tobacco Use Smoking status: Former Packs/day: 1.00 Years: 10.00 Pack years: 10.00 Types: Cigarettes Quit date: 03/20/1988 Years since quittin.6 Smokeless tobacco: Never Tobacco comments: quit 1988 Vaping Use Vaping Use: Never used Substance Use Topics Alcohol use: No Drug use: No Review of patient's allergies indicates: Allergen Reactions Keflex [Cephalexin] Itching Metformin And Related Nausea/vomiting Cipro [Quinolones] Itching and Nausea/vomiting headache Codeine Imdur [Isosorbide Nitrate] Severe MC, "floaty feelings" Macrobid [Nitrofurantoin Monohydrate Macrocrystals] Nausea/vomiting Miralax [Polyethylene Glycol] Nausea/vomiting Statins Brain fog Sulfa Antibiotics Byetta [Exenatide] Nausea/vomiting Review of Systems: See HPI for pertinent positives. All others negative, other than those noted in HPI. Physical Exam BP 126/72 | Pulse 58 | Wt 83.9 kg (185 lb) | BMI 33.78 kg/m | BSA 1.92 m General: No acute distress. A+Ox3. HEENT: Normocephalic. Atraumatic. Conjunctiva and sclera clear. NECK: No carotid bruits. No JVD. Carotid upstrokes are brisk. Heart: RRR. S1 and S2 noted without murmur, rubs, gallops. PMI non displaced. Lungs: Clear to auscultation. No wheezes, rhonchi, rales. Abdomen: Normal bowel sounds. Soft. Nontender. No masses or organomegaly. No abdominal bruits. Extremities: No edema. No clubbing or cyanosis. Pulses: radial=2/4, posterior tibial=2/4, dorsalis pedis = 2/4. NEURO: No focal deficits. PSYCH: Normal. Lab data/imaging study review: Nuclear stress 07/01/2022 Lexiscan nuclear stress test is negative for ischemia or scar. Gated SPECT images reveals normal myocardial thickening and wall motion. The LV ejection fraction is calculated at 67% DSE 04/20/2022 at [facility] Stress study: No echocardiographic evidence of myocardial ischemia Equivocal ST segment depression observed in the post rest recovery interval No chest discomfort was reported Overall the findings are felt to represent a low risk of underlying hemodynamically significant CAD Resting study: Sinus Hugo with rates in the 50s during study Mild concentric LVH Wall motion is normal LVEF 55-60% No significant valvular pathology Impression/Plan: 1. Nonobstructive atherosclerosis of coronary artery -Nonobstructive CAD per prior cardiac catheterization dated 2015. -Nonischemic nuclear stress test 06/2022. -Stable, no angina 1. Continue metoprolol tartrate 25 mg twice daily, unable to increase due to low resting heart rate. Consider transitioning to metoprolol succinate. 2. Continue aspirin 81 mg daily 2. Dyslipidemia, goal LDL below 70 3. Statin intolerance Borderline controlled. LDL 77- intolerance to statins. Self discontinued. 1. Repeat fasting cholesterol panel in the near future. Future considerations adding Zetia 10 mg daily. 4. HTN, goal below 130/80 Controlled. Has been intolerant to Imdur and amlodipine in the past. 1. Continue chlorthalidone, lisinopril, and metoprolol as ordered. 5. Palpitations 6. PAC (premature atrial contraction) -Palpitations secondary to sensed PACs. Symptoms well controlled on beta-lenka therapy. No changes needed at this time. The patient agrees to the above plan and will call with additional questions or concerns. ER with all emergencies advised. Follow-up: Return in about 1 year (around 10/19/2023). | Check-out note: RODDYB. Labs today. I spent a total of 30 minutes on the date of service in preparation, delivery, and documentation ofthe care provided to Clara Saunders excluding any time spent in the performance of separately billed services. MOE Kaplan, Department of Cardiology This chart was completed in part utilizing [employer] Speech Voice Recognition Software. Grammatical errors, random word insertions, prounoun errors, and incomplete sentences are an occasional consequence of this system due to software limitations, ambient noise, and hardware issues. Any formal questions or concerns about the content, text, or information contained within the body of this dictation should be directly addressed to the provider for clarification. documented in this encounter Nursing Notes * Hanh Penaloza CMA - 10/18/2022 10:24 AM EDT Examination Room: 7 Name: Clara Saunders Date of : (1955) Reason for Visit: 4m Interim Hospitalization(s): none Problems/Concerns: denied Chest Pain/SOB: denied My [facility] is a way you can talk to your provider online through e-mail. Would you like to sign up? I can activate it for you? ALREADY ACTIVE Patient was instructed to not get up on the exam table until directed and assisted by their provider; patient is to remain seated in the chair/ wheelchair/ exam table for fall prevention and safety reasons. Patient is aware to have assistance to step down off exam table with personnel. Patient voiced full comprehension of instructions. documented in this encounter Plan of Treatment Upcoming Encounters Date Type Specialty Care Team Description 10/18/2022 Laboratory Laboratory [facility], Lab [facility] [address] [facility] [place] [address] Skin abnormalities; Thrombocytopenia (HCC); Dyslipidemia, goal LDL below 70 02/23/2023 Office Visit Dermatology Ana Rosa Lu MD [address] [facility] [place] [address] 04/17/2023 Office Visit Family Medicine Monserrat Palomino PA-C [address] [facility] [place] [address] Pending Results Name Type Priority Associated Diagnoses Date /Time LIPID PANEL WITH DIRECT LDL IF TG IS HIGH Lab Routine Dyslipidemia, goal LDL below 70 10/18/2022 10:47 AM EDT Scheduled Orders Name Type Priority Associated Diagnoses Orde r Schedule LIPID PANEL WITH DIRECT LDL IF TG IS HIGH Lab Routine Dyslipidemia, goal LDL below 70 Expected: 10/18/2022, Expires: 10/19/2023 Health Maintenance Due Date Last Done Comments [...] as of this encounter Visit Diagnoses Diagnosis Nonobstructive atherosclerosis of coronary artery- Primary Dyslipidemia, goal LDL below 70 Other and unspecified hyperlipidemia Statin intolerance Other drug allergy HTN, goal below 130/80 Unspecified essential hypertension Palpitations PAC (premature atrial contraction) Supraventricular premature beats Skin abnormalities Unspecified congenital anomaly of the [...] the patient have Health Care Power of Baker Operator Automatic? No Bag Valve Device? Yes Intubation? No [...] the patient have Health Care Power of Baker Operator Automatic? Yes, not currently available Care Teams Rn Intensive Care Unit Relationship Specialty Start Date End Date Allen Rios, DO [address] [address] PCP - General Family Medicine 10/15/21 documented as of this encounter
--- NOTE | 2023-04-15 08:09 | Emergency Department Note ---
History of Present Illness General Chief complaint: Abdominal Pain Stated complaint: SEVERE LOWER ABDOMINAL PAIN, NAUSEA Time Seen by Provider: 04/15/23 07:29 History of Present Illness Maximum Pain Intensity: 10 This is a 67-year-old female that presents to the emergency department via private vehicle with complaints of "severe lower abdominal pain, nausea, back pain". The patient states that she is experiencing soreness essentially from the inferior aspect of the bra line throughout the entire abdomen. She also notes lower abdominal cramping. She also notes pain radiating into her back. She states that her last normal bowel movement was yesterday. No bowel movement since then. She notes an urge to defecate throughout the evening/night. She noted a tiny bit of diarrhea. She has associated nausea and chills. No vomiting or fever. No history of intestinal obstruction. Patient denies any chest pain or shortness of breath. She notes that she feels overall bloated. Current pain 10/10. Home Medications Medication Instructions Recorded Confirmed Type aspirin 81 mg tablet,delayed 81 mg PO QAM 11/22/18 04/15/23 History release insulin glargine U-300 conc 300 62 unit subcut HS 11/22/18 04/15/23 History unit/mL (1.5 mL) subcutaneous pen (Toujeo SoloStar U-300 Insulin) metoprolol tartrate 25 mg tablet 25 mg PO BID 11/22/18 04/15/23 History omeprazole 20 mg capsule,delayed 20 mg PO BID 11/22/18 04/15/23 History release insulin aspart U-100 100 unit/mL 0 sliding scale dose subcut TID 07/05/20 04/15/23 History subcutaneous solution (Novolog U-100 Insulin aspart) glipizide 5 mg tablet 10 mg PO QAM 05/28/21 04/15/23 History isosorbide mononitrate 30 mg 30 mg PO QAM #30 tabs 04/20/22 04/15/23 Rx tablet,extended release 24 hr lisinopril 20 mg tablet 20 mg PO QAM #30 tabs 04/20/22 04/15/23 Rx rosuvastatin 5 mg tablet 5 mg PO HS #30 tabs 04/20/22 04/15/23 Rx chlorthalidone 25 mg tablet 25 mg PO DAILY 04/15/23 04/15/23 History glipizide 5 mg tablet 5 mg PO QPM 04/15/23 04/15/23 History Allergies Allergy/AdvReac Type Severity Reaction Status Date / Time Quinolones Allergy Intermediate NAUSEA, Verified 04/15/23 07:53 ITCH, RASH codeine Allergy Unknown CAN TAKE Verified 04/15/23 07:53 MORPHINE Sulfa (Sulfonamide Allergy Unknown CAN'T Verified 04/15/23 07:53 Antibiotics) REMEMBER exenatide AdvReac Intermediate Nausea/vomi Verified 04/15/23 07:53 ting. metformin AdvReac Intermediate Nausea/Vomi Verified 04/15/23 07:53 ting nitrofurantoin AdvReac Intermediate Nausea/vomi Verified 04/15/23 07:53 ting polyethylene glycol AdvReac Intermediate Nausea/vomi Verified 04/15/23 07:53 ting Past Med/Surg History Medical History Hypoglycemia HLD (hyperlipidemia) HTN (hypertension) Flores esophagus Thrombocytopenia SAM (nonalcoholic steatohepatitis) DM type 2 (diabetes mellitus, type 2) Surgical History Hx of cardiac cath "05/2015 - mild CAD" History of hysterectomy S/P cholecystectomy Family History (Updated 04/19/22 @ 17:11 by Neena Shaw PA-C) Mother Heart disease Father Heart disease Sister , age mid 70s Heart disease Sister , Mid to late 70s Heart disease Brother Heart disease age 74 Sister Heart disease age 80s Social History Smoking Status: Former smoker Tobacco Type: Cigarettes Second Hand Exposure: No; Do You Dip or Chew Tobacco: No; Hx Alcohol Use: Yes Alcohol type: wine Hx Substance Use: No Preferred Language: Armenian Communication Ability: Effective Medical Coding Instructor Required: No Beliefs That Will Affect Care: None Current Living Situation: Spouse Feels Safe at Home: Yes Assistive Devices: None Review of Systems A total of 10 systems reviewed and were otherwise negative Physical Exam Vital Signs Vital Signs - 24 hr 04/15/23 07:22 04/15/23 07:36 04/15/23 09:50 Temperature 36.0 C L Temperature Source Temporal Artery Scan Pulse Rate 92 H 102 H Pulse Rate [Left Finger] 81 Respiratory Rate 20 18 Respiratory Effort / Characteristics Non-Labored Respiratory Depth Normal Blood Pressure 156/74 H Blood Pressure [Left Arm] 127/58 L Blood Pressure Mean 101 Blood Pressure Mean [Left Arm] 81 Pulse Oximetry 96 99 Oxygen Delivery Method Room Air Sepsis Recent Fever Within 48 Hours No Sepsis New/Unexplained Change in Mental Status N/A Sepsis Action Taken by Nursing No Action Required VITAL SIGNS - Vital signs and nursing notes were reviewed. Stable and afebrile. GENERAL -67-year-old female appearing her stated age who is in no acute distress. Communicates well with provider and answers questions appropriately. SKIN - Without rashes. No meningeal or petechial rash. HEAD - NC/AT. EYES - Sclera anicteric. EARS - No deformities of external structures noted on gross examination bilaterally. NOSE - Midline and without cyanosis. MOUTH/OROPHARYNX - Without perioral cyanosis. NECK - No nuchal rigidity. LUNGS -clear to auscultation CARDIAC - RRR ABDOMEN - Abdominal contour normal without pulsations or visible masses. BS normoactive all four quadrants. There is generalized abdominal tenderness to palpation. There is no guarding or rigidity. NEUROLOGIC - Cranial nerves grossly intact. PSYCH -alert and oriented, pleasant on exam. Course Administered Medications Piperacillin Sod/Tazobactam Sod (Zosyn) 4.5 gm in 100 mls @ 200 mls/hr IV NOW ONE Stop: 04/15/23 10:48 Last Admin: 04/15/23 10:41 Dose: 200 mls/hr Documented By: ADELAIDE Discontinued Medications Ioversol (Optiray 320 500ml) 94 ml IV ONCE ONE Stop: 04/15/23 09:27 Last Admin: 04/15/23 09:26 Dose: 94 ml Documented By: ALEIDA Morphine Sulfate (Morphine Sulfate 2 Mg/Ml Carp) 2 mg IV NOW STA Stop: 04/15/23 08:12 Last Admin: 04/15/23 08:28 Dose: 2 mg Documented By: ADELAIDE Ondansetron HCl (Ondansetron Inj 2 Mg/Ml 2 Ml Vial) 4 mg IV NOW STA Stop: 04/15/23 08:12 Last Admin: 04/15/23 08:28 Dose: 4 mg Documented By: ADELAIDE Medical Decision Making Laboratory Data 04/15/23 08:00 04/15/23 08:00 Lab Results 04/15/23 04/15/23 04/15/23 Range/Units 08:00 08:32 09:53 WBC 6.99 (4.8-10.8) K/ul RBC 3.66 L (4.20-5.40) M/uL Hgb 11.3 L (12.0-16.0) g/dl Hct 30.8 L (37.0-47.0) % MCV 84.2 (80.0-100.0) fL MCH 30.9 (25.0-34.0) pg MCHC 36.7 H (32.0-36.0) g/dL RDW Std Deviation 42.0 (36.4-46.3) fL RDW Coeff of Meeta 13.5 (11.5-14.5) % Plt Count 96 L (130-400) K/uL MPV 10.5 (9.4-12.4) fL Immature Gran % (Auto) 0.1 % Neut % (Auto) 75.7 % Lymph % (Auto) 15.7 % [place] % (Auto) 7.6 % Eos % (Auto) 0.6 % Baso % (Auto) 0.3 % Neut # (Auto) 5.29 (1.40-6.50) K/uL Lymph # (Auto) 1.10 L (1.20-3.40) K/uL [place] # (Auto) 0.53 (0.11-0.59) K/uL Eos # (Auto) 0.04 (0.00-0.50) K/uL Baso # (Auto) 0.02 (0.00-0.20) K/uL Immature Gran # (Auto) 0.01 (0.01-0.20) K/uL Sodium 135 L (136-145) mmol/L Potassium 3.5 (3.5-5.1) mmol/L Chloride 98 (98-107) mmol/L Carbon Dioxide 28 (21-32) mmol/L Anion Gap 9 (3-11) BUN 20 (6-23) mg/dl Creatinine 0.87 (0.6-1.2) mg/dl Est Cr Clr Drug Dosing 61.3 ml/min Est GFR ( Amer) 79.9 ml/min Est GFR (Non-Af Amer) 68.9 ml/min BUN/Creatinine Ratio 23.0 H (10-20) Glucose 304 H* (70-99(Fasting)) mg/dl POC Glucose 264 H (70-99) mg/dl Calcium 9.6 (8.6-10.3) mg/dl Total Bilirubin 1.4 H (0.2-1.0) mg/dl AST 14 (13-39) U/L ALT 11 (7-52) U/L Alkaline Phosphatase 54 (34-104) U/L Total Protein 6.6 (6.0-8.3) gm/dl Albumin 4.5 (3.4-5.0) gm/dl Globulin 2.1 L (2.5-4.0) gm/dl Albumin/Globulin Ratio 2.1 H (0.9-2) Lipase 22 (11-82) U/L Urine Color [place] Urine Appearance Clear (Clear) Urine pH 5.5 (4.5-7.5) Ur Specific [place] 1.012 (1.000-1.030) Urine Protein Negative (Negative) Urine Glucose (UA) 1+ H (Negative) Urine Ketones Negative (Negative) Urine Blood Negative (Negative) Urine Nitrite Negative (Negative) Urine Bilirubin Negative (Negative) Urine Urobilinogen Negative (Negative) Ur Leukocyte Esterase Trace H (Negative) Urine RBC 0-4 (0-4) /hpf Urine WBC 0-5 (0-5) /hpf Ur Epithelial Cells 0-5 (0-5) /lpf Urine Bacteria Negative (Negative) Hyaline Casts 0-5 (0-5) /lpf Imaging Data Radiologist's Impression: Abdomen/Pelvis CT 04/15/23 07:53 CT abd pelvis IV con only CLINICAL HISTORY: Diffuse abdominal pain, bloating, nausea TECHNIQUE: Helical axial images of the abdomen and pelvis were obtained and displayed. Automated dose lowering techniques and/or adjustment according to patient size were utilized for this exam. This exam was performed with intravenous contrast. CT DOSE: 1371.71 mGy.cm COMPARISON: Comparison is made to CT abdomen pelvis 05/28/2021 FINDINGS: Lower chest: Bibasilar atelectasis versus scarring is seen. Liver: Suggestion of hepatic steatosis. Gallbladder and biliary tree: Patient is status post cholecystectomy. Physiologic prominence of the biliary ducts is noted. Pancreas: Unremarkable, no focal lesions. Spleen: Spleen measures 14.5 cm in craniocaudal dimension. Adrenals: Unremarkable. Kidneys and ureters: Perinephric stranding is noted bilaterally. Bladder: Unremarkable. Reproductive organs: Unremarkable. Bowel: Diverticulosis is seen with wall thickening, fat stranding, and vascular prominence in the sigmoid colon. There is questionable rim-enhancing lesion in the superior wall of the sigmoid colon. The appendix is unremarkable. Lymph nodes Retroperitoneal: Unremarkable. Pelvic: Unremarkable. Mesenteric: Unremarkable. Peritoneum: Fat stranding is noted about the sigmoid colon. Otherwise unremarkable. Vessels: Unremarkable. Abdominal wall: Unremarkable. Bones: Minimal degenerative changes are seen. IMPRESSION: Findings are compatible with diverticulitis without evidence of perforation. There is very questionable early intramural abscess development. ACT 112: Negative or not required by law. Electronically signed by: Uriah Apodaca M.D. 04/15/2023 9:55 AM MDM Narrative Patient was seen and evaluated as above in room B10. Review was performed of triage nursing notes and vital signs. After obtaining a thorough history and physical examination the above work up was performed. Patient presents to us today for evaluation of abdominal pain, nausea and chills. She does appear to be in pain and is tender in the abdomen on exam. Options of care were discussed with the patient. IV access was established. Labs were drawn. She was medicated with IV morphine for pain, Zofran for nausea. Laboratory studies here reveal no leukocytosis. Mild anemia with hemoglobin of 11.3. There is mild thrombocytopenia at 96. Mild hyponatremia 135. Glucose elevated at 304. Patient is clinically dehydrated. Patient was hydrated here with normal saline and that decreased to 264. Mild T. bili elevation at 1.4. Lipase within normal limits. Urinalysis does not suggest infection. CT scan was performed of the abdomen/pelvis. Results as above revealing findings compatible with acute diverticulitis without perforation. Very questionable early intramural abscess development per radiologist. With the patient's physical exam and history in conjunction with the CT scan, I do believe that IV antibiotics and inpatient management are warranted. Patient case discussed with the hospitalist service, Dr. Sheldon. Please refer to further documentation regarding her stay. Case was discussed with the attending physician. In the evaluation and treatment of this patient the following differential diagnoses were entertained: Bowel obstruction, perforation, abscess, diverticulitis, UTI, pyelonephritis, sepsis, among others. Impression & Plan Diverticulitis, Abdominal pain Discharge Plan Visit Data Chief Complaint: Abdominal Pain Stated Complaint: SEVERE LOWER ABDOMINAL PAIN, NAUSEA ED Provider: Phillip Velez ED Midlevel Provider: Colton Lo Discharge Problem: Diverticulitis, Abdominal pain Patient Disposition: Admitted As Inpatient Condition: Good Forms Stand Alone Forms: My [facility] Prescriptions Prescriptions: No Action aspirin 81 mg Tablet,Delayed Release (Dr/Ec) 81 mg PO QAM metoprolol tartrate 25 mg Tablet 25 mg PO BID omeprazole 20 mg Capsule,Delayed Release(Dr/Ec) 20 mg PO BID Toujeo SoloStar U-300 Insulin 300 unit/mL (1.5 mL) Insulin Pen 62 unit SUBCUT HS insulin aspart U-100 [Novolog U-100 Insulin aspart] 100 unit/mL Solution 0 sliding scale dose subcut TID Rx Instructions: 1 sliding scale dose subcutaneously glipizide 5 mg tablet 10 mg PO QAM lisinopril 20 mg Tablet 20 mg PO QAM Qty: 30 0RF isosorbide mononitrate 30 mg Tablet Extended Release 24 Hr 30 mg PO QAM Qty: 30 0RF rosuvastatin 5 mg Tablet 5 mg PO HS Qty: 30 0RF chlorthalidone 25 mg tablet 25 mg PO DAILY glipizide 5 mg Tablet 5 mg PO QPM Referrals Referrals: Monserrat Palomino PA-C [Primary Care Provider] -
[2023-04-15] MEDS ORDERED: MoRPHine SULFATE 2 MG/ML CARP IV STA (08:11)
[2023-04-15] MEDS ORDERED: ONDANSETRON INJ 2 MG/ML 2 ML VIAL IV STA (08:11)
[2023-04-15 08:36] LABS: Basophils # (auto) 0.02 K/uL (0.00-0.20); Basophils % (auto) 0.3 %; Eosinophils # (auto) 0.04 K/uL (0.00-0.50); Eosinophils % (auto) 0.6 %; Hematocrit (blood only) 30.8 % (37.0-47.0); Hemoglobin 11.3 g/dl (12.0-16.0); Immature Granulocytes # (auto) 0.01 K/uL (0.01-0.20); Immature Granulocytes % (auto) 0.1 %; Lymphocytes % (auto) 15.7 %; Mean Corpuscular Hemoglobin 30.9 pg (25.0-34.0); Mean Corpuscular Hgb Conc 36.7 g/dL (32.0-36.0); Mean Corpuscular Volume 84.2 fL (80.0-100.0); Mean Platelet Volume 10.5 fL (9.4-12.4); Monocytes # (auto) 0.53 K/uL (0.11-0.59); Monocytes % (auto) 7.6 %; Neutrophils # (auto) 5.29 K/uL (1.40-6.50); Neutrophils % (auto) 75.7 %; Platelet Count 96 K/uL (130-400); RDW Coefficient of Variation 13.5 % (11.5-14.5); Red Blood Count 3.66 M/uL (4.20-5.40); White Blood Count 6.99 K/ul (4.8-10.8)
--- NOTE | 2023-04-15 08:41 | Emergency Department Note ---
ED Visit Note Physician Evaluation Note: I agree with assessment and plan of Colton Lo PA-C. I was consulted by the Advanced Practice Provider. I personally made/approved the management plan and take responsibility for the patient management. I performed a substantive portion of the visit. This includes the aspects of: 67-year-old with abdominal pain. Laboratory and imaging testing ordered. -I independently interpreted the following studies: CT abdomen pelvis with IV contrast as per my informal interpretation reveals acute diverticulitis. Radiologist concurs and notes possible developing intramural abscess as well. -Given degree of discomfort as well as developing abscess I do think that hospitalization is reasonable along with IV antibiotics. Patient has not septic at this time. Phillip Velez MD
[2023-04-15 08:50] LABS: Albumin Globulin Ratio 2.1 (0.9-2); Albumin Level 4.5 gm/dl (3.4-5.0); Bilirubin,Total 1.4 mg/dl (0.2-1.0); Calcium 9.6 mg/dl (8.6-10.3); Creatinine Clr Calc Pharmacy 61.3 ml/min; Est GFR (African American) 79.9 ml/min; Est GFR (Non-African American) 68.9 ml/min; Globulin 2.1 gm/dl (2.5-4.0); Potassium 3.5 mmol/L (3.5-5.1); Total Protein 6.6 gm/dl (6.0-8.3)
[2023-04-15 08:55] LABS: Appearance Urine Clear (Clear); Bilirubin Urine Negative (Negative); Blood Urine Negative (Negative); Color Urine Orange; Glucose Urine UA 1+ (Negative); Ketones Urine Negative (Negative); Leukocyte Esterase Urine Trace (Negative); Nitrite Urine Negative (Negative); Protein Urine Negative (Negative); Specific Gravity Urine 1.012 (1.000-1.030); Urobilinogen Urine Negative (Negative); pH Urine 5.5 (4.5-7.5)
[2023-04-15 09:02] LABS: Epithelial Cell Urine 0-5 /lpf (0-5)
[2023-04-15 09:03] LABS: Bacteria Urine Negative (Negative); Hyaline Casts Urine 0-5 /lpf (0-5); RBC Urine 0-4 /hpf (0-4); WBC Urine 0-5 /hpf (0-5)
[2023-04-15] MEDS ORDERED: OPTIRAY 320 500ml IV ONE (09:26)
--- NOTE | 2023-04-15 09:57 | CT Scan Report ---
CT abd pelvis IV con only CLINICAL HISTORY: Diffuse abdominal pain, bloating, nausea TECHNIQUE: Helical axial images of the abdomen and pelvis were obtained and displayed. Automated dose lowering techniques and/or adjustment according to patient size were utilized for this exam. This e xam was performed with intravenous contrast. CT DOSE: 1371.71 mGy.cm COMPARISON: Comparison is made to CT abdomen pelvis 05/28/2021 FINDINGS: Lower chest: Bibasilar atelectasis versus scarring is seen. Liver: Suggestion of hepatic steatosis. Gallbladder and biliary tree: Patient is status post cholecystectomy. Physiologic prominence of the b iliary ducts is noted. Pancreas: Unremarkable, no focal lesions. Spleen: Spleen measures 14.5 cm in craniocaudal dimension. Adrenals: Unremarkable. Kidneys and ureters: Perinephric stranding is noted bilaterally. Bladder: Unremarkable. Reproductive organs: Unremarkable. Bowel: Diverticulosis is seen with wall thickening, fat stranding, and vascular prominence in the sig moid colon. There is questionable rim-enhancing lesion in the superior wall of the sigmoid colon. The appendix is unremarkable. Lymph nodes Retroperitoneal: Unremarkable. Pelvic: Unremarkable. Mesenteric: Unremarkable. Peritoneum: Fat stranding is noted about the sigmoid colon. Otherwise unremarkable. Vessels: Unremarkable. Abdominal wall: Unremarkable. Bones: Minimal degenerative changes are seen. IMPRESSION: Findings are compatible with diverticulitis without evidence of perforation. There is very questionab le early intramural abscess development. ACT 112: Negative or not required by law. Electronically signed by: Uriah Apodaca M.D. 04/15/2023 9:55 AM
[2023-04-15] MEDS ORDERED: PIPERACILLIN/TAZOBACTAM 4.5 GM/100 ML BAG IV ONE (10:19)
[2023-04-15] MEDS ORDERED: SODIUM CHLORIDE 0.9% 1,000 ML IV SCH (11:00)
[2023-04-15] MEDS ORDERED: ACETAMINOPHEN 325 MG TAB PO PRN (12:11)
[2023-04-15] MEDS: SODIUM CHLORIDE 0.9% 1,000 ML IV SCH ×2 (12:22→19:48)
[2023-04-15] MEDS: ONDANSETRON INJ 2 MG/ML 2 ML VIAL IV PRN ×2 (12:22→19:49)
[2023-04-15] MEDS ORDERED: MoRPHine SULFATE 4 MG/ML 1 ML CARP\\VIAL IV STA (12:30)
[2023-04-15] MEDS ORDERED: CARBOHYDRATES FOR HYPOGLYCEMIA PO PRN (12:58)
[2023-04-15] MEDS ORDERED: GLUCAGON FOR INJ 1 MG VIAL SQ PRN (12:58)
[2023-04-15] MEDS ORDERED: GLUCOSE 40% GEL 15 GM TUBE PO PRN (12:58)
[2023-04-15] MEDS ORDERED: DEXTROSE 50% 50 ML SYRINGE IV PRN (12:58)
[2023-04-15] MEDS ORDERED: GLUCOSE 10 TAB/TUBE PO PRN (12:58)
--- NOTE | 2023-04-15 13:09 | History & Physical Report ---
Date of Service April 15, 2023 Assessment & Plan (1) Acute diverticulitis: Plan: Acute onset, confirmed with CT scan. Cont Zosyn for now. No evidence of sepsis. General surgery consult requested with poss developing intramural abscess on scan. Clear liquid diet for now. 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 Also found multiple gastric polyps at that time and a superficial gastric ulcer at the prepyloric area. Repeat screening for Flores's is overdue and should be completed as soon as able after discharge. Continues on PPI therapy per home regimen. Cannot find completed colonoscopy which was scheduled in 2012. There is a GI note in the system which reported that patient had a colonoscopy [place] [address] Lebron that showed UC, but no biopsies were taken and she was never seen in GI or treated for UC. She has a h/o IBS and splenomegaly. Colonoscopy screening is also overdue. (3) DM type 2 (diabetes mellitus, type 2): Plan: chronic, no recent A1C. Will obtain this. Glucose today was 300. Patient is on basal/bolus insulin at home. Will continue this here and will break her long acting into twice daily for better coverage. (4) CAD (coronary artery disease): Plan: chronic, stable. Cont baby aspirin and metoprolol and lisinopril per home regimen. Has h/o statin intolerance. (5) Thrombocytopenia: Plan: chronic, likely related to liver disease. She had BM biopsy in 2007 when first noted as pancytopenia. BM biopsy was normal per records and she was referred to GI for liver workup for ongoing thrombocytopenia. She underwent a transjugular liver biopsy which revealed SAM and moderate fibrosis in 2007. EGD after this ruled out esophageal varices. Continued monitoring of liver function by GI and PCP recommended. (6) SAM (nonalcoholic steatohepatitis): Plan: NAFLD with moderate fibrosis noted on workup from 2007. No recent followup with GI. No evidence of cirrhosis on CT scan today. No report of PVT. Labs reveal a mild elevation in TB to 1.4 and no LFT elevation. Physiologic prominence of bile duct noted on CT scan. If RUQ pain and total bilirubin don't improve with initial treatment, would repeat an US with doppler of liver area to rule out PVT and reassess CBD. Cont to monitor CMP in am. (7) HTN (hypertension): Plan: chronic, stable. Cont current medications including chlorthalidone and lisinopril. DVT proph-Lovenox, although thrombocytopenic, Plt are around 100K and she has no bleeding. She is at increased risk for DVT with ongoing infection and sedentary state while hospitalized. Recommend to continue this for now. Full Code Dispo-med/surg, home in next 2-3 days pending clinical improvement. I spent a total of 75minutes coordinating, documenting, and providing care for this patient excluding time spent in the performance of separately billed services Renea Sheldon DO [facility] Hospitalist Admission and Anticipated Discharge Date Admission Date: April 15, 2023 History of Present Illness Chief Complaint: abdominal pain Primary Care Provider: Monserrat Palomino PA-C 67 yo F reports generalized abdominal pain for the past 1-2 days. No worsening with food but not improved with BMs. Had a normal BM yesterday but then had difficulty with evacuation with worsening pain radiating into her back somewhat. No fevers, but chills present intermittently. Nausea present without vomiting. Morphine did help the pain in the ER. We discussed her CT scan results and discussed why it was good care to bring surgery on board, despite the current care plan being nonoperative. Allergies Allergy/AdvReac Type Severity Reaction Status Date / Time Quinolones Allergy Intermediate NAUSEA, Verified 04/15/23 07:53 ITCH, RASH cephalexin [From Keflex] Allergy Unknown Itching Verified 04/15/23 13:16 codeine Allergy Unknown CAN TAKE Verified 04/15/23 07:53 MORPHINE Sulfa (Sulfonamide Allergy Unknown CAN'T Verified 04/15/23 07:53 Antibiotics) REMEMBER exenatide AdvReac Intermediate Nausea/vomi Verified 04/15/23 07:53 ting. metformin AdvReac Intermediate Nausea/Vomi Verified 04/15/23 07:53 ting nitrofurantoin AdvReac Intermediate Nausea/vomi Verified 04/15/23 07:53 ting polyethylene glycol AdvReac Intermediate Nausea/vomi Verified 04/15/23 07:53 ting isosorbide [From Imdur] AdvReac Unknown Headache Verified 04/15/23 13:16 polyethylene glycol 3350 AdvReac Unknown Vomiting Verified 04/15/23 13:16 [From Miralax] [id number] Reductase AdvReac Unknown brain fog Verified 04/15/23 13:16 Inhibitor Home Medications Medication Instructions Recorded Confirmed Type aspirin 81 mg tablet,delayed 81 mg PO QAM 11/22/18 04/15/23 History release insulin glargine U-300 conc 300 64 unit subcut HS 11/22/18 04/15/23 History unit/mL (1.5 mL) subcutaneous pen (Toujeo SoloStar U-300 Insulin) metoprolol tartrate 25 mg tablet 25 mg PO BID 11/22/18 04/15/23 History omeprazole 20 mg capsule,delayed 20 mg PO BID 11/22/18 04/15/23 History release insulin aspart U-100 100 unit/mL 0 sliding scale dose subcut TID 07/05/20 04/15/23 History subcutaneous solution (Novolog U-100 Insulin aspart) chlorthalidone 25 mg tablet 25 mg PO DAILY 04/15/23 04/15/23 History lisinopril 10 mg tablet 10 mg PO DAILY 04/15/23 04/15/23 History Past Med/Surg History Medical History (Updated 04/15/23 @ 13:09 by Renea Sheldon DO) Coronary atherosclerosis had a heart catheterization with no PCI Pulmonary nodule Hypoglycemia HLD (hyperlipidemia) HTN (hypertension) Flores esophagus Thrombocytopenia SAM (nonalcoholic steatohepatitis) DM type 2 (diabetes mellitus, type 2) Surgical History (Updated 04/15/23 @ 13:09 by Renea Sheldon DO) Status post bilateral oophorectomy per pt History of bone marrow biopsy History of liver biopsy Hx of cardiac cath "05/2015 - mild CAD" History of hysterectomy S/P cholecystectomy Family History (Updated 04/19/22 @ 17:11 by Neena Shaw PA-C) Mother Heart disease Father Heart disease Sister , age mid 70s Heart disease Sister , Mid to late 70s Heart disease Brother Heart disease age 74 Sister Heart disease age 80s Social History Smoking Status: Former smoker Tobacco Type: Cigarettes Second Hand Exposure: No; Do You Dip or Chew Tobacco: No; Hx Alcohol Use: No Hx Substance Use: No Preferred Language: Belarusian Communication Ability: Effective [facility] Director Required: No Beliefs That Will Affect Care: None Current Living Situation: Spouse Feels Safe at Home: Yes Safety Concerns: Feels Safe At This Time Assistive Devices: None Physical Exam Physical Exam: CONSTITUTIONAL: WNWD, vitals as above, generally well-appearing, NAD EYES: normal conjunctivae, no scleral icterus ENT: external ear and nose normal, MMM NECK: trachea midline RESPIRATORY: clear to auscultation bilaterally, no crackles, rales or wheezes, normal respiratory effort CARDIOVASCULAR: regular rate and rhythm, S1 and 2 heard without murmurs, gallops or rubs, no JVD, no peripheral edema, no carotid bruits CHEST: inspection of chest was normal GASTROINTESTINAL: soft, generalized tenderness to palpation without distension, worse in RLQ>LUQ>LLQ. MUSCULOSKELETAL: strength 5/5 throughout, head is normocephalic and atraumatic SKIN: warm and dry NEUROLOGIC: CN 2-12 grossly intact, no sensory deficit, normal cognition, normal speech, no tremor PSYCHIATRIC: alert cooperative and oriented to person, place and time. Euthymic mood, makes good eye contact, language grossly intact, recent and remote memory grossly intact. Results & Data Results & Data Vital Signs (Past 12 Hours) Vital Signs Temp Pulse Pulse Resp BP BP Pulse Ox 04/15/23 12:15 36.4 C L 79 16 149/69 H 97 04/15/23 11:19 77 20 130/72 98 04/15/23 09:50 81 18 127/58 L 99 04/15/23 07:36 102 H 04/15/23 07:22 36.0 C L 92 H 20 156/74 H 96 O2 Del Method 04/15/23 12:15 Room Air 04/15/23 11:19 04/15/23 09:50 04/15/23 07:36 04/15/23 07:22 Room Air Laboratory Results Short CBC 04/15/23 Range/Units 08:00 WBC 6.99 (4.8-10.8) K/ul Hgb 11.3 L (12.0-16.0) g/dl Hct 30.8 L (37.0-47.0) % Plt Count 96 L (130-400) K/uL BMP 04/15/23 08:00 Sodium 135 L Potassium 3.5 Chloride 98 Carbon Dioxide 28 BUN 20 Creatinine 0.87 Glucose 304 H* Calcium 9.6 Liver Function 04/15/23 Range/Units 08:00 Total Bilirubin 1.4 H (0.2-1.0) mg/dl AST 14 (13-39) U/L ALT 11 (7-52) U/L Alkaline Phosphatase 54 (34-104) U/L Albumin 4.5 (3.4-5.0) gm/dl Urine 04/15/23 Range/Units 08:32 Urine Color [place] Urine Appearance Clear (Clear) Urine pH 5.5 (4.5-7.5) Ur Specific [place] 1.012 (1.000-1.030) Urine Protein Negative (Negative) Urine Glucose (UA) 1+ H (Negative) Diagnostic Findings Abdomen/Pelvis CT 04/15/23 07:53 CT abd pelvis IV con only CLINICAL HISTORY: Diffuse abdominal pain, bloating, nausea TECHNIQUE: Helical axial images of the abdomen and pelvis were obtained and displayed. Automated dose lowering techniques and/or adjustment according to patient size were utilized for this exam. This exam was performed with intravenous contrast. CT DOSE: 1371.71 mGy.cm COMPARISON: Comparison is made to CT abdomen pelvis 05/28/2021 FINDINGS: Lower chest: Bibasilar atelectasis versus scarring is seen. Liver: Suggestion of hepatic steatosis. Gallbladder and biliary tree: Patient is status post cholecystectomy. Physiologic prominence of the biliary ducts is noted. Pancreas: Unremarkable, no focal lesions. Spleen: Spleen measures 14.5 cm in craniocaudal dimension. Adrenals: Unremarkable. Kidneys and ureters: Perinephric stranding is noted bilaterally. Bladder: Unremarkable. Reproductive organs: Unremarkable. Bowel: Diverticulosis is seen with wall thickening, fat stranding, and vascular prominence in the sigmoid colon. There is questionable rim-enhancing lesion in the superior wall of the sigmoid colon. The appendix is unremarkable. Lymph nodes Retroperitoneal: Unremarkable. Pelvic: Unremarkable. Mesenteric: Unremarkable. Peritoneum: Fat stranding is noted about the sigmoid colon. Otherwise unremarkable. Vessels: Unremarkable. Abdominal wall: Unremarkable. Bones: Minimal degenerative changes are seen. IMPRESSION: Findings are compatible with diverticulitis without evidence of perforation. There is very questionable early intramural abscess development. ACT 112: Negative or not required by law. Electronically signed by: Uriah Apodaca M.D. 04/15/2023 9:55 AM Code Status & VTE Plan VTE Prophylaxis Plan VTE Prophylaxis will be ordered: Yes
[2023-04-15] MEDS ORDERED: MoRPHine SULFATE 2 MG/ML CARP IV PRN (13:56)
[2023-04-15] MEDS: ENOXAPARIN INJ 40 MG/0.4 ML SYR SQ SCH (14:17)
--- NOTE | 2023-04-15 14:29 | Surgery Consultation ---
Date of Consultation April 15, 2023 Assessment & Plan (1) Acute diverticulitis: Six 7-year-old woman with acute diverticulitis, possible developing intramural abscess. I did discussion with her about diverticulitis. There is no surgical indication at this time. I would recommend continuing IV fluid hydration, IV antibiotics, clear liquid diet. We will continue to monitor her. She will most likely be able to be switched to oral antibiotics in the next day or so and be discharged home on a course of oral antibiotics. History of Present Illness Reason for Consultation: Diverticulitis with possible intramural abscess Requesting Physician: Renea Sheldon DO Attending Physician: Renea Sheldon DO History of Present Illness 67-year-old woman presents with 3-day history of increasing diffuse abdominal pain which was worse in the left lower quadrant. It radiated to the back. She was having constipation issues as well. Denies fevers or chills. She denies any nausea or vomiting. CT scan demonstrates acute diverticulitis with possible developing intramural abscess. Allergies Allergy/AdvReac Type Severity Reaction Status Date / Time Quinolones Allergy Intermediate NAUSEA, Verified 04/15/23 07:53 ITCH, RASH cephalexin [From Keflex] Allergy Unknown Itching Verified 04/15/23 13:16 codeine Allergy Unknown CAN TAKE Verified 04/15/23 07:53 MORPHINE Sulfa (Sulfonamide Allergy Unknown CAN'T Verified 04/15/23 07:53 Antibiotics) REMEMBER exenatide AdvReac Intermediate Nausea/vomi Verified 04/15/23 07:53 ting. metformin AdvReac Intermediate Nausea/Vomi Verified 04/15/23 07:53 ting nitrofurantoin AdvReac Intermediate Nausea/vomi Verified 04/15/23 07:53 ting polyethylene glycol AdvReac Intermediate Nausea/vomi Verified 04/15/23 07:53 ting isosorbide [From Imdur] AdvReac Unknown Headache Verified 04/15/23 13:16 polyethylene glycol 3350 AdvReac Unknown Vomiting Verified 04/15/23 13:16 [From Miralax] [id number] Reductase AdvReac Unknown brain fog Verified 04/15/23 13:16 Inhibitor Home Medications Medication Instructions Recorded Confirmed Type aspirin 81 mg tablet,delayed 81 mg PO QAM 11/22/18 04/15/23 History release insulin glargine U-300 conc 300 64 unit subcut HS 11/22/18 04/15/23 History unit/mL (1.5 mL) subcutaneous pen (Toujeo SoloStar U-300 Insulin) metoprolol tartrate 25 mg tablet 25 mg PO BID 11/22/18 04/15/23 History omeprazole 20 mg capsule,delayed 20 mg PO BID 11/22/18 04/15/23 History release insulin aspart U-100 100 unit/mL 0 sliding scale dose subcut TID 07/05/20 04/15/23 History subcutaneous solution (Novolog U-100 Insulin aspart) chlorthalidone 25 mg tablet 25 mg PO DAILY 04/15/23 04/15/23 History lisinopril 10 mg tablet 10 mg PO DAILY 04/15/23 04/15/23 History Patient History Medical History Coronary atherosclerosis had a heart catheterization with no PCI Pulmonary nodule Hypoglycemia HLD (hyperlipidemia) HTN (hypertension) Flores esophagus Thrombocytopenia SAM (nonalcoholic steatohepatitis) DM type 2 (diabetes mellitus, type 2) Surgical History Status post bilateral oophorectomy per pt History of bone marrow biopsy History of liver biopsy Hx of cardiac cath "05/2015 - mild CAD" History of hysterectomy S/P cholecystectomy Family History Mother Heart disease Father Heart disease Sister , age mid 70s Heart disease Sister , Mid to late 70s Heart disease Brother Heart disease age 74 Sister Heart disease age 80s Social History Smoking Status: Former smoker Tobacco Type: Cigarettes Second Hand Exposure: No; Do You Dip or Chew Tobacco: No; Hx Alcohol Use: No Hx Substance Use: No Preferred Language: Kyrgyz Communication Ability: Effective [employer] Required: No Beliefs That Will Affect Care: None Current Living Situation: Spouse Feels Safe at Home: Yes Safety Concerns: Feels Safe At This Time Assistive Devices: None Review of Systems Review of Systems: All systems reviewed & are unremarkable except as noted in HPI & below Physical Exam Constitutional: WD/WN, vitals as above Eyes: PERRL, conjunctivae normal, anicteric sclerae Neck: trachea midline, no thyromegaly Respiratory: normal respiratory effort; no respiratory distress and no labored breathing Cardiovascular: Rate/Rhythm: regular rate and regular rhythm Gastrointestinal (Abdomen): Inspection/Auscultation: abdomen normal to inspection; abdomen not distended Percussion/Palpation: + abdomen tender (Diffuse lower abdomen) and abdomen soft; no guarding and abdomen not rigid Skin: no rashes, warm and dry Psychiatric: A+Ox3, euthymic affect Results & Data Vital Signs (Past 12 Hours) Vital Signs Temp Pulse Pulse Resp BP BP Pulse Ox 04/15/23 12:15 36.4 C L 79 16 149/69 H 97 04/15/23 11:19 77 20 130/72 98 04/15/23 09:50 81 18 127/58 L 99 04/15/23 07:36 102 H 04/15/23 07:22 36.0 C L 92 H 20 156/74 H 96 O2 Del Method 04/15/23 12:15 Room Air 04/15/23 11:19 04/15/23 09:50 04/15/23 07:36 04/15/23 07:22 Room Air Laboratory Results 04/15/23 04/15/23 04/15/23 Range/Units 12:26 09:53 08:32 WBC (4.8-10.8) K/ul RBC (4.20-5.40) M/uL Hgb (12.0-16.0) g/dl Hct (37.0-47.0) % MCV (80.0-100.0) fL MCH (25.0-34.0) pg MCHC (32.0-36.0) g/dL RDW Std Deviation (36.4-46.3) fL RDW Coeff of Meeta (11.5-14.5) % Plt Count (130-400) K/uL MPV (9.4-12.4) fL Immature Gran % (Auto) % Neut % (Auto) % Lymph % (Auto) % [place] % (Auto) % Eos % (Auto) % Baso % (Auto) % Neut # (Auto) (1.40-6.50) K/uL Lymph # (Auto) (1.20-3.40) K/uL [place] # (Auto) (0.11-0.59) K/uL Eos # (Auto) (0.00-0.50) K/uL Baso # (Auto) (0.00-0.20) K/uL Immature Gran # (Auto) (0.01-0.20) K/uL Sodium (136-145) mmol/L Potassium (3.5-5.1) mmol/L Chloride (98-107) mmol/L Carbon Dioxide (21-32) mmol/L Anion Gap (3-11) BUN (6-23) mg/dl Creatinine (0.6-1.2) mg/dl Est Cr Clr Drug Dosing ml/min Est GFR ( Amer) ml/min Est GFR (Non-Af Amer) ml/min BUN/Creatinine Ratio (10-20) Glucose (70-99(Fasting)) mg/dl POC Glucose 228 H 264 H (70-99) mg/dl Calcium (8.6-10.3) mg/dl Total Bilirubin (0.2-1.0) mg/dl AST (13-39) U/L ALT (7-52) U/L Alkaline Phosphatase (34-104) U/L Total Protein (6.0-8.3) gm/dl Albumin (3.4-5.0) gm/dl Globulin (2.5-4.0) gm/dl Albumin/Globulin Ratio (0.9-2) Lipase (11-82) U/L Urine Color [place] Urine Appearance Clear (Clear) Urine pH 5.5 (4.5-7.5) Ur Specific [place] 1.012 (1.000-1.030) Urine Protein Negative (Negative) Urine Glucose (UA) 1+ H (Negative) Urine Ketones Negative (Negative) Urine Blood Negative (Negative) Urine Nitrite Negative (Negative) Urine Bilirubin Negative (Negative) Urine Urobilinogen Negative (Negative) Ur Leukocyte Esterase Trace H (Negative) Urine RBC 0-4 (0-4) /hpf Urine WBC 0-5 (0-5) /hpf Ur Epithelial Cells 0-5 (0-5) /lpf Urine Bacteria Negative (Negative) Hyaline Casts 0-5 (0-5) /lpf 04/15/23 Range/Units 08:00 WBC 6.99 (4.8-10.8) K/ul RBC 3.66 L (4.20-5.40) M/uL Hgb 11.3 L (12.0-16.0) g/dl Hct 30.8 L (37.0-47.0) % MCV 84.2 (80.0-100.0) fL MCH 30.9 (25.0-34.0) pg MCHC 36.7 H (32.0-36.0) g/dL RDW Std Deviation 42.0 (36.4-46.3) fL RDW Coeff of Meeta 13.5 (11.5-14.5) % Plt Count 96 L (130-400) K/uL MPV 10.5 (9.4-12.4) fL Immature Gran % (Auto) 0.1 % Neut % (Auto) 75.7 % Lymph % (Auto) 15.7 % [place] % (Auto) 7.6 % Eos % (Auto) 0.6 % Baso % (Auto) 0.3 % Neut # (Auto) 5.29 (1.40-6.50) K/uL Lymph # (Auto) 1.10 L (1.20-3.40) K/uL [place] # (Auto) 0.53 (0.11-0.59) K/uL Eos # (Auto) 0.04 (0.00-0.50) K/uL Baso # (Auto) 0.02 (0.00-0.20) K/uL Immature Gran # (Auto) 0.01 (0.01-0.20) K/uL Sodium 135 L (136-145) mmol/L Potassium 3.5 (3.5-5.1) mmol/L Chloride 98 (98-107) mmol/L Carbon Dioxide 28 (21-32) mmol/L Anion Gap 9 (3-11) BUN 20 (6-23) mg/dl Creatinine 0.87 (0.6-1.2) mg/dl Est Cr Clr Drug Dosing 61.3 ml/min Est GFR ( Amer) 79.9 ml/min Est GFR (Non-Af Amer) 68.9 ml/min BUN/Creatinine Ratio 23.0 H (10-20) Glucose 304 H* (70-99(Fasting)) mg/dl POC Glucose (70-99) mg/dl Calcium 9.6 (8.6-10.3) mg/dl Total Bilirubin 1.4 H (0.2-1.0) mg/dl AST 14 (13-39) U/L ALT 11 (7-52) U/L Alkaline Phosphatase 54 (34-104) U/L Total Protein 6.6 (6.0-8.3) gm/dl Albumin 4.5 (3.4-5.0) gm/dl Globulin 2.1 L (2.5-4.0) gm/dl Albumin/Globulin Ratio 2.1 H (0.9-2) Lipase 22 (11-82) U/L Urine Color Urine Appearance (Clear) Urine pH (4.5-7.5) Ur Specific [place] (1.000-1.030) Urine Protein (Negative) Urine Glucose (UA) (Negative) Urine Ketones (Negative) Urine Blood (Negative) Urine Nitrite (Negative) Urine Bilirubin (Negative) Urine Urobilinogen (Negative) Ur Leukocyte Esterase (Negative) Urine RBC (0-4) /hpf Urine WBC (0-5) /hpf Ur Epithelial Cells (0-5) /lpf Urine Bacteria (Negative) Hyaline Casts (0-5) /lpf Diagnostic Findings CT abd pelvis IV con only CLINICAL HISTORY: Diffuse abdominal pain, bloating, nausea TECHNIQUE: Helical axial images of the abdomen and pelvis were obtained and displayed. Automated dose lowering techniques and/or adjustment according to patient size were utilized for this exam. This exam was performed with intravenous contrast. CT DOSE: 1371.71 mGy.cm COMPARISON: Comparison is made to CT abdomen pelvis 05/28/2021 FINDINGS: Lower chest: Bibasilar atelectasis versus scarring is seen. Liver: Suggestion of hepatic steatosis. Gallbladder and biliary tree: Patient is status post cholecystectomy. Physiologic prominence of the biliary ducts is noted. Pancreas: Unremarkable, no focal lesions. Spleen: Spleen measures 14.5 cm in craniocaudal dimension. Adrenals: Unremarkable. Kidneys and ureters: Perinephric stranding is noted bilaterally. Bladder: Unremarkable. Reproductive organs: Unremarkable. Bowel: Diverticulosis is seen with wall thickening, fat stranding, and vascular prominence in the sigmoid colon. There is questionable rim-enhancing lesion in the superior wall of the sigmoid colon. The appendix is unremarkable. Lymph nodes Retroperitoneal: Unremarkable. Pelvic: Unremarkable. Mesenteric: Unremarkable. Peritoneum: Fat stranding is noted about the sigmoid colon. Otherwise unremarkable. Vessels: Unremarkable. Abdominal wall: Unremarkable. Bones: Minimal degenerative changes are seen. IMPRESSION: Findings are compatible with diverticulitis without evidence of perforation. There is very questionable early intramural abscess development. ACT 112: Negative or not required by law.
[2023-04-15] MEDS: PIPERACILLIN/TAZOBACTAM 4.5 GM in DEXTROSE 5% MINI-B 100 ML IV SCH ×2 (15:37→23:37)
[2023-04-15] MEDS: INSULIN ASPART PER UNIT CHARGE SC SCH ×2 (17:28→20:35)
[2023-04-15] MEDS: traMADol HCL 50 MG TABLET PO PRN (19:48)
[2023-04-15] MEDS: PANTOprazole 40 MG TAB PO SCH (19:49)
[2023-04-15] MEDS: METOPROLOL TARTRATE 25 MG TAB PO SCH (19:50)
[2023-04-15] MEDS: LANTUS PER UNIT CHARGE SQ SCH (20:36)
[2023-04-16 06:12] LABS: Hematocrit (blood only) 26.4 % (37.0-47.0); Hemoglobin 9.1 g/dl (12.0-16.0); Mean Corpuscular Hemoglobin 30.2 pg (25.0-34.0); Mean Corpuscular Hgb Conc 34.5 g/dL (32.0-36.0); Mean Corpuscular Volume 87.7 fL (80.0-100.0); Mean Platelet Volume 10.3 fL (9.4-12.4); Platelet Count 71 K/uL (130-400); RDW Coefficient of Variation 13.7 % (11.5-14.5); RDW Standard Deviation 43.8 fL (36.4-46.3); Red Blood Count 3.01 M/uL (4.20-5.40)
[2023-04-16 06:26] LABS: Albumin Globulin Ratio 2.2 (0.9-2); Albumin Level 3.7 gm/dl (3.4-5.0); BUN Creatinine Ratio 15.3 (10-20); Bilirubin,Total 1.3 mg/dl (0.2-1.0); Calcium 8.2 mg/dl (8.6-10.3); Creatinine Clr Calc Pharmacy 63.3 ml/min; Est GFR (African American) 82.2 ml/min; Est GFR (Non-African American) 70.9 ml/min; Globulin 1.7 gm/dl (2.5-4.0); Potassium 3.2 mmol/L (3.5-5.1); Total Protein 5.4 gm/dl (6.0-8.3)
[2023-04-16] MEDS: PIPERACILLIN/TAZOBACTAM 4.5 GM in DEXTROSE 5% MINI-B 100 ML IV SCH ×2 (07:29→16:22)
[2023-04-16 07:34] LABS: Estimated Average Glucose 134 mg/dl; Hemoglobin A1C 6.3 % (4.5-5.6)
[2023-04-16] MEDS: INSULIN ASPART PER UNIT CHARGE SC SCH ×4 (08:29→20:39)
[2023-04-16] MEDS: PANTOprazole 40 MG TAB PO SCH ×2 (08:29→20:29)
[2023-04-16] MEDS: CHLORTHALIDONE 25 MG TAB PO SCH (08:29)
[2023-04-16] MEDS: METOPROLOL TARTRATE 25 MG TAB PO SCH ×2 (08:29→20:30)
[2023-04-16] MEDS: lisinopril 10 MG TAB PO SCH (08:29)
[2023-04-16] MEDS: ASPIRIN 81 MG ECTAB PO SCH (08:29)
[2023-04-16] MEDS: LANTUS PER UNIT CHARGE SQ SCH ×2 (08:33→20:39)
[2023-04-16] MEDS: traMADol HCL 50 MG TABLET PO PRN ×2 (08:34→20:29)
[2023-04-16] MEDS ORDERED: POTASSIUM CHLORIDE CRTAB 20 MEQ TABCR PO STA (08:57)
[2023-04-16] MEDS: ENOXAPARIN INJ 40 MG/0.4 ML SYR SQ SCH (13:48)
--- NOTE | 2023-04-16 13:49 | Surgery Progress Note ---
Date of Service April 16, 2023 Assessment & Plan (1) Acute diverticulitis: Plan: 67-year-old woman with diverticulitis. Improving. Increase diet as tolerated. Would plan for 12-24 more hours of IV antibiotics. She may be discharged on oral antibiotics either this evening or tomorrow morning from the surgical standpoint. Admission and Anticipated Discharge Date Admission Date: April 15, 2023 Subjective Feeling better today. Less pain. No nausea or vomiting. Tolerating clears. Physical Exam Physical Exam: NAD, A&O x 3 AFVSS Abdomen: Soft, nontender, nondistended Results & Data Vital Signs (Past 12 Hours) Vital Signs Temp Pulse Resp BP Pulse Ox O2 Del Method 04/16/23 07:24 36.6 C 63 16 125/63 95 Room Air Laboratory Results 04/16/23 04/16/23 04/16/23 Range/Units 11:43 07:40 05:20 WBC 4.00 L (4.8-10.8) K/ul RBC 3.01 L (4.20-5.40) M/uL Hgb 9.1 L (12.0-16.0) g/dl Hct 26.4 L (37.0-47.0) % MCV 87.7 (80.0-100.0) fL MCH 30.2 (25.0-34.0) pg MCHC 34.5 (32.0-36.0) g/dL RDW Std Deviation 43.8 (36.4-46.3) fL RDW Coeff of Meeta 13.7 (11.5-14.5) % Plt Count 71 L (130-400) K/uL MPV 10.3 (9.4-12.4) fL Sodium 137 (136-145) mmol/L Potassium 3.2 L (3.5-5.1) mmol/L Chloride 105 (98-107) mmol/L Carbon Dioxide 27 (21-32) mmol/L Anion Gap 5 (3-11) BUN 13 (6-23) mg/dl Creatinine 0.85 (0.6-1.2) mg/dl Est Cr Clr Drug Dosing 63.3 ml/min Est GFR ( Amer) 82.2 ml/min Est GFR (Non-Af Amer) 70.9 ml/min BUN/Creatinine Ratio 15.3 (10-20) Glucose 87 (70-99(Fasting)) mg/dl POC Glucose 109 H 133 H (70-99) mg/dl Estimat Average Glucose 134 mg/dl Hemoglobin A1c 6.3 H (4.5-5.6) % Calcium 8.2 L (8.6-10.3) mg/dl Total Bilirubin 1.3 H (0.2-1.0) mg/dl AST 14 (13-39) U/L ALT 9 (7-52) U/L Alkaline Phosphatase 41 (34-104) U/L Total Protein 5.4 L (6.0-8.3) gm/dl Albumin 3.7 (3.4-5.0) gm/dl Globulin 1.7 L (2.5-4.0) gm/dl Albumin/Globulin Ratio 2.2 H (0.9-2) 04/15/23 04/15/23 Range/Units 20:10 16:59 WBC (4.8-10.8) K/ul RBC (4.20-5.40) M/uL Hgb (12.0-16.0) g/dl Hct (37.0-47.0) % MCV (80.0-100.0) fL MCH (25.0-34.0) pg MCHC (32.0-36.0) g/dL RDW Std Deviation (36.4-46.3) fL RDW Coeff of Meeta (11.5-14.5) % Plt Count (130-400) K/uL MPV (9.4-12.4) fL Sodium (136-145) mmol/L Potassium (3.5-5.1) mmol/L Chloride (98-107) mmol/L Carbon Dioxide (21-32) mmol/L Anion Gap (3-11) BUN (6-23) mg/dl Creatinine (0.6-1.2) mg/dl Est Cr Clr Drug Dosing ml/min Est GFR ( Amer) ml/min Est GFR (Non-Af Amer) ml/min BUN/Creatinine Ratio (10-20) Glucose (70-99(Fasting)) mg/dl POC Glucose 161 H 207 H (70-99) mg/dl Estimat Average Glucose mg/dl Hemoglobin A1c (4.5-5.6) % Calcium (8.6-10.3) mg/dl Total Bilirubin (0.2-1.0) mg/dl AST (13-39) U/L ALT (7-52) U/L Alkaline Phosphatase (34-104) U/L Total Protein (6.0-8.3) gm/dl Albumin (3.4-5.0) gm/dl Globulin (2.5-4.0) gm/dl Albumin/Globulin Ratio (0.9-2)
--- NOTE | 2023-04-16 16:12 | Hospitalist Progress Note ---
Date of Service April 16, 2023 Assessment & Plan (1) Acute diverticulitis: Plan (1) Acute diverticulitis: Plan: Acute onset, confirmed with CT scan. Cont Zosyn 04/15 for now. No evidence of sepsis. General surgery evaled, on full liq now. likely dc marissa if continues to improve. today with improvement of belly pain. Monitor replete electrolytes. 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 Also found multiple gastric polyps at that time and a superficial gastric ulcer at the prepyloric area. Repeat screening for Flores's is overdue and should be completed as soon as able after discharge. Continues on PPI therapy per home regimen. Cannot find completed colonoscopy which was scheduled in 2012. There is a GI note in the system which reported that patient had a colon[place] [address] Lebron that showed UC, but no biopsies were taken and she was never seen in GI or treated for UC. She has a h/o IBS and splenomegaly. Colonoscopy screening is also overdue. Other chronic medical conditions: T2DM: A1c of 6.3. Fairly well-controlled. Sliding scale insulin while in the hospital. CAD: Chronic, stable. Continue home aspirin and metoprolol and lisinopril. History of statin intolerance. Thrombocytopenia: Chronic, likely secondary to underlying liver disease. She had BM biopsy in 2007 when first noted as pancytopenia. BM biopsy was normal per records and she was referred to GI for liver workup for ongoing thrombocytopenia. She underwent a transjugular liver biopsy which revealed SAM and moderate fibrosis in 2007. EGD after this ruled out esophageal varices. Continued monitoring of liver function by GI and PCP recommended. SAM: NAFLD with moderate fibrosis noted on workup from 2007. No recent followup with GI. No evidence of cirrhosis on CT scan at admission. No report of PVT. Labs reveal a mild elevation in TB to 1.4 and no LFT elevation at presentation. Physiologic prominence of bile duct noted on CT scan. no RUQ pain on exam. HTN: Chronic, stable. Continue home chlorthalidone and lisinopril. DVT prophylaxis: Lovenox subcu Full code Dispo: Likely in the next day. Admission and Anticipated Discharge Date Admission Date: April 15, 2023 Subjective Patient was seen and examined at bedside. Patient was lying in bed, on room air, NAD, resting comfortably. Patient overall reports improving belly pain that she came in with. Had upper belly pain after taking potassium tablet today, patient advised to stay upright for half hour and take ample fluid with potassium tablet in future. Patient denies nausea or vomiting. Patient tolerating clears, diet being advanced to full liquid. Physical Exam Physical Exam: GENERAL: Alert and oriented x3. NAD, on RA. HEENT: No pallor, no icterus. Pupils equal, round and reactive to light. Oral mucosa moist. NECK: No JVD, no neck masses. HEART: S1 and S2 heard. Regular rate and rhythm. No murmur, no gallop. RESPIRATORY SYSTEM: Normal AP diameter. No accessory muscle use. No wheezing, no crackles. ABDOMEN: Soft, bowel sounds present, rlq tender, no distention. CENTRAL NERVOUS SYSTEM: No facial droop. Speech is clear. Obeys simple commands. Moves extremities. EXTREMITIES: No edema, no erythema seen. Results & Data Results & Data Vital Signs (Past 12 Hours) Vital Signs Temp Pulse Resp BP Pulse Ox O2 Del Method 04/16/23 15:26 36.5 C 85 17 145/64 H 96 Room Air 04/16/23 07:24 36.6 C 63 16 125/63 95 Room Air
[2023-04-17] MEDS: PIPERACILLIN/TAZOBACTAM 4.5 GM in DEXTROSE 5% MINI-B 100 ML IV SCH ×3 (01:13→15:41)
[2023-04-17 06:30] LABS: Hematocrit (blood only) 30.3 % (37.0-47.0); Hemoglobin 10.4 g/dl (12.0-16.0); Mean Corpuscular Hgb Conc 34.3 g/dL (32.0-36.0); Mean Corpuscular Volume 87.3 fL (80.0-100.0); Mean Platelet Volume 10.4 fL (9.4-12.4); Platelet Count 91 K/uL (130-400); RDW Coefficient of Variation 13.4 % (11.5-14.5); RDW Standard Deviation 42.5 fL (36.4-46.3); Red Blood Count 3.47 M/uL (4.20-5.40); White Blood Count 4.89 K/ul (4.8-10.8)
[2023-04-17 06:33] LABS: BUN Creatinine Ratio 11.5 (10-20); Bilirubin Direct 0.2 mg/dl (0-0.2); Calcium 9.1 mg/dl (8.6-10.3); Creatinine Clr Calc Pharmacy 61.8 ml/min; Est GFR (African American) 79.9 ml/min; Est GFR (Non-African American) 68.9 ml/min; Magnesium 1.7 mg/dl (1.7-2.4); Potassium 3.7 mmol/L (3.5-5.1)
[2023-04-17] MEDS: PANTOprazole 40 MG TAB PO SCH (08:06)
[2023-04-17] MEDS: lisinopril 10 MG TAB PO SCH (08:07)
[2023-04-17] MEDS: ASPIRIN 81 MG ECTAB PO SCH (08:07)
[2023-04-17] MEDS: CHLORTHALIDONE 25 MG TAB PO SCH (08:07)
[2023-04-17] MEDS: METOPROLOL TARTRATE 25 MG TAB PO SCH (08:07)
[2023-04-17] MEDS: INSULIN ASPART PER UNIT CHARGE SC SCH ×3 (08:08→17:06)
[2023-04-17] MEDS: traMADol HCL 50 MG TABLET PO PRN (08:12)
[2023-04-17] MEDS: LANTUS PER UNIT CHARGE SQ SCH (08:12)
--- NOTE | 2023-04-17 08:42 | Surgery Progress Note ---
Date of Service April 17, 2023 Assessment & Plan (1) Acute diverticulitis: Plan: 67-year-old woman with diverticulitis. Improving. Increase diet as tolerated. No surgical intervention required. May be discharged from a surgical standpoint. Will need a colonoscopy in the near future. We will sign off for now. Please call with questions or concerns. Admission and Anticipated Discharge Date Admission Date: April 15, 2023 Subjective Tolerating full liquid diet. No nausea or vomiting. Minimal tenderness in the right side. Physical Exam Physical Exam: NAD, A&O x 3 AFVSS Abdomen: Soft, nontender, nondistended Results & Data Vital Signs (Past 12 Hours) Vital Signs Temp Pulse Resp BP Pulse Ox O2 Del Method 04/17/23 07:24 36.6 C 63 16 146/71 H 97 Room Air Laboratory Results 04/17/23 04/17/23 04/16/23 Range/Units 07:41 05:35 20:33 WBC 4.89 (4.8-10.8) K/ul RBC 3.47 L (4.20-5.40) M/uL Hgb 10.4 L (12.0-16.0) g/dl Hct 30.3 L (37.0-47.0) % MCV 87.3 (80.0-100.0) fL MCH 30.0 (25.0-34.0) pg MCHC 34.3 (32.0-36.0) g/dL RDW Std Deviation 42.5 (36.4-46.3) fL RDW Coeff of Meeta 13.4 (11.5-14.5) % Plt Count 91 L (130-400) K/uL MPV 10.4 (9.4-12.4) fL Sodium 140 (136-145) mmol/L Potassium 3.7 (3.5-5.1) mmol/L Chloride 105 (98-107) mmol/L Carbon Dioxide 29 (21-32) mmol/L Anion Gap 6 (3-11) BUN 10 (6-23) mg/dl Creatinine 0.87 (0.6-1.2) mg/dl Est Cr Clr Drug Dosing 61.8 ml/min Est GFR ( Amer) 79.9 ml/min Est GFR (Non-Af Amer) 68.9 ml/min BUN/Creatinine Ratio 11.5 (10-20) Glucose 74 (70-99(Fasting)) mg/dl POC Glucose 104 H 124 H (70-99) mg/dl Calcium 9.1 (8.6-10.3) mg/dl Phosphorus 3.0 (2.5-4.9) mg/dl Magnesium 1.7 (1.7-2.4) mg/dl Total Bilirubin 1.0 (0.2-1.0) mg/dl Direct Bilirubin 0.2 (0-0.2) mg/dl AST 17 (13-39) U/L ALT 9 (7-52) U/L Alkaline Phosphatase 43 (34-104) U/L Total Protein 6.0 (6.0-8.3) gm/dl Albumin 4.0 (3.4-5.0) gm/dl 04/16/23 04/16/23 Range/Units 16:45 11:43 WBC (4.8-10.8) K/ul RBC (4.20-5.40) M/uL Hgb (12.0-16.0) g/dl Hct (37.0-47.0) % MCV (80.0-100.0) fL MCH (25.0-34.0) pg MCHC (32.0-36.0) g/dL RDW Std Deviation (36.4-46.3) fL RDW Coeff of Meeta (11.5-14.5) % Plt Count (130-400) K/uL MPV (9.4-12.4) fL Sodium (136-145) mmol/L Potassium (3.5-5.1) mmol/L Chloride (98-107) mmol/L Carbon Dioxide (21-32) mmol/L Anion Gap (3-11) BUN (6-23) mg/dl Creatinine (0.6-1.2) mg/dl Est Cr Clr Drug Dosing ml/min Est GFR ( Amer) ml/min Est GFR (Non-Af Amer) ml/min BUN/Creatinine Ratio (10-20) Glucose (70-99(Fasting)) mg/dl POC Glucose 98 109 H (70-99) mg/dl Calcium (8.6-10.3) mg/dl Phosphorus (2.5-4.9) mg/dl Magnesium (1.7-2.4) mg/dl Total Bilirubin (0.2-1.0) mg/dl Direct Bilirubin (0-0.2) mg/dl AST (13-39) U/L ALT (7-52) U/L Alkaline Phosphatase (34-104) U/L Total Protein (6.0-8.3) gm/dl Albumin (3.4-5.0) gm/dl
[2023-04-17] MEDS ORDERED: ADVANCED PROBIOTIC 1250 MG CAPSULE PO SCH (10:15)
[2023-04-17] MEDS: ENOXAPARIN INJ 40 MG/0.4 ML SYR SQ SCH (13:24)
--- NOTE | 2023-04-17 16:22 | Discharge Summary ---
Date of Service April 17, 2023 Admission HPI Per Admitting Provider 67 yo F reports generalized abdominal pain for the past 1-2 days. No worsening with food but not improved with BMs. Had a normal BM yesterday but then had difficulty with evacuation with worsening pain radiating into her back somewhat. No fevers, but chills present intermittently. Nausea present without vomiting. Morphine did help the pain in the ER. We discussed her CT scan results and discussed why it was good care to bring surgery on board, despite the current care plan being nonoperative. Admission Exam Per Admitting Provider CONSTITUTIONAL: WNWD, vitals as above, generally well-appearing, NAD EYES: normal conjunctivae, no scleral icterus ENT: external ear and nose normal, MMM NECK: trachea midline RESPIRATORY: clear to auscultation bilaterally, no crackles, rales or wheezes, normal respiratory effort CARDIOVASCULAR: regular rate and rhythm, S1 and 2 heard without murmurs, gallops or rubs, no JVD, no peripheral edema, no carotid bruits CHEST: inspection of chest was normal GASTROINTESTINAL: soft, generalized tenderness to palpation without distension, worse in RLQ>LUQ>LLQ. MUSCULOSKELETAL: strength 5/5 throughout, head is normocephalic and atraumatic SKIN: warm and dry NEUROLOGIC: CN 2-12 grossly intact, no sensory deficit, normal cognition, normal speech, no tremor PSYCHIATRIC: alert cooperative and oriented to person, place and time. Euthymic mood, makes good eye contact, language grossly intact, recent and remote memory grossly intact. Principal Diagnosis Acute diverticulitis History of Flores's esophagus Discharge Exam GENERAL: Alert and oriented x3. NAD, on RA. HEENT: No pallor, no icterus. Pupils equal, round and reactive to light. Oral mucosa moist. NECK: No JVD, no neck masses. HEART: S1 and S2 heard. Regular rate and rhythm. No murmur, no gallop. RESPIRATORY SYSTEM: Normal AP diameter. No accessory muscle use. No wheezing, no crackles. ABDOMEN: Soft, bowel sounds present, rlq non tender, no distention. CENTRAL NERVOUS SYSTEM: No facial droop. Speech is clear. Obeys simple commands. Moves extremities. EXTREMITIES: No edema, no erythema seen. Discharge Data Allergies Allergy/AdvReac Type Severity Reaction Status Date / Time Quinolones Allergy Intermediate NAUSEA, Verified 04/15/23 07:53 ITCH, RASH cephalexin [From Keflex] Allergy Unknown Itching Verified 04/15/23 13:16 codeine Allergy Unknown CAN TAKE Verified 04/15/23 07:53 MORPHINE Sulfa (Sulfonamide Allergy Unknown CAN'T Verified 04/15/23 07:53 Antibiotics) REMEMBER exenatide AdvReac Intermediate Nausea/vomi Verified 04/15/23 07:53 ting. metformin AdvReac Intermediate Nausea/Vomi Verified 04/15/23 07:53 ting nitrofurantoin AdvReac Intermediate Nausea/vomi Verified 04/15/23 07:53 ting polyethylene glycol AdvReac Intermediate Nausea/vomi Verified 04/15/23 07:53 ting isosorbide [From Imdur] AdvReac Unknown Headache Verified 04/15/23 13:16 polyethylene glycol 3350 AdvReac Unknown Vomiting Verified 04/15/23 13:16 [From Miralax] Vmongic-XPM-ThS Reductase AdvReac Unknown brain fog Verified 04/15/23 13:16 Inhibitor Consultations 04/15/23 10:41 ED Decision to Admit Stat 04/15/23 12:11 Consult General Surgery Routine Ordered Studies 04/15/23 07:53 CT abd pelvis IV con only Stat Hospital Course (1) Acute diverticulitis: Plan (1) Acute diverticulitis: Plan: Acute onset, confirmed with CT scan. Cont Zosyn 04/15--- Augmentin on discharge to complete the course.. No evidence of sepsis. General surgery evaled, can be DC'd. Patient tolerating advancement of diet, denies increasing abdominal pain. In fact reports improvement in abdominal pain today. Patient is comfortable going home. She is hemodynamically stable. Patient is made aware that she will need upper and lower scope, she will need follow-up with GI in 1 to 2 months time. 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 Also found multiple gastric polyps at that time and a superficial gastric ulcer at the prepyloric area. Repeat screening for Flores's is overdue and should be completed as soon as able after discharge. Continues on PPI therapy per home regimen. Cannot find completed colonoscopy which was scheduled in 2012. There is a GI note in the system which reported that patient had a colon[place] [address] Bernardino that showed UC, but no biopsies were taken and she was never seen in GI or treated for UC. She has a h/o IBS and splenomegaly. Colonoscopy screening is also overdue. Other chronic medical conditions: T2DM: A1c of 6.3. Fairly well-controlled. Sliding scale insulin while in the hospital. CAD: Chronic, stable. Continue home aspirin and metoprolol and lisinopril. History of statin intolerance. Thrombocytopenia: Chronic, likely secondary to underlying liver disease. She had BM biopsy in 2007 when first noted as pancytopenia. BM biopsy was normal per records and she was referred to GI for liver workup for ongoing thrombocytopenia. She underwent a transjugular liver biopsy which revealed SAM and moderate fibrosis in 2007. EGD after this ruled out esophageal varices. Continued monitoring of liver function by GI and PCP recommended. SAM: NAFLD with moderate fibrosis noted on workup from 2007. No recent followup with GI. No evidence of cirrhosis on CT scan at admission. No report of PVT. Labs reveal a mild elevation in TB to 1.4 and no LFT elevation at presentation. Physiologic prominence of bile duct noted on CT scan. no RUQ pain on exam. HTN: Chronic, stable. Continue home chlorthalidone and lisinopril. DVT prophylaxis: Lovenox subcu Full code Dispo: Likely in the next day. The patient is being discharged with following instruction at the point of dis charge: Follow-up with your primary care physician within a week time and likely you will need labs CBC/CMP/magnesium/phosphorus. Maintain low fiber, soft consistency diet for next 1 week before you transition back to your regular consistency diet. If increasing belly pain with diet, scale back to full liquid or liquid diet and contact emergency or your PCP immediately. You can take [id number] Tylenol for mild to moderate pain. You will be discharged on antibiotic for acute diverticulitis, complete the course as prescribed. Probiotics will be added. For your history of Flores's esophagus you are overdue for upper scope. Also you are overdue for colonoscopy. Please follow-up with GI in 1 to 2 months time upon discharge for setting up this test. Coordinate with the PCP for referral if needed. Take your medications as prescribed. Please make sure that you are able to get your medications today by calling your pharmacy before you leave the hospital so that your treatment continuity is not broken. Home Health Attestation I certify that this patient is under my care and that I, or a physicians assistant professor of drama working with me, had a face to-face encounter that meets the home health [id number] encounter requirements with this patient. The encounter with the patient was in whole, or in part, for the following medical condition, which is the primary reason for home health care (list medical condition): I certify that, based on my findings, the following services are medically necessary home health services: My clinical findings support the need for the above services because: Further, I certify that my clinical findings support that this patient is homebound (i.e. absences from home require considerable and taxing effort and are for medical reasons or taoism services or infrequently or of short duration when for other reasons) because: Certification for Home Health Services: Based on the above findings, I certify that this patient is confined to the home and needs intermittent correction care, physical therapy and/or speech therapy or continues to need occupational therapy. The patient is under my care, and I have initiated the establishment of the plan of care. This patient will be followed by a physician who will periodically review the plan of care. Total Time Total Time Spent Total Time Spent (In Minutes): 45 Discharge Plan Discharge Items Patient Disposition: Home - Self-Care Reason For Visit: ACUTE COMPLICATED DIVERTICULITIS Discharge Diagnosis: Acute diverticulitis History of Flores's esophagus Condition on Discharge: Good Activity: Resume your previous activity Non-emergency contact: Primary Care Provider Call non-emergency contact if: you have any medication questions, your symptoms worsen and your pain is worsening Follow-up/Referrals: Monserrat Palomino PA-C [Primary Care Provider] - (Date & Time 04/24/2023 12:00 PM Provider Monserrat Palomino PA-C Department [facility] ) Diet: Carb Consistent or DM2 and Low Fiber Addtl Attending Provider Instructions: Follow-up with your primary care physician within a week time and likely you will need labs CBC/CMP/magnesium/phosphorus. Maintain low fiber, soft consistency diet for next 1 week before you transition back to your regular consistency diet. If increasing belly pain with diet, scale back to full liquid or liquid diet and contact emergency or your PCP immediately. You can take [id number] Tylenol for mild to moderate pain. You will be discharged on antibiotic for acute diverticulitis, complete the course as prescribed. Probiotics will be added. For your history of Flores's esophagus you are overdue for upper scope. Also you are overdue for colonoscopy. Please follow-up with GI in 1 to 2 months time upon discharge for setting up this test. Coordinate with the PCP for referral if needed. Take your medications as prescribed. Please make sure that you are able to get your medications today by calling your pharmacy before you leave the hospital so that your treatment continuity is not broken. Pending Studies at Discharge: No Stand-Alone Forms: My [facility] [employer], Smoking Cessation Medications and DC Order Prescriptions: New tramadol 50 mg Tablet 50 mg PO Q12H PRN (Reason: severe pain (scale score 7-10)) 3 Days Qty: 6 0RF Advanced Probiotic 625 mg (10 billion cell) Capsule 2 cap PO DAILY 14 Days Qty: 28 0RF amoxicillin-pot clavulanate 875-125 mg tablet 1 tab PO BID 8 Days Qty: 16 0RF Continued aspirin 81 mg Tablet,Delayed Release (Dr/Ec) 81 mg PO QAM metoprolol tartrate 25 mg Tablet 25 mg PO BID omeprazole 20 mg Capsule,Delayed Release(Dr/Ec) 20 mg PO BID Toujeo SoloStar U-300 Insulin 300 unit/mL (1.5 mL) Insulin Pen 64 unit SUBCUT HS insulin aspart U-100 [Novolog U-100 Insulin aspart] 100 unit/mL Solution 0 sliding scale dose subcut TID Rx Instructions: 1 sliding scale dose subcutaneously chlorthalidone 25 mg tablet 25 mg PO DAILY lisinopril 10 mg tablet 10 mg PO DAILY Discharge Orders: Discharge Order (Routine); Ordered 04/17/23 Ordered By: Jon Andrade/Other Patient Handouts: High Blood Sugar (Hyperglycemia), Managing Type 2 Diabetes Admission Data Admit Date/Time: 04/15/23 10:45 Attending Provider: Jon Barahona Admit Provider: Renea Sheldon Primary Care Provider: Monserrat Palomino Other Providers: Davi Fatima; Renea Sheldon
== END 2023-04-17 18:01 | disposition home or self-care (01) | DRG 392 ==
LOC: ED 07:15 → SUATTDRO 10:45 → 3E 10:45